=== PATIENT | female | born 1960 | race African-American/Black ===

== ENCOUNTER 2018-10-14 21:41 | Inpatient (IN) | payer OTHER ==
--- NOTE | 2018-10-14 23:09 | PDOC ---
History of Present Illness - General Stated Complaint: PAIN History Source: Patient Exam Limitations: No Limitations - History of Present Illness Initial Comments: 10/14/18 23:02 58 yo F with a hx of IDDM, CAD, HTN, and hypothyroidism presents to the emergency department with acute onset of LLQ and left flank pain that began this morning. She states it awoke her from sleep. Described as sharp, 9/10, comes and goes, non radiating, and worsens with movement. She states she did not take any relieving medications. She states "I haven't eaten all week" because of poor appetite and had last bowel movement 1 week ago (endorses constipation). Endorses increased urinary frequency, but denies dysuria and hematuria. Denies nausea and vomiting. Denies the following: fever, chills, chest pain, SOB, visual changes, back pain, diarrhea, hematochezia, melena, and leg pain/swelling. Pmhx: Refer to above Shx: None Meds: insulin, synthroid, lipitor, and aspirin 81 mg Allergies: PCN Social: Denies tobacco, alcohol, and substance abuse. 10/15/18 00:02 Past History - Past Medical History Allergies/Adverse Reactions: Allergies Allergy/AdvReac Type Severity Reaction Status Date / Time Penicillins Allergy Verified 04/13/16 01:41 Home Medications: Ambulatory Orders Aspirin [ASA -] 81 mg PO DAILY 01/09/15 Atorvastatin Ca [Lipitor] 20 mg PO DAILY 01/09/15 Levothyroxine [Synthroid -] 100 mcg PO DAILY@0700 01/09/15 predniSONE [Deltasone -] 5 mg PO HS 01/09/15 predniSONE [Deltasone -] 10 mg PO AM 01/09/15 Metoprolol Tartrate 25 mg PO DAILY 07/28/15 Alendronate Sodium [Fosamax] 10 mg PO DAILY 04/13/16 Ezetimibe [Zetia] 10 mg PO DAILY 04/13/16 metFORMIN HCL [Metformin HCl] 500 mg PO BID 04/13/16 Cardiac Disorders: Yes (SVT.) Diabetes: Yes HTN: Yes Hypercholesterolemia: Yes Thyroid Disease: Yes (HYPO.) - Surgical History 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) - Immunization History Immunization Up to Date: No - Suicide/Smoking/Psychosocial Hx Smoking History: Current some day smoker Have you smoked in the past 12 months: Yes Information on smoking cessation initiated: No Hx Alcohol Use: No Drug/Substance Use Hx: No Substance Use Type: None Hx Substance Use Treatment: No Review of Systems - Review of Systems Able to Perform ROS?: Yes Is the patient limited Pashto proficient: No Constitutional: No: Chills, Diaphoresis, Fever HEENTM: No: Recent change in vision, Nose Pain, Throat Pain, Mouth Pain Respiratory: No: Cough, Shortness of Breath, SOB with Exertion Cardiac (ROS): No: Chest Pain, Lightheadedness, Palpitations, Syncope, Chest Tightness ABD/GI: Yes: Poor Appetite, Poor Fluid Intake. No: Constipated, Diarrhea, Nausea, Rectal Bleeding, Vomiting, Tarry Stools : Yes: Frequency. No: Burning, Dysuria, Hematuria, Incontinence Musculoskeletal: No: Back Pain, Gout, Joint Pain Integumentary: No: Lesions, Lumps, Rash Neurological: No: Headache, Numbness, Tremors, Weakness, Dizziness Psychiatric: No: Change in Appetite Endocrine: No: Unexplained Weight Gain Hematologic/Lymphatic: No: Anemia *Physical Exam - Vital Signs Last Vital Signs Temp Pulse Resp BP Pulse Ox 99.4 F 94 H 18 133/70 98 10/14/18 22:38 10/14/18 22:38 10/14/18 22:38 10/14/18 22:38 10/14/18 22:38 - Physical Exam General Appearance: Yes: Nourished, Appropriately Dressed HEENT: positive: EOMI, DAVID. negative: Scleral Icterus (R), Scleral Icterus (L) , Muffled/Hoarse voice Neck: positive: Trachea midline. negative: Decreased range of motion, Lymphadenopathy (R), Lymphadenopathy (L) Respiratory/Chest: positive: Lungs Clear, Decreased Breath Sounds. negative: Chest Tender, Respiratory Distress, Accessory Muscle Use Cardiovascular: positive: Regular Rhythm, Regular Rate, S1, S2. negative: Systolic Murmur Gastrointestinal/Abdominal: positive: Normal Bowel Sounds, Tender (diffusely tender with point of maximal tenderness in the LLQ and left flank) Lymphatic: negative: Adenopathy Musculoskeletal: positive: Normal Inspection, CVA Tenderness (L). negative: CVA Tenderness (R) Extremity: positive: Normal Capillary Refill, Normal Inspection, Normal Range of Motion. negative: Tender Integumentary: positive: Normal Color, Dry, Warm Neurologic: positive: Alert, Normal Mood/Affect, Normal Response Heart Score/ECG Review - ECG Intrepretation Comment:: 10/15/18 09:18 ventricular rate is 139, QRS is 70 ms, QTc is 538 ms. Sinus tachycardia with t wave inversion in V2. ED Treatment Course - LABORATORY CBC & Chemistry Diagram: 10/15/18 02:34 10/15/18 02:34 Medical Decision Making - Medical Decision Making 10/14/18 23:34 58 yo F with a hx of IDDM, CAD, HTN, and hypothyroidism presents to the emergency department with acute onset of LLQ and left flank pain that began this morning. Initial vitals: Initial Vital Signs Temp Pulse Resp BP Pulse Ox 99.4 F 94 H 18 133/70 98 10/14/18 22:38 10/14/18 22:38 10/14/18 22:38 10/14/18 22:38 10/14/18 22:38 Work up: ddx: constipation vs nephrolithiasis vs UTI vs msk strain vs diverticulosis labs: cbc, cmp, ua, urine culture, treatment: tylenol, percocet, NS 1 liter Laboratory Tests 10/14/18 10/15/18 10/15/18 23:52 01:04 01:04 WBC Cancelled Corrected WBC (auto) Cancelled RBC Cancelled Hgb Cancelled Hct Cancelled MCV Cancelled MCH Cancelled MCHC Cancelled RDW Cancelled Plt Count Cancelled MPV Cancelled Absolute Neuts (auto) Cancelled Absolute Lymphs (auto) Cancelled Absolute Monos (auto) Cancelled Absolute Eos (auto) Cancelled Absolute Basos (auto) Cancelled Add Manual Diff Cancelled Neutrophils % Cancelled Lymphocytes % Cancelled Monocytes % Cancelled Eosinophils % Cancelled Basophils % Cancelled Nucleated RBC % Cancelled Platelet Estimate Cancelled Platelet Comment Cancelled Normal RBC Morphology Cancelled Sodium Cancelled Potassium Cancelled Chloride Cancelled Carbon Dioxide Cancelled Anion Gap Cancelled BUN Cancelled Creatinine Cancelled Creat Clearance w eGFR Cancelled Random Glucose Cancelled Calcium Cancelled Magnesium Cancelled Total Bilirubin Cancelled AST Cancelled ALT Cancelled Alkaline Phosphatase Cancelled Total Protein Cancelled Albumin Cancelled Urine Color Yellow Urine Appearance Slcloudy Urine pH 5.0 Ur Specific [place] 1.018 Urine Protein Negative Urine Glucose (UA) Negative Urine Ketones 1+ H Urine Blood Negative Urine Nitrite Negative Urine Bilirubin Negative Urine Urobilinogen Negative Ur Leukocyte Esterase 3+ H Urine WBC (Auto) 51 Urine RBC (Auto) 2 Ur Epithelial Cells Rare Hyaline Casts 1 Urine Mucus Rare 10/15/18 10/15/18 02:34 02:34 WBC 7.5 Corrected WBC (auto) RBC 4.35 Hgb 11.0 Hct 34.4 D MCV 79.2 L MCH 25.4 L MCHC 32.0 RDW 12.9 Plt Count 345 MPV 7.9 Absolute Neuts (auto) 3.3 Absolute Lymphs (auto) Absolute Monos (auto) Absolute Eos (auto) Absolute Basos (auto) Add Manual Diff Neutrophils % 44.0 D Lymphocytes % 40.0 D Monocytes % 13.2 H D Eosinophils % 1.9 D Basophils % 0.9 Nucleated RBC % 0 Platelet Estimate Platelet Comment Normal RBC Morphology Sodium 136 Potassium 4.0 Chloride 100 Carbon Dioxide 27 Anion Gap 9 BUN 7 Creatinine 1.1 Creat Clearance w eGFR 51.38 Random Glucose 71 L Calcium 9.4 Magnesium 1.8 Total Bilirubin 0.7 AST 37 ALT 22 Alkaline Phosphatase 71 Total Protein 7.6 Albumin 3.3 L Urine Color Urine Appearance Urine pH Ur Specific [place] Urine Protein Urine Glucose (UA) Urine Ketones Urine Blood Urine Nitrite Urine Bilirubin Urine Urobilinogen Ur Leukocyte Esterase Urine WBC (Auto) Urine RBC (Auto) Ur Epithelial Cells Hyaline Casts Urine Mucus UA showed 3+ leuk esterase with WBC in the urine. CT abdomen and pelvis was ordered and incidentally, a left lower lobe consolidation processes was seen and written in the preliminary report by the [facility] service. She was started on levaquin prior to the CT report for the UTI. Given that she is living in a halfway setting and has difficult to control pain, she should be admitted for iv abx. Dispo: Admit *DC/Admit/Observation/Transfer Diagnosis at time of Disposition: UTI (lower urinary tract infection) Pneumonia Qualifiers: Pneumonia type: due to unspecified organism Laterality: left Lung location: lower lobe of lung Qualified Code(s): J18.1 - Lobar pneumonia, unspecified organism - Referrals - Patient Instructions - Post Discharge Activity
[2018-10-15] LABS: URINE APPEARANCE SLCLOUDY; URINE BILIRUBIN NEGATIVE (<2.0 mg/dL); URINE COLOR YELLOW; URINE GLUCOSE (UA) NEGATIVE (NEGATIVE); URINE KETONE 1+ (NEGATIVE); URINE LEUK ESTERASE 3+ (NEGATIVE); URINE NITRITE NEGATIVE (NEGATIVE); URINE PROTEIN NEGATIVE (NEGATIVE); URINE UROBILINOGEN NEGATIVE mg/dL (0.2-1.0)
[2018-10-15 00:25] LABS: EPI CELLS RARE /HPF (FEW); URINE HYALINE CAST 1 /lpf; URINE MUCUS RARE
[2018-10-15] MEDS ORDERED: SODIUM CHLORIDE 0.9% 1000 ML INFUS.BAG IV ONE (00:34)
[2018-10-15] MEDS ORDERED: ACETAMINOPHEN 1000 MG/100 ML VIAL (NON FORMULARY) IVPB ONE ×2 (00:35→19:30)
--- NOTE | 2018-10-15 00:50 | PDOC ---
Attending Attestation - Resident Resident Name: Lai Benson - ED Attending Attestation I have performed the following: I have examined & evaluated the patient, The case was reviewed & discussed with the resident, I agree w/resident's findings & plan, Exceptions are as noted - Medical Decision Making 10/15/18 00:49 I, Dr. Griselda Shipley, DO, attest that this document has been prepared under my direction and personally reviewed by me in its entirety. I further attest, that it accurately reflects all work, treatment, procedures and medical decision -making performed by me. 10/15/18 00:49 a/p: 58yo female with hx of DM presents for eval of constipation and dysuria -nausea and vomiting yesterday, diffuse abd pain -also with L flank and suprapubic pain -urgency and dysuria today -concern for UTI, but new onset constipation -will send labs, ua, ivf hydration -L cva ttp concern for pyelo vs renal colic -n/v and constipation -will obtain ct abd /pelvis -will monitor and reassess -pt is nontoxic in appearance, but appears uncomfortable -will give iv tylenol for pain <Griselda Shipley - Last Filed: 10/15/18 00:49> - HPI HPI: 10/15/18 01:15 The patient is a 58 year old female, with a significant past medical history of IDDM, CAD, HTN, and hypothyroidism, who presents to the emergency department with, LLQ and left flank pain. She describes her pain as a sudden onset, 9/10, and nonradiating. Allergies: Penicillins - Physicial Exam PE: 10/15/18 01:15 Constitutional: Awake, alert, oriented. No acute distress. Head: Normocephalic. Atraumatic Eyes: PERRL. EOMI. Conjunctivae are not pale. ENT: Mucous membranes are moist and intact. Posterior pharynx without exudates or erythema. Uvula midline. Neck: Supple. Full ROM. No lymphadenopathy. Cardiovascular: Tachycardic. Distal pulses are 2+ and symmetric. Pulmonary/Chest: No evidence of respiratory distress. Clear to auscultation bilaterally No wheezing, rales or rhonchi. +Abdominal: Diffuse suprapubic tenderness. Soft and non-distended. No rebound , guarding or rigidity. No organomegaly. No palpable masses. Good bowel sounds. +Back: Left CVA and flank tenderness. Musculoskeletal: No edema. No cyanosis. No clubbing. Full range of motion in all extremities. No calf tenderness. Radial/pedal pulses are intact and 2+ bilaterally Skin: Skin is warm and dry. No petechiae. No purpura. Neurological: Alert and oriented to person, place, and time. Cranial nerves II -XII are grossly intact. Normal speech. Strength is grossly symmetric. No sensory deficits. Psychiatric: Good eye contact. Normal interaction, affect and behavior. <Patricia Do - Last Filed: 10/15/18 01:15> - Medical Decision Making 10/15/18 03:17 I received pt in signout. She has a UTI and she has a left sided infiltrate. She complains of left flank pain. We will admit her for medicine observation admission, as she will require eval and abx.. We will not send her home with oral abx att this time, as she complains of N/D/abd pain 10/15/18 04:46 Pt will be hydrated with NSS and she received IV abx. <Jessy Guerin - Last Filed: 10/15/18 04:46> Attestations - Attestations 10/15/18 01:15 Documentation prepared by Patricia Do, acting as medical pathologist for Griselda Shipley DO. <Patricia Do - Last Filed: 10/15/18 01:15>
[2018-10-15] MEDS ORDERED: levoFLOXacin 750 MG TABLET PO ONE (01:11)
[2018-10-15] MEDS ORDERED: ACETAMINOPHEN 500 MG TABLET (FP) PO ONE (01:11)
[2018-10-15 02:58] LABS: BASO % 0.9 % (0-2.0); EOS % 1.9 % (0-4.5); HEMATOCRIT 34.4 % (32.4-45.2); MCH 25.4 pg (25.7-33.7); MEAN CELL VOLUME 79.2 fl (80-96); MEAN PLT VOLUME 7.9 fl (7.5-11.1); MONO % 13.2 % (3.8-10.2); PLATELET COUNT 345 K/MM3 (134-434); RBC 4.35 M/mm3 (3.60-5.2); RDW 12.9 % (11.6-15.6); WHITE BLOOD COUNT 7.5 K/mm3 (4.0-10.0)
[2018-10-15 03:20] LABS: ALBUMIN 3.3 g/dl (3.4-5.0); ALK PHOS 71 U/L (45-117); ANION GAP 9 MMOL/L (8-16); BILIRUBIN,TOTAL 0.7 mg/dL (0.2-1); BLOOD UREA NITROGEN 7 mg/dL (7-18); CALCIUM 9.4 mg/dL (8.5-10.1); CHLORIDE 100 mmol/L (98-107); CO2 27 mmol/L (21-32); CREATININE 1.1 mg/dL (0.55-1.3); GLUCOSE,RANDOM 71 mg/dL (74-106); MAGNESIUM 1.8 mg/dL (1.8-2.4); SGOT/AST 37 U/L (15-37); SGPT/ALT 22 U/L (13-61); SODIUM 136 mmol/L (136-145); TOT PROT 7.6 g/dl (6.4-8.2)
[2018-10-15] MEDS ORDERED: SODIUM CHLORIDE 1,000 ML IV STA (03:50)
--- NOTE | 2018-10-15 04:46 | PN ---
Teaching Attending Note Name of Resident: Mikayla Almanza ATTENDING PHYSICIAN STATEMENT I saw and evaluated the patient. I reviewed the resident's note and discussed the case with the resident. I agree with the resident's findings and plan as documented. SUBJECTIVE: Patient is a 58 year old woman with a history of DM, CAD, SVT, HTN, pituitary tumor removal (1995), and hypothyroidism presents to the ER with acute onset of LLQ and left flank pain that began this morning. She states it awoke her from sleep. Described as sharp, 9/10, comes and goes, non radiating, and worsens with movement. She states she did not take any relieving medications. She states "I haven't eaten all week" because of poor appetite and had last bowel movement 1 week ago. Has increased urinary frequency, but denies dysuria and hematuria. Denies nausea and vomiting. Denies the following: fever, chills, chest pain, SOB, visual changes, back pain, diarrhea, hematochezia, melena, and leg pain/swelling. OBJECTIVE: Alert Vital Signs Period Temp Pulse Resp BP Sys/Long Pulse Ox Last 24 Hr 99.4 F 94 18 133/70 98 HEENT: No Jaundice, eye redness or discharge, PERRLA, EOMI. Normocephalic, atraumatic. External ears are normal and hearing is grossly intact. No nasal discharge. Neck: Supple, nontender. No palpable adenopathy or thyromegaly. No JVD Chest: Good effort. Clear to auscultation and percussion. Heart: Regular. No S3, rub or murmur Abdomen: Not distended, soft, tender lower left Q abdomen and no HSM. No rebound ; + guarding. Normoactive bowel sounds. Ext: Peripheral pulses intact. No leg edema. Skin: Warm and dry. No petechiae, rash or ecchymosis. Neuro: Alert. Oriented x3. CN 2-12 grossly intact. Sensation grossly intact in all four extremities and DTR are symmetric. Home Medications Medication Instructions Recorded Aspirin [ASA -] 81 mg PO DAILY 01/09/15 Atorvastatin Ca [Lipitor] 20 mg PO DAILY 01/09/15 Levothyroxine [Synthroid -] 100 mcg PO DAILY@0700 01/09/15 predniSONE [Deltasone -] 5 mg PO HS 01/09/15 predniSONE [Deltasone -] 10 mg PO AM 01/09/15 Metoprolol Tartrate 25 mg PO DAILY 07/28/15 Alendronate Sodium [Fosamax] 10 mg PO DAILY 04/13/16 Ezetimibe [Zetia] 10 mg PO DAILY 04/13/16 metFORMIN HCL [Metformin HCl] 500 mg PO BID 04/13/16 Abnormal Lab Results 10/14/18 10/15/18 10/15/18 23:52 02:34 02:34 MCV 79.2 L MCH 25.4 L Monocytes % 13.2 H D Random Glucose 71 L Albumin 3.3 L Urine Ketones 1+ H Ur Leukocyte Esterase 3+ H ASSESSMENT AND PLAN: 1. UTI - CT scan of the abdomen shows left side kidney stone and ?LLL infiltrate. She is allergic to penicillin and QT is prolonged. Get CXR to clarify pneumonia. Treat with Aztreonam and azithromycin. Check lactic acid. Treat constipation with Miralax bid and liberal oral fluids. Consult ID and urology. 2. DM - For now, we will hold the home diabetes drugs and implement sliding scale insulin regimen. Provide comprehensive diabetes care with patient teaching and counseling about the importance of euglycemia, eye care and foot care. 3. DVT prophylaxis - Lovenox 40 mg SQ q 24 hours. 4. Advance directives - Full code
[2018-10-15] MEDS ORDERED: METOPROLOL TARTRATE 5 MG/5 ML VIAL IVPUSH ONE (05:10)
[2018-10-15] MEDS ORDERED: SODIUM CHLORIDE 1,000 ML IV SCH (05:15)
--- NOTE | 2018-10-15 05:24 | HP ---
CHIEF COMPLAINT: L flank pain x 1 day PCP: Dr. Lowery HISTORY OF PRESENT ILLNESS: 58 y/o F with hx IDDM, CAD, HTN, hypothyroidism, who presents to the ED c/o LLQ pain over the past day. As per pt, pain in her L flank began at 4AM yesterday. States that it began at rest. Radiated to her LLQ and also to her back. During this time, she also endorses BALTAZAR and decreased urinary void volume. Denies AMIN, fever, chills, cough, recent infections, chest pain or pressure, or changes in bowel function. Of note, pt has been living at the [facility] over the past week. Prior, she had lived with her sister however was kicked out of the house. ER course was notable for: (1) levaquin (2) Qtc 538 ms (3) IV NS Recent Travel: denies PAST MEDICAL HISTORY: as above PAST SURGICAL HISTORY: pituitary tumor removal (2001) Social History: has been living at the [facility] over the past week. Smoking: denies Alcohol: denies Drugs: denies Family History: denies Allergies Penicillins Allergy (Verified 04/13/16 01:41) - hives HOME MEDICATIONS: Home Medications Medication Instructions Recorded Aspirin [ASA -] 81 mg PO DAILY 01/09/15 Atorvastatin Ca [Lipitor] 20 mg PO DAILY 01/09/15 Levothyroxine [Synthroid -] 100 mcg PO DAILY@0700 01/09/15 predniSONE [Deltasone -] 5 mg PO HS 01/09/15 predniSONE [Deltasone -] 10 mg PO AM 01/09/15 Metoprolol Tartrate 25 mg PO DAILY 07/28/15 Alendronate Sodium [Fosamax] 10 mg PO DAILY 04/13/16 Ezetimibe [Zetia] 10 mg PO DAILY 04/13/16 metFORMIN HCL [Metformin HCl] 500 mg PO BID 04/13/16 will need to med rec with pharmacy in AM when open REVIEW OF SYSTEMS CONSTITUTIONAL: Absent: fever, chills, diaphoresis, generalized weakness, malaise, loss of appetite, weight change HEENT: Absent: rhinorrhea, nasal congestion, throat pain, throat swelling, difficulty swallowing, mouth swelling, ear pain, eye pain, visual changes CARDIOVASCULAR: Absent: chest pain, syncope, palpitations, irregular heart rate, lightheadedness , peripheral edema RESPIRATORY: +BALTAZAR Absent: cough, shortness of breath, orthopnea, wheezing, stridor, hemoptysis GASTROINTESTINAL: +abdominal pain Absent: abdominal distension, nausea, vomiting, diarrhea, constipation, melena, hematochezia GENITOURINARY: Absent: dysuria, frequency, urgency, hesitancy, hematuria, flank pain, genital pain MUSCULOSKELETAL: Absent: myalgia, arthralgia, joint swelling, back pain, neck pain SKIN: Absent: rash, itching, pallor HEMATOLOGIC/IMMUNOLOGIC: Absent: easy bleeding, easy bruising, lymphadenopathy, frequent infections ENDOCRINE: Absent: unexplained weight gain, unexplained weight loss, heat intolerance, cold intolerance NEUROLOGIC: Absent: headache, focal weakness or paresthesias, dizziness, unsteady gait, seizure, mental status changes, bladder or bowel incontinence PSYCHIATRIC: Absent: anxiety, depression, suicidal or homicidal ideation, hallucinations. PHYSICAL EXAMINATION Vital Signs - 24 hr 10/14/18 22:38 Temperature 99.4 F Pulse Rate 94 H Respiratory 18 Rate Blood Pressure 133/70 O2 Sat by Pulse 98 Oximetry (%) GENERAL: Tired. in no acute distress HEAD: Normal with no signs of trauma. EYES: Pupils equal, round and reactive to light, extraocular movements intact, sclera anicteric, conjunctiva clear. EARS, NOSE, THROAT: Ears normal, nares patent, oropharynx clear without exudates. Dry mucous membranes. NECK: Normal range of motion, supple LUNGS: +decreased breath sounds at bases. HEART: Regular rate and rhythm, normal S1 and S2 without murmur, rub or gallop. ABDOMEN: Soft,+diffusely tender - epigastrium, not distended, normoactive bowel sounds, no guarding, no rebound MUSCULOSKELETAL: Normal range of motion at all joints. LOWER EXTREMITIES: 2+ pt pulses, warm, well-perfused. No calf tenderness. No peripheral edema. NEUROLOGICAL: Cranial nerves II-XII intact. PSYCHIATRIC: Cooperative. Laboratory Tests 10/14/18 10/15/18 10/15/18 23:52 02:34 02:34 WBC 7.5 Hgb 11.0 Hct 34.4 D Plt Count 345 Random Glucose 71 L Urine Color Yellow Urine Appearance Slcloudy Urine Protein Negative Urine Glucose (UA) Negative Urine Ketones 1+ H Ur Leukocyte Esterase 3+ H Urine WBC (Auto) 51 Urine RBC (Auto) 2 Ur Epithelial Cells Rare ASSESSMENT/PLAN: 58 y/o F with hx IDDM, CAD, HTN, hypothyroidism, who presents to the ED c/o LLQ pain over the past day. As per pt, pain in her L flank began at 4AM yesterday. #L flank pain On CTAP, pt found to have R nephrolithiasis. UA also with likely UTI may explain LLQ/flank pain d/t PCN allergy; will tx UTI with azactam 1gm IVPB q8h, IV NS f/u blood cx, Ucx, lactic. urology consult: Dr. Odonnell #incidental LLL PNA as seen on CTAP, however need CXR to further dx. likely comm acq PNA as living in half-way currently if PNA evident, can add azithromycin avoid qtc prolonging agents. had received levaquin in ED (qtc 538ms) ID consult: Dr. Hu #sinus tachycardia with rate into 120-130's. likely 2/2 vol depletion, infection. will give IV lopressor 5mg IVP x 1. will start metoprolol succinate in AM to avoid dropping BP low #IDDM BGM q4h ISS ACHS #HTN -current control with metoprolol succinate -will need to call pharmacy in AM to verify meds #F/E/N IV NS 100 cc/hr continue to follow lytes Sodium controlled diet #PPX Dvt: Hep SQ 5000 TID #Dispo med-surg Visit type - Emergency Visit Emergency Visit: Yes ED Registration Date: 10/15/18 Care time: The patient presented to the Emergency Department on the above date and was hospitalized for further evaluation of their emergent condition. - New Patient This patient is new to me today: Yes Date on this admission: 10/15/18 - Critical Care Critical Care patient: No
[2018-10-15] MEDS ORDERED: METOPROLOL TARTRATE 5 MG/5 ML VIAL ONE (06:09)
[2018-10-15] MEDS: HEPARIN NA (PORCINE) 5,000 UNITS/ML 1ML VIAL SQ SCH ×3 (06:14→22:50)
[2018-10-15] MEDS: INSULIN SLIDING SCALE (NOVOLOG) 1 VIAL SQ SCH ×4 (07:20→22:50)
--- NOTE | 2018-10-15 08:47 | HOSP ---
Subjective - Review of Symptoms Events since last encounter: Patient states that is not feeling well, but better than last night. Vital Signs Temperature 99.4 F 10/15/18 07:38 Pulse Rate 63 10/15/18 07:38 Respiratory Rate 16 10/15/18 07:38 Blood Pressure 95/65 10/15/18 07:38 O2 Sat by Pulse Oximetry (%) 100 10/15/18 07:38 GENERAL: feels tired. in mild distress HEAD: Normal with no signs of trauma. EYES: Pupils equal, round and reactive to light, extraocular movements intact, sclera anicteric, conjunctiva clear. EARS, NOSE, THROAT: Ears normal, oropharynx clear without exudates. Dry mucous membranes. NECK: Normal range of motion, supple LUNGS: +decreased breath sounds at bases. HEART: Regular rate and rhythm, normal S1 and S2 without murmur, rub or gallop. ABDOMEN: Soft, positive for tenderness mid abdomenal area, not distended, normoactive bowel sounds, no guarding, no rebound MUSCULOSKELETAL: Normal range of motion at all joints. EXTREMITIES: 2+ pt pulses, warm, well-perfused. No calf tenderness. No peripheral edema. NEUROLOGICAL: Cranial nerves II-XII intact. PSYCHIATRIC: Cooperative. CBCD WBC 7.5 K/mm3 (4.0-10.0) 10/15/18 02:34 RBC 4.35 M/mm3 (3.60-5.2) 10/15/18 02:34 Hgb 11.0 GM/dL (10.7-15.3) 10/15/18 02:34 Hct 34.4 % (32.4-45.2) D 10/15/18 02:34 MCV 79.2 fl (80-96) L 10/15/18 02:34 MCHC 32.0 g/dl (32.0-36.0) 10/15/18 02:34 RDW 12.9 % (11.6-15.6) 10/15/18 02:34 Plt Count 345 K/MM3 (134-434) 10/15/18 02:34 MPV 7.9 fl (7.5-11.1) 10/15/18 02:34 CMP Sodium 136 mmol/L (136-145) 10/15/18 02:34 Potassium 4.0 mmol/L (3.5-5.1) 10/15/18 02:34 Chloride 100 mmol/L (98-107) 10/15/18 02:34 Carbon Dioxide 27 mmol/L (21-32) 10/15/18 02:34 Anion Gap 9 MMOL/L (8-16) 10/15/18 02:34 BUN 7 mg/dL (7-18) 10/15/18 02:34 Creatinine 1.1 mg/dL (0.55-1.3) 10/15/18 02:34 Creat Clearance w eGFR 51.38 (>60) 10/15/18 02:34 Random Glucose 71 mg/dL (74-106) L 10/15/18 02:34 Calcium 9.4 mg/dL (8.5-10.1) 10/15/18 02:34 Total Bilirubin 0.7 mg/dL (0.2-1) 10/15/18 02:34 AST 37 U/L (15-37) 10/15/18 02:34 ALT 22 U/L (13-61) 10/15/18 02:34 Alkaline Phosphatase 71 U/L (45-117) 10/15/18 02:34 Total Protein 7.6 g/dl (6.4-8.2) 10/15/18 02:34 Albumin 3.3 g/dl (3.4-5.0) L 10/15/18 02:34 Current Medications Generic Name Dose Route Start Last Admin Trade Name Freq PRN Reason Stop Dose Admin Heparin Sodium (Porcine) 5,000 unit 10/15/18 06:00 10/15/18 06:14 Heparin - SQ 5,000 unit TID VIRAL Administration Sodium Chloride 1,000 mls @ 100 mls/hr 10/15/18 05:15 10/15/18 06:15 Normal Saline - IV 10/16/18 15:14 100 mls/hr ASDIR VIRAL Administration Aztreonam 1 gm/ Dextrose 50 mls @ 100 mls/hr 10/15/18 10:00 IVPB Q8H-IV VIRAL Protocol Aztreonam 1 gm/ Dextrose 50 mls @ 100 mls/hr 10/15/18 10:00 IVPB 10/16/18 02:29 Q8H-IV VIRAL Protocol Insulin Aspart 1 vial 10/15/18 07:00 10/15/18 07:20 Novolog Vial Sliding Scale - SQ Not Given ACHS [facility] Protocol Metoprolol Succinate 25 mg 10/15/18 10:00 Toprol Xl - PO DAILY [facility] Home Medications Medication Instructions Recorded Aspirin [ASA -] 81 mg PO DAILY 01/09/15 Atorvastatin Ca [Lipitor] 20 mg PO DAILY 01/09/15 Levothyroxine [Synthroid -] 100 mcg PO DAILY@0700 01/09/15 predniSONE [Deltasone -] 5 mg PO HS 01/09/15 predniSONE [Deltasone -] 10 mg PO AM 01/09/15 Metoprolol Tartrate 25 mg PO DAILY 07/28/15 Alendronate Sodium [Fosamax] 10 mg PO DAILY 04/13/16 Ezetimibe [Zetia] 10 mg PO DAILY 04/13/16 metFORMIN HCL [Metformin HCl] 500 mg PO BID 04/13/16 ASSESSMENT/PLAN: 58 y/o F with hx IDDM, CAD, HTN, hypothyroidism, who presents to the ED c/o LLQ pain over the past day. As per pt, pain in her L flank began at 4AM yesterday. # LLL PNA on CTAP on IV antibiotic , ID on the case , patient lives in long term currently # Prolonged qtc , avoid prolonging agents. (qtc 538ms), will repeat EKG #Acute Left flank pain ;On CTAP, pt found to have R nephrolithiasis. UA also with likely UTI may explain LLQ/flank pain, on azactam 1gm IVPB q8h, since allergic to PCN ,F/u blood cx, Ucx, lactic. Urology consult: Dr. Odonnell #sinus tachycardia improved on IVF #T2DM BGM q4h, ISS ACHS #HTN continue meds. -will need to call pharmacy in AM to verify meds DVT PPX: Hep SQ 5000 TID Physical Examination Vital Signs: Vital Signs Temperature 99.4 F 10/15/18 07:38 Pulse Rate 63 10/15/18 07:38 Respiratory Rate 16 10/15/18 07:38 Blood Pressure 95/65 10/15/18 07:38 O2 Sat by Pulse Oximetry (%) 100 10/15/18 07:38 Labs: CBC, BMP 10/15/18 02:34 10/15/18 02:34
[2018-10-15] MEDS ORDERED: NITROFURANTOIN MACROCRYSTAL 50 MG CAPSULE (FP) PO SCH (10:00)
[2018-10-15] MEDS ORDERED: AZTREONAM 1 GM in DEXTROSE 5%-WATER - 50 ML IVPB SCH (10:00)
[2018-10-15] MEDS: metoPROLOL SUCCINATE 25 MG TAB.SR.24H (FP) PO SCH (11:06)
--- NOTE | 2018-10-15 11:53 | EKG ---
Test Reason : Blood Pressure : / mmHG Vent. Rate : 139 BPM Atrial Rate : 192 BPM P-R Int : 000 ms QRS Dur : 070 ms QT Int : 354 ms P-R-T Axes : 000 002 076 degrees QTc Int : 538 ms SUPRAVENTRICULAR TACHYCARDIA WITH OCCASIONAL PREMATURE VENTRICULAR COMPLEXES PROBABLY SHORT R-P TACHYCARDIA, CONSIDER AVNRT NONSPECIFIC T WAVE ABNORMALITY ABNORMAL ECG WHEN COMPARED WITH ECG OF 06-OCT-2017 13:09, SVT NOW PRESENT WITH ST-T ABNORMALITIES Confirmed by ROCÍO SOFIA MD ([id number]) on 10/15/2018 11:52:50 AM Referred By: Confirmed By:ROCÍO SOFIA MD
--- NOTE | 2018-10-15 15:52 | PN ---
Progress Note (short form) - Note Progress Note: ID Consult dictated ?LLL pneumonia PCN allergy Prolonged QT Await c/s Empiric vancomycin aztreonam
[2018-10-15] MEDS: SODIUM CHLORIDE 1,000 ML IV SCH (16:13)
[2018-10-15] MEDS ORDERED: VANCOMYCIN 1 GRAM (PRE-DOCKED) 1,000 MG/250 ML BAG IVPB ONE (16:14)
[2018-10-15] MEDS: VANCOMYCIN 1 GRAM (PRE-DOCKED) 1,000 MG/250 ML BAG IVPB SCH (16:15)
--- NOTE | 2018-10-15 16:47 | CONS ---
DATE OF CONSULTATION: DATE OF DICTATION: 10/15/2018 The patient is a 58-year-old female who is evaluated for possible pneumonia. She was admitted to the hospital with 1-day history of left-sided flank and left-sided abdominal pain. The patient is a poor informant. According to the notes, she had developed left-sided flank and abdominal pain at 4 a.m. on the morning of presentation. She also complained of anorexia and constipation for 1 week. She presented to the emergency room where she was found on exam to have left-sided abdominal tenderness. A CAT scan of the abdomen and pelvis was performed and showed no acute abdominal pathology. She had a right renal stone which was nonobstructing and was noted to have left lower lobe lung atelectasis and consolidation. She does not give a reliable history. She complains of left-sided abdominal and flank pain. She denies any shortness of breath, cough, or sputum production. No hemoptysis. She denies any associated fever or chills. PAST MEDICAL HISTORY: Positive for insulin-dependent diabetes mellitus, coronary artery disease, hypertension, hypothyroidism. ALLERGIES: PENICILLIN. When questioned, patient reports hives. When further questioned about throat swelling or tongue swelling, she replied in the affirmative. MEDICATIONS: Include insulin, Synthroid, Lipitor, aspirin. SOCIAL HISTORY: She denied tobacco, alcohol, or illicit drug use. Denies risk factors for HIV. According to the notes, she has recently been living in a penit[facility]iary. LABORATORY DATA: White count 7.5, creatinine 1.1, lactic acid 2.7. CAT scan as described. Urinalysis 51 white cells. PHYSICAL EXAMINATION: General: She is awake and alert. She is in moderate distress secondary to left-sided flank pain. Vital Signs: Temperature 99, blood pressure 112/60, pulse 97 and regular, respirations 16 per minute. HEENT: Sclerae anicteric. Heart: Sounds S1, S2. Lungs: Clear with decreased breath sounds at the bases bilaterally. Abdomen: Soft. There is left-sided abdominal and left-sided flank pain. Extremities: Positive for edema. IMPRESSION: 1. Possible left lower lobe pneumonia, rule out community acquired versus atypical. 2. Urinary tract infection. Rule out sepsis secondary to urinary tract infection. 3. Lactic acidosis. 4. PENICILLIN ALLERGY. POSSIBLE MAJOR PENICILLIN ALLERGY 5. Prolonged QT interval on EKG. Await cultures. Obtain sputum culture, urine legionella antigen and pneumococcal antigen, empiric coverage for lung versus urinary tract focus of infection in this diabetic with POSSIBLE MAJOR PENICILLIN ALLERGY with vancomycin and Azactam. Await culture results. Will follow. Thank you for the kind referral. SHIRA NUÑEZ M.D. VIVIANA/[id number]
[2018-10-15] MEDS: AZTREONAM 1 GM in DEXTROSE 5%-WATER - 50 ML IVPB SCH (18:05)
[2018-10-16] MEDS ORDERED: MORPHINE SULFATE 2 MG/ML VIAL IVPUSH ONE (00:16)
[2018-10-16] MEDS: AZTREONAM 1 GM in DEXTROSE 5%-WATER - 50 ML IVPB SCH ×3 (02:09→17:45)
[2018-10-16] MEDS ORDERED: PT OWN MED DRAWER 7, Y5N ONE ×3 (03:24→17:25)
[2018-10-16] MEDS: VANCOMYCIN 1 GRAM (PRE-DOCKED) 1,000 MG/250 ML BAG IVPB SCH ×2 (03:41→16:37)
[2018-10-16] MEDS: ACETAMINOPHEN 500 MG TABLET (FP) PO PRN ×2 (05:42→16:40)
[2018-10-16] MEDS: HEPARIN NA (PORCINE) 5,000 UNITS/ML 1ML VIAL SQ SCH ×3 (05:43→21:11)
[2018-10-16] MEDS: INSULIN SLIDING SCALE (NOVOLOG) 1 VIAL SQ SCH ×4 (06:00→21:11)
[2018-10-16 07:51] LABS: BASO % 0.2 % (0-2.0); EOS % 2.7 % (0-4.5); HEMATOCRIT 29.4 % (32.4-45.2); HEMOGLOBIN 10.1 GM/dL (10.7-15.3); LYMPH % 25.9 % (8-40); MCH 26.8 pg (25.7-33.7); MCHC 34.6 g/dl (32.0-36.0); MEAN CELL VOLUME 77.6 fl (80-96); MEAN PLT VOLUME 8.2 fl (7.5-11.1); MONO % 12.2 % (3.8-10.2); PLATELET COUNT 347 K/MM3 (134-434); RBC 3.78 M/mm3 (3.60-5.2); RDW 13.2 % (11.6-15.6)
[2018-10-16 07:59] LABS: ALBUMIN 2.5 g/dl (3.4-5.0); ALK PHOS 78 U/L (45-117); ANION GAP 10 MMOL/L (8-16); BILIRUBIN,TOTAL 1.1 mg/dL (0.2-1); BLOOD UREA NITROGEN 6 mg/dL (7-18); CALCIUM 7.7 mg/dL (8.5-10.1); CHLORIDE 103 mmol/L (98-107); CO2 23 mmol/L (21-32); GLUCOSE,RANDOM 77 mg/dL (74-106); MAGNESIUM 1.4 mg/dL (1.8-2.4); PHOSPHOROUS 2.6 mg/dL (2.5-4.9); POTASSIUM 4.1 mmol/L (3.5-5.1); SGOT/AST 46 U/L (15-37); SGPT/ALT 21 U/L (13-61); SODIUM 136 mmol/L (136-145)
[2018-10-16] MEDS ORDERED: MAGNESIUM SULF 50% (8.12 MEQ/2 ML-1 GM VIAL) IVPB ONE (08:45)
[2018-10-16] MEDS ORDERED: KETOROLAC TROMETHAMINE 30 MG/1 ML VIAL IVPUSH ONE (10:09)
[2018-10-16] MEDS: metoPROLOL SUCCINATE 25 MG TAB.SR.24H (FP) PO SCH (12:33)
--- NOTE | 2018-10-16 13:19 | PN ---
Physical Exam: SUBJECTIVE: Patient seen and examined. Pt. was febrile to 102.7 overnight. Pt. was not cultured as cultures were already drawn earlier that day but was given Tylenol to good effect. Pt. endorses back pain that radiates to chest. EKG was negative for STEMI/NSTEMI. Pt. endorses palpitations. Pt. states that she fees weak and is unable to walk to the bathroom. OBJECTIVE: Vital Signs Period Temp Pulse Resp BP Sys/Long Pulse Ox Last 24 Hr 99.3 F-102.7 F 98-109 16-20 114-138/55-76 96-98 GENERAL: The patient is awake, alert, and fully oriented, in moderate distress d /t pain. EYES: Sclera anicteric, conjunctiva clear. No ptosis. ENT: Ears normal, nares patent, oropharynx clear without exudates, dry mucous membranes. LUNGS: Pt. unable to sit up d/t pain, Breath sounds equal, clear to auscultation bilaterally, no wheezes, no crackles, no accessory muscle use. CVA tenderness HEART: Regular rate and rhythm, S1, S2 without murmur, rub or gallop. ABDOMEN: Soft, diffuse exquisite tenderness to even percussion, dull to percussion, nondistended, normoactive bowel sounds, guarding EXTREMITIES: 2+ dorsal pedal pulses, no calf tenderness, warm, well-perfused, no edema. NEUROLOGICAL: Normal speech, gait not observed. PSYCH: Normal mood, normal affect. SKIN: Warm, dry, normal turgor Laboratory Results - last 24 hr 10/15/18 10/16/18 10/16/18 22:54 05:45 06:30 WBC 8.0 RBC 3.78 Hgb 10.1 L Hct 29.4 L MCV 77.6 L MCH 26.8 MCHC 34.6 RDW 13.2 Plt Count 347 MPV 8.2 Absolute Neuts (auto) 4.7 Neutrophils % 59.0 D Lymphocytes % 25.9 D Monocytes % 12.2 H Eosinophils % 2.7 Basophils % 0.2 Nucleated RBC % 0 Sodium Potassium Chloride Carbon Dioxide Anion Gap BUN Creatinine Creat Clearance w eGFR POC Glucometer [id number] 76 Random Glucose Lactic Acid Calcium Phosphorus Magnesium Total Bilirubin AST ALT Alkaline Phosphatase Total Protein Albumin TSH Free T4 10/16/18 10/16/18 10/16/18 06:30 06:30 06:30 WBC RBC Hgb Hct MCV MCH MCHC RDW Plt Count MPV Absolute Neuts (auto) Neutrophils % Lymphocytes % Monocytes % Eosinophils % Basophils % Nucleated RBC % Sodium 136 Potassium 4.1 Chloride 103 Carbon Dioxide 23 Anion Gap 10 BUN 6 L Creatinine 1.0 Creat Clearance w eGFR 57.35 POC Glucometer Random Glucose 77 Lactic Acid 1.4 Calcium 7.7 L Phosphorus 2.6 Magnesium 1.4 L Total Bilirubin 1.1 H AST 46 H ALT 21 Alkaline Phosphatase 78 Total Protein 6.0 L Albumin 2.5 L TSH < 0.01 L Free T4 0.75 L 10/16/18 12:10 WBC RBC Hgb Hct MCV MCH MCHC RDW Plt Count MPV Absolute Neuts (auto) Neutrophils % Lymphocytes % Monocytes % Eosinophils % Basophils % Nucleated RBC % Sodium Potassium Chloride Carbon Dioxide Anion Gap BUN Creatinine Creat Clearance w eGFR POC Glucometer 68 Random Glucose Lactic Acid Calcium Phosphorus Magnesium Total Bilirubin AST ALT Alkaline Phosphatase Total Protein Albumin TSH Free T4 Active Medications Current Medications Acetaminophen (Tylenol -) 500 mg PO Q6H PRN PRN Reason: PAIN LEVEL 1-5 Last Admin: 10/16/18 05:42 Dose: 500 mg Heparin Sodium (Porcine) (Heparin -) 5,000 unit SQ TID VIRAL Last Admin: 10/16/18 05:43 Dose: 5,000 unit Sodium Chloride (Normal Saline -) 1,000 mls @ 100 mls/hr IV ASDIR VIRAL Last Admin: 10/15/18 16:13 Dose: 100 mls/hr Aztreonam 1 gm/ Dextrose 50 mls @ 100 mls/hr IVPB Q8H-IV [facility]; Protocol Last Admin: 10/16/18 10:48 Dose: 100 mls/hr Vancomycin HCl (Vancomycin (Pre-Docked)) 1,000 mg in 250 mls @ 166.667 mls/hr IVPB Q12H [facility]; Protocol Last Admin: 10/16/18 03:41 Dose: 166.667 mls/hr Insulin Aspart (Novolog Vial Sliding Scale -) 1 vial SQ ACHS [facility]; Protocol Last Admin: 10/16/18 12:33 Dose: Not Given Metoprolol Succinate (Toprol Xl -) 25 mg PO DAILY [facility] Last Admin: 10/16/18 12:33 Dose: Not Given Home Medications Medication Instructions Recorded Aspirin [ASA -] 81 mg PO DAILY 01/09/15 Atorvastatin Ca [Lipitor] 20 mg PO DAILY 01/09/15 Levothyroxine [Synthroid -] 100 mcg PO DAILY@0700 01/09/15 predniSONE [Deltasone -] 5 mg PO HS 01/09/15 predniSONE [Deltasone -] 10 mg PO AM 01/09/15 Metoprolol Tartrate 25 mg PO DAILY 07/28/15 Alendronate Sodium [Fosamax] 10 mg PO DAILY 04/13/16 Ezetimibe [Zetia] 10 mg PO DAILY 04/13/16 metFORMIN HCL [Metformin HCl] 500 mg PO BID 04/13/16 ASSESSMENT/PLAN: 58 y.o. F w/ PMhx of IDDM, CAD, HTN, hypothyroidism, who presents to the ED c/o LLQ pain over the past day. As per pt, pain in her L flank began at 4AM . #Left flank pain 2/2 nephrolithiasis w/ Pyelonephritis CTAP: showed R. 8mm nephrolithiasis in mid pole w/o hydronephrosis. UA + d/t PCN allergy; c/w Aztreonam and Vancomycin (both started 10/15/18) f/u blood cx, Ucx, LA: 2.7-->1.4 Urology consult(Dr. Odonnell) appreciated, f/u rec consider lithotripsy #incidental LLL PNA vs. atelectasis CXR: inderterminate as Pt. had weak inspiratory effort CT A/P: incidental small pleural effusion on left w/ consolidation/atelectasis Likely CAP as living in snf currently and likely due to splinting as deep breaths are painful. Avoid qtc prolonging agents; had received levaquin in ED (QTc 538ms) ID consult (Dr. Hu) appreciated Legionella Ag - #Sinus tachycardia with rate into 120-130's. likely 2/2 vol depletion vs. infection vs. pain c/w Lopressor EKG: Supraventricular Tachycardia, PVCs, w/ ST-T wave abnormalities f/u EKG in morning for QTc #IDDM BGM q4h ISS ACHS #HTN c/w Lopressor #F/E/N IV NS 100 cc/hr monitor electrolytes replete as needed Sodium controlled diet #PPX Dvt: Hep SQ 5000 TID #Dispo med-surg Visit type - Emergency Visit Emergency Visit: Yes ED Registration Date: 10/15/18 Care time: The patient presented to the Emergency Department on the above date and was hospitalized for further evaluation of their emergent condition. - New Patient This patient is new to me today: Yes Date on this admission: 10/16/18 - Critical Care Critical Care patient: No - Discharge Referral Referred to [facility] Med [facility].C.: No
--- NOTE | 2018-10-16 15:05 | PN ---
Teaching Attending Note Name of Resident: Sanchez Carmen ATTENDING PHYSICIAN STATEMENT I saw and evaluated the patient. I reviewed the resident's note and discussed the case with the resident. I agree with the resident's findings and plan as documented. SUBJECTIVE: Patient presented with flank pain. no fever or chills. OBJECTIVE: Vital Signs Temperature 98.5 F 10/16/18 15:03 Pulse Rate 97 H 10/16/18 15:03 Respiratory Rate 18 10/16/18 15:03 Blood Pressure 109/53 L 10/16/18 15:03 O2 Sat by Pulse Oximetry (%) 98 10/15/18 22:00 GENERAL: feels tired. in mild distress HEAD: Normal with no signs of trauma. EYES: Pupils equal, round and reactive to light, extraocular movements intact, sclera anicteric, conjunctiva clear. EARS, NOSE, THROAT: Ears normal, oropharynx clear without exudates. Dry mucous membranes. NECK: Normal range of motion, supple LUNGS: +decreased breath sounds at bases. HEART: Regular rate and rhythm, normal S1 and S2 without murmur, rub or gallop. ABDOMEN: Soft, positive for tenderness mid abdominal area, not distended, normoactive bowel sounds, no guarding, no rebound EXTREMITIES: 2+ pt pulses, warm, well-perfused. No calf tenderness. No peripheral edema. NEUROLOGICAL: Cranial nerves II-XII intact. PSYCHIATRIC: Cooperative. CBCD WBC 8.0 K/mm3 (4.0-10.0) 10/16/18 06:30 RBC 3.78 M/mm3 (3.60-5.2) 10/16/18 06:30 Hgb 10.1 GM/dL (10.7-15.3) L 10/16/18 06:30 Hct 29.4 % (32.4-45.2) L 10/16/18 06:30 MCV 77.6 fl (80-96) L 10/16/18 06:30 MCHC 34.6 g/dl (32.0-36.0) 10/16/18 06:30 RDW 13.2 % (11.6-15.6) 10/16/18 06:30 Plt Count 347 K/MM3 (134-434) 10/16/18 06:30 MPV 8.2 fl (7.5-11.1) 10/16/18 06:30 CMP Sodium 136 mmol/L (136-145) 10/16/18 06:30 Potassium 4.1 mmol/L (3.5-5.1) 10/16/18 06:30 Chloride 103 mmol/L (98-107) 10/16/18 06:30 Carbon Dioxide 23 mmol/L (21-32) 10/16/18 06:30 Anion Gap 10 MMOL/L (8-16) 10/16/18 06:30 BUN 6 mg/dL (7-18) L 10/16/18 06:30 Creatinine 1.0 mg/dL (0.55-1.3) 10/16/18 06:30 Creat Clearance w eGFR 57.35 (>60) 10/16/18 06:30 Random Glucose 77 mg/dL (74-106) 10/16/18 06:30 Calcium 7.7 mg/dL (8.5-10.1) L 10/16/18 06:30 Total Bilirubin 1.1 mg/dL (0.2-1) H 10/16/18 06:30 AST 46 U/L (15-37) H 10/16/18 06:30 ALT 21 U/L (13-61) 10/16/18 06:30 Alkaline Phosphatase 78 U/L (45-117) 10/16/18 06:30 Total Protein 6.0 g/dl (6.4-8.2) L 10/16/18 06:30 Albumin 2.5 g/dl (3.4-5.0) L 10/16/18 06:30 Current Medications Generic Name Dose Route Start Last Admin Trade Name Kayley PRN Reason Stop Dose Admin Acetaminophen 500 mg 10/16/18 05:32 10/16/18 05:42 Tylenol - PO 500 mg Q6H PRN Administration PAIN LEVEL 1-5 Heparin Sodium (Porcine) 5,000 unit 10/15/18 06:00 10/16/18 05:43 Heparin - SQ 5,000 unit TID VIRAL Administration Sodium Chloride 1,000 mls @ 100 mls/hr 10/15/18 15:30 10/15/18 16:13 Normal Saline - IV 100 mls/hr ASDIR VIRAL Administration Aztreonam 1 gm/ Dextrose 50 mls @ 100 mls/hr 10/15/18 18:00 10/16/18 10:48 IVPB 100 mls/hr Q8H-IV VIRAL Administration Protocol Vancomycin HCl 1,000 mg in 250 mls @ 166.667 mls/hr 10/15/18 16:00 10/16/18 03:41 Vancomycin (Pre-Docked) IVPB 166.667 mls/hr Q12H [facility] Administration Protocol Insulin Aspart 1 vial 10/15/18 07:00 10/16/18 12:33 Novolog Vial Sliding Scale - SQ Not Given ACHS [facility] Protocol Metoprolol Succinate 25 mg 10/15/18 10:00 10/16/18 12:33 Toprol Xl - PO Not Given DAILY [facility] Home Medications Medication Instructions Recorded Aspirin [ASA -] 81 mg PO DAILY 01/09/15 Atorvastatin Ca [Lipitor] 20 mg PO DAILY 01/09/15 Levothyroxine [Synthroid -] 100 mcg PO DAILY@0700 01/09/15 predniSONE [Deltasone -] 5 mg PO HS 01/09/15 predniSONE [Deltasone -] 10 mg PO AM 01/09/15 Metoprolol Tartrate 25 mg PO DAILY 07/28/15 Alendronate Sodium [Fosamax] 10 mg PO DAILY 04/13/16 Ezetimibe [Zetia] 10 mg PO DAILY 04/13/16 metFORMIN HCL [Metformin HCl] 500 mg PO BID 04/13/16 ASSESSMENT AND PLAN: 58 y/o F with hx IDDM, CAD, HTN, hypothyroidism, who presents to the ED c/o LLQ pain over the past day. As per pt, pain in her L flank began at 4AM yesterday. # LLL PNA on CTAP on IV antibiotic , ID on the case , patient lives in custodial currently # Prolonged QTc , avoid prolonging agents. (qtc 538ms), will repeat EKG #Acute Left flank pain ;On CTAP, pt found to have R nephrolithiasis. #Acute UTI may explain LLQ/flank pain, on azactam 1gm IVPB q8h, since allergic to PCN ,F/u blood cx, Ucx, lactic. Urology consult: Dr. Odonnell #sinus tachycardia improved on IVF #T2DM BGM q4h, ISS ACHS #HTN continue meds. DVT PPX: Hep SQ 5000 TID
[2018-10-16] MEDS ORDERED: oxyCODONE HCL 5 MG TABLET PO PRN (15:15)
[2018-10-16] MEDS: SODIUM CHLORIDE 1,000 ML IV SCH (16:39)
--- NOTE | 2018-10-16 17:34 | CON.GU ---
Consult Consult Specialty:: Urology Reason for Consultation:: Right renal stone /uti - History of Present Illness Chief Complaint: dysuria History of Present Illness: 58 yo female w uti found to have 8 mm right renal stone on ct scan - Past Medical History [employer]: Yes: Other Cardio/Vascular: Yes: HTN, Hyperlipdemia ...: No Endocrine: Yes: Diabetes Mellitus, Hypothyroidism - Alcohol/Substance Use Hx Alcohol Use: No - Smoking History Smoking history: Current some day smoker Have you smoked in the past 12 months: Yes - Social History Usual Living Arrangement: With Parent ADL: Independent 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 History of Recent Travel: No Home Medications - Allergies Allergies/Adverse Reactions: Allergies Allergy/AdvReac Type Severity Reaction Status Date / Time Penicillins Allergy Verified 04/13/16 01:41 - Home Medications Home Medications: Ambulatory Orders Aspirin [ASA -] 81 mg PO DAILY 01/09/15 Atorvastatin Ca [Lipitor] 20 mg PO DAILY 01/09/15 Levothyroxine [Synthroid -] 100 mcg PO DAILY@0700 01/09/15 predniSONE [Deltasone -] 5 mg PO HS 01/09/15 predniSONE [Deltasone -] 10 mg PO AM 01/09/15 Metoprolol Tartrate 25 mg PO DAILY 07/28/15 Alendronate Sodium [Fosamax] 10 mg PO DAILY 04/13/16 Ezetimibe [Zetia] 10 mg PO DAILY 04/13/16 metFORMIN HCL [Metformin HCl] 500 mg PO BID 04/13/16 Review of Systems - Review of Systems Genitourinary: reports: Burning, Dysuria Physical Exam- Vital Signs: Vital Signs Temperature 98.5 F 10/16/18 15:03 Pulse Rate 97 H 10/16/18 15:03 Respiratory Rate 18 10/16/18 15:03 Blood Pressure 109/53 L 10/16/18 15:03 O2 Sat by Pulse Oximetry (%) 95 10/16/18 09:00 Labs: CBC, BMP 10/16/18 06:30 10/16/18 06:30 Imaging - Results Cat Scan: Report Reviewed Problem List - Problems (1) UTI (lower urinary tract infection) Assessment/Plan: Pt currently on vancomycin Repeat ucx Code(s): N39.0 - URINARY TRACT INFECTION, SITE NOT SPECIFIED (2) Renal calculus, right Assessment/Plan: Non obstructing calculus plan for lithotripsy electively as opd Code(s): N20.0 - CALCULUS OF KIDNEY
[2018-10-16] MEDS: oxyCODONE HCL 5 MG TABLET PO PRN (17:44)
[2018-10-16] MEDS ORDERED: INSULIN (NOVOLOG) ASPART 100 UNITS/ML 10ML VIAL ONE (20:19)
[2018-10-17] MEDS ORDERED: PT OWN MED DRAWER 7, Y5N ONE ×2 (02:05→10:06)
[2018-10-17] MEDS: AZTREONAM 1 GM in DEXTROSE 5%-WATER - 50 ML IVPB SCH ×3 (02:09→18:11)
[2018-10-17] MEDS: VANCOMYCIN 1 GRAM (PRE-DOCKED) 1,000 MG/250 ML BAG IVPB SCH ×2 (05:16→16:21)
[2018-10-17] MEDS: LEVOTHYROXINE NA 100 MCG TABLET (FP) PO SCH (06:28)
[2018-10-17] MEDS: HEPARIN NA (PORCINE) 5,000 UNITS/ML 1ML VIAL SQ SCH ×3 (06:28→21:45)
[2018-10-17] MEDS: oxyCODONE HCL 5 MG TABLET PO PRN (06:28)
[2018-10-17] MEDS: INSULIN SLIDING SCALE (NOVOLOG) 1 VIAL SQ SCH ×4 (06:29→21:46)
[2018-10-17] MEDS ORDERED: INSULIN (NOVOLOG) ASPART 100 UNITS/ML 10ML VIAL ONE (06:58)
[2018-10-17 08:36] LABS: BASO % 0.2 % (0-2.0); HEMATOCRIT 27.1 % (32.4-45.2); HEMOGLOBIN 8.6 GM/dL (10.7-15.3); MCH 24.9 pg (25.7-33.7); MCHC 31.8 g/dl (32.0-36.0); MEAN CELL VOLUME 78.2 fl (80-96); MEAN PLT VOLUME 7.6 fl (7.5-11.1); MONO % 8.5 % (3.8-10.2); NEUT % 54.3 % (42.8-82.8); PLATELET COUNT 338 K/MM3 (134-434); RBC 3.47 M/mm3 (3.60-5.2); RDW 13.1 % (11.6-15.6); WHITE BLOOD COUNT 5.9 K/mm3 (4.0-10.0)
[2018-10-17 09:04] LABS: ANION GAP 7 MMOL/L (8-16); BLOOD UREA NITROGEN 6 mg/dL (7-18); CALCIUM 7.9 mg/dL (8.5-10.1); CHLORIDE 105 mmol/L (98-107); CO2 25 mmol/L (21-32); CREATININE 0.8 mg/dL (0.55-1.3); GLUCOSE,RANDOM 72 mg/dL (74-106); MAGNESIUM 2.1 mg/dL (1.8-2.4); PHOSPHOROUS 2.7 mg/dL (2.5-4.9); SODIUM 137 mmol/L (136-145)
[2018-10-17] MEDS: SODIUM CHLORIDE 1,000 ML IV SCH ×2 (10:02→18:11)
[2018-10-17] MEDS: metoPROLOL SUCCINATE 25 MG TAB.SR.24H (FP) PO SCH ×2 (10:08→10:12)
--- NOTE | 2018-10-17 11:41 | PN ---
Progress Note, Physician History of Present Illness: Awake supine in bed C/O L flank/ back pain Low grade temp Denies chest pain/ dyspnea/ cough No c/o dysuria/ hematuria WBC WNL BC (-) Legionella ag (-) - Current Medication List Current Medications: Active Medications Acetaminophen (Tylenol -) 500 mg PO Q6H PRN PRN Reason: PAIN LEVEL 1-5 Last Admin: 10/16/18 16:40 Dose: 500 mg Heparin Sodium (Porcine) (Heparin -) 5,000 unit SQ TID VIRAL Last Admin: 10/17/18 06:28 Dose: 5,000 unit Sodium Chloride (Normal Saline -) 1,000 mls @ 100 mls/hr IV ASDIR VIRAL Last Admin: 10/17/18 10:02 Dose: 100 mls/hr Aztreonam 1 gm/ Dextrose 50 mls @ 100 mls/hr IVPB Q8H-IV [facility]; Protocol Last Admin: 10/17/18 10:08 Dose: 100 mls/hr Vancomycin HCl (Vancomycin (Pre-Docked)) 1,000 mg in 250 mls @ 166.667 mls/hr IVPB Q12H [facility]; Protocol Last Admin: 10/17/18 05:16 Dose: 166.667 mls/hr Insulin Aspart (Novolog Vial Sliding Scale -) 1 vial SQ ACHS [facility]; Protocol Last Admin: 10/17/18 06:29 Dose: Not Given Levothyroxine Sodium (Synthroid -) 100 mcg PO DAILY@0700 [facility] Last Admin: 10/17/18 06:28 Dose: 100 mcg Metoprolol Succinate (Toprol Xl -) 25 mg PO DAILY [facility] Last Admin: 10/17/18 10:12 Dose: Not Given Oxycodone HCl (Roxicodone -) 5 mg PO Q6H PRN PRN Reason: PAIN LEVEL 6-10 Last Admin: 10/17/18 06:28 Dose: 5 mg - Objective Vital Signs: Vital Signs Temperature 100 F H 10/17/18 10:00 Pulse Rate 95 H 10/17/18 10:00 Respiratory Rate 18 10/17/18 10:00 Blood Pressure 97/69 10/17/18 10:00 O2 Sat by Pulse Oximetry (%) 95 10/16/18 21:00 Constitutional: Yes: No Distress Eyes: Yes: Conjunctiva Clear Cardiovascular: Yes: Regular Rate and Rhythm, S1, S2 Respiratory: Yes: CTA Bilaterally Gastrointestinal: Yes: Normal Bowel Sounds, Soft. No: Tenderness Edema: No Labs: CBC, BMP 10/17/18 08:15 10/17/18 08:15 Assessment/Plan ? community acquired v. atypical pneumonia UTI Lactic acidosis- resolved PCN allergy Prolonged QT Continue aztreonam/ vancomycin
[2018-10-17 12:29] VITALS: BMI 25.9
[2018-10-17] MEDS: ACETAMINOPHEN 500 MG TABLET (FP) PO PRN (13:20)
--- NOTE | 2018-10-17 15:29 | PN ---
Physical Exam: SUBJECTIVE: Patient seen and examined. Pt. states that the pain meds have improved her pain and reduced it to a 7/10. Pt. states that meditation also helps her. OBJECTIVE: Vital Signs Period Temp Pulse Resp BP Sys/Long Pulse Ox Last 24 Hr 97.8 F-100.6 F 86-95 18-20 92-125/52-69 95 GENERAL: The patient is awake, alert, and fully oriented, in mild distress d/t pain. EYES: Sclera anicteric, conjunctiva clear. No ptosis. ENT: Ears normal, nares patent, dry mucous membranes. LUNGS: Decreased breath sounds, clear to auscultation bilaterally, no wheezes, no crackles, no accessory muscle use. exquisite CVA tenderness bilaterally HEART: Tachycardic regular rate and rhythm, S1, S2 without murmur ABDOMEN: Soft, diffuse exquisite tenderness to even percussion, dull to percussion, nondistended, normoactive bowel sounds, guarding EXTREMITIES: 2+ dorsal pedal pulses, no calf tenderness, warm, well-perfused, no edema. NEUROLOGICAL: Normal speech, gait not observed. PSYCH: Normal mood, normal affect. SKIN: Warm, dry, normal turgor Laboratory Results - last 24 hr 10/16/18 10/16/18 10/17/18 17:31 21:10 06:26 WBC RBC Hgb Hct MCV MCH MCHC RDW Plt Count MPV Absolute Neuts (auto) Neutrophils % Lymphocytes % Monocytes % Eosinophils % Basophils % Nucleated RBC % Sodium Potassium Chloride Carbon Dioxide Anion Gap BUN Creatinine Creat Clearance w eGFR POC Glucometer 125 71 85 Random Glucose Calcium Phosphorus Magnesium 10/17/18 10/17/18 10/17/18 08:15 08:15 11:35 WBC 5.9 RBC 3.47 L Hgb 8.6 L Hct 27.1 L MCV 78.2 L MCH 24.9 L MCHC 31.8 L RDW 13.1 Plt Count 338 MPV 7.6 Absolute Neuts (auto) 3.2 Neutrophils % 54.3 Lymphocytes % 33.0 D Monocytes % 8.5 Eosinophils % 4.0 Basophils % 0.2 Nucleated RBC % 0 Sodium 137 Potassium 4.0 Chloride 105 Carbon Dioxide 25 Anion Gap 7 L BUN 6 L Creatinine 0.8 Creat Clearance w eGFR > 60 POC Glucometer 73 Random Glucose 72 L Calcium 7.9 L Phosphorus 2.7 Magnesium 2.1 Active Medications Current Medications Acetaminophen (Tylenol -) 500 mg PO Q6H PRN PRN Reason: PAIN LEVEL 1-5 Last Admin: 10/17/18 13:20 Dose: 500 mg Heparin Sodium (Porcine) (Heparin -) 5,000 unit SQ TID [facility] Last Admin: 10/17/18 15:11 Dose: 5,000 unit Sodium Chloride (Normal Saline -) 1,000 mls @ 100 mls/hr IV ASDIR [facility] Last Admin: 10/17/18 10:02 Dose: 100 mls/hr Aztreonam 1 gm/ Dextrose 50 mls @ 100 mls/hr IVPB Q8H-IV [facility]; Protocol Last Admin: 10/17/18 10:08 Dose: 100 mls/hr Vancomycin HCl (Vancomycin (Pre-Docked)) 1,000 mg in 250 mls @ 166.667 mls/hr IVPB Q12H [facility]; Protocol Last Admin: 10/17/18 05:16 Dose: 166.667 mls/hr Insulin Aspart (Novolog Vial Sliding Scale -) 1 vial SQ ACHS [facility]; Protocol Last Admin: 10/17/18 12:05 Dose: Not Given Levothyroxine Sodium (Synthroid -) 100 mcg PO DAILY@0700 [facility] Last Admin: 10/17/18 06:28 Dose: 100 mcg Metoprolol Succinate (Toprol Xl -) 25 mg PO DAILY [facility] Last Admin: 10/17/18 10:12 Dose: Not Given Oxycodone HCl (Roxicodone -) 5 mg PO Q6H PRN PRN Reason: PAIN LEVEL 6-10 Last Admin: 10/17/18 06:28 Dose: 5 mg Home Medications Medication Instructions Recorded Aspirin [ASA -] 81 mg PO DAILY 01/09/15 Atorvastatin Ca [Lipitor] 20 mg PO DAILY 01/09/15 Levothyroxine [Synthroid -] 100 mcg PO DAILY@0700 01/09/15 predniSONE [Deltasone -] 5 mg PO HS 01/09/15 predniSONE [Deltasone -] 10 mg PO AM 01/09/15 Metoprolol Tartrate 25 mg PO DAILY 07/28/15 Alendronate Sodium [Fosamax] 10 mg PO DAILY 04/13/16 Ezetimibe [Zetia] 10 mg PO DAILY 04/13/16 metFORMIN HCL [Metformin HCl] 500 mg PO BID 04/13/16 ASSESSMENT/PLAN: 58 y.o. F w/ PMhx of IDDM, CAD, HTN, hypothyroidism, who presents to the ED c/o LLQ pain over the past day. As per pt, pain in her L flank began at 4AM . #Left flank pain 2/2 nephrolithiasis w/ Pyelonephritis CTAP: showed R. 8mm nephrolithiasis in mid pole w/o hydronephrosis. UA + d/t PCN allergy; c/w Aztreonam and Vancomycin (both started 10/15/18)- c/w IV Abx, f/u PO conversion of Abx. BCx and UCx. :NTD LA: 2.7-->1.4 Urology consult(Dr. Odonnell) appreciated: recommends outpatient lithotripsy #incidental LLL PNA vs. atelectasis CXR: inderterminate as Pt. had weak inspiratory effort CT A/P: incidental small pleural effusion on left w/ consolidation/atelectasis Likely CAP as living in correction currently and likely due to splinting as deep breaths are painful. Avoid qtc prolonging agents; had received levaquin in ED (QTc 538ms) ID consult (Dr. Hu) appreciated Legionella Ag - #Sinus tachycardia with rate into 120-130's. likely 2/2 vol depletion vs. infection vs. pain c/w Lopressor EKG: Supraventricular Tachycardia, PVCs, w/ ST-T wave abnormalities #IDDM BGM q4h ISS ACHS #HTN c/w Lopressor #F/E/N IV NS 100 cc/hr monitor electrolytes replete as needed Sodium controlled diet #PPX Dvt: Hep SQ 5000 TID #Dispo med-surg Visit type - Emergency Visit Emergency Visit: Yes ED Registration Date: 10/15/18 Care time: The patient presented to the Emergency Department on the above date and was hospitalized for further evaluation of their emergent condition. - New Patient This patient is new to me today: No - Critical Care Critical Care patient: No - Discharge Referral Referred to [facility] No
--- NOTE | 2018-10-17 16:11 | ECHO ---
Name: TAPAN PERRY Exam:Adult Echocardiogram Study Date: 10/17/2018 02:18 PM Age: 58 yrs Reason For Study: r/o LV dysfunction Height: 69 in Weight: 160 lb BSA: 1.9 m2 MMode/2D Measurements & Calculations IVSd: 0.66 cm Ao root diam: 3.2 cm LVIDd: 3.7 cm LA dimension: 2.2 cm LVIDs: 2.1 cm ACS: 1.9 cm LVPWd: 0.67 cm IVSs: 0.96 cm LVPWs: 1.1 cm EDV(Teich): 56.7 ml ESV(Teich): 14.9 ml Doppler Measurements & Calculations Ao V2 max: 114.0 cm/sec TR max jeremías: 230.8 cm/sec Ao max P.2 mmHg TR max P.3 mmHg Ao V2 mean: 88.8 cm/sec Ao mean P.4 mmHg Ao V2 VTI: 16.9 cm Med Peak E' Jeremías: 3.4 cm/sec Lat Peak E' Jeremías: 4.8 cm/sec Procedure A complete two-dimensional transthoracic echocardiogram was performed (2D, M-mode, Doppler and color flow Doppler). Technically limited study (severely limited). Left Ventricle The left ventricle is normal in size. Left ventricular systolic function is normal. Ejection Fraction = 60- 65%. No regional wall motion abnormalities noted. Right Ventricle The right ventricle is not well visualized. Atria The left atrial size is normal. Right atrium not well visualized. Mitral Valve The mitral valve is normal in structure and function. There is no mitral regurgitation noted. Tricuspid Valve The tricuspid valve is normal in structure and function. No tricuspid regurgitation. Aortic Valve There is mild aortic sclerosis.;. No aortic regurgitation is present. Pulmonic Valve The pulmonic valve is not well visualized. Great Vessels The aortic root is normal size. Pericardium/Pleura There is no pericardial effusion. Interpretation Summary Technically limited study (severely limited) The left ventricle is normal in size. Left ventricular systolic function is normal. No regional wall motion abnormalities noted. Ejection Fraction = 60-65%. The right ventricle is not well visualized. The left atrial size is normal. Right atrium not well visualized. There is mild aortic sclerosis. Valvular regurgitations could not be accurately assessed due to poor acoustic window There is no pericardial effusion. Previous study is not available for comparison Froilan Murray MD 10/17/2018 04:10 PM
--- NOTE | 2018-10-17 20:07 | PN ---
Teaching Attending Note Name of Resident: Sanchez Carmen ATTENDING PHYSICIAN STATEMENT I saw and evaluated the patient. I reviewed the resident's note and discussed the case with the resident. I agree with the resident's findings and plan as documented. SUBJECTIVE: Patient is feeling weak , continues to have low back pain. OBJECTIVE: Vital Signs Temperature 100.6 F H 10/17/18 14:10 Pulse Rate 95 H 10/17/18 14:10 Respiratory Rate 20 10/17/18 14:10 Blood Pressure 125/60 10/17/18 14:10 O2 Sat by Pulse Oximetry (%) 95 10/16/18 21:00 GENERAL: feels tired. in mild distress HEAD: Normal with no signs of trauma. EYES: Pupils equal, round and reactive to light, extraocular movements intact, sclera anicteric, conjunctiva clear. EARS, NOSE, THROAT: Ears normal, oropharynx clear without exudates. Dry mucous membranes. NECK: Normal range of motion, supple LUNGS: +decreased breath sounds at bases. HEART: Regular rate and rhythm, normal S1 and S2 without murmur, rub or gallop. ABDOMEN: Soft, positive for tenderness mid abdominal area, ND, normoactive bowel sounds, no guarding, no rebound EXTREMITIES: 2+ pt pulses, warm, well-perfused. No calf tenderness. No peripheral edema. NEUROLOGICAL: Cranial nerves II-XII intact. PSYCHIATRIC: Cooperative. CBCD WBC 5.9 K/mm3 (4.0-10.0) 10/17/18 08:15 RBC 3.47 M/mm3 (3.60-5.2) L 10/17/18 08:15 Hgb 8.6 GM/dL (10.7-15.3) L 10/17/18 08:15 Hct 27.1 % (32.4-45.2) L 10/17/18 08:15 MCV 78.2 fl (80-96) L 10/17/18 08:15 MCHC 31.8 g/dl (32.0-36.0) L 10/17/18 08:15 RDW 13.1 % (11.6-15.6) 10/17/18 08:15 Plt Count 338 K/MM3 (134-434) 10/17/18 08:15 MPV 7.6 fl (7.5-11.1) 10/17/18 08:15 CMP Sodium 137 mmol/L (136-145) 10/17/18 08:15 Potassium 4.0 mmol/L (3.5-5.1) 10/17/18 08:15 Chloride 105 mmol/L (98-107) 10/17/18 08:15 Carbon Dioxide 25 mmol/L (21-32) 10/17/18 08:15 Anion Gap 7 MMOL/L (8-16) L 10/17/18 08:15 BUN 6 mg/dL (7-18) L 10/17/18 08:15 Creatinine 0.8 mg/dL (0.55-1.3) 10/17/18 08:15 Creat Clearance w eGFR > 60 (>60) 10/17/18 08:15 Random Glucose 72 mg/dL (74-106) L 10/17/18 08:15 Calcium 7.9 mg/dL (8.5-10.1) L 10/17/18 08:15 Total Bilirubin 1.1 mg/dL (0.2-1) H 10/16/18 06:30 AST 46 U/L (15-37) H 10/16/18 06:30 ALT 21 U/L (13-61) 10/16/18 06:30 Alkaline Phosphatase 78 U/L (45-117) 10/16/18 06:30 Total Protein 6.0 g/dl (6.4-8.2) L 10/16/18 06:30 Albumin 2.5 g/dl (3.4-5.0) L 10/16/18 06:30 Current Medications Generic Name Dose Route Start Last Admin Trade Name Kayley PRN Reason Stop Dose Admin Acetaminophen 500 mg 10/16/18 05:32 10/17/18 13:20 Tylenol - PO 500 mg Q6H PRN Administration PAIN LEVEL 1-5 Heparin Sodium (Porcine) 5,000 unit 10/15/18 06:00 10/17/18 15:11 Heparin - SQ 5,000 unit TID VIRAL Administration Sodium Chloride 1,000 mls @ 100 mls/hr 10/15/18 15:30 10/17/18 18:11 Normal Saline - IV Not Given ASDIR VIRAL Aztreonam 1 gm/ Dextrose 50 mls @ 100 mls/hr 10/15/18 18:00 10/17/18 18:11 IVPB 100 mls/hr Q8H-IV VIRAL Administration Protocol Vancomycin HCl 1,000 mg in 250 mls @ 166.667 mls/hr 10/15/18 16:00 10/17/18 16:21 Vancomycin (Pre-Docked) IVPB 166.667 mls/hr Q12H VIRAL Administration Protocol Insulin Aspart 1 vial 10/15/18 07:00 10/17/18 16:32 Novolog Vial Sliding Scale - SQ Not Given ACHS VIRAL Protocol Levothyroxine Sodium 100 mcg 10/17/18 07:00 10/17/18 06:28 Synthroid - PO 100 mcg DAILY@0700 VIRAL Administration Metoprolol Succinate 25 mg 10/15/18 10:00 10/17/18 10:12 Toprol Xl - PO Not Given DAILY VIRAL Oxycodone HCl 5 mg 10/16/18 15:21 10/17/18 06:28 Roxicodone - PO 5 mg Q6H PRN Administration PAIN LEVEL 6-10 Home Medications Medication Instructions Recorded Aspirin [ASA -] 81 mg PO DAILY 01/09/15 Atorvastatin Ca [Lipitor] 20 mg PO DAILY 01/09/15 Levothyroxine [Synthroid -] 100 mcg PO DAILY@0700 01/09/15 predniSONE [Deltasone -] 5 mg PO BID 01/09/15 predniSONE [Deltasone -] 10 mg PO AM 01/09/15 Metoprolol Tartrate 50 mg PO DAILY 07/28/15 Alendronate Sodium [Fosamax] 35 mg PO WEEKLY 04/13/16 Ezetimibe [Zetia] 10 mg PO DAILY 04/13/16 metFORMIN HCL [Metformin HCl] 1,000 mg PO DAILY 04/13/16 Doxepin HCl [Sinequan -] 10 mg PO DAILY 10/17/18 Levothyroxine [Synthroid -] 112 mcg PO DAILY 10/17/18 Metoprolol Succinate 50 mg PO DAILY 10/17/18 Naproxen 500 mg PO BID PRN 10/17/18 Microbiology 10/15/18 07:12 Blood - Peripheral Venous Blood Culture - Preliminary NO GROWTH OBTAINED AFTER 72 HOURS, INCUBATION TO CONTINUE FOR 2 DAYS. 10/15/18 07:12 Blood - Peripheral Venous Blood Culture - Preliminary NO GROWTH OBTAINED AFTER 72 HOURS, INCUBATION TO CONTINUE FOR 2 DAYS. 10/16/18 12:30 Urine - Urine Clean Catch Urine Culture - Final NO GROWTH OBTAINED 10/16/18 12:30 Urine For Antigen Detection Legionella Antigen - Final 10/16/18 12:30 Urine For Antigen Detection Streptococcus pneumoniae Antigen (M - Final ASSESSMENT AND PLAN: 58 y/o F with hx IDDM, CAD, HTN, hypothyroidism, who presents to the ED c/o LLQ pain over the past day. As per pt, pain in her L flank began at 4AM yesterday. Patient lives in a halfway. # LLL PNA on CTAP continue on Azactam and vancomycin IV antibiotic , ID on the case . # Prolonged QTc , avoid prolonging agents. (qtc 538ms), will repeat EKG #Acute Left flank pain ;with R nephrolithiasis. uro. consulted Dr. Odonnell #Acute UTI may explain LLQ/flank pain, on azactam 1gm IVPB q8h, since allergic to PCN. #sinus tachycardia improved on IVF #T2DM BGM q4h, ISS ACHS #HTN continue meds. DVT PPX: Hep SQ 5000 TID
[2018-10-18] MEDS ORDERED: PT OWN MED DRAWER 7, Y5N ONE (01:27)
[2018-10-18] MEDS: AZTREONAM 1 GM in DEXTROSE 5%-WATER - 50 ML IVPB SCH ×3 (02:26→18:51)
[2018-10-18] MEDS: VANCOMYCIN 1 GRAM (PRE-DOCKED) 1,000 MG/250 ML BAG IVPB SCH ×2 (03:27→16:58)
[2018-10-18] MEDS: ACETAMINOPHEN 500 MG TABLET (FP) PO PRN ×2 (05:53→21:18)
[2018-10-18] MEDS: HEPARIN NA (PORCINE) 5,000 UNITS/ML 1ML VIAL SQ SCH ×3 (05:54→21:18)
[2018-10-18] MEDS: LEVOTHYROXINE NA 100 MCG TABLET (FP) PO SCH (06:00)
[2018-10-18] MEDS: INSULIN SLIDING SCALE (NOVOLOG) 1 VIAL SQ SCH ×4 (06:00→21:19)
[2018-10-18 09:11] LABS: BASO % 0.6 % (0-2.0); EOS % 3.9 % (0-4.5); HEMATOCRIT 25.6 % (32.4-45.2); HEMOGLOBIN 8.8 GM/dL (10.7-15.3); LYMPH % 41.2 % (8-40); MCH 26.3 pg (25.7-33.7); MCHC 34.2 g/dl (32.0-36.0); MEAN CELL VOLUME 76.8 fl (80-96); MEAN PLT VOLUME 8.1 fl (7.5-11.1); MONO % 10.4 % (3.8-10.2); NEUT % 43.9 % (42.8-82.8); PLATELET COUNT 368 K/MM3 (134-434); RBC 3.33 M/mm3 (3.60-5.2); RDW 13.1 % (11.6-15.6); WHITE BLOOD COUNT 5.5 K/mm3 (4.0-10.0)
[2018-10-18] MEDS: oxyCODONE HCL 5 MG TABLET PO PRN (09:26)
[2018-10-18] MEDS: metoPROLOL SUCCINATE 25 MG TAB.SR.24H (FP) PO SCH (09:27)
--- NOTE | 2018-10-18 09:38 | PN ---
Teaching Attending Note Name of Resident: Sanchez Carmen ATTENDING PHYSICIAN STATEMENT I saw and evaluated the patient. I reviewed the resident's note and discussed the case with the resident. I agree with the resident's findings and plan as documented. SUBJECTIVE: Patient is feeling better , continues to have mild tenderness. OBJECTIVE: Vital Signs Temperature 99 F 10/18/18 09:00 Pulse Rate 93 H 10/18/18 09:00 Respiratory Rate 20 10/18/18 09:00 Blood Pressure 121/70 10/18/18 09:00 O2 Sat by Pulse Oximetry (%) 95 10/17/18 21:00 GENERAL: feels tired. in mild distress HEAD: Normal with no signs of trauma. EYES: Pupils equal, round and reactive to light, extraocular movements intact, sclera anicteric, conjunctiva clear. EARS, NOSE, THROAT: Ears normal, oropharynx clear without exudates. Dry mucous membranes. NECK: Normal range of motion, supple , LUNGS: +decreased breath sounds at bases. HEART: Regular rate and rhythm, normal S1 and S2 without murmur, rub or gallop. ABDOMEN: Soft, positive for tenderness mid abdomenal area, not distended, positive bowel sounds, no guarding, no rebound EXTREMITIES: 2+ pt pulses, warm, well-perfused. No calf tenderness. No peripheral edema. NEUROLOGICAL: Cranial nerves II-XII intact. PSYCHIATRIC: Cooperative. looks depressed. CBCD WBC 5.5 K/mm3 (4.0-10.0) 10/18/18 06:00 RBC 3.33 M/mm3 (3.60-5.2) L 10/18/18 06:00 Hgb 8.8 GM/dL (10.7-15.3) L 10/18/18 06:00 Hct 25.6 % (32.4-45.2) L 10/18/18 06:00 MCV 76.8 fl (80-96) L 10/18/18 06:00 MCHC 34.2 g/dl (32.0-36.0) 10/18/18 06:00 RDW 13.1 % (11.6-15.6) 10/18/18 06:00 Plt Count 368 K/MM3 (134-434) 10/18/18 06:00 MPV 8.1 fl (7.5-11.1) 10/18/18 06:00 CMP Sodium 137 mmol/L (136-145) 10/17/18 08:15 Potassium 4.0 mmol/L (3.5-5.1) 10/17/18 08:15 Chloride 105 mmol/L (98-107) 10/17/18 08:15 Carbon Dioxide 25 mmol/L (21-32) 10/17/18 08:15 Anion Gap 7 MMOL/L (8-16) L 10/17/18 08:15 BUN 6 mg/dL (7-18) L 10/17/18 08:15 Creatinine 0.8 mg/dL (0.55-1.3) 10/17/18 08:15 Creat Clearance w eGFR > 60 (>60) 10/17/18 08:15 Random Glucose 72 mg/dL (74-106) L 10/17/18 08:15 Calcium 7.9 mg/dL (8.5-10.1) L 10/17/18 08:15 Total Bilirubin 1.1 mg/dL (0.2-1) H 10/16/18 06:30 AST 46 U/L (15-37) H 10/16/18 06:30 ALT 21 U/L (13-61) 10/16/18 06:30 Alkaline Phosphatase 78 U/L (45-117) 10/16/18 06:30 Total Protein 6.0 g/dl (6.4-8.2) L 10/16/18 06:30 Albumin 2.5 g/dl (3.4-5.0) L 10/16/18 06:30 Current Medications Generic Name Dose Route Start Last Admin Trade Name Kayley PRN Reason Stop Dose Admin Acetaminophen 500 mg 10/16/18 05:32 10/18/18 05:53 Tylenol - PO 500 mg Q6H PRN Administration PAIN LEVEL 1-5 Heparin Sodium (Porcine) 5,000 unit 10/15/18 06:00 10/18/18 05:54 Heparin - SQ 5,000 unit TID VIRAL Administration Sodium Chloride 1,000 mls @ 100 mls/hr 10/15/18 15:30 10/17/18 18:11 Normal Saline - IV Not Given ASDIR VIRAL Aztreonam 1 gm/ Dextrose 50 mls @ 100 mls/hr 10/15/18 18:00 10/18/18 02:26 IVPB 100 mls/hr Q8H-IV VIRAL Administration Protocol Vancomycin HCl 1,000 mg in 250 mls @ 166.667 mls/hr 10/15/18 16:00 10/18/18 03:27 Vancomycin (Pre-Docked) IVPB 166.667 mls/hr Q12H VIRAL Administration Protocol Insulin Aspart 1 vial 10/15/18 07:00 10/18/18 06:00 Novolog Vial Sliding Scale - SQ Not Given ACHS VIRAL Protocol Levothyroxine Sodium 100 mcg 10/17/18 07:00 10/18/18 06:00 Synthroid - PO 100 mcg DAILY@0700 VIRAL Administration Metoprolol Succinate 25 mg 10/15/18 10:00 10/18/18 09:27 Toprol Xl - PO 25 mg DAILY VIRAL Administration Oxycodone HCl 5 mg 10/16/18 15:21 10/18/18 09:26 Roxicodone - PO 5 mg Q6H PRN Administration PAIN LEVEL 6-10 Home Medications Medication Instructions Recorded Aspirin [ASA -] 81 mg PO DAILY 01/09/15 Atorvastatin Ca [Lipitor] 20 mg PO DAILY 01/09/15 Levothyroxine [Synthroid -] 100 mcg PO DAILY@0700 01/09/15 predniSONE [Deltasone -] 5 mg PO BID 01/09/15 predniSONE [Deltasone -] 10 mg PO AM 01/09/15 Metoprolol Tartrate 50 mg PO DAILY 07/28/15 Alendronate Sodium [Fosamax] 35 mg PO WEEKLY 04/13/16 Ezetimibe [Zetia] 10 mg PO DAILY 04/13/16 metFORMIN HCL [Metformin HCl] 1,000 mg PO DAILY 04/13/16 Doxepin HCl [Sinequan -] 10 mg PO DAILY 10/17/18 Levothyroxine [Synthroid -] 112 mcg PO DAILY 10/17/18 Metoprolol Succinate 50 mg PO DAILY 10/17/18 Naproxen 500 mg PO BID PRN 10/17/18 ASSESSMENT AND PLAN: 58 y/o F with hx IDDM, CAD, HTN, hypothyroidism, who presents to the ED c/o LLQ pain over the past day. As per pt, pain in her L flank began at 4AM yesterday. Patient lives in a half-way. # LLL PNA continue IV Azactam and vancomycin id on the case . # Prolonged QTc (538), avoid prolonging agents. #Acute Left flank pain ;with R nephrolithiasis. uro. consulted Dr. Odonnell, will call urology for possible lithotripsy #Acute UTI continue on azactam 1gm IVPB q8h, since allergic to PCN. #T2DM BGM q4h, ISS ACHS #HTN continue meds. DVT PPX: Hep SQ 5000 TID
[2018-10-18 10:21] LABS: ANION GAP 7 MMOL/L (8-16); BLOOD UREA NITROGEN 5 mg/dL (7-18); CALCIUM 7.9 mg/dL (8.5-10.1); CHLORIDE 109 mmol/L (98-107); CO2 24 mmol/L (21-32); CREATININE 0.8 mg/dL (0.55-1.3); GLUCOSE,RANDOM 69 mg/dL (74-106); MAGNESIUM 1.7 mg/dL (1.8-2.4); PHOSPHOROUS 2.5 mg/dL (2.5-4.9); POTASSIUM 3.9 mmol/L (3.5-5.1); SODIUM 140 mmol/L (136-145)
--- NOTE | 2018-10-18 12:33 | EKG ---
Test Reason : Blood Pressure : / mmHG Vent. Rate : 093 BPM Atrial Rate : 093 BPM P-R Int : 200 ms QRS Dur : 072 ms QT Int : 374 ms P-R-T Axes : 061 -05 079 degrees QTc Int : 465 ms NORMAL SINUS RHYTHM NONSPECIFIC T WAVE ABNORMALITY ABNORMAL ECG Confirmed by MD BARRON, MARIXA ([id number]) on 10/18/2018 12:32:37 PM Referred By: Confirmed By:MARIXA MART MD
--- NOTE | 2018-10-18 13:50 | PN ---
Physical Exam: SUBJECTIVE: Patient seen and examined. Pt. had CP overnight EKG was negative, Pt. refused blood draw for troponins. Pt. spiked fever to 100.9 last night was given Tylenol. Pt. refused BCx. at that time and received BCx. in AM with morning labs. Pt. still had temp to 100.9 at that time. OBJECTIVE: Vital Signs Period Temp Pulse Resp BP Sys/Long Pulse Ox Last 24 Hr 99 F-100.9 F 88-96 20-20 120-130/60-70 95-99 GENERAL: The patient is awake, alert, and fully oriented, in mild distress d/t pain. EYES: Sclera anicteric, conjunctiva clear. No ptosis. ENT: Ears normal, nares patent, dry mucous membranes. LUNGS: Decreased breath sounds, clear to auscultation bilaterally, no wheezes, no crackles, no accessory muscle use. exquisite CVA tenderness bilaterally HEART: Regular rate and rhythm, S1, S2 without murmur ABDOMEN: Soft, decreased diffuse exquisite tenderness to even percussion, dull to percussion, nondistended, normoactive bowel sounds, guarding EXTREMITIES: 1+ dorsal pedal pulses, no calf tenderness, warm, well-perfused, no edema. NEUROLOGICAL: Normal speech, gait not observed. PSYCH: Normal mood, normal affect. SKIN: Warm, dry, normal turgor Laboratory Results - last 24 hr 10/17/18 10/17/18 10/18/18 16:25 21:44 05:56 WBC RBC Hgb Hct MCV MCH MCHC RDW Plt Count MPV Absolute Neuts (auto) Neutrophils % Lymphocytes % Monocytes % Eosinophils % Basophils % Nucleated RBC % Sodium Potassium Chloride Carbon Dioxide Anion Gap BUN Creatinine Creat Clearance w eGFR POC Glucometer 74 74 90 Random Glucose Calcium Phosphorus Magnesium 10/18/18 10/18/18 10/18/18 06:00 08:35 11:09 WBC 5.5 RBC 3.33 L Hgb 8.8 L Hct 25.6 L MCV 76.8 L MCH 26.3 MCHC 34.2 RDW 13.1 Plt Count 368 MPV 8.1 Absolute Neuts (auto) 2.4 Neutrophils % 43.9 Lymphocytes % 41.2 H D Monocytes % 10.4 H Eosinophils % 3.9 Basophils % 0.6 Nucleated RBC % 0 Sodium 140 Potassium 3.9 Chloride 109 H Carbon Dioxide 24 Anion Gap 7 L BUN 5 L Creatinine 0.8 Creat Clearance w eGFR > 60 POC Glucometer 84 Random Glucose 69 L Calcium 7.9 L Phosphorus 2.5 Magnesium 1.7 L Active Medications Current Medications Acetaminophen (Tylenol -) 500 mg PO Q6H PRN PRN Reason: PAIN LEVEL 1-5 Last Admin: 10/18/18 05:53 Dose: 500 mg Heparin Sodium (Porcine) (Heparin -) 5,000 unit SQ TID [facility] Last Admin: 10/18/18 13:19 Dose: 5,000 unit Sodium Chloride (Normal Saline -) 1,000 mls @ 100 mls/hr IV ASDIR [facility] Last Admin: 10/17/18 18:11 Dose: Not Given Aztreonam 1 gm/ Dextrose 50 mls @ 100 mls/hr IVPB Q8H-[facility]; Protocol Last Admin: 10/18/18 12:00 Dose: 100 mls/hr Vancomycin HCl (Vancomycin (Pre-Docked)) 1,000 mg in 250 mls @ 166.667 mls/hr IVPB Q12H [facility]; Protocol Last Admin: 10/18/18 03:27 Dose: 166.667 mls/hr Insulin Aspart (Novolog Vial Sliding Scale -) 1 vial SQ ACHS [facility]; Protocol Last Admin: 10/18/18 11:10 Dose: Not Given Levothyroxine Sodium (Synthroid -) 100 mcg PO DAILY@0700 [facility] Last Admin: 10/18/18 06:00 Dose: 100 mcg Metoprolol Succinate (Toprol Xl -) 25 mg PO DAILY [facility] Last Admin: 10/18/18 09:27 Dose: 25 mg Tramadol HCl (Ultram -) 25 mg PO Q8H PRN PRN Reason: PAIN LEVEL 6-10 Home Medications Medication Instructions Recorded Aspirin [ASA -] 81 mg PO DAILY 01/09/15 Atorvastatin Ca [Lipitor] 20 mg PO DAILY 01/09/15 Levothyroxine [Synthroid -] 100 mcg PO DAILY@0700 01/09/15 predniSONE [Deltasone -] 5 mg PO BID 01/09/15 predniSONE [Deltasone -] 10 mg PO AM 01/09/15 Metoprolol Tartrate 50 mg PO DAILY 07/28/15 Alendronate Sodium [Fosamax] 35 mg PO WEEKLY 04/13/16 Ezetimibe [Zetia] 10 mg PO DAILY 04/13/16 metFORMIN HCL [Metformin HCl] 1,000 mg PO DAILY 04/13/16 Doxepin HCl [Sinequan -] 10 mg PO DAILY 10/17/18 Levothyroxine [Synthroid -] 112 mcg PO DAILY 10/17/18 Metoprolol Succinate 50 mg PO DAILY 10/17/18 Naproxen 500 mg PO BID PRN 10/17/18 ASSESSMENT/PLAN: 58 y.o. F w/ PMhx of IDDM, CAD, HTN, hypothyroidism, who presents to the ED c/o LLQ pain over the past day. As per pt, pain in her L flank began at 4AM . #Left flank pain 2/2 nephrolithiasis w/ Pyelonephritis CTAP: showed R. 8mm nephrolithiasis in mid pole w/o hydronephrosis. UA + d/t PCN allergy; c/w Aztreonam and Vancomycin (both started 10/15/18)- c/w IV Abx, f/u PO conversion of Abx. BCx and UCx.: NTD; f/u Rpt. BCx. LA: 2.7-->1.4 Urology consult(Dr. Odonnell) appreciated: recommends outpatient lithotripsy- f/ u phone call, message left, Pt. for inpatient lithotripsy as Pt. is homeless and high suspicion for losing patient to follow-up D/C-ed oxycodone as Pt. seemed to be more lethargic, switched to Tramadol 25mg Q8H #incidental LLL PNA vs. atelectasis CXR: inderterminate as Pt. had weak inspiratory effort CT A/P: incidental small pleural effusion on left w/ consolidation/atelectasis Likely CAP as living in half-way currently and likely due to splinting as deep breaths are painful. Avoid qtc prolonging agents; had received levaquin in ED (QTc 538ms)--> Rpt. EKG shows QTc of 465. ID consult (Dr. Hu) appreciated Legionella Ag - #Sinus tachycardia HR: 120-130's. likely 2/2 vol depletion AND infection AND pain c/w Lopressor EKG: Supraventricular Tachycardia, PVCs, w/ ST-T wave abnormalities #IDDM BGM q4h ISS ACHS #HTN c/w Lopressor #F/E/N IV NS 100 cc/hr monitor electrolytes replete as needed Sodium controlled diet #PPX Dvt: Hep SQ 5000 TID #Dispo med-surg Visit type - Emergency Visit Emergency Visit: Yes ED Registration Date: 10/15/18 Care time: The patient presented to the Emergency Department on the above date and was hospitalized for further evaluation of their emergent condition. - New Patient This patient is new to me today: No - Critical Care Critical Care patient: No - Discharge Referral Referred to [facility] No
[2018-10-18] MEDS: SODIUM CHLORIDE 1,000 ML IV SCH (15:05)
[2018-10-19] MEDS: traMADol HCL 50 MG TABLET PO PRN ×2 (01:54→14:07)
[2018-10-19] MEDS ORDERED: PT OWN MED DRAWER 7, Y5N ONE ×2 (02:05→09:53)
[2018-10-19] MEDS: AZTREONAM 1 GM in DEXTROSE 5%-WATER - 50 ML IVPB SCH ×2 (02:10→09:54)
[2018-10-19] MEDS: VANCOMYCIN 1 GRAM (PRE-DOCKED) 1,000 MG/250 ML BAG IVPB SCH (04:18)
[2018-10-19] MEDS: SODIUM CHLORIDE 1,000 ML IV SCH ×2 (04:22→17:12)
[2018-10-19] MEDS: INSULIN SLIDING SCALE (NOVOLOG) 1 VIAL SQ SCH ×3 (06:40→17:19)
[2018-10-19] MEDS: HEPARIN NA (PORCINE) 5,000 UNITS/ML 1ML VIAL SQ SCH ×2 (06:41→14:08)
[2018-10-19] MEDS: LEVOTHYROXINE NA 100 MCG TABLET (FP) PO SCH (06:41)
[2018-10-19] MEDS ORDERED: INSULIN (NOVOLOG) ASPART 100 UNITS/ML 10ML VIAL ONE (06:54)
[2018-10-19 07:24] LABS: BASO % 0.6 % (0-2.0); EOS % 4.1 % (0-4.5); HEMATOCRIT 26.2 % (32.4-45.2); HEMOGLOBIN 8.4 GM/dL (10.7-15.3); LYMPH % 45.2 % (8-40); MCHC 32.2 g/dl (32.0-36.0); MEAN CELL VOLUME 77.5 fl (80-96); MEAN PLT VOLUME 7.3 fl (7.5-11.1); MONO % 8.3 % (3.8-10.2); NEUT % 41.8 % (42.8-82.8); PLATELET COUNT 416 K/MM3 (134-434); RBC 3.38 M/mm3 (3.60-5.2); RDW 13.1 % (11.6-15.6); WHITE BLOOD COUNT 5.1 K/mm3 (4.0-10.0)
[2018-10-19 08:35] LABS: ANION GAP 5 MMOL/L (8-16); BLOOD UREA NITROGEN 5 mg/dL (7-18); CALCIUM 7.7 mg/dL (8.5-10.1); CHLORIDE 107 mmol/L (98-107); CO2 28 mmol/L (21-32); CREATININE 0.7 mg/dL (0.55-1.3); GLUCOSE,RANDOM 89 mg/dL (74-106); MAGNESIUM 1.6 mg/dL (1.8-2.4); PHOSPHOROUS 3.5 mg/dL (2.5-4.9); POTASSIUM 4.1 mmol/L (3.5-5.1); SODIUM 140 mmol/L (136-145)
[2018-10-19] MEDS: metoPROLOL SUCCINATE 25 MG TAB.SR.24H (FP) PO SCH (09:45)
--- NOTE | 2018-10-19 13:29 | PN ---
Progress Note, Physician History of Present Illness: Awake supine in bed C/O L flank/ back pain Low grade temp Denies chest pain/ dyspnea/ cough No c/o dysuria/ hematuria WBC WNL BC (-) Legionella ag (-) - Current Medication List Current Medications: Active Medications Acetaminophen (Tylenol -) 500 mg PO Q6H PRN PRN Reason: PAIN LEVEL 1-5 Last Admin: 10/18/18 21:18 Dose: 500 mg Heparin Sodium (Porcine) (Heparin -) 5,000 unit SQ TID [facility] Last Admin: 10/19/18 06:41 Dose: 5,000 unit Sodium Chloride (Normal Saline -) 1,000 mls @ 100 mls/hr IV ASDIR [facility] Last Admin: 10/19/18 04:22 Dose: 100 mls/hr Aztreonam 1 gm/ Dextrose 50 mls @ 100 mls/hr IVPB Q8H-[facility]; Protocol Last Admin: 10/19/18 09:54 Dose: 100 mls/hr Vancomycin HCl (Vancomycin (Pre-Docked)) 1,000 mg in 250 mls @ 166.667 mls/hr IVPB Q12H [facility]; Protocol Last Admin: 10/19/18 04:18 Dose: 166.667 mls/hr Insulin Aspart (Novolog Vial Sliding Scale -) 1 vial SQ ACHS [facility]; Protocol Last Admin: 10/19/18 12:35 Dose: Not Given Levothyroxine Sodium (Synthroid -) 100 mcg PO DAILY@0700 [facility] Last Admin: 10/19/18 06:41 Dose: 100 mcg Metoprolol Succinate (Toprol Xl -) 25 mg PO DAILY [facility] Last Admin: 10/19/18 09:45 Dose: 25 mg Tramadol HCl (Ultram -) 25 mg PO Q8H PRN PRN Reason: PAIN LEVEL 6-10 Last Admin: 10/19/18 01:54 Dose: 25 mg - Objective Vital Signs: Vital Signs Temperature 98.5 F 10/19/18 06:20 Pulse Rate 83 10/19/18 06:20 Respiratory Rate 18 10/19/18 06:20 Blood Pressure 107/62 10/19/18 06:20 O2 Sat by Pulse Oximetry (%) 98 10/18/18 21:00 Constitutional: Yes: No Distress Cardiovascular: Yes: Regular Rate and Rhythm, S1, S2 Respiratory: Yes: CTA Bilaterally Gastrointestinal: Yes: Normal Bowel Sounds, Soft Genitourinary: Yes: CVA Tenderness - Left Edema: Yes Labs: CBC, BMP 10/19/18 06:10 10/19/18 06:10 Assessment/Plan ? community acquired v. atypical pneumonia UTI Lactic acidosis- resolved PCN allergy Prolonged QT Discontinue aztreonam/ vancomycin Substitute ceftin 500mg po bid x 7d
[2018-10-19] MEDS ORDERED: CEFUROXIME AXETIL 500 MG TABLET PO SCH (14:30)
[2018-10-19 15:12] VITALS: PULSE 90
--- NOTE | 2018-10-19 15:22 | PN ---
Physical Exam: SUBJECTIVE: Patient seen and examined OBJECTIVE: Vital Signs Period Temp Pulse Resp BP Sys/Long Pulse Ox Last 24 Hr 98.2 F-100 F 83-90 18-20 107-136/62-79 98 GENERAL: The patient is awake, alert, and fully oriented, in no acute distress. HEAD: Normal with no signs of trauma. EYES: PERRL, extraocular movements intact, sclera anicteric, conjunctiva clear. No ptosis. ENT: Ears normal, nares patent, oropharynx clear without exudates, moist mucous membranes. NECK: Trachea midline, full range of motion, supple. LUNGS: Breath sounds equal, clear to auscultation bilaterally, no wheezes, no crackles, no accessory muscle use. HEART: Regular rate and rhythm, S1, S2 without murmur, rub or gallop. ABDOMEN: Soft, nontender, nondistended, normoactive bowel sounds, no guarding, no rebound, no hepatosplenomegaly, no masses. EXTREMITIES: 2+ pulses, warm, well-perfused, no edema. NEUROLOGICAL: Cranial nerves II through XII grossly intact. Normal speech, gait not observed. PSYCH: Normal mood, normal affect. SKIN: Warm, dry, normal turgor, no rashes or lesions noted Laboratory Results - last 24 hr 10/18/18 10/18/18 10/19/18 16:53 21:15 06:10 WBC 5.1 RBC 3.38 L Hgb 8.4 L Hct 26.2 L MCV 77.5 L MCH 25.0 L MCHC 32.2 RDW 13.1 Plt Count 416 MPV 7.3 L Absolute Neuts (auto) 2.1 Neutrophils % 41.8 L Lymphocytes % 45.2 H Monocytes % 8.3 Eosinophils % 4.1 Basophils % 0.6 Nucleated RBC % 0 Sodium Potassium Chloride Carbon Dioxide Anion Gap BUN Creatinine Creat Clearance w eGFR POC Glucometer 89 93 Random Glucose Calcium Phosphorus Magnesium 10/19/18 10/19/18 10/19/18 06:10 06:38 12:03 WBC RBC Hgb Hct MCV MCH MCHC RDW Plt Count MPV Absolute Neuts (auto) Neutrophils % Lymphocytes % Monocytes % Eosinophils % Basophils % Nucleated RBC % Sodium 140 Potassium 4.1 Chloride 107 Carbon Dioxide 28 Anion Gap 5 L BUN 5 L Creatinine 0.7 Creat Clearance w eGFR > 60 POC Glucometer 88 72 Random Glucose 89 Calcium 7.7 L Phosphorus 3.5 Magnesium 1.6 L Active Medications Current Medications Acetaminophen (Tylenol -) 500 mg PO Q6H PRN PRN Reason: PAIN LEVEL 1-5 Last Admin: 10/18/18 21:18 Dose: 500 mg Cefuroxime Axetil (Ceftin -) 500 mg PO BID [facility] Heparin Sodium (Porcine) (Heparin -) 5,000 unit SQ TID [facility] Last Admin: 10/19/18 14:08 Dose: 5,000 unit Sodium Chloride (Normal Saline -) 1,000 mls @ 100 mls/hr IV ASDIR [facility] Last Admin: 10/19/18 04:22 Dose: 100 mls/hr Insulin Aspart (Novolog Vial Sliding Scale -) 1 vial SQ ACHS [facility]; Protocol Last Admin: 10/19/18 12:35 Dose: Not Given Levothyroxine Sodium (Synthroid -) 100 mcg PO DAILY@0700 [facility] Last Admin: 10/19/18 06:41 Dose: 100 mcg Metoprolol Succinate (Toprol Xl -) 25 mg PO DAILY [facility] Last Admin: 10/19/18 09:45 Dose: 25 mg Tramadol HCl (Ultram -) 25 mg PO Q8H PRN PRN Reason: PAIN LEVEL 6-10 Last Admin: 10/19/18 14:07 Dose: 25 mg Home Medications Medication Instructions Recorded Aspirin [ASA -] 81 mg PO DAILY 01/09/15 Atorvastatin Ca [Lipitor] 20 mg PO DAILY 01/09/15 Levothyroxine [Synthroid -] 100 mcg PO DAILY@0700 01/09/15 predniSONE [Deltasone -] 5 mg PO BID 01/09/15 predniSONE [Deltasone -] 10 mg PO AM 01/09/15 Metoprolol Tartrate 50 mg PO DAILY 07/28/15 Alendronate Sodium [Fosamax] 35 mg PO WEEKLY 04/13/16 Ezetimibe [Zetia] 10 mg PO DAILY 04/13/16 metFORMIN HCL [Metformin HCl] 1,000 mg PO DAILY 04/13/16 Doxepin HCl [Sinequan -] 10 mg PO DAILY 10/17/18 Levothyroxine [Synthroid -] 112 mcg PO DAILY 10/17/18 Metoprolol Succinate 50 mg PO DAILY 10/17/18 Naproxen 500 mg PO BID PRN 10/17/18 ASSESSMENT/PLAN: 58 y.o. F w/ PMhx of IDDM, CAD, HTN, hypothyroidism, who presents to the ED c/o LLQ pain over the past day. As per pt, pain in her L flank began at 4AM . #Left flank pain 2/2 nephrolithiasis w/ Pyelonephritis CTAP: showed R. 8mm nephrolithiasis in mid pole w/o hydronephrosis. UA + d/t PCN allergy; D/c IV Abx.; started PO Cefuroxime 500mg for 7 days. BCx and UCx.: NTD; f/u Rpt. BCx. LA: 2.7-->1.4 Urology consult(Dr. Odonnell) appreciated: recommends outpatient lithotripsy- f/ u phone call, message left, Pt. for inpatient lithotripsy as Pt. is homeless and high suspicion for losing patient to follow-up D/C-ed oxycodone as Pt. seemed to be more lethargic, switched to Tramadol 25mg Q8H #incidental LLL PNA vs. atelectasis CXR: inderterminate as Pt. had weak inspiratory effort CT A/P: incidental small pleural effusion on left w/ consolidation/atelectasis Likely CAP as [facility] currently and likely due to splinting as deep breaths are painful. Avoid qtc prolonging agents; had received levaquin in ED (QTc 538ms)--> Rpt. EKG shows QTc of 465. ID consult (Dr. Hu) appreciated Legionella Ag - #Sinus tachycardia HR: 120-130's. likely 2/2 vol depletion AND infection AND pain c/w Lopressor EKG: Supraventricular Tachycardia, PVCs, w/ ST-T wave abnormalities #IDDM BGM q4h ISS ACHS #HTN c/w Lopressor #F/E/N IV NS 100 cc/hr monitor electrolytes replete as needed Sodium controlled diet #PPX Dvt: Hep SQ 5000 TID #Dispo med-surg
[2018-10-19] MEDS ORDERED: MAGNESIUM OXIDE 400 MG TABLET (FP) PO ONE (16:30)
--- NOTE | 2018-10-19 16:30 | PN ---
Teaching Attending Note Name of Resident: Stefania Gonzalez ATTENDING PHYSICIAN STATEMENT I saw and evaluated the patient. I reviewed the resident's note and discussed the case with the resident. I agree with the resident's findings and plan as documented. SUBJECTIVE: no fever ro chills. still with L sided rib pain with inspiration no cough. no OSB OBJECTIVE: NAD Cv : RRR Lungs: CTAB , decreased breath sounds at bases as she avoids deep breaths. ext : no edema did not allow abd exam ASSESSMENT AND PLAN: 58 y/o lady with h/o DM , HTN, CAD, hypothyroidism, who presented with L sided CP and was found to have UTi and PNA 1- CAP 2- UTI 3- incidental R sided nn obstructive renal stone 4- DM 5- HTN. 6- prolonged Qtc plan; - cont with ceftin - f/u as out pt with uro. d/w dr. barajas - cont home meds dispo : home today ( [facility] ) . ambulating normal per RN
--- NOTE | 2018-10-19 17:18 | DS ---
Physical Exam: SUBJECTIVE: Patient seen and examined. Had to change IV overnight. Temperature to 100. Pt. endorses decreased pain. No BMs overnight. OBJECTIVE: Vital Signs Period Temp Pulse Resp BP Sys/Long Pulse Ox Last 24 Hr 98.2 F-100 F 83-90 18-20 107-136/62-79 98 PHYSICAL EXAM GENERAL: The patient is awake, alert, and fully oriented, in no acute distress. HEAD: Normal with no signs of trauma. EYES: Sclera anicteric, conjunctiva clear. ENT: Ears normal, nares patent, dry mucous membranes. LUNGS: Breath sounds equal, clear to auscultation bilaterally, no wheezes, no crackles, no accessory muscle use. HEART: Regular rate and rhythm, S1, S2 without murmur, rub or gallop. ABDOMEN: Soft, nontender, decreased diffuse tenderness and dullness to percussion, normoactive bowel sounds, no guarding, no rebound EXTREMITIES: 1+ dorsal pedal pulses, warm, no calf tenderness, well-perfused, no LE edema, mild hand edema from infiltrated lines. NEUROLOGICAL: Cranial nerves II through XII grossly intact. Normal speech, gait not observed. SKIN: Warm, dry, normal turgor LABS Laboratory Results - last 24 hr 10/18/18 10/18/18 10/19/18 16:53 21:15 06:10 WBC 5.1 RBC 3.38 L Hgb 8.4 L Hct 26.2 L MCV 77.5 L MCH 25.0 L MCHC 32.2 RDW 13.1 Plt Count 416 MPV 7.3 L Absolute Neuts (auto) 2.1 Neutrophils % 41.8 L Lymphocytes % 45.2 H Monocytes % 8.3 Eosinophils % 4.1 Basophils % 0.6 Nucleated RBC % 0 Sodium Potassium Chloride Carbon Dioxide Anion Gap BUN Creatinine Creat Clearance w eGFR POC Glucometer 89 93 Random Glucose Calcium Phosphorus Magnesium 10/19/18 10/19/18 10/19/18 06:10 06:38 12:03 WBC RBC Hgb Hct MCV MCH MCHC RDW Plt Count MPV Absolute Neuts (auto) Neutrophils % Lymphocytes % Monocytes % Eosinophils % Basophils % Nucleated RBC % Sodium 140 Potassium 4.1 Chloride 107 Carbon Dioxide 28 Anion Gap 5 L BUN 5 L Creatinine 0.7 Creat Clearance w eGFR > 60 POC Glucometer 88 72 Random Glucose 89 Calcium 7.7 L Phosphorus 3.5 Magnesium 1.6 L HOSPITAL COURSE: Date of Admission:10/15/18 Date of Discharge: 10/19/18 Pt. admitted for abdominal pain 2/2 pyelonephritis and pneumonia. UA was positive. CT A/P showed 8mm non-obstructing stone in mid-pole of right kidney without hydrohephrosis. Urology consult to Dr. Odonnell appreciated who agreed to outpatient lithotripsy. Pt. treated with IV antibiotics and converted to a 7 day course of Cefuroxime as detailed below. BCx and UCx. were negative. ID consult appreciated. EKG showed SVT, ST-T wave abnormalities and prolonged QT. Hospital course discussed and agreed upon by Pt. and hospital staff. Minutes to complete discharge: 34 Discharge Summary Reason For Visit: PNEUMONIA Current Active Problems Abdominal pain (Acute) Pneumonia (Acute) Renal calculus, right (Acute) UTI (lower urinary tract infection) (Acute) CAD (coronary artery disease) (Chronic) Hypertension (Chronic) Hypothyroidism (Chronic) IDDM (insulin dependent diabetes mellitus) (Chronic) Condition: Improved - Instructions Diet, Activity, Other Instructions: You were admitted for a Urinary Tract Infection and Pneumonia You were treated with IV Abx. We have started you on oral antibiotics. Cefuroxime 500mg TWICE a day for 7 days Please take as prescribed. Please follow up with your Primary Care Physician within 1 week. If you do not have one you can follow Dr. Lorenzo in our clinic. Please follow up with your Urologist (Dr. Odonnell) within 1 week for Lithotripsy (breaking up of the kidney stone with sound shockwaves). Please return to the ED if you are experiencing fever, chills, worsening chest or abdominal pain. Referrals: Aníbal Lorenzo MD [Staff Physician] - 1 Week (Please call [phone] to schedule an appointment. ) Michael Odonnell MD., [Staff Physician] - 1 Week Disposition: HOME - Home Medications Comprehensive Discharge Medication List: Ambulatory Orders Aspirin [ASA -] 81 mg PO DAILY 01/09/15 Atorvastatin Ca [Lipitor] 20 mg PO DAILY 01/09/15 Alendronate Sodium [Fosamax] 35 mg PO WEEKLY 04/13/16 Ezetimibe [Zetia] 10 mg PO DAILY 04/13/16 metFORMIN HCL [Metformin HCl] 1,000 mg PO DAILY 04/13/16 Doxepin HCl [Sinequan -] 10 mg PO DAILY 10/17/18 Levothyroxine [Synthroid -] 112 mcg PO DAILY 10/17/18 Metoprolol Succinate 50 mg PO DAILY 10/17/18 Naproxen 500 mg PO BID PRN 10/17/18 Cefuroxime Axetil [Ceftin -] 500 mg PO BID #14 tablet 10/19/18 This patient is new to me today: No Emergency Visit: Yes ED Registration Date: 10/15/18 Care time: The patient presented to the Emergency Department on the above date and was hospitalized for further evaluation of their emergent condition. Critical Care patient: No - Discharge Referral Referred to [facility] No
[2018-10-19 18:48] VITALS: BP 142/75; TEMP 99.4
== END 2018-10-19 19:00 | disposition home or self-care (01) | DRG 463 ==
LOC: JER 21:41 → JERBED 10-15 04:35 → J7W 10-15 23:01
PROVIDERS: ADMIT Internal Medicine; ATTEND Internal Medicine
DX: N39.0 Urinary tract infection, site not specified (principal); J18.9 Pneumonia, unspecified organism; E87.2 Acidosis; N20.0 Calculus of kidney; J98.11 Atelectasis; I45.81 Long QT syndrome; E03.9 Hypothyroidism, unspecified; Z79.84 Long term (current) use of oral hypoglycemic drugs; I25.10 Atherosclerotic heart disease of native coronary artery without angina pectoris; I10 Essential (primary) hypertension; E11.9 Type 2 diabetes mellitus without complications; Z88.0 Allergy status to penicillin; E78.5 Hyperlipidemia, unspecified; F17.210 Nicotine dependence, cigarettes, uncomplicated; I87.2 Venous insufficiency (chronic) (peripheral); Z79.4 Long term (current) use of insulin
CPT/HCPCS: 36415; 71045-TC-FY; 72192-TC; 74150-TC; 80048; 80053; 81003; 81015; 82962; 83605; 83735; 84100; 84439; 84443; 85025; 87040; 87086; 87899; 93005; 93010; 93306-TC; 94761; 99285-25; J0131; J1644; J7030

== ENCOUNTER 2019-05-20 16:58 | Inpatient (IN) | payer OTHER ==
--- NOTE | 2019-05-20 17:31 | PDOC ---
History of Present Illness - History of Present Illness Initial Comments: The pt is a 59F w/ a history IDDM, hypothryoidism, CAD, HTN, pituitary mass s/p removal, hx of SVT and nephrolithiasis who was evaluated and discharged from [facility] who presents for evaluation of 2 days of generalized weakness /lethargy, malaise, NBNB vomiting x4, and NB diarrhea x2. She also reports 1 day of diffuse abdominal pain that is achy/cramping, worse with touch, and better with rest. Denies fevers/chills, cough, chest pain, trouble breathing, dysuria, hematuria, or changes in sensation. Family Contact Dr. 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) - Immunization History Immunization Up to Date: No - Suicide/Smoking/Psychosocial Hx Smoking History: Current some day smoker Have you smoked in the past 12 months: Yes Hx Alcohol Use: No Drug/Substance Use Hx: No Substance Use Type: None Hx Substance Use Treatment: No <Yang Wolfe - Last Filed: 05/20/19 19:00> <Kaylee Olmstead - Last Filed: 05/21/19 15:21> - Past Medical History Allergies/Adverse Reactions: Allergies Allergy/AdvReac Type Severity Reaction Status Date / Time Penicillins Allergy Verified 05/20/19 17:32 Home Medications: Ambulatory Orders Aspirin [ASA -] 81 mg PO DAILY 01/09/15 Atorvastatin Ca [Lipitor] 20 mg PO DAILY 01/09/15 Alendronate Sodium [Fosamax] 35 mg PO WEEKLY 04/13/16 Ezetimibe [Zetia] 10 mg PO DAILY 04/13/16 metFORMIN HCL [Metformin HCl] 1,000 mg PO DAILY 04/13/16 Doxepin HCl [Sinequan -] 10 mg PO DAILY 10/17/18 Levothyroxine [Synthroid -] 112 mcg PO DAILY 10/17/18 Metoprolol Succinate 50 mg PO DAILY 10/17/18 Naproxen 500 mg PO BID PRN 10/17/18 Review of Systems - Review of Systems Able to Perform ROS?: Yes Comments:: GENERAL/CONSTITUTIONAL: +weakness; No fever or chills HEAD, EYES, EARS, NOSE AND THROAT: No change in vision. No ear pain or discharge. No sore throat CARDIOVASCULAR: No chest pain or shortness of breath RESPIRATORY: Denies cough, hemoptysis GASTROINTESTINAL: No constipation GENITOURINARY: No dysuria, frequency, or change in urination MUSCULOSKELETAL: No joint or muscle swelling or pain. No neck or back pain SKIN: No rash NEUROLOGIC: No vertigo, loss of consciousness, or change in strength/sensation ENDOCRINE: No increased thirst. No abnormal weight change HEMATOLOGIC/LYMPHATIC: No anemia, easy bleeding, or history of blood clots ALLERGIC/IMMUNOLOGIC: No hives or skin allergy 05/20/19 17:31 Is the patient limited Bangl[place]hi proficient: No <Yang Wolfe - Last Filed: 05/20/19 19:00> *Physical Exam - Vital Signs Vital Signs Temp Pulse Resp BP Pulse Ox 98.8 F 98 H 16 83/52 L 98 05/20/19 17:00 05/20/19 17:00 05/20/19 17:00 05/20/19 17:00 05/20/19 17:00 05/20/19 18:19 - Physical Exam Comments: GENERAL: Awake, alert, and oriented to person/place/time, in no acute distress HEAD: No signs of trauma, normocephalic, atraumatic EYES: PERRLA, EOMI, sclera anicteric, conjunctiva clear ENT: Hearing grossly normal, nares patent, oropharynx clear without exudates. Moist mucosa LUNGS: No distress, speaks in full sentences, clear to auscultation bilaterally but poor inspiratory effort HEART: Regular rate and rhythm, normal S1 and S2, no murmurs appreciated, peripheral pulses normal and equal bilaterally ABDOMEN: Soft, diffuse TTP w/ guarding w/o rebound, normoactive bowel sounds EXTREMITIES: Normal inspection, Normal range of motion, no edema. No clubbing or cyanosis NEUROLOGICAL: Cranial nerves II through XII grossly intact. Normal speech, no focal sensorimotor deficits SKIN: Warm, Dry 05/20/19 17:32 <Yang Wolfe - Last Filed: 05/20/19 19:00> - Vital Signs Last Vital Signs Temp Pulse Resp BP Pulse Ox 97.5 F L 73 15 92/66 95 05/21/19 06:42 05/21/19 06:42 05/21/19 06:42 05/21/19 06:42 05/21/19 06:42 <AyshaKaylee Macdonald - Last Filed: 05/21/19 15:21> ED Treatment Course - LABORATORY CBC & Chemistry Diagram: 05/20/19 17:53 05/20/19 17:53 <Yang Wolfe - Last Filed: 05/20/19 19:00> - LABORATORY CBC & Chemistry Diagram: 05/21/19 07:46 05/21/19 07:50 - ADDITIONAL ORDERS Additional order review: Laboratory Results 05/20/19 05/20/19 21:04 10:21 POC Glucometer 63 Urine Color Dk yellow Urine Appearance Cloudy Urine pH 5.0 Ur Specific [place] 1.060 H Urine Protein 30 Urine Glucose (UA) Negative Urine Ketones Negative Urine Blood 1+ H Urine Nitrite Positive H Urine Bilirubin Negative Urine Urobilinogen 1.0 Ur Leukocyte Esterase 2+ H Urine WBC (Auto) 122.3 Urine RBC (Auto) 4.9 Urine Casts (Auto) 8.27 U Epithel Cells (Auto) 0.9 Urine Bacteria (Auto) 431.0 05/20/19 05/20/19 21:04 17:53 RBC 4.46 MCV 76.3 L MCHC 31.9 L RDW 14.6 D MPV 9.5 D Neutrophils % 67.7 D Lymphocytes % 19.3 D Monocytes % 11.0 H Eosinophils % 1.8 Basophils % 0.2 POC Glucometer 63 - Medications Given in the ED: ED Medications Discontinued Medications Generic Name Dose Route Start Last Admin Trade Name Freq PRN Reason Stop Dose Admin Acetaminophen 1,000 mg 05/20/19 18:20 05/20/19 18:37 Ofirmev Injection - IVPB 05/20/19 18:21 1,000 mg ONCE ONE Administration Dexamethasone Sodium Phosphate 10 mg 05/20/19 21:06 05/20/19 21:29 Decadron Injection - IVPUSH 05/20/19 21:07 10 mg ONCE ONE Administration Dextrose 25 gm 05/20/19 19:34 05/20/19 19:57 D50w (Vial) - IVPUSH 05/20/19 19:35 25 gm NOW ONE Administration Dextrose 25 gm 05/20/19 21:06 05/20/19 21:29 D50w (Vial) - IVPUSH 05/20/19 21:07 25 gm NOW ONE Administration Dextrose 25 gm 05/21/19 00:30 05/21/19 01:38 D50w (Vial) - IVPUSH 05/21/19 00:31 25 gm NOW ONE Administration Hydrocortisone Sodium Succinate 100 mg 05/21/19 00:31 05/21/19 01:40 Solu-Cortef - IVPB 05/21/19 00:32 Not Given ONCE ONE Ciprofloxacin/Dextrose 400 mg in 200 mls @ 200 mls/hr 05/20/19 18:36 20:16 Cipro 400 Mg Premix Ivpb (Restricted To Id) IVPB 05/20/19 19:35 Not Given ONCE ONE Metronidazole 500 mg in 100 mls @ 100 mls/hr 05/20/19 18:36 05/20/19 18:56 Flagyl 500mg Premixed Ivpb - IVPB 05/20/19 19:35 100 mls/hr ONCE ONE Administration Ceftriaxone Sodium 1,000 mg/ 50 mls @ 100 mls/hr 05/20/19 21:32 05/20/19 22: 03 Dextrose IVPB 05/20/19 22:01 100 mls/hr ONCE ONE Administration Piperacillin Sod/Tazobactam 50 mls @ 100 mls/hr 05/20/19 23:00 05/21/19 00:35 Sod 3.375 gm/ Dextrose IVPB 100 mls/hr Q8H-IV VIRAL Administration Protocol Vancomycin HCl 1,000 mg in 250 mls @ 250 mls/hr 05/20/19 23:00 05/21/19 00:54 Vancomycin (Pre-Docked) IVPB 05/20/19 23:59 250 mls/hr ONCE ONE Administration Sodium Chloride 1,000 mls @ 1,000 mls/hr 05/20/19 22:58 05/20/19 23:42 Normal Saline - IV 05/20/19 23:57 1,000 mls/hr ASDIR STA Administration Piperacillin Sod/Tazobactam 50 mls @ 100 mls/hr 05/20/19 23:15 05/21/19 00:53 Sod 3.375 gm/ Dextrose IVPB 05/21/19 15:44 100 mls/hr Q8H VIRAL Administration Dextrose/Sodium Chloride 1,000 mls @ 125 mls/hr 05/21/19 01:00 05/21/19 02:59 D5-1/2ns - IV 125 mls/hr ASDIR VIRAL Administration Lactated Ringer's 1,000 ml 05/20/19 17:44 05/20/19 17:56 Lactated Ringers Solution IV 05/20/19 17:45 1,000 ml ONCE ONE Administration Lactated Ringer's 1,000 ml 05/20/19 18:12 05/20/19 21:29 Lactated Ringers Solution IV 05/20/19 18:13 1,000 ml ONCE ONE Administration Magnesium Sulfate 1 gm 05/20/19 20:09 05/20/19 20:58 Magnesium Sulfate IVPB 05/20/19 20:10 1 gm ONCE ONE Administration Magnesium Sulfate 1 gm 05/21/19 00:29 05/21/19 01:38 Magnesium Sulfate IVPB 05/21/19 00:30 1 gm ONCE ONE Administration Naloxone HCl 0.4 mg 05/20/19 22:57 05/20/19 23:01 Narcan - IVPUSH 05/20/19 22:58 0.4 mg ONCE ONE Administration Ondansetron HCl 4 mg 05/20/19 18:20 05/20/19 18:49 Zofran Injection IVPUSH 05/20/19 18:21 4 mg ONCE ONE Administration <Kaylee Olmstead - Last Filed: 05/21/19 15:21> Medical Decision Making - Medical Decision Making The pt is a 59F w/ a history IDDM, hypothryoidism, CAD, HTN, pituitary mass s/p removal, hx of SVT and nephrolithiasis who presents for evaluation of 2 days of generalized weakness, abdominal pain, nausea/diarrhea, who was febrile on presentation ED Course Sepsis labs sent POCUS w/ flat IVF, no intra-abdominal free fluid, hyperdynamic heart, no pericardial effusion Hypotension -Pt likely hypovolemic -2L LR CT A&P w/ IV contrast pending Cipro/Flagyl for empiric abx coverage given abd pain, lack of cough and dysuria Lactate wnl No leukocytosis No anemia Remainder of labs pending CT pending Plan for admission Pt signed out to night team 05/20/19 18:[address] Moya [phone] (uncle) Mariya [phone] (aunt) <Yang Wolfe - Last Filed: 05/20/19 19:00> *DC/Admit/Observation/Transfer - Discharge Dispostion Decision to Admit order: Yes <Yang Wolfe - Last Filed: 05/20/19 19:00> - Discharge Dispostion Decision to Admit order: Yes <Kaylee Olmstead - Last Filed: 05/21/19 15:21> Diagnosis at time of Disposition: KENNY (acute kidney injury), Hypoglycemia, Prolonged QT interval, Nausea vomiting and diarrhea, Febrile illness, acute, UTI (lower urinary tract infection) Hypotension Qualifiers: Hypotension type: unspecified hypotension type Qualified Code(s): I95.9 - Hypotension, unspecified Hypothyroidism Qualifiers: Hypothyroidism type: unspecified Qualified Code(s): E03.9 - Hypothyroidism, unspecified CAD (coronary artery disease) Qualifiers: Coronary Disease-Associated Artery/Lesion type: unspecified vessel or lesion type [place] vs. transplanted heart: [place] heart Associated angina: with unspecified angina Qualified Code(s): I25.119 - Atherosclerotic heart disease of [place] coronary artery with unspecified angina pectoris Altered mental state Qualifiers: Altered mental status type: somnolence Qualified Code(s): R40.0 - Somnolence - Discharge Dispostion Condition at time of disposition: Guarded
--- NOTE | 2019-05-20 17:42 | PDOC ---
Documentation entered by Christopher Waterman SCRIBE, acting as scribe for Kaylee Olmstead MD. Kaylee Olmstead MD: This documentation has been prepared by the Guevara foster Daniel, SCRIBE, under my direction and personally reviewed by me in its entirety. I confirm that the documentation accurately reflects all work, treatment, procedures, and medical decision making performed by me. Attending Attestation - Resident Resident Name: [email or web address] - ED Attending Attestation I have performed the following: I have examined & evaluated the patient, The case was reviewed & discussed with the resident, I agree w/resident's findings & plan - HPI HPI: 05/20/19 17:50 The patient is a 59 year old with a past medical history of IDDM, hypothryoidism , CAD, HTN, pituitary mass s/p removal, hx of SVT and nephrolithiasis here today for evaluation of general weakness and dehydration. The patient reports that she went to [facility] and states that they did nothing for her. She currently states that she feels tired and wants to sleep. She also reports diffuse abdominal pain with 4 episodes of NBNB emesis and 2 episodes of watery brown, nonbloody diarrhea x 2 days. no suspicious food intake or travel. no other sick contacts Allergies: penicillins 05/20/19 18:25 05/20/19 18:59 05/21/19 07:22 - Physicial Exam PE: 05/20/19 18:26 Agree with the resident's HPI and PE as documented in the electronic medical record. malaised appearing, arousable but somnolent, responds to commands and pain stimuli, EOMI, PERRL, very dry mucus membranes,, nl conjunctiva, anicteric; neck supple. lungs clear, RRR, no murmur, abdomen soft +diffusely tender, no rebound or guarding, no CVAT. Back nontender. DUNLAP x4, no focal neuro deficits. No peripheral edema. normal color for ethnicity, [facility]. 05/21/19 07:23 - Critical Care Time Total Critical Care Time: 45 (sepsis, dehydration) Critical Care Statement: The care of this patient involved high complexity decision making to prevent further life threatening deterioration of the patient 's condition and/or to evaluate & treat vital organ system(s) failure or risk of failure. - Medical Decision Making 05/20/19 17:42 See HPI for details. Prior notes reviewed, including admissions, discharges and consultations. Vital signs reviewed, hypotensive; 80s/50s mentating. HR normal. +fever 100.4 DDx abdominal pain: Renal colic, biliary colic, metabolic/electrolyte derangements. GERD, PUD, esophageal spasm, pancreatitis, hepatitis, colitis, gastroenteritis, cholecystitis, UTI, pyelonephritis, hernia, appendicitis, diverticulitis, mesenteric ischemia. mesenteric adenitis, psoas abscess. dehydration. laboratory results and imaging reviewed, basic labs and lytes wnl, normal WBC ct , normal lactate, reassuring, perfusing no acidosis. LFTs/lipase_normal coags wnl. trop neg, no end organ involvement. UA_nitrites, ?UTI, given abx for more colitis picture CXR_no acute chest pathology. EKG normal sinus rhythm at 97 bpm, no interval abnormalities, narrow QRS, ST and T wave segments and morphology normal. Nonspecific T wave abnormalities ED course -interventions: IVF hydration with 2L LR fluid resuscitation, tylenol; IV abx. - Bedside MUNOZ exam for Hypotension - very flat/collapsible IVC, hyperdynamic contractility; no effusion. aorta normal caliber <3cm. no FF on FAST component. - findings c/w severe dehydration/hypovolemia from volume loss - IVF hydration indicated -prior echo with EF 60-65%, no e/o CHF or depressed EF on prior or today's limited echo. - ABX for suspected colitis, sepsis/SIRS feature, cipro/flagyl - cultures pending. - CT a/p to eval for perf/surgical etiology, complicated infection/abscess. - admit for dehydration, sepsis, colitis vs gastroenteritis. 05/20/19 18:30 05/21/19 07:24 05/21/19 07:25 Heart Score/ECG Review #1 ECG reviewed & interpreted by me at: 17:15 General ECG Interpretation: Sinus Rhythm, Normal Rate, Normal Intervals Compared to previous ECG there are: No significant change 05/20/19 17:44 EKG normal sinus rhythm at 97 bpm, no interval abnormalities, narrow QRS, ST and T wave segments and morphology normal. Nonspecific T wave abnormalities in anterolateral distribution, similar to prior.
[2019-05-20] MEDS ORDERED: LACTATED RINGERS SOLUTION 1000 ML INFUS.BAG IV ONE ×2 (17:44→18:12)
[2019-05-20 18:15] LABS: BASO % 0.2 % (0-2.0); EOS % 1.8 % (0-4.5); HEMOGLOBIN 10.9 GM/dL (10.7-15.3); LYMPH % 19.3 % (8-40); MCH 24.3 pg (25.7-33.7); MCHC 31.9 g/dl (32.0-36.0); MEAN CELL VOLUME 76.3 fl (80-96); MEAN PLT VOLUME 9.5 fl (7.5-11.1); NEUT % 67.7 % (42.8-82.8); RBC 4.46 M/mm3 (3.60-5.2); RDW 14.6 % (11.6-15.6); WHITE BLOOD COUNT 8.5 K/mm3 (4.0-10.0)
[2019-05-20] MEDS ORDERED: ONDANSETRON 4 MG/2 ML VIAL IVPUSH ONE (18:20)
[2019-05-20] MEDS ORDERED: ACETAMINOPHEN 1000 MG/100 ML VIAL (NON FORMULARY) IVPB ONE (18:20)
[2019-05-20 18:27] LABS: PLATELET COUNT 199 K/MM3 (134-434)
[2019-05-20] MEDS ORDERED: ACETAMINOPHEN INJECTION 100 ML IVPB ONE (18:35)
[2019-05-20] MEDS ORDERED: CIPROFLOXACIN 400 MG/D5W 400 MG/200 ML IVPB IVPB ONE (18:36)
[2019-05-20 18:43] LABS: VENOUS PC02 50.1 mmHg (41-51); VENOUS PH 7.33 (7.31-7.41)
[2019-05-20 18:44] LABS: VENOUS PO2 20.8 mmHg (30-40)
[2019-05-20] MEDS ORDERED: ONDANSETRON 4 MG/2 ML VIAL ONE ×2 (18:50→18:56)
--- NOTE | 2019-05-20 19:10 | PDOC ---
*Physical Exam - Vital Signs Last Vital Signs Temp Pulse Resp BP Pulse Ox 100.4 F H 98 H 16 92/50 L 98 05/20/19 17:43 05/20/19 17:00 05/20/19 17:00 05/20/19 17:39 05/20/19 17:00 - Physical Exam Comments: 05/20/19 19:04 59YOF with h/o CAD, DM, hypothyroid, HTN, paroxysmal SVT, and pituitary tumor s/ p resection, whose care is endorsed to me by Dr. Wolfe at the end of his shift. Presented with n/v/d, weakness to the point of inability to stand, lethargy, dehydration, and diffuse abdominal pain. Met SIRS criteria, hypotensive to low 80s systolic, has gotten cipro/flagyl. Has gotten 2 liters IVF, no h/o CHF per last echo. CTAP ordered, patient will need admission ultimately. 05/21/19 00:46 Repeat PE for Septic Shock - Vital Signs Vital Signs: At 11:05: BP 86/43, HR 81, SpO2 90% (patient sleeping), RR 18 I have reviewed the most recent vital signs: Yes - PE CV for Spetic Shock: Regular Rhythm, Regular Rate Lungs: Lungs Clear, Normal Breath Sounds Vascular: Left Radial: 2+, Right Radial: 2+, Left Doralis Pedis: 2+, Right Dorsalis Pedis: 2+ Capillary Refill: <3 seconds Skin exam: Normal Color, Warm, Dry - Impression Impression: Vasopressors not indicated, pt still hypovolemic (ordered additional 500 cc bolus) Heart Score/ECG Review #1 05/20/19 17:15 (reviewed from initial ED EKG before my arrival on shift at 1900) NSR, rate 97, normal axis, SCm=715 and grossly prolonged, lateral TWI, otherwise no ST-T changes #2 05/20/19 21:03 REPEAT: NSR rate 90 with normal axis, BDo=618 and grossly prolonged on visualization, persistent lateral TWI which is similar to prior EKG from earlier today and also somewhat reflected in her last EKG from 09/[address]-T changes were more flattening than TWI. ED Treatment Course - LABORATORY CBC & Chemistry Diagram: 05/20/19 17:53 05/20/19 22:15 - ADDITIONAL ORDERS Additional order review: Laboratory Results 05/20/19 05/20/19 05/20/19 18:15 17:53 17:53 PT with INR INR PTT (Actin FS) VBG pH 7.33 POC VBG pCO2 50.1 POC VBG pO2 20.8 L VBG HCO3 25.4 VBG O2 Sat (Gali) 23.5 L VBG Base Excess -0.4 Sodium Cancelled Potassium Cancelled Chloride Cancelled Carbon Dioxide Cancelled Anion Gap Cancelled BUN Cancelled Creatinine Cancelled Est GFR (CKD-EPI)AfAm Cancelled Est GFR (CKD-EPI)NonAf Cancelled Random Glucose Cancelled Lactic Acid 1.7 Calcium Cancelled Total Bilirubin Cancelled AST Cancelled ALT Cancelled Alkaline Phosphatase Cancelled Total Protein Cancelled Albumin Cancelled 05/20/19 17:53 PT with INR Cancelled INR Cancelled PTT (Actin FS) Cancelled VBG pH POC VBG pCO2 POC VBG pO2 VBG HCO3 VBG O2 Sat (Gali) VBG Base Excess Sodium Potassium Chloride Carbon Dioxide Anion Gap BUN Creatinine Est GFR (CKD-EPI)AfAm Est GFR (CKD-EPI)NonAf Random Glucose Lactic Acid Calcium Total Bilirubin AST ALT Alkaline Phosphatase Total Protein Albumin 05/20/19 17:53 RBC 4.46 MCV 76.3 L MCHC 31.9 L RDW 14.6 D MPV 9.5 D Neutrophils % 67.7 D Lymphocytes % 19.3 D Monocytes % 11.0 H Eosinophils % 1.8 Basophils % 0.2 - Medications Given in the ED: ED Medications Discontinued Medications Generic Name Dose Route Start Last Admin Trade Name Freq PRN Reason Stop Dose Admin Acetaminophen 1,000 mg 05/20/19 18:20 05/20/19 18:37 Ofirmev Injection - IVPB 05/20/19 18:21 1,000 mg ONCE ONE Administration Lactated Ringer's 1,000 ml 05/20/19 17:44 05/20/19 17:56 Lactated Ringers Solution IV 05/20/19 17:45 1,000 ml ONCE ONE Administration Ondansetron HCl 4 mg 05/20/19 18:20 05/20/19 18:49 Zofran Injection IVPUSH 05/20/19 18:21 4 mg ONCE ONE Administration Medical Decision Making - Medical Decision Making Laboratory Tests 05/20/19 05/20/19 05/20/19 17:53 17:53 17:53 WBC 8.5 RBC 4.46 Hgb 10.9 Hct 34.0 D MCV 76.3 L MCH 24.3 L MCHC 31.9 L RDW 14.6 D Plt Count 199 D MPV 9.5 D Absolute Neuts (auto) 5.8 Neutrophils % 67.7 D Lymphocytes % 19.3 D Monocytes % 11.0 H Eosinophils % 1.8 Basophils % 0.2 Nucleated RBC % 0 PT with INR Cancelled INR Cancelled PTT (Actin FS) Cancelled VBG pH POC VBG pCO2 POC VBG pO2 VBG HCO3 VBG O2 Sat (Gali) VBG Base Excess Sodium Cancelled Potassium Cancelled Chloride Cancelled Carbon Dioxide Cancelled Anion Gap Cancelled BUN Cancelled Creatinine Cancelled Est GFR (CKD-EPI)AfAm Cancelled Est GFR (CKD-EPI)NonAf Cancelled Random Glucose Cancelled Lactic Acid Calcium Cancelled Total Bilirubin Cancelled AST Cancelled ALT Cancelled Alkaline Phosphatase Cancelled Troponin I Total Protein Cancelled Albumin Cancelled TSH 05/20/19 05/20/19 05/20/19 17:53 18:15 18:15 WBC RBC Hgb Hct MCV MCH MCHC RDW Plt Count MPV Absolute Neuts (auto) Neutrophils % Lymphocytes % Monocytes % Eosinophils % Basophils % Nucleated RBC % PT with INR INR PTT (Actin FS) VBG pH 7.33 POC VBG pCO2 50.1 POC VBG pO2 20.8 L VBG HCO3 25.4 VBG O2 Sat (Gali) 23.5 L VBG Base Excess -0.4 Sodium 141 Potassium 3.6 Chloride 106 Carbon Dioxide 26 Anion Gap 8 BUN 15.0 Creatinine 1.8 H Est GFR (CKD-EPI)AfAm 35.58 Est GFR (CKD-EPI)NonAf 30.70 Random Glucose 61 L Lactic Acid 1.7 Calcium 8.2 L Total Bilirubin 1.0 AST 21 ALT 9 L Alkaline Phosphatase 59 Troponin I < 0.02 Total Protein 6.2 L Albumin 3.0 L TSH 05/20/19 05/20/19 18:15 18:50 WBC RBC Hgb Hct MCV MCH MCHC RDW Plt Count MPV Absolute Neuts (auto) Neutrophils % Lymphocytes % Monocytes % Eosinophils % Basophils % Nucleated RBC % PT with INR 19.20 H INR 1.62 H PTT (Actin FS) 38.8 H VBG pH POC VBG pCO2 POC VBG pO2 VBG HCO3 VBG O2 Sat (Gali) VBG Base Excess Sodium Potassium Chloride Carbon Dioxide Anion Gap BUN Creatinine Est GFR (CKD-EPI)AfAm Est GFR (CKD-EPI)NonAf Random Glucose Lactic Acid Calcium Total Bilirubin AST ALT Alkaline Phosphatase Troponin I Cancelled Total Protein Albumin TSH 0.01 L Low TSH is same as prior measurements for the patient and can be explained by her prior pituitary resection/thyroid disorder. 05/20/19 19:35 BG is 61 and 1 amp D50 ordered. This is kindly administered by RN in CT department as patient is over there at this time. 05/20/19 20:[address] s/p D50 administration. Repeat FSBG ordered for when she returns to ED. 05/20/19 20:02 Reviewed EKG with prolonged WEi=085 and this is reflected grossly on visualization of the ST segment. Cipro cancelled. Will repeat EKG and ensure patient on panel monitor (order placed). 1 mg magnesium sulfate IVPB ordered. 05/20/19 20:[address] pending contrast CTAP. I have cancelled contrast given that she had 8mg zofran after initial EKG. I placed an order for dry CTAP. She is not on portable monitor over in CT and I spoke with RN; will be placed on monitor and 1 mg Mg to be given. Patient herself is sleeping but arousable, dry MM, no complaints, regular rate/ rhythm without murmur, 2+ radial pulses. 05/20/19 20:47 Patient back in the department, almost done with her first liter IVF and BP is 79/59. Vital Signs Temperature 100.4 F H 05/20/19 17:43 Pulse Rate 90 05/20/19 21:01 Respiratory Rate 18 05/20/19 21:01 Blood Pressure 79/49 L 05/20/19 21:01 O2 Sat by Pulse Oximetry (%) 98 05/20/19 21:01 05/20/19 21:06 Patient's repeat FSBG is 63; should be much higher after D50 given. I placed an order for another amp of D50 as well as 10 Decadron IVPUSH and informed the RN (patient had pituitary tumor resection). 05/20/19 21:32 I placed an order for ceftriaxone 1000 mg IVPB; patient PCN allergic but has been on cefuroxime at home w/o issue. Patient with second bad IVF running in contralateral PIV now. 05/20/19 22:01 Patient working on 2nd liter IVF, more awake/alert, conversing a bit, giving urine on bedpan (became a bit combative when we attempted cath). Repeat BP is 112 systolic at this time. 05/20/19 22:41 MAP remains below 60 after IVF x2 liters; patient needing ICU. I spoke with [employer] WORK[employer] DEVELOPER AND MANAGER Renan on with ICU; coming to see the patient. He asks about LP. I have spoken with patient's daughter Lenin who requests any significant update at [phone]. 05/21/19 00:46 ICU rep [employer] WORK[employer] DEVELOPER AND MANAGER Renan came to see the patient, we had conversation with Dr. Guthrie with [facility]. Decision was made to have patient go to Tele instead as her BP has improved after proper IVF resuscitation. The patient's mental status has also much improved. Patient afebrile, repeat BG is 78, another amp of D50 ordered. D5 1/2NS drip at 125cc/hr ordered. Decision to Admit order has been corrected for patient to go to Tele. *DC/Admit/Observation/Transfer Diagnosis at time of Disposition: KENNY (acute kidney injury), Hypoglycemia, Prolonged QT interval Hypotension Qualifiers: Hypotension type: unspecified hypotension type Qualified Code(s): I95.9 - Hypotension, unspecified Hypothyroidism Qualifiers: Hypothyroidism type: unspecified Qualified Code(s): E03.9 - Hypothyroidism, unspecified CAD (coronary artery disease) Qualifiers: Coronary Disease-Associated Artery/Lesion type: unspecified vessel or lesion type [place] vs. transplanted heart: [place] heart Associated angina: with unspecified angina Qualified Code(s): I25.119 - Atherosclerotic heart disease of [place] coronary artery with unspecified angina pectoris Altered mental state Qualifiers: Altered mental status type: somnolence Qualified Code(s): R40.0 - Somnolence - Discharge Dispostion Condition at time of disposition: Guarded Decision to Admit order: Yes - Referrals - Patient Instructions - Post Discharge Activity
[2019-05-20 19:11] LABS: ALK PHOS 59 U/L (45-117); ANION GAP 8 MMOL/L (8-16); CALCIUM 8.2 mg/dL (8.5-10.1); CHLORIDE 106 mmol/L (98-107); CO2 26 mmol/L (21-32); CREATININE 1.8 mg/dL (0.55-1.3); GLUCOSE,RANDOM 61 mg/dL (74-106); POTASSIUM 3.6 mmol/L (3.5-5.1); SGOT/AST 21 U/L (15-37); SGPT/ALT 9 U/L (13-61); SODIUM 141 mmol/L (136-145); TOT PROT 6.2 g/dl (6.4-8.2)
[2019-05-20 19:13] LABS: INR 1.62 (0.83-1.09); PROTHROMBIN TIME (PATIENT) 19.2 SEC (9.7-13.0)
[2019-05-20 19:15] LABS: ACTIVATED PTT 38.8 SECONDS (25.2-36.5)
[2019-05-20] MEDS ORDERED: DEXTROSE 50%-WATER - 25 GM/50 ML VIAL IVPUSH ONE ×2 (19:34→21:06)
[2019-05-20] MEDS ORDERED: DEXTROSE 50%-WATER - 25 GM/50 ML VIAL ONE ×2 (19:44→21:10)
[2019-05-20] MEDS ORDERED: MAGNESIUM SULF 50% (8.12 MEQ/2 ML-1 GM VIAL) IVPB ONE (20:09)
[2019-05-20] MEDS ORDERED: MAGNESIUM SULF 50% (8.12 MEQ/2 ML-1 GM VIAL) ONE (20:54)
[2019-05-20] MEDS ORDERED: DEXAMETHASONE SOD PHOSPHATE 10 MG/1 ML VIAL IVPUSH ONE (21:06)
[2019-05-20] MEDS ORDERED: DEXAMETHASONE SOD PHOSPHATE 10 MG/1 ML VIAL ONE (21:09)
[2019-05-20] MEDS ORDERED: CEFTRIAXONE 1,000 MG in DEXTROSE 5%-WATER - 50 ML IVPB ONE (21:32)
--- NOTE | 2019-05-20 21:37 | HP ---
CHIEF COMPLAINT: AMS , lethargic , generalized weakness , PCP:Bj HISTORY OF PRESENT ILLNESS:pt is not able to provide a story due to AMS , daughter did not answer my phone call , history from Medical records The patient is a 59 year old with a past medical history of diabetes, SVT, CAD, HTN, and hypothyroidism here today for evaluation of general weakness and dehydration. The patient reports that she went to [facility] and states that they did nothing for her. She currently states that she feels tired and wants to sleep. She also reports diffuse abdominal pain with 4 episodes of NBNB emesis and 2 episodes of watery brown, nonbloody diarrhea x 2 days. no suspicious food intake or travel. no other sick contacts ER course was notable for: (1)cbc , cmp , CT head , CT A.P , cxr (2)IV fluids 2 L bolus nS , Abx cipro flagyl and Zofran , Decadran and dexamthazone once (3)D50 X 2 Recent Travel: un known PAST MEDICAL HISTORY: as per HPI PAST SURGICAL HISTORY: Pituitary removal removal 2001 Social History: Smoking:no Alcohol:no Drugs: no per chart Family History: Allergies Penicillins Allergy (Verified 05/20/19 17:32) but pt was on ceftin at home HOME MEDICATIONS: Home Medications Medication Instructions Recorded Aspirin [ASA -] 81 mg PO DAILY 01/09/15 Atorvastatin Ca [Lipitor] 20 mg PO DAILY 01/09/15 Alendronate Sodium [Fosamax] 35 mg PO WEEKLY 04/13/16 Ezetimibe [Zetia] 10 mg PO DAILY 04/13/16 metFORMIN HCL [Metformin HCl] 1,000 mg PO DAILY 04/13/16 Doxepin HCl [Sinequan -] 10 mg PO DAILY 10/17/18 Levothyroxine [Synthroid -] 112 mcg PO DAILY 10/17/18 Metoprolol Succinate 50 mg PO DAILY 10/17/18 Naproxen 500 mg PO BID PRN 10/17/18 Cefuroxime Axetil [Ceftin -] 500 mg PO BID #14 tablet 10/19/18 REVIEW OF SYSTEMS un able to obtain PHYSICAL EXAMINATION Vital Signs - 24 hr 05/20/19 05/20/19 05/20/19 17:00 17:39 17:43 Temperature 98.8 F 100.4 F H Pulse Rate 98 H Pulse Rate [ Left] Respiratory 16 Rate Blood Pressure 83/52 L Blood Pressure 92/50 L [Right Arm] O2 Sat by Pulse 98 Oximetry (%) 05/20/19 21:01 Temperature Pulse Rate Pulse Rate [ 90 Left] Respiratory 18 Rate Blood Pressure Blood Pressure 79/49 L [Right Arm] O2 Sat by Pulse 98 Oximetry (%) GENERAL: Awake, alert, oriented x1 people only no place and no time HEAD: Normal with no signs of trauma. EYES: Pupils equal, round and reactive to light, extraocular movements intact, sclera anicteric, ENT:. dry mucous membranes. NECK: supple LUNGS: Breath sounds equal, clear to auscultation bilaterally. No wheezes, and no crackles. No accessory muscle use. HEART:sinus tachy , normal S1 and S2 without murmur, rub or gallop. ABDOMEN: Soft, diffuse tenderness , not distended, normoactive bowel sounds, MUSCULOSKELETAL: Normal range of motion at all joints. No bony deformities or tenderness. No CVA tenderness. UPPER EXTREMITIES: 2+ pulses, warm, well-perfused. No cyanosis. No clubbing. No peripheral edema. LOWER EXTREMITIES: 2+ pulses, warm, well-perfused. No calf tenderness. No peripheral edema. NEUROLOGICAL: Cranial nerves II-XII intact. sleepy , confused , SKIN: Warm, dry, Laboratory Results - last 24 hr 05/20/19 05/20/19 05/20/19 17:53 17:53 17:53 WBC 8.5 RBC 4.46 Hgb 10.9 Hct 34.0 D MCV 76.3 L MCH 24.3 L MCHC 31.9 L RDW 14.6 D Plt Count 199 D MPV 9.5 D Absolute Neuts (auto) 5.8 Neutrophils % 67.7 D Lymphocytes % 19.3 D Monocytes % 11.0 H Eosinophils % 1.8 Basophils % 0.2 Nucleated RBC % 0 PT with INR Cancelled INR Cancelled PTT (Actin FS) Cancelled VBG pH POC VBG pCO2 POC VBG pO2 VBG HCO3 VBG O2 Sat (Gali) VBG Base Excess Sodium Cancelled Potassium Cancelled Chloride Cancelled Carbon Dioxide Cancelled Anion Gap Cancelled BUN Cancelled Creatinine Cancelled Est GFR (CKD-EPI)AfAm Cancelled Est GFR (CKD-EPI)NonAf Cancelled POC Glucometer Random Glucose Cancelled Lactic Acid Calcium Cancelled Total Bilirubin Cancelled AST Cancelled ALT Cancelled Alkaline Phosphatase Cancelled Troponin I Total Protein Cancelled Albumin Cancelled TSH 05/20/19 05/20/19 05/20/19 17:53 18:15 18:15 WBC RBC Hgb Hct MCV MCH MCHC RDW Plt Count MPV Absolute Neuts (auto) Neutrophils % Lymphocytes % Monocytes % Eosinophils % Basophils % Nucleated RBC % PT with INR INR PTT (Actin FS) VBG pH 7.33 POC VBG pCO2 50.1 POC VBG pO2 20.8 L VBG HCO3 25.4 VBG O2 Sat (Gali) 23.5 L VBG Base Excess -0.4 Sodium 141 Potassium 3.6 Chloride 106 Carbon Dioxide 26 Anion Gap 8 BUN 15.0 Creatinine 1.8 H Est GFR (CKD-EPI)AfAm 35.58 Est GFR (CKD-EPI)NonAf 30.70 POC Glucometer Random Glucose 61 L Lactic Acid 1.7 Calcium 8.2 L Total Bilirubin 1.0 AST 21 ALT 9 L Alkaline Phosphatase 59 Troponin I < 0.02 Total Protein 6.2 L Albumin 3.0 L TSH 05/20/19 05/20/19 05/20/19 18:15 18:50 21:04 WBC RBC Hgb Hct MCV MCH MCHC RDW Plt Count MPV Absolute Neuts (auto) Neutrophils % Lymphocytes % Monocytes % Eosinophils % Basophils % Nucleated RBC % PT with INR 19.20 H INR 1.62 H PTT (Actin FS) 38.8 H VBG pH POC VBG pCO2 POC VBG pO2 VBG HCO3 VBG O2 Sat (Gali) VBG Base Excess Sodium Potassium Chloride Carbon Dioxide Anion Gap BUN Creatinine Est GFR (CKD-EPI)AfAm Est GFR (CKD-EPI)NonAf POC Glucometer 63 Random Glucose Lactic Acid Calcium Total Bilirubin AST ALT Alkaline Phosphatase Troponin I Cancelled Total Protein Albumin TSH 0.01 L CBC, BMP 05/20/19 17:53 05/20/19 18:15 EKG NSR with 1st degree Av Blok , QTC 526 ASSESSMENT/PLAN: 59 year old female with pmhx of HTN , DM , SVT, CAD, Hypotrhyroidism , Pituitary mass s.p removal , nephrolithiais presented to ED due to AMS , generalized weakness and dehydration was found to have hypotensive , 79/49 and hypoglycemic 61 admitted to icu for septic shock vs adrenal shock # Septic shock 2/2 UTI # AMS due to dehydration vs electrolytes imbalance vs septic shock 2/2 UTI vs medication over dose or subtance abuse # Hypothyroidism , # Hypoglycemia due to sever vomiting and diarrhea , pt did not eat for last 24 hour * pt is febrile 100.4 , hypotensive 92 /50 minimally responding to 2 L fluids bolus , , UA positive for Nitrite and LE wbc 122 * Cabrera cx * cipro flagyl as well (as treatment for gasto enteritis ) cont Ceftrixone 2 g daily x7 days * IV fluids bolus and maintinance @ 125 NS * Dexamethazone 10 mg IV push was giving in ED * decadran x 2 * cxr with no acute pathology * CT A/P pending reading * CT head without contrast * urine tox * B12 , folic acid , as reversible causes for AMS * TSH 0.01 , f.u T3 and free t4 * on synhroid 112 at home??hold # Prolonged QTC 526 avoid meds that cause prolongation , careful with Abx and anti emetics medicine # N/V/D due to gastroenteritis * IV fluids * PPI IV push 40 daily * F.U CT A/P # DM * hold oral agents as pt is hypoglycemic * D50 X 2 In ED * BGM Q 4hr * switch fluids to D5/NS if no improvement # Mild KENNY likley pre renal due to hypoperfusion , repeat lab after hydration , avoid nephrotoxic agents # HTN : hold BP meds as pt is hypotensive , in septic shock # Hypothyroidism hold synthroid for now # FEN * NS bolus x3 and 125 cc/hr * Monitor lytes * NPO # DVTS : SCDS , no chemical till CT head # GI : PPI 40 IV daily # Dispo : monitor in tele # Full code # Daughter number [phone] Visit type - Emergency Visit Emergency Visit: Yes ED Registration Date: 05/20/19 Care time: The patient presented to the Emergency Department on the above date and was hospitalized for further evaluation of their emergent condition. - New Patient This patient is new to me today: Yes Date on this admission: 05/21/19 - Critical Care Critical Care patient: No
[2019-05-20] MEDS ORDERED: CEFTRIAXONE 1 GM/50 ML BAG ONE (21:48)
--- NOTE | 2019-05-20 22:29 | PDOC ---
*Physical Exam - Vital Signs Last Vital Signs Temp Pulse Resp BP Pulse Ox 100.4 F H 89 18 112/69 98 05/20/19 17:43 05/20/19 22:08 05/20/19 22:08 05/20/19 22:08 05/20/19 21:01 ED Treatment Course - LABORATORY CBC & Chemistry Diagram: 05/20/19 17:53 05/20/19 22:15 - ADDITIONAL ORDERS Additional order review: Laboratory Results 05/20/19 05/20/19 05/20/19 22:05 21:04 18:50 PT with INR 19.20 H INR 1.62 H PTT (Actin FS) 38.8 H VBG pH POC VBG pCO2 POC VBG pO2 VBG HCO3 VBG O2 Sat (Gali) VBG Base Excess Sodium Potassium Chloride Carbon Dioxide Anion Gap BUN Creatinine Est GFR (CKD-EPI)AfAm Est GFR (CKD-EPI)NonAf POC Glucometer 109 63 Random Glucose Lactic Acid Calcium Total Bilirubin AST ALT Alkaline Phosphatase Troponin I Total Protein Albumin TSH 05/20/19 05/20/19 05/20/19 18:15 18:15 18:15 PT with INR INR PTT (Actin FS) VBG pH 7.33 POC VBG pCO2 50.1 POC VBG pO2 20.8 L VBG HCO3 25.4 VBG O2 Sat (Gali) 23.5 L VBG Base Excess -0.4 Sodium 141 Potassium 3.6 Chloride 106 Carbon Dioxide 26 Anion Gap 8 BUN 15.0 Creatinine 1.8 H Est GFR (CKD-EPI)AfAm 35.58 Est GFR (CKD-EPI)NonAf 30.70 POC Glucometer Random Glucose 61 L Lactic Acid Calcium 8.2 L Total Bilirubin 1.0 AST 21 ALT 9 L Alkaline Phosphatase 59 Troponin I Cancelled < 0.02 Total Protein 6.2 L Albumin 3.0 L TSH 0.01 L 05/20/19 05/20/19 05/20/19 17:53 17:53 17:53 PT with INR Cancelled INR Cancelled PTT (Actin FS) Cancelled VBG pH POC VBG pCO2 POC VBG pO2 VBG HCO3 VBG O2 Sat (Gali) VBG Base Excess Sodium Cancelled Potassium Cancelled Chloride Cancelled Carbon Dioxide Cancelled Anion Gap Cancelled BUN Cancelled Creatinine Cancelled Est GFR (CKD-EPI)AfAm Cancelled Est GFR (CKD-EPI)NonAf Cancelled POC Glucometer Random Glucose Cancelled Lactic Acid 1.7 Calcium Cancelled Total Bilirubin Cancelled AST Cancelled ALT Cancelled Alkaline Phosphatase Cancelled Troponin I Total Protein Cancelled Albumin Cancelled TSH 05/20/19 05/20/19 05/20/19 22:05 21:04 17:53 RBC 4.46 MCV 76.3 L MCHC 31.9 L RDW 14.6 D MPV 9.5 D Neutrophils % 67.7 D Lymphocytes % 19.3 D Monocytes % 11.0 H Eosinophils % 1.8 Basophils % 0.2 POC Glucometer 109 63 - Medications Given in the ED: ED Medications Discontinued Medications Generic Name Dose Route Start Last Admin Trade Name Albertq PRN Reason Stop Dose Admin Acetaminophen 1,000 mg 05/20/19 18:20 05/20/19 18:37 Ofirmev Injection - IVPB 05/20/19 18:21 1,000 mg ONCE ONE Administration Dexamethasone Sodium Phosphate 10 mg 05/20/19 21:06 05/20/19 21:29 Decadron Injection - IVPUSH 05/20/19 21:07 10 mg ONCE ONE Administration Dextrose 25 gm 05/20/19 19:34 05/20/19 19:57 D50w (Vial) - IVPUSH 05/20/19 19:35 25 gm NOW ONE Administration Dextrose 25 gm 05/20/19 21:06 05/20/19 21:29 D50w (Vial) - IVPUSH 05/20/19 21:07 25 gm NOW ONE Administration Ciprofloxacin/Dextrose 400 mg in 200 mls @ 200 mls/hr 05/20/19 18:36 20:16 Cipro 400 Mg Premix Ivpb (Restricted To Id) IVPB 05/20/19 19:35 Not Given ONCE ONE Metronidazole 500 mg in 100 mls @ 100 mls/hr 05/20/19 18:36 05/20/19 18:56 Flagyl 500mg Premixed Ivpb - IVPB 05/20/19 19:35 100 mls/hr ONCE ONE Administration Ceftriaxone Sodium 1,000 mg/ 50 mls @ 100 mls/hr 05/20/19 21:32 05/20/19 22: 03 Dextrose IVPB 05/20/19 22:01 100 mls/hr ONCE ONE Administration Lactated Ringer's 1,000 ml 05/20/19 17:44 05/20/19 17:56 Lactated Ringers Solution IV 05/20/19 17:45 1,000 ml ONCE ONE Administration Lactated Ringer's 1,000 ml 05/20/19 18:12 05/20/19 21:29 Lactated Ringers Solution IV 05/20/19 18:13 1,000 ml ONCE ONE Administration Magnesium Sulfate 1 gm 05/20/19 20:09 05/20/19 20:58 Magnesium Sulfate IVPB 05/20/19 20:10 1 gm ONCE ONE Administration Ondansetron HCl 4 mg 05/20/19 18:20 05/20/19 18:49 Zofran Injection IVPUSH 05/20/19 18:21 4 mg ONCE ONE Administration Medical Decision Making - Medical Decision Making 05/20/19 22:27 Pt comes with low BP and diarrhea and weakness. She was hydrated with 750 ml at the time that her BP was 80 systolic. Pt now receiveing 2 concommitant boluses of saline and her BP is coming up appropriately; she will be admitted for continued hydration and further evaluation. 05/21/19 00:[address] looks normal, pt received multiple boluses and steroids and she is getting more alert and hemodynamically stable. *DC/Admit/Observation/Transfer Diagnosis at time of Disposition: KENNY (acute kidney injury), Hypoglycemia, Prolonged QT interval Hypotension Qualifiers: Hypotension type: unspecified hypotension type Qualified Code(s): I95.9 - Hypotension, unspecified Hypothyroidism Qualifiers: Hypothyroidism type: unspecified Qualified Code(s): E03.9 - Hypothyroidism, unspecified CAD (coronary artery disease) Qualifiers: Coronary Disease-Associated Artery/Lesion type: unspecified vessel or lesion type [place] vs. transplanted heart: [place] heart Associated angina: with unspecified angina Qualified Code(s): I25.119 - Atherosclerotic heart disease of [place] coronary artery with unspecified angina pectoris Altered mental state Qualifiers: Altered mental status type: somnolence Qualified Code(s): R40.0 - Somnolence - Discharge Dispostion Condition at time of disposition: Guarded - Referrals - Patient Instructions - Post Discharge Activity
[2019-05-20] MEDS ORDERED: VANCOMYCIN 1 GM in D5W (PRE-DOCKED) 1,000 MG/250 ML IVPB ONE (22:56)
[2019-05-20] MEDS ORDERED: NALOXONE HCL 0.4 MG/ML VIAL IVPUSH ONE (22:57)
[2019-05-20] MEDS ORDERED: SODIUM CHLORIDE 1,000 ML IV STA (22:58)
[2019-05-20 22:59] LABS: URINE APPEARANCE CLOUDY; URINE BILIRUBIN NEGATIVE (NEGATIVE); URINE COLOR DK YELLOW; URINE GLUCOSE (UA) NEGATIVE (NEGATIVE); URINE KETONE NEGATIVE (NEGATIVE)
[2019-05-20] MEDS ORDERED: NALOXONE HCL 0.4 MG/ML VIAL ONE (22:59)
[2019-05-20] MEDS ORDERED: SODIUM CHLORIDE 1,000 ML IV SCH (23:00)
[2019-05-20] MEDS ORDERED: PIPERACILLIN/TAZOB 3.375 GM 3.375 GM in DEXTROSE 5%-WATER - 50 ML IVPB SCH ×2 (23:00→23:15)
[2019-05-20] MEDS ORDERED: VANCOMYCIN 1 GRAM (PRE-DOCKED) 1,000 MG/250 ML BAG IVPB ONE (23:00)
[2019-05-20 23:01] LABS: EPI CELLS 0.9 /HPF (0-5/HPF); HYALINE CASTS 8.27 /lpf (0-8); URINE LEUK ESTERASE 2+ (NEGATIVE); URINE NITRITE POSITIVE (NEGATIVE); URINE PROTEIN 30 (NEGATIVE); URINE RBC 4.9 /hpf (0-4); URINE WBC 122.3 /hpf (0-5)
--- NOTE | 2019-05-20 23:46 | PN ---
Teaching Attending Note Name of Resident: Oliverio Carrasco ATTENDING PHYSICIAN STATEMENT I saw and evaluated the patient. I reviewed the resident's note and discussed the case with the resident. I agree with the resident's findings and plan as documented. SUBJECTIVE: Seen and examined; please see resident note for further historical information. Briefly, this is a 59 y/o AAF presenting to the ER with AMS and hypotension ( but normal HR) found to be somnolent with waxing and waning mentation as well as hypoglycemia (resolved), hypotension, likely cystitis, markedly low TSH ( chronic), hypoalbuminemia, and KENNY. She is unable to provide an accurate history and nobody accompanies her so limited information obtained from collateral sources. She was seen at [facility] with abdominal pain yesterday; records pending but appears as if she was discharged home. Has a PMH of Dm, CAD , SVT, HTN, prolonged QTc, Pituitary adenoma s/p remote removal (>20 years ago) . She was last here in 09/2018 and she was treated for UTI at that time. 10 sys ROS coudln't be reliably obtained due to mentation PMH, PSH, FH, SH reviewed Home Medications Medication Instructions Recorded Aspirin [ASA -] 81 mg PO DAILY 01/09/15 Atorvastatin Ca [Lipitor] 20 mg PO DAILY 01/09/15 Alendronate Sodium [Fosamax] 35 mg PO WEEKLY 04/13/16 Ezetimibe [Zetia] 10 mg PO DAILY 04/13/16 metFORMIN HCL [Metformin HCl] 1,000 mg PO DAILY 04/13/16 Doxepin HCl [Sinequan -] 10 mg PO DAILY 10/17/18 Levothyroxine [Synthroid -] 112 mcg PO DAILY 10/17/18 Metoprolol Succinate 50 mg PO DAILY 10/17/18 Naproxen 500 mg PO BID PRN 10/17/18 Cefuroxime Axetil [Ceftin -] 500 mg PO BID #14 tablet 10/19/18 OBJECTIVE: VS, labs, imaging reviewed NAD, AAOx2-3 but waxing and waning mentation (will answer appropriately when aroused then goes back to sleep), resting in bed. NC AT EOMI PERRLA; very poor dentition RRR s1/2 no mgr Lungs CTAB, w/ sym exp Diffuse abdominal mild tenderness with no firmness, ND, +BS. Palpable urinary bladder. CN2-12 appear intact and she does move all 4 extremities with normal reflexes. Her mentation is waxing and waning and she falls asleep on and off. EKG reviewed; long QT noted CXR reviewed CT abdomen/pelvis pending CT head pending ASSESSMENT AND PLAN: Patient presents with vague abdominal pain and altered mentation; she is found to be hypotensive (nl HR and Lactic Acid), with KENNY, hypoglycemic (resolved), and to have a markedly low TSH. She will be admitted to the medicine service; ICU assessed in ER. 1) Altered Mental Status, somnolence -Unclear etiology. UA+ so treating for presumed cystitis which can of course cause this. Giving waxing and waning nature of mentation recommended ER try to obtain a tox screen and give a dose of narcan. Furthermore, recommended neuroimaging with CT head. Will followup. She is protecting her airway but is somewhat hypoventillating so she should be monitored on telemetry with a nonrebreather outside the nurses station until this improves. Neuro checks frequently as well as seizure precautions. We can consider neuro consult. -Checking B12, A1c, PM cortisol (though done post-dexamethasone) -Positive lactate could also be explained by metformin or low thiamine; supplementing b6 and DC MTF -Neuro checks, sz precautions. 2) Hypotension -Check response to narcan; consider adrenal issues given TSH, pituitary hx. Checked PM cortisol but drawn after dex given. Consider stress dose steroids overnight if needed with 100 q8H hydrocortisone if no resolution with narcan. Not tachy or septic appearing with a negative lactate. Covering for urinary pathogens given UA and will followup cultures 3) Acte Cystitis with palpable bladder -Consider devi placement; no prior cx results. Was on ceftin 09/2018 without any reactions though documented PNC allergy and tolerated ceftriaxone in ER. Will give total of 2g ceftriaxone now and followup with QD doses. Followup blood and urine cultures. Could be contributing to #1 but want to rule out drugs, ENVIRONMENTAL ATTORNEY, etc. first. 4) Poor Dentition -Needs dental referral on DC 5) SVT hx -Hold metoprolol until BP stability ascertained; on telemetry 6) Low TSH with hx hypothyroidism -Consistent with prior values; checking FT4, T4, T3. Consider endocrine referral at [facility] 7) DM with hypoglycemia -Folllow fsg overnight, hold PO antihyperglycemics. Full Code
[2019-05-21 00:12] LABS: ALBUMIN 2.6 g/dl (3.4-5.0); ALK PHOS 57 U/L (45-117); ANION GAP 9 MMOL/L (8-16); BILIRUBIN,TOTAL 0.7 mg/dL (0.2-1); BLOOD UREA NITROGEN 14.2 mg/dL (7-18); CALCIUM 7.9 mg/dL (8.5-10.1); CHLORIDE 107 mmol/L (98-107); CO2 24 mmol/L (21-32); CREATININE 1.6 mg/dL (0.55-1.3); GLUCOSE,RANDOM 65 mg/dL (74-106); MAGNESIUM 1.7 mg/dL (1.8-2.4); N-TERMINAL BNP 1672.1 pg/ml (5-125); POTASSIUM 3.8 mmol/L (3.5-5.1); SGOT/AST 21 U/L (15-37); SGPT/ALT 8 U/L (13-61); SODIUM 141 mmol/L (136-145); TOT PROT 5.5 g/dl (6.4-8.2)
[2019-05-21] MEDS ORDERED: VANCOMYCIN 1 GRAM (PRE-DOCKED) 1,000 MG/250 ML BAG IVPB ONE (00:17)
[2019-05-21] MEDS ORDERED: PIPERACILLIN/TAZOB 3.375 GM 3.375 GM/50 ML BAG IVPB ONE (00:18)
[2019-05-21] MEDS ORDERED: MAGNESIUM SULF 50% (8.12 MEQ/2 ML-1 GM VIAL) IVPB ONE (00:29)
[2019-05-21] MEDS ORDERED: DEXTROSE 50%-WATER - 25 GM/50 ML VIAL IVPUSH ONE (00:30)
[2019-05-21] MEDS ORDERED: HYDROCORTISONE SOD SUCCINATE 100 MG/2 ML VIAL IVPB ONE (00:31)
[2019-05-21] MEDS ORDERED: DEXTROSE 5%-0.45% SALINE 1,000 ML IV SCH (01:00)
[2019-05-21] MEDS ORDERED: DEXTROSE 50%-WATER 25 GM/50 ML DISP.SYRIN ONE (01:26)
[2019-05-21] MEDS ORDERED: MAGNESIUM SULF 50% (8.12 MEQ/2 ML-1 GM VIAL) ONE (01:26)
[2019-05-21] MEDS ORDERED: DEXTROSE 5%-LACTATED RINGERS 1,000 ML IV SCH (03:15)
[2019-05-21 08:34] LABS: BASO % 0.1 % (0-2.0); HEMATOCRIT 29.5 % (32.4-45.2); HEMOGLOBIN 9.3 GM/dL (10.7-15.3); LYMPH % 9.6 % (8-40); MCH 24.4 pg (25.7-33.7); MCHC 31.6 g/dl (32.0-36.0); MEAN CELL VOLUME 77.3 fl (80-96); MEAN PLT VOLUME 8.9 fl (7.5-11.1); MONO % 1.4 % (3.8-10.2); NEUT % 88.9 % (42.8-82.8); RBC 3.82 M/mm3 (3.60-5.2); RDW 14.3 % (11.6-15.6)
[2019-05-21 08:41] LABS: ALBUMIN 2.7 g/dl (3.4-5.0); BILIRUBIN,TOTAL 0.6 mg/dL (0.2-1); BLOOD UREA NITROGEN 12.6 mg/dL (7-18); CALCIUM 7.7 mg/dL (8.5-10.1); CREATININE 1.4 mg/dL (0.55-1.3); MAGNESIUM 2.3 mg/dL (1.8-2.4); PHOSPHOROUS 2.7 mg/dL (2.5-4.9); POTASSIUM 3.5 mmol/L (3.5-5.1); TOT PROT 5.8 g/dl (6.4-8.2)
[2019-05-21 08:42] LABS: INR 1.73 (0.83-1.09); PROTHROMBIN TIME (PATIENT) 20.5 SEC (9.7-13.0)
[2019-05-21 08:43] LABS: ACTIVATED PTT 40.6 SECONDS (25.2-36.5)
[2019-05-21 09:25] LABS: PLATELET COUNT 162 K/MM3 (134-434)
[2019-05-21 09:40] VITALS: BMI 25.2
[2019-05-21] MEDS ORDERED: SODIUM CHLORIDE 1,000 ML IV STA (09:47)
[2019-05-21] MEDS ORDERED: CEFTRIAXONE 2 GM-D5W BAG 2 GM/50 ML BAG IVPB SCH (10:00)
[2019-05-21] MEDS ORDERED: PANTOPRAZOLE SODIUM 40 MG VIAL IVPUSH SCH (10:00)
[2019-05-21] MEDS ORDERED: MUPIROCIN 2% TOPICAL OINTMENT FOR DECOLONIZATION NS SCH (10:00)
[2019-05-21] MEDS: ASPIRIN 81 MG CHEWABLE TABLETS PO SCH (10:02)
[2019-05-21] MEDS: EZETIMIBE 10 MG TABLET (FP) PO SCH (10:03)
[2019-05-21] MEDS ORDERED: DEXTROSE 5%-WATER 100 ML IVPB ONE (10:18)
[2019-05-21] MEDS: FOLIC ACID 1 MG TABLET (FP) PO SCH (10:20)
[2019-05-21] MEDS: CEFTRIAXONE 2 GM in DEXTROSE 5%-WATER 100 ML IVPB SCH (10:20)
[2019-05-21] MEDS: THIAMINE HCL 200 MG/2 ML VIAL IVPB SCH (10:21)
[2019-05-21 10:22] LABS: COCAINE, UR NEGATIVE ng/ml (CUTOFF=300); METHADONE, UR NEGATIVE ng/ml (CUTOFF=300); OPIATES, URI NEGATIVE ng/ml (CUTOFF=300); PHENCYCLIDINE,URINE NEGATIVE ng/ml (CUTOFF=25); URINE AMPHETAMINES NEGATIVE ng/ml (CUTOFF=500); URINE BARBITURATES NEGATIVE ng/ml (CUTOFF=200); URINE BENZODIAZEPINES NEGATIVE ng/ml (CUTOFF=200)
--- NOTE | 2019-05-21 10:46 | PN ---
Physical Exam: SUBJECTIVE: Patient seen and examined. She says she feels weak, tired, and nauseous. She feels her heart racing. She reports having a wine colored stool prior to coming to the ER. OBJECTIVE: Vital Signs Period Temp Pulse Resp BP Sys/Long Pulse Ox Last 24 Hr 97.4 F-100.4 F 71-98 14-22 72-114/46-69 94-100 GENERAL: The patient is awake, alert, and fully oriented, in no acute distress. LUNGS: Breath sounds equal, clear to auscultation bilaterally, no wheezes, no crackles, no accessory muscle use. HEART: Regular rate and rhythm, S1, S2 without murmur, rub or gallop. ABDOMEN: Soft, (+) diffuse mild tenderness, nondistended, normoactive bowel sounds, no guarding, no rebound, no hepatosplenomegaly, no masses. EXTREMITIES: 2+ pulses, warm, well-perfused, no edema. Laboratory Results - last 24 hr 05/20/19 05/20/19 05/20/19 09:17 10:21 17:53 WBC 8.5 RBC 4.46 Hgb 10.9 Hct 34.0 D MCV 76.3 L MCH 24.3 L MCHC 31.9 L RDW 14.6 D Plt Count 199 D MPV 9.5 D Absolute Neuts (auto) 5.8 Neutrophils % 67.7 D Lymphocytes % 19.3 D Monocytes % 11.0 H Eosinophils % 1.8 Basophils % 0.2 Nucleated RBC % 0 PT with INR INR PTT (Actin FS) VBG pH POC VBG pCO2 POC VBG pO2 VBG HCO3 VBG O2 Sat (Gali) VBG Base Excess Sodium Potassium Chloride Carbon Dioxide Anion Gap BUN Creatinine Est GFR (CKD-EPI)AfAm Est GFR (CKD-EPI)NonAf POC Glucometer Random Glucose Lactic Acid Calcium Phosphorus Magnesium Total Bilirubin AST ALT Alkaline Phosphatase Creatine Kinase Creatine Kinase Index CK-MB (CK-2) Troponin I C-Reactive Protein B-Natriuretic Peptide Total Protein Albumin Lipase Vitamin B12 Serum Folate TSH Free T4 Urine Color Dk yellow Urine Appearance Cloudy Urine pH 5.0 Ur Specific [place] 1.060 H Urine Protein 30 Urine Glucose (UA) Negative Urine Ketones Negative Urine Blood 1+ H Urine Nitrite Positive H Urine Bilirubin Negative Urine Urobilinogen 1.0 Ur Leukocyte Esterase 2+ H Urine WBC (Auto) 122.3 Urine RBC (Auto) 4.9 Urine Casts (Auto) 8.27 U Epithel Cells (Auto) 0.9 Urine Bacteria (Auto) 431.0 Salicylates Opiates Screen Negative Methadone Screen Negative Acetaminophen Barbiturate Screen Negative Phencyclidine Screen Negative Ur Amphetamines Screen Negative MDMA (Ecstasy) Screen Negative Benzodiazepines Screen Negative Cocaine Screen Negative U Marijuana (THC) Screen Negative Alcohol, Quantitative 05/20/19 05/20/19 05/20/19 17:53 17:53 17:53 WBC RBC Hgb Hct MCV MCH MCHC RDW Plt Count MPV Absolute Neuts (auto) Neutrophils % Lymphocytes % Monocytes % Eosinophils % Basophils % Nucleated RBC % PT with INR Cancelled INR Cancelled PTT (Actin FS) Cancelled VBG pH POC VBG pCO2 POC VBG pO2 VBG HCO3 VBG O2 Sat (Gali) VBG Base Excess Sodium Cancelled Potassium Cancelled Chloride Cancelled Carbon Dioxide Cancelled Anion Gap Cancelled BUN Cancelled Creatinine Cancelled Est GFR (CKD-EPI)AfAm Cancelled Est GFR (CKD-EPI)NonAf Cancelled POC Glucometer Random Glucose Cancelled Lactic Acid 1.7 Calcium Cancelled Phosphorus Magnesium Total Bilirubin Cancelled AST Cancelled ALT Cancelled Alkaline Phosphatase Cancelled Creatine Kinase Creatine Kinase Index CK-MB (CK-2) Troponin I C-Reactive Protein B-Natriuretic Peptide Total Protein Cancelled Albumin Cancelled Lipase Vitamin B12 Serum Folate TSH Free T4 Urine Color Urine Appearance Urine pH Ur Specific [place] Urine Protein Urine Glucose (UA) Urine Ketones Urine Blood Urine Nitrite Urine Bilirubin Urine Urobilinogen Ur Leukocyte Esterase Urine WBC (Auto) Urine RBC (Auto) Urine Casts (Auto) U Epithel Cells (Auto) Urine Bacteria (Auto) Salicylates Opiates Screen Methadone Screen Acetaminophen Barbiturate Screen Phencyclidine Screen Ur Amphetamines Screen MDMA (Ecstasy) Screen Benzodiazepines Screen Cocaine Screen U Marijuana (THC) Screen Alcohol, Quantitative 05/20/19 05/20/19 05/20/19 18:15 18:15 18:15 WBC RBC Hgb Hct MCV MCH MCHC RDW Plt Count MPV Absolute Neuts (auto) Neutrophils % Lymphocytes % Monocytes % Eosinophils % Basophils % Nucleated RBC % PT with INR INR PTT (Actin FS) VBG pH 7.33 POC VBG pCO2 50.1 POC VBG pO2 20.8 L VBG HCO3 25.4 VBG O2 Sat (Gali) 23.5 L VBG Base Excess -0.4 Sodium 141 Potassium 3.6 Chloride 106 Carbon Dioxide 26 Anion Gap 8 BUN 15.0 Creatinine 1.8 H Est GFR (CKD-EPI)AfAm 35.58 Est GFR (CKD-EPI)NonAf 30.70 POC Glucometer Random Glucose 61 L Lactic Acid Calcium 8.2 L Phosphorus Magnesium Total Bilirubin 1.0 AST 21 ALT 9 L Alkaline Phosphatase 59 Creatine Kinase Creatine Kinase Index CK-MB (CK-2) Troponin I < 0.02 Cancelled C-Reactive Protein 21.7 H B-Natriuretic Peptide Total Protein 6.2 L Albumin 3.0 L Lipase 71 L Vitamin B12 462 Serum Folate 19 H TSH 0.01 L Free T4 0.49 L Urine Color Urine Appearance Urine pH Ur Specific [place] Urine Protein Urine Glucose (UA) Urine Ketones Urine Blood Urine Nitrite Urine Bilirubin Urine Urobilinogen Ur Leukocyte Esterase Urine WBC (Auto) Urine RBC (Auto) Urine Casts (Auto) U Epithel Cells (Auto) Urine Bacteria (Auto) Salicylates Opiates Screen Methadone Screen Acetaminophen Barbiturate Screen Phencyclidine Screen Ur Amphetamines Screen MDMA (Ecstasy) Screen Benzodiazepines Screen Cocaine Screen U Marijuana (THC) Screen Alcohol, Quantitative 05/20/19 05/20/19 05/20/19 18:50 21:04 22:05 WBC RBC Hgb Hct MCV MCH MCHC RDW Plt Count MPV Absolute Neuts (auto) Neutrophils % Lymphocytes % Monocytes % Eosinophils % Basophils % Nucleated RBC % PT with INR 19.20 H INR 1.62 H PTT (Actin FS) 38.8 H VBG pH POC VBG pCO2 POC VBG pO2 VBG HCO3 VBG O2 Sat (Gali) VBG Base Excess Sodium Potassium Chloride Carbon Dioxide Anion Gap BUN Creatinine Est GFR (CKD-EPI)AfAm Est GFR (CKD-EPI)NonAf POC Glucometer 63 109 Random Glucose Lactic Acid Calcium Phosphorus Magnesium Total Bilirubin AST ALT Alkaline Phosphatase Creatine Kinase Creatine Kinase Index CK-MB (CK-2) Troponin I C-Reactive Protein B-Natriuretic Peptide Total Protein Albumin Lipase Vitamin B12 Serum Folate TSH Free T4 Urine Color Urine Appearance Urine pH Ur Specific [place] Urine Protein Urine Glucose (UA) Urine Ketones Urine Blood Urine Nitrite Urine Bilirubin Urine Urobilinogen Ur Leukocyte Esterase Urine WBC (Auto) Urine RBC (Auto) Urine Casts (Auto) U Epithel Cells (Auto) Urine Bacteria (Auto) Salicylates Opiates Screen Methadone Screen Acetaminophen Barbiturate Screen Phencyclidine Screen Ur Amphetamines Screen MDMA (Ecstasy) Screen Benzodiazepines Screen Cocaine Screen U Marijuana (THC) Screen Alcohol, Quantitative 05/20/19 05/20/19 05/20/19 22:15 23:15 23:15 WBC RBC Hgb Hct MCV MCH MCHC RDW Plt Count MPV Absolute Neuts (auto) Neutrophils % Lymphocytes % Monocytes % Eosinophils % Basophils % Nucleated RBC % PT with INR INR PTT (Actin FS) VBG pH POC VBG pCO2 POC VBG pO2 VBG HCO3 VBG O2 Sat (Gali) VBG Base Excess Sodium 141 Potassium 3.8 Chloride 107 Carbon Dioxide 24 Anion Gap 9 BUN 14.2 Creatinine 1.6 H Est GFR (CKD-EPI)AfAm 41.03 Est GFR (CKD-EPI)NonAf 35.40 POC Glucometer Random Glucose 65 L Lactic Acid 3.8 H* Calcium 7.9 L Phosphorus 3.0 Magnesium 1.7 L Total Bilirubin 0.7 AST 21 ALT 8 L Alkaline Phosphatase 57 Creatine Kinase 192 Creatine Kinase Index 0.7 CK-MB (CK-2) 1.4 Troponin I < 0.02 C-Reactive Protein B-Natriuretic Peptide 1672.1 H Total Protein 5.5 L Albumin 2.6 L Lipase Vitamin B12 Serum Folate TSH Free T4 Urine Color Urine Appearance Urine pH Ur Specific [place] Urine Protein Urine Glucose (UA) Urine Ketones Urine Blood Urine Nitrite Urine Bilirubin Urine Urobilinogen Ur Leukocyte Esterase Urine WBC (Auto) Urine RBC (Auto) Urine Casts (Auto) U Epithel Cells (Auto) Urine Bacteria (Auto) Salicylates < 1.7 L Opiates Screen Methadone Screen Acetaminophen 14.1 Barbiturate Screen Phencyclidine Screen Ur Amphetamines Screen MDMA (Ecstasy) Screen Benzodiazepines Screen Cocaine Screen U Marijuana (THC) Screen Alcohol, Quantitative < 3.0 05/21/19 05/21/19 05/21/19 00:28 02:45 03:15 WBC RBC Hgb Hct MCV MCH MCHC RDW Plt Count MPV Absolute Neuts (auto) Neutrophils % Lymphocytes % Monocytes % Eosinophils % Basophils % Nucleated RBC % PT with INR INR PTT (Actin FS) VBG pH POC VBG pCO2 POC VBG pO2 VBG HCO3 VBG O2 Sat (Gali) VBG Base Excess Sodium Potassium Chloride Carbon Dioxide Anion Gap BUN Creatinine Est GFR (CKD-EPI)AfAm Est GFR (CKD-EPI)NonAf POC Glucometer 78 211 Random Glucose Lactic Acid 1.0 Calcium Phosphorus Magnesium Total Bilirubin AST ALT Alkaline Phosphatase Creatine Kinase Creatine Kinase Index CK-MB (CK-2) Troponin I C-Reactive Protein B-Natriuretic Peptide Total Protein Albumin Lipase Vitamin B12 Serum Folate TSH Free T4 Urine Color Urine Appearance Urine pH Ur Specific [place] Urine Protein Urine Glucose (UA) Urine Ketones Urine Blood Urine Nitrite Urine Bilirubin Urine Urobilinogen Ur Leukocyte Esterase Urine WBC (Auto) Urine RBC (Auto) Urine Casts (Auto) U Epithel Cells (Auto) Urine Bacteria (Auto) Salicylates Opiates Screen Methadone Screen Acetaminophen Barbiturate Screen Phencyclidine Screen Ur Amphetamines Screen MDMA (Ecstasy) Screen Benzodiazepines Screen Cocaine Screen U Marijuana (THC) Screen Alcohol, Quantitative 05/21/19 05/21/19 05/21/19 06:35 07:17 07:46 WBC 5.0 RBC 3.82 Hgb 9.3 L Hct 29.5 L MCV 77.3 L MCH 24.4 L MCHC 31.6 L RDW 14.3 Plt Count 162 MPV 8.9 Absolute Neuts (auto) 4.5 Neutrophils % 88.9 H D Lymphocytes % 9.6 D Monocytes % 1.4 L D Eosinophils % 0.0 D Basophils % 0.1 Nucleated RBC % 0 PT with INR INR PTT (Actin FS) VBG pH POC VBG pCO2 POC VBG pO2 VBG HCO3 VBG O2 Sat (Gali) VBG Base Excess Sodium Potassium Chloride Carbon Dioxide Anion Gap BUN Creatinine Est GFR (CKD-EPI)AfAm Est GFR (CKD-EPI)NonAf POC Glucometer 264 Random Glucose Lactic Acid 3.7 H* Calcium Phosphorus Magnesium Total Bilirubin AST ALT Alkaline Phosphatase Creatine Kinase Creatine Kinase Index CK-MB (CK-2) Troponin I C-Reactive Protein B-Natriuretic Peptide Total Protein Albumin Lipase Vitamin B12 Serum Folate TSH Free T4 Urine Color Urine Appearance Urine pH Ur Specific [place] Urine Protein Urine Glucose (UA) Urine Ketones Urine Blood Urine Nitrite Urine Bilirubin Urine Urobilinogen Ur Leukocyte Esterase Urine WBC (Auto) Urine RBC (Auto) Urine Casts (Auto) U Epithel Cells (Auto) Urine Bacteria (Auto) Salicylates Opiates Screen Methadone Screen Acetaminophen Barbiturate Screen Phencyclidine Screen Ur Amphetamines Screen MDMA (Ecstasy) Screen Benzodiazepines Screen Cocaine Screen U Marijuana (THC) Screen Alcohol, Quantitative 05/21/19 05/21/19 07:46 07:50 WBC RBC Hgb Hct MCV MCH MCHC RDW Plt Count MPV Absolute Neuts (auto) Neutrophils % Lymphocytes % Monocytes % Eosinophils % Basophils % Nucleated RBC % PT with INR 20.50 H INR 1.73 H PTT (Actin FS) 40.6 H VBG pH POC VBG pCO2 POC VBG pO2 VBG HCO3 VBG O2 Sat (Gali) VBG Base Excess Sodium 140 Potassium 3.5 Chloride 112 H Carbon Dioxide 23 Anion Gap 5 L BUN 12.6 Creatinine 1.4 H Est GFR (CKD-EPI)AfAm 48.22 Est GFR (CKD-EPI)NonAf 41.60 POC Glucometer Random Glucose 247 H Lactic Acid Calcium 7.7 L Phosphorus 2.7 Magnesium 2.3 Total Bilirubin 0.6 AST 17 ALT 8 L Alkaline Phosphatase 62 Creatine Kinase Creatine Kinase Index CK-MB (CK-2) Troponin I C-Reactive Protein B-Natriuretic Peptide Total Protein 5.8 L Albumin 2.7 L Lipase Vitamin B12 Serum Folate TSH Free T4 Urine Color Urine Appearance Urine pH Ur Specific [place] Urine Protein Urine Glucose (UA) Urine Ketones Urine Blood Urine Nitrite Urine Bilirubin Urine Urobilinogen Ur Leukocyte Esterase Urine WBC (Auto) Urine RBC (Auto) Urine Casts (Auto) U Epithel Cells (Auto) Urine Bacteria (Auto) Salicylates Opiates Screen Methadone Screen Acetaminophen Barbiturate Screen Phencyclidine Screen Ur Amphetamines Screen MDMA (Ecstasy) Screen Benzodiazepines Screen Cocaine Screen U Marijuana (THC) Screen Alcohol, Quantitative Active Medications Generic Name Dose Route Start Last Admin Trade Name Kayley PRN Reason Stop Dose Admin Aspirin 81 mg 05/21/19 10:00 05/21/19 10:02 Asa - PO 81 mg DAILY VIRAL Administration Atorvastatin Calcium 20 mg 05/21/19 22:00 Lipitor - PO HS VIRAL Ezetimibe 10 mg 05/21/19 10:00 05/21/19 10:03 Zetia - PO 10 mg DAILY VIRAL Administration Folic Acid 1 mg 05/21/19 10:00 05/21/19 10:20 Folic Acid - PO 1 mg DAILY VIRAL Administration Sodium Chloride 1,000 mls @ 125 mls/hr 05/20/19 23:00 05/21/19 01:38 Normal Saline - IV 125 mls/hr ASDIR VIRAL Administration Dextrose/Lactated Ringer's 1,000 mls @ 125 mls/hr 05/21/19 03:15 05/21/19 05: 33 D5-Lr - IV 125 mls/hr ASDIR VIRAL Administration Sodium Chloride 1,000 mls @ 1,000 mls/hr 05/21/19 09:47 05/21/19 10:20 Normal Saline - IV 05/21/19 10:46 1,000 mls/hr ASDIR STA Administration Ceftriaxone Sodium 2 gm/ 100 mls @ 200 mls/hr 05/21/19 10:00 05/21/19 10:20 Dextrose IVPB 200 mls/hr DAILY VIRAL Administration Protocol Thiamine HCl 200 mg 05/21/19 10:00 05/21/19 10:21 Vitamin B1 Injection - IVPB 200 mg DAILY VIRAL Administration ASSESSMENT/PLAN: This is a 59 year old woman with a history of type 2 DM, HTN, hyperlipidemia, hypothyroidism who presented to the ED with weakness, lethargy, and abdominal pain. 1. Acute metabolic encephalopathy with hypotension, weakness, lethargy, hypoglycemia, abdominal pain - Mental status appears to be at baseline - Possibly secondary to dehydration, septic shock, secondary adrenal insufficiency - Urine tox screen negative - Serum cortisol pending - had been given dexamethasone prior, so will recheck in AM - Check ACTH - Continue IV fluid - Continue ceftriaxone for UTI - Continue to monitor lactic acid - Follow up blood, urine cultures 2. UTI - Continue ceftriaxone - Urine culture pending 3. Acute kidney injury - Secondary to hypoperfusion - Improving with IV fluid 4. Lactic acidosis - Possibly secondary to dehydration, sepsis, tissue hypoperfusion - Continue IV fluid 5. HTN - Toprol XL held secondary to hypotension 6. History of SVT - Toprol XL held secondary to hypotension 7. Hypothyroidism - TSH, FT4 low - FT3 pending - Continue Synthroid 8. Hyperlipidemia - Continue Lipitor, Zetia 9. Type 2 DM - Metformin held secondary to hypoglycemia - Hypoglycemia resolved, now with hyperglycemia - Discontinue D5LR - Continue to monitor fingersticks - Check HgbA1c 10. Anemia, microcytic - Chronic - Check iron studies - Patient reports "wine-colored" stool - check occult blood Visit type - Emergency Visit Emergency Visit: Yes ED Registration Date: 05/20/19 Care time: The patient presented to the Emergency Department on the above date and was hospitalized for further evaluation of their emergent condition. - New Patient This patient is new to me today: Yes Date on this admission: 05/21/19 - Critical Care Critical Care patient: No - Discharge Referral Referred to [facility] No
--- NOTE | 2019-05-21 10:51 | PN ---
Progress Note (short form) - Note Progress Note: PULMONARY CONSULTATION DICTATED 05/21/19
[2019-05-21] MEDS: ACETAMINOPHEN 325 MG TABLET (FP) PO PRN ×2 (16:40→22:41)
[2019-05-21] MEDS: oxyCODONE HCL 5 MG TABLET PO PRN ×2 (16:41→22:40)
[2019-05-21] MEDS: SODIUM CHLORIDE 1,000 ML IV SCH ×2 (16:45→21:56)
[2019-05-21] MEDS ORDERED: CHLORHEXIDINE GLUCONATE 4% CLEANSER FOR DECOLONIZATION TP SCH (22:00)
[2019-05-21] MEDS: ATORVASTATIN CA 20 MG TABLET (FP) PO SCH (22:40)
--- NOTE | 2019-05-22 00:15 | EKG ---
Test Reason : Blood Pressure : / mmHG Vent. Rate : 071 BPM Atrial Rate : 071 BPM P-R Int : 252 ms QRS Dur : 078 ms QT Int : 462 ms P-R-T Axes : 068 006 065 degrees QTc Int : 502 ms SINUS RHYTHM WITH 1ST DEGREE A-V BLOCK NONSPECIFIC T WAVE ABNORMALITY ABNORMAL ECG WHEN COMPARED WITH ECG OF 20-MAY-2019 23:34, NONSPECIFIC T WAVE ABNORMALITY NO LONGER EVIDENT IN INFERIOR LEADS Confirmed by MD Lee, To ([id number]) on 05/22/2019 12:15:01 AM Referred By: Noe ORANTES Confirmed By:To Howard MD
--- NOTE | 2019-05-22 00:20 | EKG ---
Test Reason : Blood Pressure : / mmHG Vent. Rate : 090 BPM Atrial Rate : 090 BPM P-R Int : 214 ms QRS Dur : 076 ms QT Int : 430 ms P-R-T Axes : 072 008 090 degrees QTc Int : 526 ms SINUS RHYTHM WITH 1ST DEGREE A-V BLOCK T WAVE ABNORMALITY, CONSIDER ANTEROLATERAL ISCHEMIA PROLONGED QT ABNORMAL ECG WHEN COMPARED WITH ECG OF 20-MAY-2019 17:15, NO SIGNIFICANT CHANGE WAS FOUND Confirmed by MD Lee, To ([id number]) on 05/22/2019 12:19:41 AM Referred By: Confirmed By:To Howard MD
--- NOTE | 2019-05-22 00:22 | EKG ---
Test Reason : Blood Pressure : / mmHG Vent. Rate : 097 BPM Atrial Rate : 097 BPM P-R Int : 196 ms QRS Dur : 076 ms QT Int : 418 ms P-R-T Axes : 075 -06 114 degrees QTc Int : 530 ms NORMAL SINUS RHYTHM PROLONGED QT ABNORMAL ECG WHEN COMPARED WITH ECG OF 17-OCT-2018 22:48, QT HAS LENGTHENED Confirmed by MD Lee, To ([id number]) on 05/22/2019 12:22:27 AM Referred By: Confirmed By:To Howard MD
[2019-05-22 08:08] LABS: HEMATOCRIT 27.1 % (32.4-45.2); HEMOGLOBIN 8.7 GM/dL (10.7-15.3); LYMPH % 6.7 % (8-40); MCH 24.6 pg (25.7-33.7); MCHC 32.2 g/dl (32.0-36.0); MEAN CELL VOLUME 76.4 fl (80-96); MEAN PLT VOLUME 9.3 fl (7.5-11.1); MONO % 2.7 % (3.8-10.2); NEUT % 90.6 % (42.8-82.8); PLATELET COUNT 169 K/MM3 (134-434); RBC 3.55 M/mm3 (3.60-5.2); RDW 14.9 % (11.6-15.6); WHITE BLOOD COUNT 9.8 K/mm3 (4.0-10.0)
[2019-05-22 08:25] LABS: ALBUMIN 2.8 g/dl (3.4-5.0); BILIRUBIN,TOTAL 0.3 mg/dL (0.2-1); BLOOD UREA NITROGEN 11.3 mg/dL (7-18); CALCIUM 7.5 mg/dL (8.5-10.1); CREATININE 0.9 mg/dL (0.55-1.3); POTASSIUM 4.3 mmol/L (3.5-5.1); TOT PROT 6.2 g/dl (6.4-8.2)
[2019-05-22] MEDS ORDERED: DEXTROSE 5%-WATER 100 ML IVPB ONE (09:17)
[2019-05-22] MEDS: LEVOTHYROXINE NA 112 MCG TABLET (FP) PO SCH (09:23)
[2019-05-22] MEDS: EZETIMIBE 10 MG TABLET (FP) PO SCH (09:23)
[2019-05-22] MEDS: ASPIRIN 81 MG CHEWABLE TABLETS PO SCH (09:23)
[2019-05-22] MEDS: FOLIC ACID 1 MG TABLET (FP) PO SCH (09:24)
[2019-05-22] MEDS: CEFTRIAXONE 2 GM in DEXTROSE 5%-WATER 100 ML IVPB SCH (09:24)
[2019-05-22] MEDS: THIAMINE HCL 200 MG/2 ML VIAL IVPB SCH (09:24)
[2019-05-22] MEDS: SENNOSIDES/DOCUSATE COMBO (SENNA PLUS) TABLET (UD) PO SCH ×2 (13:11→22:36)
[2019-05-22] MEDS: POLYETHYLENE GLYCOL 3350 119 GM BTL PO SCH (13:13)
--- NOTE | 2019-05-22 15:24 | PN ---
Physical Exam: SUBJECTIVE: Patient seen and examined. No acute events overnight. Pt endorses diffuse abd pain but denies nausea, vomiting, diarrhea, decreased appetite, general weakness or lethargy. She states that she has not had a bowel movement in 2 weeks. Pt also complains of bl knee pain secondary to her osteoarthritis. OBJECTIVE: Vital Signs Last Vital Signs Temp Pulse Resp BP Pulse Ox 97.9 F 75 20 136/82 100 05/22/19 10:05/22/19 10:05/22/19 10:05/22/19 10:05/22/19 09:00 GENERAL: The patient is awake, alert, and fully oriented, in no acute distress. HEAD: Normal with no signs of trauma. ENT: Oropharynx clear without exudates, moist mucous membranes. NECK: Trachea midline, full range of motion, supple. No thyroid masses or nodules. LUNGS: Breath sounds equal, clear to auscultation bilaterally, no wheezes, no crackles, no accessory muscle use. HEART: Regular rate and rhythm, S1, S2 without murmur, rub or gallop. ABDOMEN: Soft, with diffuse tenderness. Nondistended, normoactive bowel sounds, no guarding, no rebound, no hepatosplenomegaly, no masses. EXTREMITIES: 2+ pulses, warm, well-perfused, no edema. SKIN: Warm, dry, normal turgor, no rashes or lesions noted Laboratory Results - last 24 hr CBC, BMP 05/22/19 07:10 05/22/19 07:10 CBC,CMP WBC 9.8 K/mm3 (4.0-10.0) 05/22/19 07:10 RBC 3.55 M/mm3 (3.60-5.2) L 05/22/19 07:10 Hgb 8.7 GM/dL (10.7-15.3) L 05/22/19 07:10 Hct 27.1 % (32.4-45.2) L 05/22/19 07:10 MCV 76.4 fl (80-96) L 05/22/19 07:10 MCH 24.6 pg (25.7-33.7) L 05/22/19 07:10 MCHC 32.2 g/dl (32.0-36.0) 05/22/19 07:10 RDW 14.9 % (11.6-15.6) 05/22/19 07:10 Plt Count 169 K/MM3 (134-434) 05/22/19 07:10 MPV 9.3 fl (7.5-11.1) 05/22/19 07:10 Absolute Neuts (auto) 8.9 K/mm3 (1.5-8.0) H 05/22/19 07:10 Neutrophils % 90.6 % (42.8-82.8) H 05/22/19 07:10 Lymphocytes % 6.7 % (8-40) L D 05/22/19 07:10 Monocytes % 2.7 % (3.8-10.2) L D 05/22/19 07:10 Eosinophils % 0.0 % (0-4.5) 05/22/19 07:10 Basophils % 0.0 % (0-2.0) 05/22/19 07:10 Nucleated RBC % 0 % (0-0) 05/22/19 07:10 Sodium 143 mmol/L (136-145) 05/22/19 07:10 Potassium 4.3 mmol/L (3.5-5.1) 05/22/19 07:10 Chloride 112 mmol/L (98-107) H 05/22/19 07:10 Carbon Dioxide 25 mmol/L (21-32) 05/22/19 07:10 Anion Gap 6 MMOL/L (8-16) L 05/22/19 07:10 BUN 11.3 mg/dL (7-18) 05/22/19 07:10 Creatinine 0.9 mg/dL (0.55-1.3) 05/22/19 07:10 Est GFR (CKD-EPI)AfAm 82.26 05/22/19 07:10 Est GFR (CKD-EPI)NonAf 70.98 05/22/19 07:10 POC Glucometer 113 UNITS (80-120) 05/22/19 17:04 Random Glucose 117 mg/dL (74-106) H 05/22/19 07:10 Hemoglobin A1c % 5.1 % (4.2-6.3) 05/22/19 07:10 Lactic Acid 1.1 mmol/L (0.4-2.0) 05/22/19 08:45 Calcium 7.5 mg/dL (8.5-10.1) L 05/22/19 07:10 Phosphorus 2.7 mg/dL (2.5-4.9) 05/21/19 07:50 Magnesium 2.3 mg/dL (1.8-2.4) 05/21/19 07:50 Ferritin 337.7 ng/ml (8-388) 05/22/19 07:10 Total Bilirubin 0.3 mg/dL (0.2-1) 05/22/19 07:10 AST 18 U/L (15-37) 05/22/19 07:10 ALT 9 U/L (13-61) L 05/22/19 07:10 Alkaline Phosphatase 54 U/L (45-117) 05/22/19 07:10 Creatine Kinase 192 U/L (26-192) 05/20/19 22:15 Creatine Kinase Index 0.7 % (0.0-5.0) 05/20/19 22:15 CK-MB (CK-2) 1.4 ng/mL (0.5-3.6) 05/20/19 22:15 Troponin I < 0.02 ng/ml (0.00-0.05) 05/20/19 22:15 C-Reactive Protein 21.7 MG/DL (0.00-0.3) H 05/20/19 18:15 B-Natriuretic Peptide 1672.1 pg/ml (5-125) H 05/20/19 22:15 Total Protein 6.2 g/dl (6.4-8.2) L 05/22/19 07:10 Albumin 2.8 g/dl (3.4-5.0) L 05/22/19 07:10 Lipase 71 U/L (73-393) L 05/20/19 18:15 Vitamin B12 462 pg/ml (193-986) 05/20/19 18:15 Serum Folate 19 ng/mL (3.1-17.5) H 05/20/19 18:15 TSH 0.01 uIU/ml (0.358-3.74) L 05/22/19 07:10 Free T4 0.49 ng/dl (0.76-1.46) L 05/20/19 18:15 Free T3 2.0 pg/ml (2.0-4.4) 05/21/19 10:57 Current Medications Acetaminophen (Tylenol -) 650 mg PO Q6H PRN PRN Reason: PAIN LEVEL 1-5 Last Admin: 05/21/19 22:41 Dose: 650 mg Aspirin (Asa -) 81 mg PO DAILY [facility] Last Admin: 05/22/19 09:23 Dose: 81 mg Atorvastatin Calcium (Lipitor -) 20 mg PO HS [facility] Last Admin: 05/21/19 22:40 Dose: 20 mg Ezetimibe (Zetia -) 10 mg PO DAILY [facility] Last Admin: 05/22/19 09:23 Dose: 10 mg Folic Acid (Folic Acid -) 1 mg PO DAILY [facility] Last Admin: 05/22/19 09:24 Dose: 1 mg Ceftriaxone Sodium 2 gm/ (Dextrose) 100 mls @ 200 mls/hr IVPB DAILY [facility]; Protocol Last Admin: 05/22/19 09:24 Dose: 200 mls/hr Sodium Chloride (Normal Saline -) 1,000 mls @ 125 mls/hr IV ASDIR [facility] Last Admin: 05/21/19 21:56 Dose: 125 mls/hr Levothyroxine Sodium (Synthroid -) 112 mcg PO DAILY [facility] Last Admin: 05/22/19 09:23 Dose: 112 mcg Oxycodone HCl (Roxicodone -) 5 mg PO Q6H PRN PRN Reason: PAIN LEVEL 6-10 Last Admin: 05/21/19 22:40 Dose: 5 mg Polyethylene Glycol (Miralax (For Daily Use) -) 17 gm PO DAILY [facility] Last Admin: 05/22/19 13:13 Dose: 17 grams Senna/Docusate Sodium (Pericolace -) 1 tablet PO BID [facility] Last Admin: 05/22/19 13:11 Dose: 1 tablet Thiamine HCl (Vitamin B1 Injection -) 200 mg IVPB DAILY [facility] Last Admin: 05/22/19 09:24 Dose: 200 mg ASSESSMENT/PLAN: This is a 59 year old woman with a history of type 2 DM, HTN, hyperlipidemia, hypothyroidism who presented to the ED with weakness, lethargy, and abdominal pain. #Acute metabolic encephalopathy with hypotension, weakness, lethargy, hypoglycemia, abdominal pain - Mental status appears to be at baseline - Possibly secondary to dehydration, septic shock, secondary adrenal insufficiency - Urine tox screen negative - Check morning serum cortisol - pending - Check ACTH - pending - Consider ordering ACTH Stim test - Continue IV fluid - Continue ceftriaxone for UTI (day 3) - Continue to monitor lactic acid - Follow up blood, urine cultures - No growth after 24 hours - Contact pt's PCP to inquire about endocrine management #UTI - Continue ceftriaxone (day 3) - Urine culture pending - No growth after 24 hours #Acute kidney injury - Secondary to hypoperfusion - Improving with IV fluid #Lactic acidosis - Possibly secondary to dehydration, sepsis, tissue hypoperfusion - Continue IV fluid #Constipation - Prescribe Polyethylene Glycol 17 gm po daily and Sennosides/Docusate 1 tablet PO daily - Encourage pt to ambulate more throughout the day #Knee pain - Discontinued oxycodone, pt does not take at home - If pain persists, give Tylenol #Hypothyroidism - TSH, FT4 low. Repeat TSH to confirm levels - FT3 pending - Continue Synthroid #Anemia, microcytic - Chronic - Check iron studies - Pending - Patient reports "wine-colored" stool - check occult blood #HTN - Toprol XL held secondary to hypotension #History of SVT - Toprol XL held secondary to hypotension #Hyperlipidemia - Continue Lipitor, Zetia #Type 2 DM - Metformin held secondary to hypoglycemia - Hypoglycemia resolved, now with hyperglycemia - Discontinue D5LR - Continue to monitor fingersticks - Check HgbA1c Visit type - Emergency Visit Emergency Visit: Yes ED Registration Date: 05/20/19 Care time: The patient presented to the Emergency Department on the above date and was hospitalized for further evaluation of their emergent condition. - New Patient This patient is new to me today: Yes Date on this admission: 05/22/19 - Critical Care Critical Care patient: No
--- NOTE | 2019-05-22 17:52 | PN ---
Teaching Attending Note Name of Resident: Stefania Gonzalez ATTENDING PHYSICIAN STATEMENT I saw and evaluated the patient. I reviewed the resident's note and discussed the case with the resident. I agree with the resident's findings and plan as documented. SUBJECTIVE: No fever or chills. has no pain. OBJECTIVE: NAD, isthmus of thyroid is palpated but no enlargement CV : RRR. Lungs: CTAB ABd : soft, NT, ND , NL BS Ext : no edema or erythema, no rash . ASSESSMENT AND PLAN: 59 year old woman with a history of type 2 DM, HTN, hyperlipidemia, hypothyroidism who presented to the ED with weakness, lethargy, and abdominal pain. 1- Acute metabolic Encephalopathy : resolved 2- Possible UTI : cont ceftriaxone and follow urine cx 3- R/o chronic adrenal insufficiency /hypopituitarism ( low TSH, FT4 despite synthroid, hypoglycemia, lethargy, h/o pituitary sx, ..) low suspicion though - repeat TSH - STIM test - Not able to reach PCP for more details about her pituitary and thyroid issues -volume depletion might be responsible for some of the sx 4- KENNY , due to volume depletion: cont IVF. 5- DM : hypoglycemic on admission. if sugar increases will start SSI 6- Microcytic anemia: ? maroon colored stool. iron studies pending. OB in stool pending . stable HB DVTPX : start heparin SQ
[2019-05-22] MEDS ORDERED: COSYNTROPIN 0.25 MG VIAL IVPB ONE (18:28)
[2019-05-22] MEDS ORDERED: COSYNTROPIN 0.25 MG VIAL IVPUSH ONE (19:34)
[2019-05-22] MEDS: SODIUM CHLORIDE 1,000 ML IV SCH (21:39)
[2019-05-22] MEDS: HEPARIN NA (PORCINE) 5,000 UNITS/ML 1ML VIAL SQ SCH (22:35)
[2019-05-22] MEDS: ATORVASTATIN CA 20 MG TABLET (FP) PO SCH (22:36)
[2019-05-23] MEDS: SODIUM CHLORIDE 1,000 ML IV SCH (01:45)
[2019-05-23 04:11] LABS: SERUM IRON SATURATION 26 % (15-55); TOTAL IRON BINDING CAPACITY 160 ug/dL (250-450)
[2019-05-23] MEDS: HEPARIN NA (PORCINE) 5,000 UNITS/ML 1ML VIAL SQ SCH ×2 (06:32→14:30)
[2019-05-23] MEDS ORDERED: PT OWN MED DRAWER 7, Y5N ONE ×2 (07:55→08:07)
[2019-05-23 08:23] LABS: HEMATOCRIT 26.3 % (32.4-45.2); HEMOGLOBIN 8.5 GM/dL (10.7-15.3); MCH 24.5 pg (25.7-33.7); MCHC 32.4 g/dl (32.0-36.0); MEAN CELL VOLUME 75.7 fl (80-96); MEAN PLT VOLUME 9.1 fl (7.5-11.1); PLATELET COUNT 181 K/MM3 (134-434); RBC 3.48 M/mm3 (3.60-5.2); RDW 14.9 % (11.6-15.6); WHITE BLOOD COUNT 7.5 K/mm3 (4.0-10.0)
[2019-05-23] MEDS ORDERED: IBUPROFEN 600 MG TABLET (FP) PO PRN (08:34)
[2019-05-23 08:44] LABS: ALBUMIN 2.9 g/dl (3.4-5.0); BILIRUBIN,TOTAL 0.4 mg/dL (0.2-1); BLOOD UREA NITROGEN 11.2 mg/dL (7-18); CALCIUM 7.6 mg/dL (8.5-10.1); CREATININE 0.9 mg/dL (0.55-1.3); POTASSIUM 4.1 mmol/L (3.5-5.1); TOT PROT 6.2 g/dl (6.4-8.2)
--- NOTE | 2019-05-23 09:11 | CONSULT ---
Consult Consult Specialty:: Endocrinology Referred by:: Stefania Gonzalez MD Reason for Consultation:: Hypothyroidism - History of Present Illness Chief Complaint: Fatigue History of Present Illness: This is a 59 year old F with a past medical history of DM, SVT, CAD, HTN, and hypothyroidism admitted for evaluation of general weakness and dehydration. The patient reported that she went to [facility] and states that they did nothing for her. She currently states that she feels tired and wants to sleep. She also reports diffuse abdominal pain with 4 episodes of NBNB emesis and 2 episodes of watery brown, nonbloody diarrhea x 2 days. Pt gives h/o pituitary surgery 20 years ago. 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 Has been on Levothyroxine since then. Was a patient of Dr Alvarez but hasn't seen Endocrinology recently. Last LT4 dose was 112 mcg. Says she used to take "steroids" which by discontinued by her doctor. C /o cold intolerance, poor apetite and wt loss. 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 History of Recent Travel: No Home Medications - Allergies Allergies/Adverse Reactions: Allergies Allergy/AdvReac Type Severity Reaction Status Date / Time Penicillins Allergy Verified 05/20/19 17:32 - Home Medications Home Medications: Ambulatory Orders Aspirin [ASA -] 81 mg PO DAILY 01/09/15 Atorvastatin Ca [Lipitor] 20 mg PO DAILY 01/09/15 Digoxin [Lanoxin -] 0.125 mg PO DAILY 05/22/19 Ferrous Sulfate 325 mg PO BID 05/22/19 Verapamil HCl [Verapamil ER] 180 mg PO DAILY 05/22/19 Levothyroxine [Synthroid -] 125 mcg PO DAILY #30 tablet 05/23/19 Family Disease History - Family Disease History Other Family History: No family h/o thyroid disorder Review of Systems - Review of Systems Constitutional: reports: Weakness Eyes: reports: No Symptoms HENT: reports: No Symptoms Neck: reports: No Symptoms Cardiovascular: reports: No Symptoms Respiratory: reports: No Symptoms Gastrointestinal: reports: No Symptoms Genitourinary: reports: No Symptoms Musculoskeletal: reports: No Symptoms Neurological: reports: No Symptoms Endocrine: reports: No Symptoms Hematology/Lymphatic: reports: No Symptoms Physical Exam Vital Signs: Vital Signs Temperature 97.7 F 05/23/19 08:39 Pulse Rate 74 05/23/19 08:39 Respiratory Rate 20 05/23/19 08:41 Blood Pressure 133/65 05/23/19 08:39 O2 Sat by Pulse Oximetry (%) 99 05/23/19 08:41 Constitutional: Yes: No Distress, Calm Eyes: Yes: Conjunctiva Clear, EOM Intact HENT: Yes: Atraumatic, Normocephalic Neck: Yes: Supple, Trachea Midline Cardiovascular: Yes: Regular Rate and Rhythm Respiratory: Yes: Regular, CTA Bilaterally Gastrointestinal: Yes: Normal Bowel Sounds, Soft Musculoskeletal: Yes: WNL Extremities: Yes: WNL Edema: No Neurological: Yes: Alert, Oriented Labs: CBC, BMP 05/23/19 07:20 05/23/19 07:20 Assessment/Plan AP: Central Hypothyroidism s/p Pituitary surgery ?Adrenal Insufficiecy: ACTH <1.1. Pt not currently taking any glucocorticoid. ?UTI Metabolic Encephalopathy Increase LT4 to 125mcg QD, one hour before food in the morning Start Hydrocortisone 20mg QD in the morning, first dose stat Will d/c if ACTH stim test is normal Rpt TFT in 4 weeks ACTH stim test result pending Will f/u
[2019-05-23] MEDS: CEFTRIAXONE 2 GM in DEXTROSE 5%-WATER 100 ML IVPB SCH (09:24)
[2019-05-23] MEDS: FOLIC ACID 1 MG TABLET (FP) PO SCH (09:25)
[2019-05-23] MEDS: ASPIRIN 81 MG CHEWABLE TABLETS PO SCH (09:25)
[2019-05-23] MEDS: THIAMINE HCL 200 MG/2 ML VIAL IVPB SCH (09:25)
[2019-05-23] MEDS: EZETIMIBE 10 MG TABLET (FP) PO SCH (09:26)
[2019-05-23] MEDS: SENNOSIDES/DOCUSATE COMBO (SENNA PLUS) TABLET (UD) PO SCH (09:26)
[2019-05-23] MEDS: LEVOTHYROXINE NA 112 MCG TABLET (FP) PO SCH (09:26)
[2019-05-23] MEDS: POLYETHYLENE GLYCOL 3350 119 GM BTL PO SCH (09:30)
--- NOTE | 2019-05-23 14:58 | EKG ---
Test Reason : Blood Pressure : / mmHG Vent. Rate : 079 BPM Atrial Rate : 079 BPM P-R Int : 230 ms QRS Dur : 076 ms QT Int : 474 ms P-R-T Axes : 069 -01 176 degrees QTc Int : 543 ms SINUS RHYTHM WITH 1ST DEGREE A-V BLOCK NONSPECIFIC T WAVE ABNORMALITY PROLONGED QT ABNORMAL ECG WHEN COMPARED WITH ECG OF 20-MAY-2019 21:03, NONSPECIFIC T WAVE ABNORMALITY HAS REPLACED INVERTED T WAVES IN ANTERIOR LEADS Confirmed by MD JONAH, THANH ([id number]) on 05/23/2019 2:58:11 PM Referred By: Confirmed By:THANH MCKENZIE MD
--- NOTE | 2019-05-23 15:25 | DS ---
Physical Exam: SUBJECTIVE: Patient seen and examined at bedside. OBJECTIVE: Vital Signs Period Temp Pulse Resp BP Sys/Long Pulse Ox Last 24 Hr 97.5 F-98.3 F 61-88 20-20 102-155/65-92 99-99 PHYSICAL EXAM GENERAL: The patient is awake, alert, and fully oriented, in no acute distress. HEAD: Normal with no signs of trauma. EYES: PERRL, extraocular movements intact, sclera anicteric, conjunctiva clear. ENT: Ears normal, nares patent, oropharynx clear without exudates, moist mucous membranes. NECK: Trachea midline, full range of motion, supple. LUNGS: Breath sounds equal, clear to auscultation bilaterally, no wheezes, no crackles, no accessory muscle use. HEART: Regular rate and rhythm, S1, S2 without murmur, rub or gallop. ABDOMEN: Soft, nontender, nondistended, normoactive bowel sounds, no guarding, no rebound, no hepatosplenomegaly, no masses. EXTREMITIES: 2+ pulses, warm, well-perfused, no edema. NEUROLOGICAL: Cranial nerves II through XII grossly intact. Normal speech, gait not observed. PSYCH: Normal mood, normal affect. SKIN: Warm, dry, normal turgor, no rashes or lesions noted. LABS Laboratory Results - last 24 hr CBC, BMP 05/23/19 07:20 05/23/19 07:20 Current Medications Acetaminophen (Tylenol -) 650 mg PO Q6H PRN PRN Reason: PAIN LEVEL 1-5 Last Admin: 05/21/19 22:41 Dose: 650 mg Aspirin (Asa -) 81 mg PO DAILY [facility] Last Admin: 05/23/19 09:25 Dose: 81 mg Atorvastatin Calcium (Lipitor -) 20 mg PO HS [facility] Last Admin: 05/22/19 22:36 Dose: 20 mg Ezetimibe (Zetia -) 10 mg PO DAILY [facility] Last Admin: 05/23/19 09:26 Dose: 10 mg Folic Acid (Folic Acid -) 1 mg PO DAILY [facility] Last Admin: 05/23/19 09:25 Dose: 1 mg Heparin Sodium (Porcine) (Heparin -) 5,000 unit SQ TID [facility] Last Admin: 05/23/19 14:30 Dose: 5,000 unit Ibuprofen (Motrin -) 600 mg PO Q8H PRN PRN Reason: PAIN LEVEL 1-5 Levothyroxine Sodium (Synthroid -) 112 mcg PO DAILY [facility] Last Admin: 05/23/19 09:26 Dose: 112 mcg Polyethylene Glycol (Miralax (For Daily Use) -) 17 gm PO DAILY [facility] Last Admin: 05/23/19 09:30 Dose: 17 grams Senna/Docusate Sodium (Pericolace -) 1 tablet PO BID [facility] Last Admin: 05/23/19 09:26 Dose: 1 tablet Thiamine HCl (Vitamin B1 Injection -) 200 mg IVPB DAILY [facility] Last Admin: 05/23/19 09:25 Dose: 200 mg HOSPITAL COURSE: Date of Admission:05/20/19 Patient is a 59 y/o female who was admitted for weakness and dehydration due to possible sepsis. She was diagnosed with acute metabolic encephalopathy and a suspected UTI. Patient had a course of antibiotics and clinically improved with IV fluids. Antibiotics were discontinued when urine and blood cultures were negative. To rule out secondary adrenal insufficiency, an endocrine work-up was started. 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 Patient's vitals are stable, she has been afebrile since admission, and she is clinically stable to be discharged. CXR: no acute pathology Echo: normal LV function CT abd: no acute pathology CT head: no findings UCX, bcx: negative Date of Discharge: 05/23/19 Minutes to complete discharge: 35 Discharge Summary Reason For Visit: ACUTE KIDNEY INJURY, HYPOGLYCEMIA, PROLONGED QT Current Active Problems CAD (coronary artery disease) (Chronic) Hypertension (Chronic) Hypothyroidism (Chronic) IDDM (insulin dependent diabetes mellitus) (Chronic) Condition: Improved - Instructions Diet, Activity, Other Instructions: You were admitted for weakness and a urinary tract infection. We treated you with antibiotics and your symptoms and infection resolved. While you were here, some of your labs were abnormal. We gave you a referral for an Motion Picture Projectionist, Dr. Shantal Lopez. You should follow up in one week for further evaluation and at this time you can review your lab work. To continue treatment of your hypothyroidism, please take: 125mcg Synthroid by mouth in the morning on an empty stomach every single day. stop taking the 112 mcg pills and start 125 mcg daily For your diabetes please do not take your metformin. Once you see the endocrinologsit you can discuss any further management. While you were here, you were also found to have a history of anemia (your blood counts were low). We gave you a referral for hematology and you should follow up in one week. You should follow up with Primary care provider in one week, at this time you will also review lab work from the hospital. You should resume all of your home medications as prescribed. You should return to the Emergency Department if you have nausea, vomiting, fevers, chest pain or worsening of symptoms. s follow up with shift boss, Dr. Padilla fro your anemia stop metformin until you follow with endocrine Referrals: David Pink MD [Primary Care Provider] - 06/07/19 2:45 pm Yohan Padilla MD [Staff Physician] - Shantal Lopez MD [Staff Physician] - 05/30/19 11:45 am Disposition: HOME - Home Medications Comprehensive Discharge Medication List: Ambulatory Orders Aspirin [ASA -] 81 mg PO DAILY 01/09/15 Atorvastatin Ca [Lipitor] 20 mg PO DAILY 01/09/15 metFORMIN HCL [Metformin HCl] 1,000 mg PO DAILY 04/13/16 Digoxin [Lanoxin -] 0.125 mg PO DAILY 05/22/19 Ferrous Sulfate 325 mg PO BID 05/22/19 Verapamil HCl [Verapamil ER] 180 mg PO DAILY 05/22/19 Levothyroxine [Synthroid -] 125 mcg PO DAILY #30 tablet 05/23/19 This patient is new to me today: No Emergency Visit: No Critical Care patient: No - Discharge Referral Referred to [facility] No
--- NOTE | 2019-05-23 15:28 | PN ---
Teaching Attending Note Name of Resident: Stefania Gonzalez ATTENDING PHYSICIAN STATEMENT I saw and evaluated the patient. I reviewed the resident's note and discussed the case with the resident. I agree with the resident's findings and plan as documented. SUBJECTIVE: no fever or chills no pain. vomited this am . has aches every where in her body . No BM in 1 week OBJECTIVE: NAD CV : RRR. Lungs: CTAB ABd : soft, TTP in suprapubic area , ND , NL BS Ext : no edema or erythema, no rash . ASSESSMENT AND PLAN: 59 year old woman with a history of type 2 DM, HTN, hyperlipidemia, hypothyroidism who presented to the ED with weakness, lethargy, and abdominal pain. 1- Acute metabolic Encephalopathy : resolved 2- Possible UTI :dc abx as urine cx is negative. received 3 days already 3- R/o chronic adrenal insufficiency /hypopituitarism : case was d/w Endocrine dr. Vaz ( by dr. Gonzalez). labs were reviewed with him. ACTH is low but still need to non urgently follow up on STIM test done this am to confirm. also, synthroid dose was recommended to be increased to 125 mcg daily will have her followup with endocrine and try to schedule her appointment 4- KENNY , resolved. dc IVF . 5- DM : hypoglycemic on admission. A1c 5.1, sugars < 100 most of the time. will hodl metformin at dc pendign f/u with endo 6- Microcytic anemia: iron studies do not indicate iron def. OB neg. she will need f/u with heme . dc home
[2019-05-23] MEDS ORDERED: HYDROCORTISONE 20 MG TABLET PO ONE (15:36)
[2019-05-23] MEDS ORDERED: HYDROCORTISONE 20 MG TABLET PO SCH (15:45)
[2019-05-23 16:31] VITALS: BP 132/65; PULSE 72; TEMP 98.1
[2019-05-24] MEDS ORDERED: HYDROCORTISONE 20 MG TABLET PO SCH (10:00)
== END 2019-05-23 16:41 | disposition home or self-care (01) | DRG 720 ==
LOC: JER 16:58 → JERBED 21:34 → J4W 05-21 08:55
PROVIDERS: ADMIT Internal Medicine; ATTEND Internal Medicine
DX: A41.89 Other specified sepsis (principal); I25.10 Atherosclerotic heart disease of native coronary artery without angina pectoris; I10 Essential (primary) hypertension; E03.9 Hypothyroidism, unspecified; E11.9 Type 2 diabetes mellitus without complications; E86.0 Dehydration; E86.1 Hypovolemia; N17.9 Acute kidney failure, unspecified; I45.81 Long QT syndrome; R65.21 Severe sepsis with septic shock; R11.2 Nausea with vomiting, unspecified; R19.7 Diarrhea, unspecified; N39.0 Urinary tract infection, site not specified; I95.9 Hypotension, unspecified; I25.119 Atherosclerotic heart disease of native coronary artery with unspecified angina pectoris; R40.0 Somnolence; I47.1 Supraventricular tachycardia; D64.9 Anemia, unspecified; E23.0 Hypopituitarism; K52.89 Other specified noninfective gastroenteritis and colitis; E11.649 Type 2 diabetes mellitus with hypoglycemia without coma; E11.65 Type 2 diabetes mellitus with hyperglycemia; E88.09 Other disorders of plasma-protein metabolism, not elsewhere classified; R41.82 Altered mental status, unspecified; G93.41 Metabolic encephalopathy; E87.2 Acidosis; E27.40 Unspecified adrenocortical insufficiency; R10.9 Unspecified abdominal pain; M25.569 Pain in unspecified knee; K59.00 Constipation, unspecified; Z79.4 Long term (current) use of insulin
CPT/HCPCS: 36415; 70450-TC; 71045-TC-FY; 74176-TC; 76999; 80053; 80307; 81003; 82024; 82272; 82533; 82550; 82553; 82607; 82728; 82746; 82803; 82962; 83036; 83540; 83550; 83605; 83690; 83735; 83880; 84100; 84207; 84439; 84443; 84481; 84484; 85025; 85027; 85610; 85730; 86140; 87040; 87086; 87389; 93005; 93010; 97116-GP; 97161-GP; 99285-25; J0131; J0834; J1100; J1644; J7030

== ENCOUNTER 2019-08-15 00:35 | Observation (INO) | payer OTHER ==
[2019-08-15 02:09] VITALS: BMI 23.6
--- NOTE | 2019-08-15 04:03 | PDOC ---
Attending Attestation - Resident Resident Name: KaylaAllieelizabethRicardoyvesjamie - ED Attending Attestation I have performed the following: I have examined & evaluated the patient, The case was reviewed & discussed with the resident, I agree w/resident's findings & plan - HPI HPI: 08/15/19 06:51 see resident hpi - Physicial Exam PE: 08/15/19 06:52 agree with resident exam - Medical Decision Making 08/15/19 06:52 59-year-old female with complaints of abdominal pain and shortness of breath CT scan of the abdomen and pelvis was consistent with constipation as well as bilateral pleural effusions plan to be admitted to medical service for further evaluation of possible CHF and dyspnea on exertion Patient is not currently on diuretics She also had some nonspecific epigastric/chest pain EKG shows a normal sinus rhythm at [address] elevations There are T wave inversions in leads V1 and V2 with nonspecific T-wave abnormalities and lateral leads
[2019-08-15 04:36] LABS: BASO % 0.6 % (0-2.0); EOS % 6.9 % (0-4.5); HEMATOCRIT 34.7 % (32.4-45.2); HEMOGLOBIN 11.2 GM/dL (10.7-15.3); LYMPH % 58.4 % (8-40); MCHC 32.2 g/dl (32.0-36.0); MEAN CELL VOLUME 77.7 fl (80-96); MEAN PLT VOLUME 9.7 fl (7.5-11.1); MONO % 6.5 % (3.8-10.2); NEUT % 27.6 % (42.8-82.8); PLATELET COUNT 210 K/MM3 (134-434); RBC 4.47 M/mm3 (3.60-5.2); RDW 16.3 % (11.6-15.6); WHITE BLOOD COUNT 4.6 K/mm3 (4.0-10.0)
[2019-08-15 04:55] LABS: ALBUMIN 3.7 g/dl (3.4-5.0); BILIRUBIN,TOTAL 0.3 mg/dL (0.2-1); BLOOD UREA NITROGEN 13.7 mg/dL (7-18); CALCIUM 9.4 mg/dL (8.5-10.1); CREATININE 1.1 mg/dL (0.55-1.3); POTASSIUM 4.4 mmol/L (3.5-5.1); TOT PROT 7.1 g/dl (6.4-8.2)
--- NOTE | 2019-08-15 05:21 | PDOC ---
History of Present Illness - General Chief Complaint: Shortness of Breath Stated Complaint: S.O.B. Time Seen by Provider: 08/15/19 02:49 - History of Present Illness Initial Comments: 08/15/19 05:10 59y/o F hx of diabetes, SVT,CAD, HTN, hypothyroidism, presents to the ED with 4 days of shortness of breath. Symptoms began with an episode of PND . Since then , shortness of breath occurs intermittently and frequency has increased over the last few days. She also reports associated chest pain that radiates to the right early in the morning and eventually dissipates. At baseline she has 3 pillow orthopnea, and does not use oxygen at home. She denies any cough, fevers , chills, nausea, vomiting. She endorses 4 episodes of watery non bloody diarrhea and burning with urination. 08/15/19 06:04 08/15/19 06:52 Past History - Past Medical History Allergies/Adverse Reactions: Allergies Allergy/AdvReac Type Severity Reaction Status Date / Time Penicillins Allergy Verified 05/20/19 17:32 Home Medications: Ambulatory Orders Aspirin [ASA -] 81 mg PO DAILY 01/09/15 Atorvastatin Ca [Lipitor] 20 mg PO DAILY 01/09/15 Digoxin [Lanoxin -] 0.125 mg PO DAILY 05/22/19 Ferrous Sulfate 325 mg PO BID 05/22/19 Verapamil HCl [Verapamil ER] 180 mg PO DAILY 05/22/19 Levothyroxine [Synthroid -] 125 mcg PO DAILY #30 tablet 05/23/19 Cardiac Disorders: Yes (palpitations,CAD, SVT) COPD: No CHF: No Diabetes: Yes HTN: Yes Hypercholesterolemia: Yes Thyroid Disease: Yes (HYPO.) - Surgical History Neurologic Surgery: Yes (pituitary tumor) - Immunization History Immunization Up to Date: No - Suicide/Smoking/Psychosocial Hx Smoking History: Never smoked Have you smoked in the past 12 months: No If you are a former smoker, when did you quit?: 30 years ago Hx Alcohol Use: No Drug/Substance Use Hx: No Substance Use Type: None Hx Substance Use Treatment: No Review of Systems - Review of Systems Constitutional: No: Chills, Fever HEENTM: No: Eye Pain, Blurred Vision Respiratory: No: Cough Cardiac (ROS): Yes: Symptoms Reported ABD/GI: Yes: Diarrhea, Vomiting : No: Flank Pain, Hematuria Integumentary: No: Bruising, Change in Color Neurological: No: Headache *Physical Exam - Vital Signs Last Vital Signs Temp Pulse Resp BP Pulse Ox 98.2 F 85 19 108/76 100 08/15/19 00:35 08/15/19 00:35 08/15/19 00:35 08/15/19 00:35 08/15/19 01:29 - Physical Exam Comments: 08/15/19 06:02 GENERAL: Awake, alert, and fully oriented, in no acute distress HEAD: No signs of trauma, normocephalic, atraumatic EYES: PERRLA, EOMI, sclera anicteric, conjunctiva clear ENT: Auricles normal inspection, hearing grossly normal, nares patent, oropharynx clear without exudates. Moist mucosa NECK: Normal ROM, supple, no lymphadenopathy, JVD, or masses LUNGS: No distress, speaks full sentences, decreases breath sounds HEART: Regular rate and rhythm, normal S1 and S2, no murmurs, rubs or gallops, peripheral pulses normal and equal bilaterally. ABDOMEN: Soft,diffuse tenderness to palpation normoactive bowel sounds. No guarding, no rebound. No masses EXTREMITIES : Normal inspection, Normal range of motion, no edema. No clubbing or cyanosis NEUROLOGICAL: Cranial nerves II through XII grossly intact. Normal speech, normal gait, no focal sensorimotor deficits SKIN: Warm, Dry, normal turgor, no rashes or lesions noted ED Treatment Course - LABORATORY CBC & Chemistry Diagram: 08/15/19 04:30 08/15/19 04:30 - ADDITIONAL ORDERS Additional order review: Laboratory Results 08/15/19 08/15/19 04:30 04:30 Sodium 140 Potassium 4.4 Chloride 105 Carbon Dioxide 27 Anion Gap 8 BUN 13.7 Creatinine 1.1 Est GFR (CKD-EPI)AfAm 64.54 Est GFR (CKD-EPI)NonAf 55.69 Random Glucose 73 L Calcium 9.4 Total Bilirubin 0.3 AST 27 ALT 13 Alkaline Phosphatase 65 Creatine Kinase 348 H Troponin I < 0.02 Total Protein 7.1 Albumin 3.7 08/15/19 04:30 RBC 4.47 MCV 77.7 L MCHC 32.2 RDW 16.3 H MPV 9.7 Neutrophils % 27.6 L D Lymphocytes % 58.4 H D Monocytes % 6.5 D Eosinophils % 6.9 H D Basophils % 0.6 D - RADIOLOGY Radiology Studies Ordered: Category Date Time Status CHEST X-RAY PORTABLE* [RAD] Stat Radiology 08/15/19 03:29 Taken Medical Decision Making - Medical Decision Making 08/15/19 06:06 59y/o F hx of diabetes, SVT,CAD, HTN, hypothyroidism, presents to the ED with 4 days of shortness of breath. ekg, cmp,cbc, ct abdomen and pelvis with contrast, bnp,CXR 08/15/19 06:07 08/15/19 06:12 EKG: normal sinus rhythm with 1st degree AV block. prolonged qt, no st elevations CXR: BNP 08/15/19 06:46 CT abdomen and pelvis Trace bilateral pleural effusions with bibasilar atelectasis Calcified gallstones 0.7 cm nonobstructing stone within the superior pole of the right kidney No evidence of ureterolithiasis or obstructive uropathy Normal appendix Large colonic stool burden No evidence of intestinal obstruction, perforation, or free fluid Distended bladder *DC/Admit/Observation/Transfer - Discharge Dispostion Condition at time of disposition: Fair - Referrals Referrals: David Pink MD [Primary Care Provider] - - Patient Instructions - Post Discharge Activity
[2019-08-15 06:53] LABS: EPI CELLS 1.1 /HPF (0-5/HPF); HYALINE CASTS 1 /lpf (0-8); PH,URINE 6.5 (5.0-8.0); URINE APPEARANCE CLEAR; URINE BACTERIA 3.2 /hpf (NEGATIVE); URINE BILIRUBIN NEGATIVE (NEGATIVE); URINE COLOR YELLOW; URINE GLUCOSE (UA) NEGATIVE (NEGATIVE); URINE KETONE NEGATIVE (NEGATIVE); URINE LEUK ESTERASE 2+ (NEGATIVE); URINE NITRITE NEGATIVE (NEGATIVE); URINE PROTEIN NEGATIVE (NEGATIVE); URINE RBC 1 /hpf (0-4); URINE WBC 6 /hpf (0-5)
--- NOTE | 2019-08-15 08:30 | HP ---
CHIEF COMPLAINT: SOB and chest pain PCP: Ashlyn HISTORY OF PRESENT ILLNESS: Patient is a 59 y/o female with a history of diabetes, SVT, CAD, HTN, HLD, and hypothyroidism who presents for shortness of breath and chest pain. On evening (5 days ago) patient was watching her grandaughter when she developed shortness of breath. They were playing a game together. Since then the shortness of breath has come and go, she has it while laying down and sitting it. It lasts for variable amounts of time. She has not found that anything makes it better. On her chest pain also began. the chest pain comes and goes and is not associated with anything. The pain is midsternal and is described as a burning sensation. Patient states she also has GERD occasionally and this does not feel similar. The chest pain does not radiate and lasts for around 30 minutes, yesterday she reports having the episodes 4 times. Patient also reports she has soft and hard stools, she has abdominal pain that is relieved with defecation, denies feeling constipated. Patient has migraines, feels nausea, has dyruria, and increased freqeuency. Patient does not know her medications. States she was unable to follow up with specialists from last visit. Patient reports she saw her PCP In May. ER course was notable for: (1) CT (2) (3) Recent Travel: denies PAST MEDICAL HISTORY: diabetes, SVT, CAD, HLD, HTN, and hypothyroidism PAST SURGICAL HISTORY: Pituitary removed 2001 Social History: Smoking: denies Alcohol: denies Drugs: denies Allergies Penicillins Allergy (Verified 08/15/19 07:18) HOME MEDICATIONS: Home Medications Medication Instructions Recorded Aspirin [ASA -] 81 mg PO DAILY 01/09/15 Atorvastatin Ca [Lipitor] 20 mg PO DAILY 01/09/15 Digoxin [Lanoxin -] 0.125 mg PO DAILY 05/22/19 Ferrous Sulfate 325 mg PO BID 05/22/19 Verapamil HCl [Verapamil ER] 180 mg PO DAILY 05/22/19 Levothyroxine [Synthroid -] 125 mcg PO DAILY #30 tablet 05/23/19 Metformin HCl [Glucophage] 1,000 mg PO BID 08/15/19 REVIEW OF SYSTEMS CONSTITUTIONAL: Absent: fever, chills, diaphoresis, generalized weakness, malaise, loss of appetite, weight change HEENT: Absent: rhinorrhea, nasal congestion, throat pain, throat swelling, difficulty swallowing, mouth swelling, ear pain, eye pain, visual changes CARDIOVASCULAR: chest pain, Absent: syncope, palpitations, irregular heart rate, lightheadedness, peripheral edema RESPIRATORY: cough Absent: , shortness of breath, dyspnea with exertion, orthopnea, wheezing, stridor, hemoptysis GASTROINTESTINAL:abdominal pain, nausea, Absent: abdominal distension, vomiting, diarrhea, constipation, melena, hematochezia GENITOURINARY: dysuria, frequency, urgency, Absent: hesitancy, hematuria, flank pain, genital pain MUSCULOSKELETAL: Absent: myalgia, arthralgia, joint swelling, back pain, neck pain SKIN: Absent: rash, itching, pallor HEMATOLOGIC/IMMUNOLOGIC: Absent: easy bleeding, easy bruising, lymphadenopathy, frequent infections ENDOCRINE: Absent: unexplained weight gain, unexplained weight loss, heat intolerance, cold intolerance NEUROLOGIC: Absent: headache, focal weakness or paresthesias, dizziness, unsteady gait, seizure, mental status changes, bladder or bowel incontinence PSYCHIATRIC: Absent: anxiety, depression, suicidal or homicidal ideation, hallucinations. PHYSICAL EXAMINATION Vital Signs - 24 hr 08/15/19 08/15/19 00:35 01:29 Temperature 98.2 F Pulse Rate 85 Respiratory 19 Rate Blood Pressure 108/76 O2 Sat by Pulse 97 100 Oximetry (%) GENERAL: Awake, alert, and fully oriented, in no acute distress. HEAD: Normal with no signs of trauma. EYES: Pupils equal, round and reactive to light, extraocular movements intact, s EARS, NOSE, THROAT: no erythema or ulcers noted, Moist mucous membranes. NECK: Normal range of motion, LUNGS: Breath sounds equal, clear to auscultation bilaterally. No wheezes, and no crackles. No accessory muscle use. HEART: Regular rate and rhythm, normal S1 and S2 without murmur, rub or gallop. ABDOMEN: tender to deep palpation, soft, non distended MUSCULOSKELETAL: Normal range of motion at all joints. No bony deformities or tenderness. R CVA tenderness. LOWER EXTREMITIES: 2+ pulses, warm, well-perfused. No calf tenderness. No peripheral edema. 5/5 strength upper and lower extremity NEUROLOGICAL: Cranial nerves II-XII intact. sensations intact SKIN: Warm, dry, normal turgor, no rashes or lesions noted, normal capillary refill. CBC,CMP WBC 4.6 K/mm3 (4.0-10.0) 08/15/19 04:30 RBC 4.47 M/mm3 (3.60-5.2) 08/15/19 04:30 Hgb 11.2 GM/dL (10.7-15.3) 08/15/19 04:30 Hct 34.7 % (32.4-45.2) D 08/15/19 04:30 MCV 77.7 fl (80-96) L 08/15/19 04:30 MCH 25.0 pg (25.7-33.7) L 08/15/19 04:30 MCHC 32.2 g/dl (32.0-36.0) 08/15/19 04:30 RDW 16.3 % (11.6-15.6) H 08/15/19 04:30 Plt Count 210 K/MM3 (134-434) 08/15/19 04:30 MPV 9.7 fl (7.5-11.1) 08/15/19 04:30 Absolute Neuts (auto) 1.3 K/mm3 (1.5-8.0) L 08/15/19 04:30 Neutrophils % 27.6 % (42.8-82.8) L D 08/15/19 04:30 Lymphocytes % 58.4 % (8-40) H D 08/15/19 04:30 Monocytes % 6.5 % (3.8-10.2) D 08/15/19 04:30 Eosinophils % 6.9 % (0-4.5) H D 08/15/19 04:30 Basophils % 0.6 % (0-2.0) D 08/15/19 04:30 Nucleated RBC % 0 % (0-0) 08/15/19 04:30 Sodium 140 mmol/L (136-145) 08/15/19 04:30 Potassium 4.4 mmol/L (3.5-5.1) 08/15/19 04:30 Chloride 105 mmol/L (98-107) 08/15/19 04:30 Carbon Dioxide 27 mmol/L (21-32) 08/15/19 04:30 Anion Gap 8 MMOL/L (8-16) 08/15/19 04:30 BUN 13.7 mg/dL (7-18) 08/15/19 04:30 Creatinine 1.1 mg/dL (0.55-1.3) 08/15/19 04:30 Est GFR (CKD-EPI)AfAm 64.54 08/15/19 04:30 Est GFR (CKD-EPI)NonAf 55.69 08/15/19 04:30 Random Glucose 73 mg/dL (74-106) L 08/15/19 04:30 Calcium 9.4 mg/dL (8.5-10.1) 08/15/19 04:30 Total Bilirubin 0.3 mg/dL (0.2-1) 08/15/19 04:30 AST 27 U/L (15-37) 08/15/19 04:30 ALT 13 U/L (13-61) 08/15/19 04:30 Alkaline Phosphatase 65 U/L (45-117) 08/15/19 04:30 Creatine Kinase 348 U/L (26-192) H 08/15/19 04:30 Creatine Kinase Index 0.3 % (0.0-5.0) 08/15/19 04:30 CK-MB (CK-2) 1.3 ng/mL (0.5-3.6) 08/15/19 04:30 Troponin I < 0.02 ng/ml (0.00-0.05) 08/15/19 04:30 B-Natriuretic Peptide 236.6 pg/ml (5-125) H 08/15/19 04:32 Total Protein 7.1 g/dl (6.4-8.2) 08/15/19 04:30 Albumin 3.7 g/dl (3.4-5.0) 08/15/19 04:30 ASSESSMENT/PLAN: Patient is a 59 y/o female with a history of diabetes, SVT, CAD, HTN, and hypothyroidism who presents for shortness of breath and chest pain, admitted to r/o ACS. #atypical chest pain - r/o ACS, likely GERD - troponin negative x 1, f/u second troponin - ekg without any st elevations or t wave changes - monitor patient on tele - protonix 40 daily - carafate qid #SOB, with trace b/l pleural effusions - possibly 2/2 to atelectasis, difficulty breathing related to chest pain - Wells score 0 - CXR: no abnormalities - ABD/pelvis CT: trace b/l pleaural effusions, with bibasilar atelectasis - BNP: 236, previous results ~4000, unlikely CHF - last Echo 10/17/18 EF 60%, mild aortic sclerosis, poor quality - f/u Pulm - duonebs standing, f/u influenza swab #dysuria - UA: LE 2+, low bacteria, negative nitrates - monitor off abx - f/u Ucx - abd/pelvis CT .7 cm non obstructing stone within superior pole of right kidney #SVT - continue verapamil - continue digoxin #CAD - continue aspirin #hypothyroidsim - continue levothyroxine #HLD - continue atorvastatin #anemia - iron deficiency - resolved from last visit - continue ferrous sulfate #DM - monitor bgms ACHS - SS - hold metformin #DVT ppx - Lovenox 40 sq daily FEN - low sodium/diabetic diet Dispo: monitor on tele obs and r/o ACS Visit type - Emergency Visit Emergency Visit: Yes ED Registration Date: 08/15/19 Care time: The patient presented to the Emergency Department on the above date and was hospitalized for further evaluation of their emergent condition. - New Patient This patient is new to me today: Yes Date on this admission: 08/16/19 - Critical Care Critical Care patient: No ATTENDING PHYSICIAN STATEMENT I saw and evaluated the patient. I reviewed the resident's note and discussed the case with the resident. I agree with the resident's findings and plan as documented. SUBJECTIVE: OBJECTIVE: ASSESSMENT AND PLAN:
[2019-08-15] MEDS ORDERED: PANTOPRAZOLE 40 MG TABLET (FP) ONE (09:05)
[2019-08-15] MEDS ORDERED: SUCRALFATE 1 GM TABLET (FP) ONE (09:05)
[2019-08-15] MEDS ORDERED: DIGOXIN 0.125 MG TABLET (FP) ONE (09:05)
[2019-08-15] MEDS ORDERED: ASPIRIN 81 MG CHEWABLE TABLETS ONE (09:05)
[2019-08-15] MEDS ORDERED: FERROUS SO4 325 MG TABLET (FP) ONE (09:06)
[2019-08-15] MEDS ORDERED: ENOXAPARIN NA (PORCINE) 40 MG/0.4 ML DISP.SYRIN SQ ONE (09:06)
[2019-08-15] MEDS: ASPIRIN 81 MG CHEWABLE TABLETS PO SCH (09:33)
[2019-08-15] MEDS: SUCRALFATE 1 GM TABLET (FP) PO SCH ×4 (09:33→21:56)
[2019-08-15] MEDS: FERROUS SO4 325 MG TABLET (FP) PO SCH ×2 (09:33→21:56)
[2019-08-15] MEDS: DIGOXIN 0.125 MG TABLET (FP) PO SCH (09:33)
[2019-08-15] MEDS: PANTOPRAZOLE 40 MG TABLET (FP) PO SCH (09:34)
[2019-08-15] MEDS: ENOXAPARIN NA (PORCINE) 40 MG/0.4 ML DISP.SYRIN SQ SCH (09:34)
--- NOTE | 2019-08-15 10:57 | EKG ---
Test Reason : Blood Pressure : / mmHG Vent. Rate : 068 BPM Atrial Rate : 068 BPM P-R Int : 220 ms QRS Dur : 076 ms QT Int : 462 ms P-R-T Axes : 065 003 065 degrees QTc Int : 491 ms SINUS RHYTHM WITH 1ST DEGREE A-V BLOCK PROLONGED QT ABNORMAL ECG WHEN COMPARED WITH ECG OF 21-MAY-2019 09:42, NONSPECIFIC T WAVE ABNORMALITY NO LONGER EVIDENT IN LATERAL LEADS Confirmed by Alfonzo Blanco ([id number]) on 08/15/2019 10:57:14 AM Referred By: Confirmed By:Alfonzo Blanco
[2019-08-15] MEDS ORDERED: INSULIN SLIDING SCALE (NOVOLOG) 1 VIAL SQ SCH (11:00)
[2019-08-15] MEDS: VERAPAMIL HCL 180 MG E.R. TABLET PO SCH (11:30)
[2019-08-15] MEDS: LEVOTHYROXINE NA 125 MCG TABLET (FP) PO SCH (11:30)
--- NOTE | 2019-08-15 11:56 | ECHO ---
Version: 1 Name: TAPAN PERRY Exam: Adult Echocardiogram Study Date: 08/15/2019, 10:05 AM Age: 59 Years MMode/2D Measurements & Calculations IVSd: 0.73 cm LVIDs: 2.6 cm LVIDd: 3.9 cm LVPWd: 0.92 cm LVOT diam: 2.01 cm Ao root diam: 2.8 cm LA dimension: 2.45 cm Doppler Measurements & Calculations MV E max jeremías: 67.1 cm/sec Med E/e': 9.7 MV A max jeremías: 49.9 cm/sec Med Peak E' Jeremías: 6.9 cm/sec MV E/A: 1.35 Lat E/e': 6.1 Lat Peak E' Jeremías: 11.0 cm/sec Ao max P.4 mmHg LUZMARIA(I,D): 2.47 cm Ao mean P.73 mmHg LV V1 mean: 46.3 cm/sec Ao V2 max: 104.5 cm/sec LV V1 mean P.11 mmHg AI P1/2t: 612.6 msec TR max jeremías: 192.6 cm/sec TR max P.0 mmHg Procedure A complete two-dimensional transthoracic echocardiogram was performed (2D, M-mode, Doppler and color flow Doppler). The patient was in normal sinus rhythm during the exam. Left Ventricle The left ventricular size, thickness and function are normal. Ejection Fraction = 55%. E/A reversal consistent with but not diagnostic of poor LV compliance. The left ventricular wall motion is normal . Right Ventricle The right ventricle is normal in size and function. Atria Normal left and right atrial size and function. Mitral Valve The mitral valve is normal in structure and function. There is trace to mild mitral regurgitation. Tricuspid Valve The tricuspid valve is normal in structure and function. There is mild tricuspid regurgitation. Righ t ventricular systolic pressure is 27 mmhg. Aortic Valve There is mild aortic valve thickening. Trace to mild aortic regurgitation. Pulmonic Valve The pulmonic valve is not well visualized. Great Vessels The aortic root is normal size. Pericardium/Pleura There is no pericardial effusion. There is no pleural effusion. Summary Statements The left ventricular size, thickness and function are normal Ejection Fraction = 55%. The right ventricle is normal in size and function. There is trace to mild mitral regurgitation. There is mild tricuspid regurgitation. Right ventricular systolic pressure is 27 mmhg. There is mild aortic valve thickening. Trace to mild aortic regurgitation. MD Rishi Barber 08/15/2019, 10:55 AM Ordering Physician: AKIL GUEVARA Referring Physician: AKIL SOLARES Performed By: Ruby Quiroga
[2019-08-15] MEDS: ALBUTEROL SO4 2.5/IPRATROPIUM 0.5 INH SOL 3 ML VIAL.NEB. NEB SCH ×3 (13:07→20:45)
[2019-08-15] MEDS ORDERED: ALBUTEROL SO4 2.5/IPRATROPIUM 0.5 INH SOL 3 ML VIAL.NEB. NEB ONE (13:16)
--- NOTE | 2019-08-15 14:10 | PN ---
Teaching Attending Note Name of Resident: Rosita Shook ATTENDING PHYSICIAN STATEMENT I saw and evaluated the patient. I reviewed the resident's note and discussed the case with the resident. I agree with the resident's findings and plan as documented. PULMONARY IMP DYSPNEA/CP R/O ASHD ? OBSTRUCTIVE AIRWAY DISEASE ? H/O DVT/PE H/O SVT ANEMIA PLAN O2 NEEDED INHALED BRONCHODILATORS D-DIMER IF ELEVATED CHEST CTA CONSIDER CARDIOLOGY EVALUATION OUTPATIENT PFTS HUI DIAZ
--- NOTE | 2019-08-15 14:14 | CONSULT ---
Consult Consult Specialty:: Pulmonology Referred by:: Dr Gonzalez Reason for Consultation:: SOB with atelectasis and pleural effusion - History of Present Illness Chief Complaint: SOB x 5 History of Present Illness: Pt is a 59 yoF with PMHx of DM, SVT, HTN, HLD, pituitary surgery, hypothyroidism , prior PNA, remote smoking hx presenting from home with hx of worsening SOB and chest pain. Pt describes exertional chest pain, pricking in nature, worse with walking, received with rest over the past 2 months that was aggravated since . Pt reports waking up with sudden shortness of breath, retrosternal, non radiating. She also reports L sided abdominal pain with nausea and vomiting and one episode of loose stools. Pt denies fever, dysuria, hematuria, hematemesis or melena. Pt reports being treated for a "blood clot" early this year for 2 months but unable to say what medication she used. She denies any hx of cancer or immobility. Pt reports that her grandmothers had blood clots. 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: Other Cardio/Vascular: Yes: HTN, Hyperlipdemia ...: No Endocrine: Yes: Diabetes Mellitus, Hypothyroidism - Alcohol/Substance Use Hx Alcohol Use: No - Smoking History Smoking history: Former smoker Have you smoked in the past 12 months: No If you are a former smoker, when did you quit?: 30 years ago - Social History Usual Living Arrangement: With Child ADL: Independent 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 History of Recent Travel: No Home Medications - Allergies Allergies/Adverse Reactions: Allergies Allergy/AdvReac Type Severity Reaction Status Date / Time Penicillins Allergy Verified 08/15/19 07:18 - Home Medications Home Medications: Ambulatory Orders Aspirin [ASA -] 81 mg PO DAILY 01/09/15 Atorvastatin Ca [Lipitor] 20 mg PO DAILY 01/09/15 Digoxin [Lanoxin -] 0.125 mg PO DAILY 05/22/19 Ferrous Sulfate 325 mg PO BID 05/22/19 Verapamil HCl [Verapamil ER] 180 mg PO DAILY 05/22/19 Levothyroxine [Synthroid -] 125 mcg PO DAILY #30 tablet 05/23/19 Metformin HCl [Glucophage] 1,000 mg PO BID 08/15/19 Family Medical History Family Hx Diabetes: Mother Review of Systems - Review of Systems Constitutional: denies: Chills, Diaphoresis, Fever, Loss of Appetite HENT: denies: Difficult Swallowing, Ear Pain Cardiovascular: reports: Chest Pain Respiratory: reports: SOB, SOB on Exertion. denies: Cough, Hemoptysis, Wheezing Gastrointestinal: reports: Abdominal Pain, Vomiting Genitourinary: denies: Flank Pain Neurological: denies: Change in Speech, Confusion, Numbness, Parasthesia Physical Exam Vital Signs: Vital Signs Temperature 98 F 08/15/19 14:05 Pulse Rate 74 08/15/19 14:05 Respiratory Rate 18 08/15/19 14:05 Blood Pressure 132/76 08/15/19 14:05 O2 Sat by Pulse Oximetry (%) 99 08/15/19 14:05 Constitutional: Yes: Calm, Poor Hygeine (Poor dental hygiene) Eyes: Yes: Conjunctiva Clear. No: Sclera Icterus Neck: Yes: Supple Cardiovascular: Yes: S1, S2 Respiratory: Yes: CTA Bilaterally. No: Rales, Rhonchi, Wheezes Gastrointestinal: Yes: Normal Bowel Sounds, Soft, Tenderness (LLQ) Renal/: Yes: CVA Tenderness - Left Musculoskeletal: No: Joint Stiffness, Joint Swelling Edema: No Peripheral Pulses WNL: Yes Neurological: Yes: Alert, Oriented. No: Aphasia, Confusion, Lethargy ...Motor Strength: WNL Psychiatric: Yes: Alert, Oriented Labs: CBC, BMP 08/15/19 04:30 08/15/19 04:30 Imaging - Results Cat Scan: Image Reviewed Assessment/Plan Current Medications Albuterol/Ipratropium (Duoneb -) 1 amp NEB RQID [facility] Last Admin: 08/15/19 13:07 Dose: 1 amp Aspirin (Asa -) 81 mg PO DAILY [facility] Last Admin: 08/15/19 09:33 Dose: 81 mg Atorvastatin Calcium (Lipitor -) 20 mg PO HS [facility] Digoxin (Lanoxin -) 0.125 mg PO DAILY [facility] Last Admin: 08/15/19 09:33 Dose: 0.125 mg Enoxaparin Sodium (Lovenox -) 40 mg SQ DAILY [facility] Last Admin: 08/15/19 09:34 Dose: 40 mg Ferrous Sulfate (Feosol -) 325 mg PO BID [facility] Last Admin: 08/15/19 09:33 Dose: 325 mg Insulin Aspart (Novolog Vial Sliding Scale -) 1 vial SQ [facility]; Protocol Last Admin: 08/15/19 13:06 Dose: Not Given Levothyroxine Sodium (Synthroid -) 125 mcg PO DAILY@0700 [facility] Last Admin: 08/15/19 11:30 Dose: 125 mcg Pantoprazole Sodium (Protonix -) 40 mg PO DAILY [facility] Last Admin: 08/15/19 09:34 Dose: 40 mg Sucralfate (Carafate -) 1 gm PO [facility] Last Admin: 08/15/19 11:30 Dose: 1 gm Verapamil HCl (Calan Sr -) 180 mg PO DAILY [facility] Last Admin: 08/15/19 11:30 Dose: 180 mg Assessment/Plan: Pt is a 59 yoF with PMHx of DM, SVT, HTN, HLD, pituitary surgery, hypothyroidism , prior PNA, remote smoking hx presenting from home with hx of worsening SOB and chest pain. DM, SVT, HTN, HLD, pituitary surgery, hypothyroidism, prior PNA Possible atelectasis Possible pleural effusions trace to mild MR Mild aortic valve thickening Trace to mild AR SOB Chest pain Plan: Pt with SOB and questionable hx of blood clot in past- will do d dimer, if positive will do CTA to r/o PE Hx of chest pain on exertion, consider atypical chest pain, would recommend cardio consult CT pending read, no acute pulmonary changes, no effusions or atelectasis noted would recommend outpt PFTs Continue other mx per primary team D/W Dr Lilli Shook PGY 3 Visit type - Emergency Visit Emergency Visit: Yes ED Registration Date: 08/15/19 Care time: The patient presented to the Emergency Department on the above date and was hospitalized for further evaluation of their emergent condition. - New Patient This patient is new to me today: Yes Date on this admission: 08/15/19 - Critical Care Critical Care patient: No ATTENDING PHYSICIAN STATEMENT I saw and evaluated the patient. I reviewed the resident's note and discussed the case with the resident. I agree with the resident's findings and plan as documented. SUBJECTIVE: OBJECTIVE: ASSESSMENT AND PLAN:
--- NOTE | 2019-08-15 15:03 | PN ---
Teaching Attending Note Name of Resident: Stefania Gonzalez ATTENDING PHYSICIAN STATEMENT. I saw and evaluated the patient. I reviewed the resident's note and discussed the case with the resident. I agree with the resident's findings and plan as documented. SUBJECTIVE: CC: SOB and CP HPI:77 year old woman with a history of type 2 DM, HTN, hyperlipidemia, ? CAD, SVTs, migraines, hypothyroidism who presented to the ED with a complaint of SOB and CP. SOB started 5 days ago. it is at rest and with exertion. denies any cough , or sputum production. No runny nose or fever or chills. Chest pain is burning like and located in epigastric and retrosternal area and worse with bending forward. she also complains of intermittent dysuria x 1 month. no dysuria today. no hematuria. no flank pain . No abd pain. although she reported different sx to resident Last admission , she was found to have low ACTH and was referred to endocrine, but she never followed. PE: NAD, awake, alert oriented, missing upper teeth, poor dentition, MMM. no HVD. Thyroid , palpable isthmus with no nodule, possible nodule in R thyrpoid lobe. CV: RRR. no MRG . No JVD Lungs: CTAB ABd: soft, Nt, ND, NL BS Ext: no edema or erythema, no rash. no fungal infection Neuro: EOMI, round equal pupils, reactive to light, no facial droop. strength 5/ 5 in upper and lower extremities proximally and distally. sensation to light touch nl. reflexes : 2+ biceps , sensitive to knees being tapped ASSESSMENT AND PLAN: 77 year old woman with a history of type 2 DM, HTN, hyperlipidemia, ? CAD, SVTs , migraines, hypothyroidism who presented to the ED with a complaint of SOB and CP. 1- CP: suspect due to GERD ( burning , worse with bending forward). Do not suspect ACS. , EKG reviewed. - Add carafate and PPI - send another trop - order echo ( last echo in 12/09 reviewed, poor quality but EF of 60%) 2- SOB x 5 days. No clear etiology as of now. NO signs of PNA, no signs of heart failure despite trace pleural effusion . WELLS score of 0. - pulmonary consulted and D dimer ordered . will follow - will ask CArd opinion - give breathing treatments - order flu swab 3- dysuria : no signs of urinary infection . sx are intermittent and long lasting. might have dryness due to estrogen insufficiency 4- h/o DM, now sugar on lower side.last admission her A1c was 5.1 and she was asked to stop metformin due to episodeds of hypoglycemia. She continued to use it . - monitor sugar off any DM meds 5- concern for chronic secondary adrenal insufficiency due to hypopituitarism , ( hypoglycemia, hypothyrpoidism , abnormal STIM test last admisison ) - she nevere followed with endocrine - will add endocrine consult - might have to do MRI of brain 6- H/o iron def anemia: on iron supplements at home. need GI follow up
[2019-08-15] MEDS ORDERED: HYDROCORTISONE 20 MG TABLET PO ONE (18:12)
[2019-08-15] MEDS ORDERED: PT OWN MED DRAWER 7, Y5N ONE (21:52)
[2019-08-15] MEDS: ATORVASTATIN CA 20 MG TABLET (FP) PO SCH (21:56)
[2019-08-16] MEDS ORDERED: PT OWN MED DRAWER 7, Y5N ONE ×3 (05:52→21:08)
[2019-08-16] MEDS: LEVOTHYROXINE NA 125 MCG TABLET (FP) PO SCH (06:16)
[2019-08-16] MEDS: SUCRALFATE 1 GM TABLET (FP) PO SCH ×4 (06:16→21:16)
[2019-08-16 07:00] LABS: BASO % 0.4 % (0-2.0); EOS % 1.3 % (0-4.5); HEMOGLOBIN 10.6 GM/dL (10.7-15.3); LYMPH % 20.9 % (8-40); MCH 24.8 pg (25.7-33.7); MEAN CELL VOLUME 77.5 fl (80-96); MEAN PLT VOLUME 10.5 fl (7.5-11.1); MONO % 4.9 % (3.8-10.2); NEUT % 72.5 % (42.8-82.8); PLATELET COUNT 191 K/MM3 (134-434); RBC 4.26 M/mm3 (3.60-5.2); RDW 16.3 % (11.6-15.6); WHITE BLOOD COUNT 4.9 K/mm3 (4.0-10.0)
[2019-08-16] MEDS: ALBUTEROL SO4 2.5/IPRATROPIUM 0.5 INH SOL 3 ML VIAL.NEB. NEB SCH ×4 (07:30→21:19)
[2019-08-16 07:31] LABS: ALBUMIN 3.9 g/dl (3.4-5.0); BILIRUBIN,TOTAL 0.4 mg/dL (0.2-1); BLOOD UREA NITROGEN 14.1 mg/dL (7-18); CALCIUM 9.7 mg/dL (8.5-10.1); CREATININE 1.2 mg/dL (0.55-1.3); POTASSIUM 4.3 mmol/L (3.5-5.1); TOT PROT 7.4 g/dl (6.4-8.2)
[2019-08-16] MEDS: INSULIN SLIDING SCALE (NOVOLOG) 1 VIAL SQ SCH ×4 (07:33→21:16)
--- NOTE | 2019-08-16 08:34 | PN ---
Teaching Attending Note Name of Resident: Ewa Ingram ATTENDING PHYSICIAN STATEMENT I saw and evaluated the patient. I reviewed the resident's note and discussed the case with the resident. I agree with the resident's findings and plan as documented. SUBJECTIVE: Patient is comfortable now but was having shortness of breath earlier. OBJECTIVE: Vital Signs Temperature 97.8 F 08/16/19 06:00 Pulse Rate 74 08/16/19 06:00 Respiratory Rate 19 08/16/19 06:00 Blood Pressure 106/45 L 08/16/19 06:00 O2 Sat by Pulse Oximetry (%) 96 08/15/19 21:00 GENERAL: The patient is awake, alert, and fully oriented, in no acute distress. HEAD: Normal with no signs of trauma. EYES: PERRL, extraocular movements intact, sclera anicteric, conjunctiva clear. ENT: Ears normal, oropharynx clear without exudates, moist mucous membranes. NECK: Trachea midline, full range of motion, supple. LUNGS: Breath sounds equal, clear to auscultation bilaterally, no wheezes, no crackles, no accessory muscle use. HEART: Regular rate and rhythm, S1, S2 without murmur, rub or gallop. ABDOMEN: Soft, NT,ND, normoactive bowel sounds, no guarding, no rebound, no hepatosplenomegaly, no masses. EXTREMITIES: 2+ pulses, warm, well-perfused, no edema. NEUROLOGICAL: Cranial nerves II through XII grossly intact. Normal speech, gait not observed. PSYCH: Normal mood, normal affect. SKIN: Warm, dry, normal turgor, no rashes or lesions noted CBCD WBC 4.9 K/mm3 (4.0-10.0) 08/16/19 06:10 RBC 4.26 M/mm3 (3.60-5.2) 08/16/19 06:10 Hgb 10.6 GM/dL (10.7-15.3) L 08/16/19 06:10 Hct 33.0 % (32.4-45.2) 08/16/19 06:10 MCV 77.5 fl (80-96) L 08/16/19 06:10 MCHC 32.0 g/dl (32.0-36.0) 08/16/19 06:10 RDW 16.3 % (11.6-15.6) H 08/16/19 06:10 Plt Count 191 K/MM3 (134-434) 08/16/19 06:10 MPV 10.5 fl (7.5-11.1) 08/16/19 06:10 CMP Sodium 138 mmol/L (136-145) 08/16/19 06:10 Potassium 4.3 mmol/L (3.5-5.1) 08/16/19 06:10 Chloride 105 mmol/L (98-107) 08/16/19 06:10 Carbon Dioxide 25 mmol/L (21-32) 08/16/19 06:10 Anion Gap 9 MMOL/L (8-16) 08/16/19 06:10 BUN 14.1 mg/dL (7-18) 08/16/19 06:10 Creatinine 1.2 mg/dL (0.55-1.3) 08/16/19 06:10 Random Glucose 95 mg/dL (74-106) 08/16/19 06:10 Calcium 9.7 mg/dL (8.5-10.1) 08/16/19 06:10 Total Bilirubin 0.4 mg/dL (0.2-1) 08/16/19 06:10 AST 24 U/L (15-37) 08/16/19 06:10 ALT 12 U/L (13-61) L 08/16/19 06:10 Alkaline Phosphatase 55 U/L (45-117) 08/16/19 06:10 Total Protein 7.4 g/dl (6.4-8.2) 08/16/19 06:10 Albumin 3.9 g/dl (3.4-5.0) 08/16/19 06:10 CARDIAC ENZYMES Creatine Kinase 348 U/L (26-192) H 08/15/19 04:30 Troponin I < 0.02 ng/ml (0.00-0.05) 08/15/19 12:15 Current Medications Generic Name Dose Route Start Last Admin Trade Name Freq PRN Reason Stop Dose Admin Albuterol/Ipratropium 1 amp 08/15/19 12:00 08/15/19 20:45 Duoneb - NEB 1 amp RQID VIRAL Administration Aspirin 81 mg 08/15/19 10:00 08/15/19 09:33 Asa - PO 81 mg DAILY VIRAL Administration Atorvastatin Calcium 20 mg 08/15/19 22:00 08/15/19 21:56 Lipitor - PO 20 mg HS VIRAL Administration Digoxin 0.125 mg 08/15/19 10:00 08/15/19 09:33 Lanoxin - PO 0.125 mg DAILY VIRAL Administration Enoxaparin Sodium 40 mg 08/15/19 10:00 08/15/19 09:34 Lovenox - SQ 40 mg DAILY VIARL Administration Ferrous Sulfate 325 mg 08/15/19 10:00 08/15/19 21:56 Feosol - PO 325 mg BID VIRAL Administration Insulin Aspart 1 vial 08/16/19 07:00 08/16/19 07:33 Novolog Vial Sliding Scale - SQ Not Given [facility] Protocol Levothyroxine Sodium 125 mcg 08/15/19 10:00 08/16/19 06:16 Synthroid - PO 125 mcg DAILY@0700 VIRAL Administration Pantoprazole Sodium 40 mg 08/15/19 10:00 08/15/19 09:34 Protonix - PO 40 mg DAILY VIRAL Administration Sucralfate 1 gm 08/15/19 10:00 08/16/19 06:16 Carafate - PO 1 gm ACHS VIRAL Administration Verapamil HCl 180 mg 08/15/19 10:00 08/15/19 11:30 Calan Sr - PO 180 mg DAILY VIRAL Administration Home Medications Medication Instructions Recorded Aspirin [ASA -] 81 mg PO DAILY 01/09/15 Atorvastatin Ca [Lipitor] 20 mg PO DAILY 01/09/15 Digoxin [Lanoxin -] 0.125 mg PO DAILY 05/22/19 Ferrous Sulfate 325 mg PO BID 05/22/19 Verapamil HCl [Verapamil ER] 180 mg PO DAILY 05/22/19 Levothyroxine [Synthroid -] 125 mcg PO DAILY #30 tablet 05/23/19 Metformin HCl [Glucophage] 1,000 mg PO BID 08/15/19 Microbiology 08/15/19 06:40 Urine - Urine Clean Catch Urine Culture - Final NO GROWTH OBTAINED Laboratory Tests 08/15/19 08/15/19 04:30 12:15 Troponin I < 0.02 < 0.02 ECHO: left ventricle nl in size, EJF is 55%, right ventricle in normal, mild MR. mild tr, mild AR ASSESSMENT AND PLAN: Patient is a 77yo female with PMHx of T2DM, HTN, hyperlipidemia, questionable CAD, SVTs, migraines, hypothyroidism who presented to the ED with a complaint of SOB and CP. # Acute CP: Acs is ruled out with negative stress echo and 2 sets of trops are negative. EKG reviewed. ECHO: left ventricle nl in size, EJF is 55%, right ventricle in normal, mild MR. mild tr, mild AR # Atypical cp most likely due to GERD ( burning , worse with bending forward). on carafate and PPI . # SOB x 5 days. Hx of COPD but stable , CTA is negative , No clear etiology as of now. NO signs of PNA, no signs of heart failure despite trace pleural effusion. WELLS score of 0. pulmonary consulted appreciated # dysuria : no signs of urinary infection . sx are intermittent and long lasting. due to having estrogen insufficiency due to menapause. f/u with obgyn as an outpatient. # T2DM, low sugar on lower side last admission , her last A1c was 5.1 and she was asked to stop metformin due to episodes of hypoglycemia. She continued to use it . monitor sugar, off any DM meds # Hx of Pituitary surgery with adrenal insufficiency , due hypopituitarism , ( hypoglycemia, hypothyrpoidism , abnormal STIM test last admisison ), MRI of pituitary without and with Boaz , on Prednisone 5mg Daily, Continue LT4 125, continue levothyroxine # H/o iron def anemia: on iron supplements at home. need GI follow up as an outpatient # Hyperlipidemia on Lipitor continue DVt Px: Lovenox Will call to get the record from pt's previous Endo Dr Alvarez
--- NOTE | 2019-08-16 09:21 | CONSULT ---
Consult Consult Specialty:: Endocrinology Referred by:: Dr Polo Reason for Consultation:: Adrenal Insufficiency - History of Present Illness Chief Complaint: SOB History of Present Illness: This is a 59 y/o female with a history of T2DM, Hypopituitarism s/p Pituitary surgery >20 years ago in [place], SVT, CAD, HTN, HLD, and hypothyroidism who presented with shortness of breath and chest pain. On evening (6 days ago) patient was watching her grandaughter when she developed shortness of breath. She also felt chest pain which was intermittent and was not associated with anything. The pain was midsternal felt as a burning sensation. pt was admitted for management of the symptoms. Pt referred for evaluation of adrenal insufficiency. Pt says she was on Prednisone 5mg daily until about a year ago when she stopped seeing her Endo who is no longer in practice and stopped taking it. 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 History of Recent Travel: No Home Medications - Allergies Allergies/Adverse Reactions: Allergies Allergy/AdvReac Type Severity Reaction Status Date / Time Penicillins Allergy Verified 08/15/19 07:18 - Home Medications Home Medications: Ambulatory Orders Aspirin [ASA -] 81 mg PO DAILY 01/09/15 Atorvastatin Ca [Lipitor] 20 mg PO DAILY 01/09/15 Digoxin [Lanoxin -] 0.125 mg PO DAILY 05/22/19 Ferrous Sulfate 325 mg PO BID 05/22/19 Verapamil HCl [Verapamil ER] 180 mg PO DAILY 05/22/19 Levothyroxine [Synthroid -] 125 mcg PO DAILY #30 tablet 05/23/19 Metformin HCl [Glucophage] 1,000 mg PO BID 08/15/19 Review of Systems - Review of Systems Constitutional: reports: No Symptoms Eyes: reports: No Symptoms HENT: reports: No Symptoms Neck: reports: No Symptoms Cardiovascular: reports: Chest Pain Respiratory: reports: SOB Gastrointestinal: reports: No Symptoms Genitourinary: reports: No Symptoms Musculoskeletal: reports: No Symptoms Neurological: reports: No Symptoms Endocrine: reports: No Symptoms Hematology/Lymphatic: reports: No Symptoms Physical Exam Vital Signs: Vital Signs Temperature 97.8 F 08/16/19 06:00 Pulse Rate 74 08/16/19 06:00 Respiratory Rate 08/16/19 06:00 Blood Pressure 106/45 L 08/16/19 06:00 O2 Sat by Pulse Oximetry (%) 96 08/15/19 21:00 Constitutional: Yes: No Distress, Calm Eyes: Yes: Conjunctiva Clear, EOM Intact HENT: Yes: Atraumatic, Normocephalic Neck: Yes: Supple, Trachea Midline Cardiovascular: Yes: Regular Rate and Rhythm Respiratory: Yes: Regular, CTA Bilaterally Gastrointestinal: Yes: Normal Bowel Sounds, Soft Musculoskeletal: Yes: WNL Extremities: Yes: WNL Edema: No Neurological: Yes: Alert, Oriented Labs: CBC, BMP 08/16/19 06:10 08/16/19 06:10 Assessment/Plan AP: S/P Pituitary surgery Adrenal Insufficiency HYpothyroidism Chest pain and dyspnea on exertion ruled out for PE, rule out ischemia COPD Hyperlipidemia Start Prednisone 5mg Daily Rec MRI of pituitary without and with Boaz Continue LT4 125 Bronchodilators Atorvastatin Will call to get tecord from pt's previous Endo Dr Alvarez
[2019-08-16] MEDS ORDERED: predniSONE 5 MG TABLET (UD) PO ONE ×2 (09:45→15:00)
[2019-08-16] MEDS: VERAPAMIL HCL 180 MG E.R. TABLET PO SCH (10:01)
[2019-08-16] MEDS: DIGOXIN 0.125 MG TABLET (FP) PO SCH (10:01)
[2019-08-16] MEDS: ASPIRIN 81 MG CHEWABLE TABLETS PO SCH (10:01)
[2019-08-16] MEDS: FERROUS SO4 325 MG TABLET (FP) PO SCH ×2 (10:01→21:15)
[2019-08-16] MEDS: ENOXAPARIN NA (PORCINE) 40 MG/0.4 ML DISP.SYRIN SQ SCH (10:01)
[2019-08-16] MEDS: PANTOPRAZOLE 40 MG TABLET (FP) PO SCH (10:02)
--- NOTE | 2019-08-16 11:04 | PN ---
Teaching Attending Note Name of Resident: Rosita Shook ATTENDING PHYSICIAN STATEMENT I saw and evaluated the patient. I reviewed the resident's note and discussed the case with the resident. I agree with the resident's findings and plan as documented. PULMONARY ATTENDING ALERT,STILL C/O CP WITH EXERTION. CHEST CTA -PE IMP DYSPNEA/CP R/O ASHD ? OBSTRUCTIVE AIRWAY DISEASE ? H/O DVT/PE H/O SVT ANEMIA PLAN O2 NEEDED INHALED BRONCHODILATORS OUTPATIENT PFTS CE DR DIAZ Problem List - Problems (1) Hypertension Code(s): I10 - ESSENTIAL (PRIMARY) HYPERTENSION (2) Hypothyroidism Code(s): E03.9 - HYPOTHYROIDISM, UNSPECIFIED Qualifiers: Hypothyroidism type: unspecified Qualified Code(s): E03.9 - Hypothyroidism , unspecified (3) Chest pain Code(s): R07.9 - CHEST PAIN, UNSPECIFIED Qualifiers: Chest pain type: unspecified Qualified Code(s): R07.9 - Chest pain, unspecified (4) Shortness of breath on exertion Code(s): R06.02 - SHORTNESS OF BREATH
--- NOTE | 2019-08-16 11:17 | CON.CARD ---
Consult Consult Specialty:: Cardiology Referred by:: Hospitalist Medicine Reason for Consultation:: Chest pain and dyspnea - History of Present Illness Chief Complaint: Chest pain and dyspnea History of Present Illness: 59 year old woman with a history of type 2 DM, HTN, hyperlipidemia, PSVT, migraines, hypothyroidism who presented to the ED with a complaint of SOB and CP over last 4 months worse climbing inclines, around second hand smoke, feels resolved after nebulizer treatments in hospital. she report occasional whheze, denies any cough, however her history wavers per previous notes. 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 History of Recent Travel: No Home Medications - Allergies Allergies/Adverse Reactions: Allergies Allergy/AdvReac Type Severity Reaction Status Date / Time Penicillins Allergy Verified 08/15/19 07:18 - Home Medications Home Medications: Ambulatory Orders Aspirin [ASA -] 81 mg PO DAILY 01/09/15 Atorvastatin Ca [Lipitor] 20 mg PO DAILY 01/09/15 Digoxin [Lanoxin -] 0.125 mg PO DAILY 05/22/19 Ferrous Sulfate 325 mg PO BID 05/22/19 Verapamil HCl [Verapamil ER] 180 mg PO DAILY 05/22/19 Levothyroxine [Synthroid -] 125 mcg PO DAILY #30 tablet 05/23/19 Metformin HCl [Glucophage] 1,000 mg PO BID 08/15/19 Review of Systems - Review of Systems Cardiovascular: reports: Chest Pain Respiratory: reports: SOB on Exertion Vital Signs: Vital Signs Temperature 97.8 F 08/16/19 06:00 Pulse Rate 83 08/16/19 10:01 Respiratory Rate 18 08/16/19 10:00 Blood Pressure 104/74 08/16/19 10:00 O2 Sat by Pulse Oximetry (%) 96 08/16/19 09:00 Constitutional: Yes: No Distress, Calm Neck: Yes: Supple Respiratory: Yes: Regular, Diminished Gastrointestinal: Yes: Normal Bowel Sounds, Soft Cardiovascular: Yes: Regular Rate and Rhythm JVD: No Carotid Bruit: No Heart Sounds: Yes: S1, S2 Edema: No - Other Data Labs, Other Data: CBC, BMP 08/16/19 06:10 08/16/19 06:10 Troponin, BNP 08/15/19 12:15 Troponin I < 0.02 Troponin, BNP 08/15/19 12:15 Troponin I < 0.02 NSR @ 68 nonspec T changes Ejection Fraction %: LVEF > or = 40 % Imaging - Results Chest X-ray: Report Reviewed (NAD) Problem List - Problems (1) Shortness of breath on exertion Code(s): R06.02 - SHORTNESS OF BREATH (2) Hypertension Code(s): I10 - ESSENTIAL (PRIMARY) HYPERTENSION Qualifiers: Hypertension type: essential hypertension Qualified Code(s): I10 - Essential (primary) hypertension (3) Hypothyroidism Code(s): E03.9 - HYPOTHYROIDISM, UNSPECIFIED Qualifiers: Hypothyroidism type: unspecified Qualified Code(s): E03.9 - Hypothyroidism , unspecified (4) SVT (supraventricular tachycardia) Code(s): I47.1 - SUPRAVENTRICULAR TACHYCARDIA (5) Adrenal insufficiency Code(s): E27.40 - UNSPECIFIED ADRENOCORTICAL INSUFFICIENCY Assessment/Plan 08/15/2019 Echo: Normal LV and RV size and fxn, mild TR RVSP 27, mild AR, tr- mild MR 1. Chest pain and dyspnea on exertion ruled out for PE, rule out ischemia 2. COPD 3. H/o PSVT 4. Adrenal insufficiency 5. Hypothyroidism 6. Anemia 7. Hyperlipidemia P:1. Ruled out for VA 2. Stress echo r/o ischemia, continue Lipitor 20 qd, Calan SR 180 qd, recommend d/c digoxin and ASA in absence of established CAD, PAD or stroke 3. BD, O2 as needed 4. Prednisone with GI protection, synthroid repletion, MRI of pituitary without and with Boaz 5. Thank you for consultative opportunity
--- NOTE | 2019-08-16 14:56 | ECHO ---
Name: ACACIA PERRYN Exam:Dobutamine Stress Echocardiogram Study Date: 08/16/2019 12:44 PM Age: 59 yrs Reason For Study: Chest pain Height: 69 in Weight: 160 lb BSA: 1.9 m2 Procedure Details: Exercise Stress Echocardiogram with 2D imaging. Stress Comments Normal resting electrocardiogram. A treadmill exercise test according to Yaya protocol was performed. Maximum Heart Rate achieved was 80-85% of maximum age-predicted heart rate. Poor exercise tolerance. Test terminated after 1 min 51 seconds due to fatigue. No chest pain, no arrhythmias. ECHO images TDS grossly negative for inducibe ischemia. Connsider pharmacologic stress tets for further evaluation. Exercise Echocardiogram Negative exercise stress echocardiogram, adequate by heart rate criteria, without symptoms, diagnosti c EKG changes or echocardiographic evidence of ischemia. Interpretation Summary Exercise Stress Echocardiogram with 2D imaging Normal resting electrocardiogram. A treadmill exercise test according to Yaya protocol was performed. Maximum Heart Rate achieved was 80-85% of maximum age-predicted heart rate. Poor exercise tolerance. Test terminated after 1 min 51 seconds due to fatigue. No chest pain, no arrhythmias. ECHO images TDS grossly negative for inducibe ischemia. Connsider pharmacologic stress tets for further evaluation. Reading Physician: MD Jaylon Arthur 08/16/2019 02:55 PM
--- NOTE | 2019-08-16 16:02 | PN ---
Physical Exam: SUBJECTIVE: Patient seen and examined. Reports having another episode of chest pain with SOB this am as she attempted to get out of bed, that resolved spontaneously. Reports intermittent burning on micturition. No fevers, no current chest pain, no abdominal pain. PE ruled out with CTA yesterday. Tele with occ PVCs. OBJECTIVE: Vital Signs Period Temp Pulse Resp BP Sys/Long Pulse Ox Last 24 Hr 97.8 F-98.4 F 66-93 18- 92-106/45-74 96-96 Vital Signs Temp 98.4 F 08/16/19 14:00 Pulse 77 08/16/19 14:00 Resp 18 08/16/19 10:00 BP 94/74 08/16/19 14:00 Pulse Ox 96 08/16/19 09:00 Intake & Output 08/15/19 08/16/19 08/16/19 23:59 11:59 23:59 Intake Total 670 370 Balance 670 370 Weight 72.575 kg Intake: IV 10 10 saline lock 10 10 Oral 660 360 Other: Voiding Method Diaper Toilet # Unmeasured Voids Void 1 1 Bowel Movement No No Height 1.75 m Body Mass Index (BMI) 23.6 Weight Measurement Method Standing Scale GENERAL: The patient is awake, alert, and fully oriented, in no acute distress. EYES: PERRL, extraocular movements intact, sclera anicteric, conjunctiva clear. ENT: rudimentary upper teeth, poor dentition NECK: supple. LUNGS: Breath sounds equal, clear to auscultation bilaterally, no wheezes, no crackles HEART: Regular rate and rhythm, S1, S2, murmur RSB, ABDOMEN: Soft, nontender, nondistended, normoactive bowel sounds, no guarding EXTREMITIES: 2+ pulses, warm, well-perfused, no edema. NEUROLOGICAL: Cranial nerves II through XII grossly intact. Normal speech, gait not observed. CBC, BMP 08/16/19 06:10 08/16/19 06:10 Laboratory Results - last 24 hr 08/15/19 08/16/19 08/16/19 15:30 06:10 06:10 WBC 4.9 RBC 4.26 Hgb 10.6 L Hct 33.0 MCV 77.5 L MCH 24.8 L MCHC 32.0 RDW 16.3 H Plt Count 191 MPV 10.5 Absolute Neuts (auto) 3.6 Neutrophils % 72.5 D Lymphocytes % 20.9 D Monocytes % 4.9 Eosinophils % 1.3 D Basophils % 0.4 Nucleated RBC % 0 D-Dimer 649 H Sodium 138 Potassium 4.3 Chloride 105 Carbon Dioxide 25 Anion Gap 9 BUN 14.1 Creatinine 1.2 Est GFR (CKD-EPI)AfAm 58.10 Est GFR (CKD-EPI)NonAf 50.13 Random Glucose 95 Calcium 9.7 Total Bilirubin 0.4 AST 24 ALT 12 L Alkaline Phosphatase 55 Total Protein 7.4 Albumin 3.9 Active Medications Generic Name Dose Route Start Last Admin Trade Name Freq PRN Reason Stop Dose Admin Albuterol/Ipratropium 1 amp 08/15/19 12:00 08/16/19 11:15 Duoneb - NEB 1 amp RQID VIRAL Administration Atorvastatin Calcium 20 mg 08/15/19 22:00 08/15/19 21:56 Lipitor - PO 20 mg HS VIRAL Administration Enoxaparin Sodium 40 mg 08/15/19 10:00 08/16/19 10:01 Lovenox - SQ 40 mg DAILY VIRAL Administration Ferrous Sulfate 325 mg 08/15/19 10:00 08/16/19 10:01 Feosol - PO 325 mg BID VIRAL Administration Insulin Aspart 1 vial 08/16/19 07:00 08/16/19 12:36 Novolog Vial Sliding Scale - SQ Not Given ACHS [facility] Protocol Levothyroxine Sodium 125 mcg 08/15/19 10:00 08/16/19 06:16 Synthroid - PO 125 mcg DAILY@0700 VIRAL Administration Pantoprazole Sodium 40 mg 08/15/19 10:00 08/16/19 10:02 Protonix - PO 40 mg DAILY VIRAL Administration Sucralfate 1 gm 08/15/19 10:00 08/16/19 10:00 Carafate - PO 1 gm ACHS VIRAL Administration Verapamil HCl 180 mg 08/15/19 10:00 08/16/19 10:01 Calan Sr - PO 180 mg DAILY VIRAL Administration CTA- 08/15/19-Faint opacifcation medial left upper lobe suggestive of early infiltrate, R 7mm non obstructive nephrolithiasis ASSESSMENT/PLAN: Pt is a 59 yoF with PMHx of DM, SVT, HTN, HLD, pituitary surgery, hypothyroidism , prior PNA, remote smoking hx presenting from home with hx of worsening SOB and chest pain. DM, SVT, HTN, HLD, pituitary surgery, hypothyroidism, prior PNA Possible atelectasis Possible pleural effusions trace to mild MR Mild aortic valve thickening Trace to mild AR SOB Chest pain PE ruled out Plan: Cont dudesi Cardiology on board- pt for stress test recommend outpt PFTs Continue other mx per primary team Case D/W Dr Lilli Shook PGY3 Visit type - Emergency Visit Emergency Visit: Yes ED Registration Date: 08/15/19 Care time: The patient presented to the Emergency Department on the above date and was hospitalized for further evaluation of their emergent condition. - New Patient This patient is new to me today: No - Critical Care Critical Care patient: No - Discharge Referral Referred to [facility] No ATTENDING PHYSICIAN STATEMENT I saw and evaluated the patient. I reviewed the resident's note and discussed the case with the resident. I agree with the resident's findings and plan as documented. SUBJECTIVE: OBJECTIVE: ASSESSMENT AND PLAN:
--- NOTE | 2019-08-16 17:34 | PN ---
Physical Exam: SUBJECTIVE: Patient seen and examined. pt continues to complain of chest pain on and off. OBJECTIVE: Vital Signs Period Temp Pulse Resp BP Sys/Long Pulse Ox Last 24 Hr 97.8 F-98.4 F 66-93 18-19 92-106/45-74 96-96 GENERAL: The patient is awake, alert, and fully oriented, in mild distress. HEAD: Normal with no signs of trauma. EYES: PERRL, extraocular movements intact, sclera anicteric, conjunctiva clear. No ptosis. ENT: oropharynx clear without exudates, moist mucous membranes, poor dentition LUNGS: Breath sounds equal, clear to auscultation bilaterally, no wheezes, no crackles, no accessory muscle use. HEART: Regular rate and rhythm, S1, S2 without murmur, rub or gallop. ABDOMEN: Soft, nontender, nondistended, normoactive bowel sounds, no guarding, no rebound, no hepatosplenomegaly, no masses. EXTREMITIES: 2+ pulses, warm, well-perfused, no edema. Laboratory Results - last 24 hr 08/16/19 08/16/19 06:10 06:10 WBC 4.9 RBC 4.26 Hgb 10.6 L Hct 33.0 MCV 77.5 L MCH 24.8 L MCHC 32.0 RDW 16.3 H Plt Count 191 MPV 10.5 Absolute Neuts (auto) 3.6 Neutrophils % 72.5 D Lymphocytes % 20.9 D Monocytes % 4.9 Eosinophils % 1.3 D Basophils % 0.4 Nucleated RBC % 0 Sodium 138 Potassium 4.3 Chloride 105 Carbon Dioxide 25 Anion Gap 9 BUN 14.1 Creatinine 1.2 Est GFR (CKD-EPI)AfAm 58.10 Est GFR (CKD-EPI)NonAf 50.13 Random Glucose 95 Calcium 9.7 Total Bilirubin 0.4 AST 24 ALT 12 L Alkaline Phosphatase 55 Total Protein 7.4 Albumin 3.9 Active Medications Generic Name Dose Route Start Last Admin Trade Name Freq PRN Reason Stop Dose Admin Albuterol/Ipratropium 1 amp 08/15/19 12:00 08/16/19 11:15 Duoneb - NEB 1 amp RQID VIRAL Administration Atorvastatin Calcium 20 mg 08/15/19 22:00 08/15/19 21:56 Lipitor - PO 20 mg HS VIRAL Administration Enoxaparin Sodium 40 mg 08/15/19 10:00 08/16/19 10:01 Lovenox - SQ 40 mg DAILY VIRAL Administration Ferrous Sulfate 325 mg 08/15/19 10:00 08/16/19 10:01 Feosol - PO 325 mg BID VIRAL Administration Insulin Aspart 1 vial 08/16/19 07:00 08/16/19 12:36 Novolog Vial Sliding Scale - SQ Not Given ACHS [facility] Protocol Levothyroxine Sodium 125 mcg 08/15/19 10:00 08/16/19 06:16 Synthroid - PO 125 mcg DAILY@0700 VIRAL Administration Pantoprazole Sodium 40 mg 08/15/19 10:00 08/16/19 10:02 Protonix - PO 40 mg DAILY VIRAL Administration Prednisone 5 mg 08/17/19 07:00 Deltasone - PO AM VIRAL Sucralfate 1 gm 08/15/19 10:00 08/16/19 16:52 Carafate - PO 1 gm ACHS VIRAL Administration Verapamil HCl 180 mg 08/15/19 10:00 08/16/19 10:01 Calan Sr - PO 180 mg DAILY VIRAL Administration ASSESSMENT/PLAN: Patient is a 59 y/o female with a history of diabetes, SVT, CAD, HTN, and hypothyroidism who presents for shortness of breath and chest pain, admitted to r/o ACS. atypical chest pain NPO for stress test r/o ACS, pharmacological stress due to poor performance on today echo stress test troponin negative x 2, ekg without any st elevations or t wave changes protonix 40 daily carafate qid SOB, with trace b/l pleural effusions possibly 2/2 to atelectasis, difficulty breathing related to chest pain CXR: no abnormalities f/u Pulm continue bronchodilators and o/p PFTs duonebs standing, f/u influenza swab dysuria UA: LE 2+, low bacteria, negative nitrates Ucx neg abd/pelvis CT .7 cm non obstructing stone within superior pole of right kidney SVT continue verapamil D/c digoxin per Cardio CAD D/c aspirin per cardio due to questionable hx hypothyroidsim continue levothyroxine Pending MRI with [facility] for pituitary eval as per Endo Start Prednisone 5mg Daily HLD continue atorvastatin anemia iron deficiency resolved from last visit continue ferrous sulfate DM monitor bgms ACHS SS DVT ppx Lovenox 40 sq daily FEN NPO Visit type - Emergency Visit Emergency Visit: Yes ED Registration Date: 08/15/19 Care time: The patient presented to the Emergency Department on the above date and was hospitalized for further evaluation of their emergent condition. - New Patient This patient is new to me today: Yes Date on this admission: 08/16/19 - Critical Care Critical Care patient: No - Discharge Referral Referred to [facility] No ATTENDING PHYSICIAN STATEMENT I saw and evaluated the patient. I reviewed the resident's note and discussed the case with the resident. I agree with the resident's findings and plan as documented. SUBJECTIVE: OBJECTIVE: ASSESSMENT AND PLAN:
[2019-08-16] MEDS: ATORVASTATIN CA 20 MG TABLET (FP) PO SCH (21:16)
[2019-08-17] MEDS: INSULIN SLIDING SCALE (NOVOLOG) 1 VIAL SQ SCH ×2 (06:14→16:33)
[2019-08-17] MEDS: SUCRALFATE 1 GM TABLET (FP) PO SCH ×3 (06:18→16:33)
[2019-08-17] MEDS: LEVOTHYROXINE NA 125 MCG TABLET (FP) PO SCH (06:19)
[2019-08-17] MEDS ORDERED: predniSONE 5 MG TABLET (UD) PO SCH (07:00)
[2019-08-17] MEDS: ALBUTEROL SO4 2.5/IPRATROPIUM 0.5 INH SOL 3 ML VIAL.NEB. NEB SCH ×4 (08:45→19:52)
[2019-08-17] MEDS: FERROUS SO4 325 MG TABLET (FP) PO SCH (09:10)
[2019-08-17] MEDS: VERAPAMIL HCL 180 MG E.R. TABLET PO SCH (09:10)
[2019-08-17] MEDS: PANTOPRAZOLE 40 MG TABLET (FP) PO SCH (09:11)
[2019-08-17] MEDS: ENOXAPARIN NA (PORCINE) 40 MG/0.4 ML DISP.SYRIN SQ SCH (09:11)
--- NOTE | 2019-08-17 09:12 | PN ---
Progress Note (short form) - Note Progress Note: Denies any complaints Feels better on Prednisone Vital Signs Period Temp Pulse Resp BP Sys/Long Pulse Ox Last 24 Hr 97.1 F-98.6 F 71-84 18-20 91-117/50-74 100-100 PE: AOx3 Neck: Supple, No JVD HEENT: EOMI Lungs: CTA CVS: s1S2 Abd: Benign EXt: No edema Neuro: No focal deficit CMP Sodium 138 mmol/L (136-145) 08/16/19 06:10 Potassium 4.3 mmol/L (3.5-5.1) 08/16/19 06:10 Chloride 105 mmol/L (98-107) 08/16/19 06:10 Carbon Dioxide 25 mmol/L (21-32) 08/16/19 06:10 Anion Gap 9 MMOL/L (8-16) 08/16/19 06:10 BUN 14.1 mg/dL (7-18) 08/16/19 06:10 Creatinine 1.2 mg/dL (0.55-1.3) 08/16/19 06:10 Est GFR (CKD-EPI)AfAm 58.10 08/16/19 06:10 Est GFR (CKD-EPI)NonAf 50.13 08/16/19 06:10 POC Glucometer 102 UNITS (80-120) 08/17/19 06:13 Random Glucose 95 mg/dL (74-106) 08/16/19 06:10 Calcium 9.7 mg/dL (8.5-10.1) 08/16/19 06:10 Total Bilirubin 0.4 mg/dL (0.2-1) 08/16/19 06:10 AST 24 U/L (15-37) 08/16/19 06:10 ALT 12 U/L (13-61) L 08/16/19 06:10 Alkaline Phosphatase 55 U/L (45-117) 08/16/19 06:10 Creatine Kinase 348 U/L (26-192) H 08/15/19 04:30 Creatine Kinase Index 0.3 % (0.0-5.0) 08/15/19 04:30 CK-MB (CK-2) 1.3 ng/mL (0.5-3.6) 08/15/19 04:30 Troponin I < 0.02 ng/ml (0.00-0.05) 08/15/19 12:15 B-Natriuretic Peptide 236.6 pg/ml (5-125) H 08/15/19 04:32 Total Protein 7.4 g/dl (6.4-8.2) 08/16/19 06:10 Albumin 3.9 g/dl (3.4-5.0) 08/16/19 06:10 Current Medications Generic Name Dose Route Start Last Admin Trade Name Kayley PRN Reason Stop Dose Admin Albuterol/Ipratropium 1 amp 08/15/19 12:00 08/16/19 21:19 Duoneb - NEB 1 amp RQID VIRAL Administration Atorvastatin Calcium 20 mg 08/15/19 22:00 08/16/19 21:16 Lipitor - PO 20 mg HS VIRAL Administration Enoxaparin Sodium 40 mg 08/15/19 10:00 08/17/19 09:11 Lovenox - SQ Not Given DAILY [facility] Ferrous Sulfate 325 mg 08/15/19 10:00 08/17/19 09:10 Feosol - PO Not Given BID [facility] Insulin Aspart 1 vial 08/16/19 07:00 08/17/19 06:14 Novolog Vial Sliding Scale - SQ Not Given ACHS [facility] Protocol Levothyroxine Sodium 125 mcg 08/15/19 10:00 08/17/19 06:19 Synthroid - PO Not Given DAILY@0700 [facility] Pantoprazole Sodium 40 mg 08/15/19 10:00 08/17/19 09:11 Protonix - PO Not Given DAILY [facility] Prednisone 5 mg 08/17/19 07:00 08/17/19 06:18 Deltasone - PO Not Given AM [facility] Sucralfate 1 gm 08/15/19 10:00 08/17/19 06:18 Carafate - PO Not Given ACHS [facility] Verapamil HCl 180 mg 08/15/19 10:00 08/17/19 09:10 Calan Sr - PO Not Given DAILY [facility] AP: Hypopituitarism, S/P Pituitary surgery Adrenal Insufficiency HYpothyroidism Chest pain and dyspnea on exertion ruled out for PE, rule out ischemia COPD Hyperlipidemia Continue Prednisone 5mg Daily Got labs from previous Endo done on 07.14.18: IGF 1 31.7 A1c 5.6 GH <0.05 Will get MRI of pituitary without and with Boaz FT4 Continue LT4 125, Not clear if she was taking home meds. Bronchodilators Atorvastatin
[2019-08-17 09:31] LABS: BASO % 0.3 % (0-2.0); HEMATOCRIT 29.8 % (32.4-45.2); HEMOGLOBIN 9.6 GM/dL (10.7-15.3); LYMPH % 34.7 % (8-40); MCH 24.9 pg (25.7-33.7); MCHC 32.3 g/dl (32.0-36.0); MEAN CELL VOLUME 76.9 fl (80-96); MEAN PLT VOLUME 9.1 fl (7.5-11.1); MONO % 6.3 % (3.8-10.2); NEUT % 56.7 % (42.8-82.8); PLATELET COUNT 209 K/MM3 (134-434); RBC 3.88 M/mm3 (3.60-5.2); RDW 16.4 % (11.6-15.6); WHITE BLOOD COUNT 5.7 K/mm3 (4.0-10.0)
[2019-08-17 09:48] LABS: ALBUMIN 3.8 g/dl (3.4-5.0); BILIRUBIN,TOTAL 0.4 mg/dL (0.2-1); BLOOD UREA NITROGEN 15.1 mg/dL (7-18); CALCIUM 9.2 mg/dL (8.5-10.1); CREATININE 1.1 mg/dL (0.55-1.3); POTASSIUM 4.8 mmol/L (3.5-5.1); TOT PROT 7.3 g/dl (6.4-8.2)
--- NOTE | 2019-08-17 11:43 | PN ---
Progress Note, Physician History of Present Illness: Denies further chest pain or dyspnea, no events on telemetry. - Current Medication List Current Medications: Active Medications Albuterol/Ipratropium (Duoneb -) 1 amp NEB RQID [facility] Last Admin: 08/17/19 08:45 Dose: 1 amp Atorvastatin Calcium (Lipitor -) 20 mg PO HS [facility] Last Admin: 08/16/19 21:16 Dose: 20 mg Enoxaparin Sodium (Lovenox -) 40 mg SQ DAILY [facility] Last Admin: 08/17/19 09:11 Dose: Not Given Ferrous Sulfate (Feosol -) 325 mg PO BID [facility] Last Admin: 08/17/19 09:10 Dose: Not Given Insulin Aspart (Novolog Vial Sliding Scale -) 1 vial SQ [facility]; Protocol Last Admin: 08/17/19 06:14 Dose: Not Given Levothyroxine Sodium (Synthroid -) 125 mcg PO DAILY@0700 [facility] Last Admin: 08/17/19 06:19 Dose: Not Given Pantoprazole Sodium (Protonix -) 40 mg PO DAILY [facility] Last Admin: 08/17/19 09:11 Dose: Not Given Prednisone (Deltasone -) 5 mg PO AM [facility] Last Admin: 08/17/19 06:18 Dose: Not Given Sucralfate (Carafate -) 1 gm PO [facility] Last Admin: 08/17/19 10:54 Dose: Not Given Verapamil HCl (Calan Sr -) 180 mg PO DAILY [facility] Last Admin: 08/17/19 09:10 Dose: Not Given - Objective Vital Signs: Vital Signs Temperature 98.6 F 08/17/19 05:00 Pulse Rate 71 08/17/19 05:00 Respiratory Rate 18 08/17/19 08:59 Blood Pressure 117/64 08/17/19 05:00 O2 Sat by Pulse Oximetry (%) 100 08/17/19 08:59 Constitutional: Yes: No Distress, Calm, Thin Neck: Yes: Supple Cardiovascular: Yes: Regular Rate and Rhythm Respiratory: Yes: Regular, CTA Bilaterally Gastrointestinal: Yes: Normal Bowel Sounds, Soft Edema: No Labs: CBC, BMP 08/17/19 08:15 08/17/19 08:15 - ....Imaging EKG: Report Reviewed (Tele: NSR) Problem List - Problems (1) Shortness of breath on exertion Code(s): R06.02 - SHORTNESS OF BREATH (2) Hypertension Code(s): I10 - ESSENTIAL (PRIMARY) HYPERTENSION Qualifiers: Hypertension type: essential hypertension Qualified Code(s): I10 - Essential (primary) hypertension (3) Hypothyroidism Code(s): E03.9 - HYPOTHYROIDISM, UNSPECIFIED Qualifiers: Hypothyroidism type: unspecified Qualified Code(s): E03.9 - Hypothyroidism , unspecified (4) SVT (supraventricular tachycardia) Code(s): I47.1 - SUPRAVENTRICULAR TACHYCARDIA (5) Adrenal insufficiency Code(s): E27.40 - UNSPECIFIED ADRENOCORTICAL INSUFFICIENCY Assessment/Plan 08/15/2019 Echo: Normal LV and RV size and fxn, mild TR RVSP 27, mild AR, tr- mild MR 08/16/2019 Stress echo: Negative submaximal stress echo for inducible ischemia after 1 min 51 sec 80-85% MPHR 1. Chest pain and dyspnea on exertion ruled out for PE, rule out ischemia 2. COPD 3. H/o PSVT 4. s/p pituitary surgery 5. Adrenal insufficiency 6. Hypothyroidism 7. Anemia 8. Hyperlipidemia P:1. Ruled out for RI 2. Submaximal stress echo negative for ischemia, continue Lipitor 20 qd, Calan SR 180 qd, d/everett digoxin and ASA in absence of established CAD, PAD or stroke 3. BD, O2 as needed 4. Prednisone 5 qd with GI protection, synthroid repletion, MRI of pituitary without and with Boaz, endo to review records from her former endo Dr.Nadem Alvarez.
--- NOTE | 2019-08-17 12:03 | PN ---
Progress Note (short form) - Note Progress Note: PULMONARY Denies shortness of breath or chest pain. Stress echo negative for ischemia. Vital Signs Period Temp Pulse Resp BP Sys/Long Pulse Ox Last 24 Hr 97.1 F-98.6 F 71-84 18-20 91-117/50-74 100-100 Gen: NAD at rest Heart: RRR Lung: decreased breath sounds at the bases Abd: soft, nontender Ext: no edema CBC, BMP 08/17/19 08:15 08/17/19 08:15 Active Medications Albuterol/Ipratropium (Duoneb -) 1 amp NEB RQID [facility] Last Admin: 08/17/19 08:45 Dose: 1 amp Atorvastatin Calcium (Lipitor -) 20 mg PO HS [facility] Last Admin: 08/16/19 21:16 Dose: 20 mg Enoxaparin Sodium (Lovenox -) 40 mg SQ DAILY [facility] Last Admin: 08/17/19 09:11 Dose: Not Given Ferrous Sulfate (Feosol -) 325 mg PO BID [facility] Last Admin: 08/17/19 09:10 Dose: Not Given Insulin Aspart (Novolog Vial Sliding Scale -) 1 vial SQ [facility]; Protocol Last Admin: 08/17/19 06:14 Dose: Not Given Levothyroxine Sodium (Synthroid -) 125 mcg PO DAILY@0700 [facility] Last Admin: 08/17/19 06:19 Dose: Not Given Pantoprazole Sodium (Protonix -) 40 mg PO DAILY [facility] Last Admin: 08/17/19 09:11 Dose: Not Given Prednisone (Deltasone -) 5 mg PO AM [facility] Last Admin: 08/17/19 06:18 Dose: Not Given Sucralfate (Carafate -) 1 gm PO [facility] Last Admin: 08/17/19 10:54 Dose: Not Given Verapamil HCl (Calan Sr -) 180 mg PO DAILY [facility] Last Admin: 08/17/19 09:10 Dose: Not Given A/P Chest Pain resolved COPD h/o PSVT Adrenal Insufficiency Hypothyroidism Hyperlipidemia Anemia - continue current meds - no further inpatient pulmonary work up at this time - outpt PFTs - DVT prophylaxis
[2019-08-17 15:18] VITALS: BP 116/74; PULSE 73; TEMP 97.9
--- NOTE | 2019-08-17 18:29 | PN ---
Teaching Attending Note Name of Resident: Ewa Ingram ATTENDING PHYSICIAN STATEMENT I saw and evaluated the patient. I reviewed the resident's note and discussed the case with the resident. I agree with the resident's findings and plan as documented. SUBJECTIVE: Patient is comfortable with no acute distress. OBJECTIVE: Vital Signs Temperature 97.9 F 08/17/19 14:00 Pulse Rate 73 08/17/19 14:00 Respiratory Rate 18 08/17/19 08:59 Blood Pressure 116/74 08/17/19 14:00 O2 Sat by Pulse Oximetry (%) 100 08/17/19 08:59 GENERAL: The patient is awake, alert, and fully oriented, in no acute distress. HEAD: Normal with no signs of trauma. EYES: PERRL, extraocular movements intact, sclera anicteric, conjunctiva clear. ENT: Ears normal, oropharynx clear without exudates, moist mucous membranes. NECK: Trachea midline, full range of motion, supple. LUNGS: Breath sounds equal, clear to auscultation bilaterally, no wheezes, no crackles, no accessory muscle use. HEART: Regular rate and rhythm, S1, S2 without murmur, rub or gallop. ABDOMEN: Soft, NT,ND, normoactive bowel sounds, no guarding, no rebound, no hepatosplenomegaly, no masses. EXTREMITIES: 2+ pulses, warm, well-perfused, no edema. NEUROLOGICAL: Cranial nerves II through XII grossly intact. Normal speech, gait not observed. PSYCH: Normal mood, normal affect. SKIN: Warm, dry, normal turgor, no rashes or lesions noted CBCD WBC 5.7 K/mm3 (4.0-10.0) 08/17/19 08:15 RBC 3.88 M/mm3 (3.60-5.2) 08/17/19 08:15 Hgb 9.6 GM/dL (10.7-15.3) L 08/17/19 08:15 Hct 29.8 % (32.4-45.2) L 08/17/19 08:15 MCV 76.9 fl (80-96) L 08/17/19 08:15 MCHC 32.3 g/dl (32.0-36.0) 08/17/19 08:15 RDW 16.4 % (11.6-15.6) H 08/17/19 08:15 Plt Count 209 K/MM3 (134-434) 08/17/19 08:15 MPV 9.1 fl (7.5-11.1) D 08/17/19 08:15 CMP Sodium 142 mmol/L (136-145) 08/17/19 08:15 Potassium 4.8 mmol/L (3.5-5.1) 08/17/19 08:15 Chloride 108 mmol/L (98-107) H 08/17/19 08:15 Carbon Dioxide 27 mmol/L (21-32) 08/17/19 08:15 Anion Gap 7 MMOL/L (8-16) L 08/17/19 08:15 BUN 15.1 mg/dL (7-18) 08/17/19 08:15 Creatinine 1.1 mg/dL (0.55-1.3) 08/17/19 08:15 Random Glucose 81 mg/dL (74-106) 08/17/19 08:15 Calcium 9.2 mg/dL (8.5-10.1) 08/17/19 08:15 Total Bilirubin 0.4 mg/dL (0.2-1) 08/17/19 08:15 AST 20 U/L (15-37) 08/17/19 08:15 ALT 11 U/L (13-61) L 08/17/19 08:15 Alkaline Phosphatase 48 U/L (45-117) 08/17/19 08:15 Total Protein 7.3 g/dl (6.4-8.2) 08/17/19 08:15 Albumin 3.8 g/dl (3.4-5.0) 08/17/19 08:15 CARDIAC ENZYMES Creatine Kinase 348 U/L (26-192) H 08/15/19 04:30 Troponin I < 0.02 ng/ml (0.00-0.05) 08/15/19 12:15 Current Medications Generic Name Dose Route Start Last Admin Trade Name Freq PRN Reason Stop Dose Admin Albuterol/Ipratropium 1 amp 08/15/19 12:00 08/17/19 16:19 Duoneb - NEB 1 amp RQID VIRAL Administration Atorvastatin Calcium 20 mg 08/15/19 22:00 08/16/19 21:16 Lipitor - PO 20 mg HS VIRAL Administration Enoxaparin Sodium 40 mg 08/15/19 10:00 08/17/19 09:11 Lovenox - SQ Not Given DAILY [facility] Ferrous Sulfate 325 mg 08/15/19 10:00 08/17/19 09:10 Feosol - PO Not Given BID [facility] Insulin Aspart 1 vial 08/16/19 07:00 08/17/19 16:33 Novolog Vial Sliding Scale - SQ Not Given ACHS [facility] Protocol Levothyroxine Sodium 125 mcg 08/15/19 10:00 08/17/19 06:19 Synthroid - PO Not Given DAILY@0700 [facility] Pantoprazole Sodium 40 mg 08/15/19 10:00 08/17/19 09:11 Protonix - PO Not Given DAILY [facility] Prednisone 5 mg 08/17/19 07:00 08/17/19 06:18 Deltasone - PO Not Given AM [facility] Sucralfate 1 gm 08/15/19 10:00 08/17/19 16:33 Carafate - PO Not Given ACHS [facility] Verapamil HCl 180 mg 08/15/19 10:00 08/17/19 09:10 Calan Sr - PO Not Given DAILY [facility] Home Medications Medication Instructions Recorded Atorvastatin Ca [Lipitor] 20 mg PO DAILY 01/09/15 Ferrous Sulfate 325 mg PO BID 05/22/19 Verapamil HCl [Verapamil ER] 180 mg PO DAILY 05/22/19 Calcium Carbonate/Vitamin D3 1 each PO BID 08/17/19 [Calcium 500-Vit D3 200 [place]] Doxepin HCl [Sinequan -] 10 mg PO HS 08/17/19 Levothyroxine [Synthroid -] 125 mcg PO DAILY #30 tablet 08/17/19 predniSONE [Deltasone -] 5 mg PO AM #30 tablet 08/17/19 Laboratory Tests 08/15/19 08/15/19 04:30 12:15 Troponin I < 0.02 < 0.02 Laboratory Tests 08/15/19 08/15/19 08/17/19 04:30 12:15 12:33 Troponin I < 0.02 < 0.02 TSH 0.02 L Free T4 0.24 L 08/15/19 06:40 Urine - Urine Clean Catch Urine Culture - Final NO GROWTH OBTAINED ECHO: left ventricle nl in size, EJF is 55%, right ventricle in normal, mild MR. mild tr, mild AR ASSESSMENT AND PLAN: Patient is a 77yo female with PMHx of T2DM, HTN, hyperlipidemia, questionable CAD, SVTs, migraines, hypothyroidism who presented to the ED with a complaint of SOB and CP. # Hx of Pituitary surgery with adrenal insufficiency , due hypopituitarism , ( hypoglycemia, hypothyrpoidism , abnormal STIM test last admisison) MRI of pituitary without and with Boaz , as an outpatient with dr Mcgrath on Prednisone 5mg Daily. Hypothyoidism: discussed with dr Mcgrath most likely not taking it at home her levoxy, will continue the same dose Ft4 0.24, TSH 0.02 continue levothyroxine 125mcg daily , follow with dr mcgrath within a week period. # Acute CP: Acs is ruled out with negative stress echo and 2 sets of trops are negative. EKG reviewed. ECHO: left ventricle nl in size, EJF is 55%, right ventricle in normal, mild MR. mild tr, mild AR # Atypical cp most likely due to GERD ( burning , worse with bending forward). on carafate and PPI . # SOB x 5 days. Hx of COPD but stable , CTA is negative , No clear etiology as of now. NO signs of PNA, no signs of heart failure despite trace pleural effusion. WELLS score of 0. pulmonary consulted appreciated # dysuria : no signs of urinary infection . sx are intermittent and long lasting. due to having estrogen insufficiency due to menapause. f/u with obgyn as an outpatient. # T2DM, low sugar on lower side last admission , her last A1c was 5.1 and she was asked to stop metformin due to episodes of hypoglycemia. She continued to use it . monitor sugar, off any DM meds # H/o iron def anemia: on iron supplements at home. need GI follow up as an outpatient # Hyperlipidemia on Lipitor continue DVt Px: Lovenox Will call to get the record from pt's previous Endo Dr Alvarez
--- NOTE | 2019-08-17 18:58 | DS ---
Physical Exam: SUBJECTIVE: Patient seen and examined.Pt endorsed feeling better. chest pain improved since duoned and prednisone. OBJECTIVE: Vital Signs Period Temp Pulse Resp BP Sys/Long Pulse Ox Last 24 Hr 97.9 F-98.6 F 71-79 18-18 93-117/50-74 100-100 PHYSICAL EXAM GENERAL: The patient is awake, alert, and fully oriented, in no acute distress. HEAD: Normal with no signs of trauma. ENT: oropharynx clear without exudates, moist mucous membranes. NECK: Trachea midline, full range of motion, supple. LUNGS: Breath sounds equal, clear to auscultation bilaterally, no wheezes, no crackles, no accessory muscle use. HEART: Regular rate and rhythm, S1, S2 without murmur, rub or gallop. ABDOMEN: Soft, nontender, nondistended, normoactive bowel sounds, no guarding, no rebound, no hepatosplenomegaly, no masses. EXTREMITIES: 2+ pulses, warm, well-perfused, no edema. SKIN: Warm, dry, normal turgor, no rashes or lesions noted. LABS Laboratory Results - last 24 hr 08/16/19 08/17/19 08/17/19 21:15 06:00 06:13 WBC RBC Hgb Hct MCV MCH MCHC RDW Plt Count MPV Absolute Neuts (auto) Neutrophils % Lymphocytes % Monocytes % Eosinophils % Basophils % Nucleated RBC % Sodium Potassium Chloride Carbon Dioxide Anion Gap BUN Creatinine Est GFR (CKD-EPI)AfAm Est GFR (CKD-EPI)NonAf POC Glucometer 106 102 Random Glucose Calcium Total Bilirubin AST ALT Alkaline Phosphatase Total Protein Albumin TSH Free T4 Influenza A (Rapid) Negative Influenza B (Rapid) Negative 08/17/19 08/17/19 08/17/19 08:15 08:15 12:33 WBC 5.7 RBC 3.88 Hgb 9.6 L Hct 29.8 L MCV 76.9 L MCH 24.9 L MCHC 32.3 RDW 16.4 H Plt Count 209 MPV 9.1 D Absolute Neuts (auto) 3.2 Neutrophils % 56.7 D Lymphocytes % 34.7 D Monocytes % 6.3 Eosinophils % 2.0 Basophils % 0.3 Nucleated RBC % 0 Sodium 142 Potassium 4.8 Chloride 108 H Carbon Dioxide 27 Anion Gap 7 L BUN 15.1 Creatinine 1.1 Est GFR (CKD-EPI)AfAm 64.54 Est GFR (CKD-EPI)NonAf 55.69 POC Glucometer Random Glucose 81 Calcium 9.2 Total Bilirubin 0.4 AST 20 ALT 11 L Alkaline Phosphatase 48 Total Protein 7.3 Albumin 3.8 TSH 0.02 L Free T4 0.24 L Influenza A (Rapid) Influenza B (Rapid) 08/17/19 16:25 WBC RBC Hgb Hct MCV MCH MCHC RDW Plt Count MPV Absolute Neuts (auto) Neutrophils % Lymphocytes % Monocytes % Eosinophils % Basophils % Nucleated RBC % Sodium Potassium Chloride Carbon Dioxide Anion Gap BUN Creatinine Est GFR (CKD-EPI)AfAm Est GFR (CKD-EPI)NonAf POC Glucometer 79 Random Glucose Calcium Total Bilirubin AST ALT Alkaline Phosphatase Total Protein Albumin TSH Free T4 Influenza A (Rapid) Influenza B (Rapid) CXR 08/15/19 No evidence of active pulmonary disease CT abdomen 08/15/19 Minimal bibasal atelectatic changes and a trace of right pleural effusion. Gallstones without CT evidence of acute cholecystitis. Small nonobstructing right renal stones again seen without evidence of hydroureteronephrosis or obstructing ureteral stone. Normal-appearing appendix. There is no evidence of small bowel obstruction. Moderate amount of fecal residue in the colon without wall thickening. No free air or free fluid in the abdomen and pelvis CTA 08/15/19 No evidence of pulmonary embolism HOSPITAL COURSE: Date of Admission:08/15/19 Patient is a 59 y/o female with a history of diabetes, SVT, CAD, HTN, and hypothyroidism and pituitary mass removal who presents for shortness of breath and chest pain, admitted to r/o ACS. Trops negative x2, d dimers were elevated. echo unremarkable with EF of 55% normal LV and RV and mild valvular changes. Stress echo was negative for ischemia however, due to limited study time pt is to repeat o/p pharm stress test. Digoxin and ASA were D/C as pt had no clinical evidence of need for either. CTA was negative for PE. duonebs and oxygen was given to pt for shortness of breath. Pt is to f/u with pulm o/p due to assess for poss lung process as source of SOB. Pt has history of hypothyroidism however , tsh and FT4 are low and pt has mild lab changes in support of adrenal insufficiency. outpatient f/u with endocrine and MRI w and w/o BOAZ to further evaluate pituitary. Pt restarted on 5 mg of prednisone in the am as pt was previously was on it and felt better on admission after administration of steroids. PT to follow up with cardio, pulm and endo as outpatient for further eval Date of Discharge: 08/17/19 Minutes to complete discharge: 35 Discharge Summary Problems reviewed: Yes Reason For Visit: CHEST PAIN Current Active Problems Adrenal insufficiency (Acute) Shortness of breath on exertion (Acute) Condition: Stable - Instructions Diet, Activity, Other Instructions: You came into the ED because of chest pain and shortness of breath. we tested your blood for signs of heart attack and that was negative. We did an ultrasound of your heart which showed no acute findings. We also did scans of your chest and they all were negative. We stressed your heart while taking an ultrasound and it also came back negative however, please follow up with cardiology outpatient for the second stress test. You were also seen by pulmonary while you were here; please follow up outpatient for further evaluation. Endocrinology saw you while you were here; please follow up for outpatient MRI.MRI of pituitary without and with Boaz , as an outpatient with dr Vaz Medications: Please resume all of your home medications. We are also sending you home with new medications; Please take prednisone 5 mg by mouth daily. Please stop taking the digoxin and the aspirin. Please continue to take your Levoxyl 125mcg daily as prescribed (very important that you take it) Follow up: Please follow up with Cardiology, Dr Foy within a week and have a pharmacologic stress test. Please follow up with Endocrinology, Dr Lopez within one week to have a Brain MRI Please follow up with Pulmonary, Dr Reeder within one week, for Pulmonary Function Testing Please follow up with your PCP Doc, within one week. If you begin to experience worsening chest pain, shortness of breath, bleeding, fevers, abdominal pain, please return to the Emergency room immediately. Referrals: Eusebio Reeder MD [Staff Physician] - 1 Week David Pink MD [Primary Care Provider] - 1 Week Darryn Foy MD [Staff Physician] - 1 Week Shantal Lopez MD [Staff Physician] - 1 Week Disposition: HOME - Home Medications Comprehensive Discharge Medication List: Ambulatory Orders Atorvastatin Ca [Lipitor] 20 mg PO DAILY 01/09/15 Ferrous Sulfate 325 mg PO BID 05/22/19 Verapamil HCl [Verapamil ER] 180 mg PO DAILY 05/22/19 Calcium Carbonate/Vitamin D3 [Calcium 500-Vit D3 200 Caplet] 1 each PO BID 08/17 Doxepin HCl [Sinequan -] 10 mg PO HS 08/17/19 Levothyroxine [Synthroid -] 125 mcg PO DAILY #30 tablet 08/17/19 predniSONE [Deltasone -] 5 mg PO AM #30 tablet 08/17/19 Problem List - Problems (1) Adrenal insufficiency Code(s): E27.40 - UNSPECIFIED ADRENOCORTICAL INSUFFICIENCY (2) Shortness of breath on exertion Code(s): R06.02 - SHORTNESS OF BREATH (3) Hypertension Code(s): I10 - ESSENTIAL (PRIMARY) HYPERTENSION Qualifiers: Hypertension type: essential hypertension Qualified Code(s): I10 - Essential (primary) hypertension (4) Hypothyroidism Code(s): E03.9 - HYPOTHYROIDISM, UNSPECIFIED Qualifiers: Hypothyroidism type: unspecified Qualified Code(s): E03.9 - Hypothyroidism , unspecified (5) SVT (supraventricular tachycardia) Code(s): I47.1 - SUPRAVENTRICULAR TACHYCARDIA This patient is new to me today: Yes Date on this admission: 08/17/19 Emergency Visit: Yes ED Registration Date: 08/15/19 Care time: The patient presented to the Emergency Department on the above date and was hospitalized for further evaluation of their emergent condition. Critical Care patient: No - Discharge Referral Referred to [facility] Med [facility].C[facility] No ATTENDING PHYSICIAN STATEMENT I saw and evaluated the patient. I reviewed the resident's note and discussed the case with the resident. I agree with the resident's findings and plan as documented. SUBJECTIVE: OBJECTIVE: ASSESSMENT AND PLAN:
== END 2019-08-17 20:15 | disposition home or self-care (01) ==
LOC: JER 00:35 → JERBED 08:03 → J4W 13:44
PROVIDERS: ADMIT Internal Medicine; ATTEND Internal Medicine
PROC: 3E0F7GC Introduction of Other Therapeutic Substance into Respiratory Tract, Via Natural or Artificial Opening (ICD-10-PCS; principal; 2019-08-15)
DX: R07.89 Other chest pain (principal); R06.02 Shortness of breath; J90 Pleural effusion, not elsewhere classified; R30.0 Dysuria; I10 Essential (primary) hypertension; E11.9 Type 2 diabetes mellitus without complications; E03.9 Hypothyroidism, unspecified; E78.5 Hyperlipidemia, unspecified; I25.10 Atherosclerotic heart disease of native coronary artery without angina pectoris; I44.0 Atrioventricular block, first degree; I47.1 Supraventricular tachycardia; I35.0 Nonrheumatic aortic (valve) stenosis; R45.81 Low self-esteem; D50.9 Iron deficiency anemia, unspecified; E27.40 Unspecified adrenocortical insufficiency; J44.9 Chronic obstructive pulmonary disease, unspecified; Z87.01 Personal history of pneumonia (recurrent); Z98.890 Other specified postprocedural states; Z86.39 Personal history of other endocrine, nutritional and metabolic disease; Z88.0 Allergy status to penicillin; Z79.82 Long term (current) use of aspirin; Z79.84 Long term (current) use of oral hypoglycemic drugs; Z87.891 Personal history of nicotine dependence
CPT/HCPCS: 36415; 71045-TC-FY; 71275-TC; 74176-TC; 80053; 80162; 81003; 82550; 82553; 82962; 83880; 84439; 84443; 84481; 84484; 85025; 85379; 87086; 87804; 93005; 93010; 93306-TC; 93351; 94640; 99285-25; G0378

== ENCOUNTER 2019-08-20 05:07 | Emergency (ER) | payer OTHER ==
[2019-08-20 05:23] VITALS: BP 109/74; PULSE 85; TEMP 99; BMI 22.1
[2019-08-20] MEDS ORDERED: ONDANSETRON *ODT* 4 MG TABLET ONE (05:49)
--- NOTE | 2019-08-20 06:28 | PDOC ---
Attending Attestation - Resident Resident Name: Baldomero Pedraza - ED Attending Attestation I have performed the following: I have examined & evaluated the patient, The case was reviewed & discussed with the resident, I agree w/resident's findings & plan - HPI HPI: 08/20/19 06:28 Pt comes with chest pain - Physicial Exam PE: 08/20/19 07:02 Agree with resident exam - Medical Decision Making 08/20/19 07:02 Basic labs; Check for adrenal insufficency 08/20/19 19:49 Pt advised by me to take her cortisone PO; I explained that her pituitary was removed and she needs it to survive well.
--- NOTE | 2019-08-20 06:34 | PDOC ---
History of Present Illness - General Chief Complaint: Chest Pain Stated Complaint: SOB, CHEST PAIN Time Seen by Provider: 08/20/19 05:14 History Source: Patient, Old Records Exam Limitations: No Limitations - History of Present Illness Initial Comments: HPI: 59 y/o female presenting to [facility] ER complaining of two days of nonradiating, pleuritic substernal chest pain. Started spontaneously. Made worse with deep inspiration. Associates SOB. Denies productive cough. Two episodes of small mucous emesis yesterday with abdominal pain during the act of retching. Further complaining of dizziness and lightheadedness. Tolerating PO well. Pt was discharged from this facility on 17 Aug 2019 for similar symptoms. Pt states todays symptoms are different because she now has shortness of breath. CTA during last admission was unremarkable for PE. During the course of hospitalization, pt was evaluated by endocrine service. Suspected to have mild adrenal insufficiency. Restarted on Prednisone. Pt reports she has not started taking this medication yet. Medical Hx: - Non-insulin dependent Diabetes - H/o PSVT - CAD - HTN - Hypothyroidism and pituitary mass removal (>20 years ago in [place]) - COPD - HLD - Anemia Review of Systems: In addition to that documented in the HPI above, the additional ROS was obtained : Constitutional: Denies fevers or chills Head: Denies vision changes ENMT: Denies sore throat CV: Endorses chest pain. Denies palpitations, bilateral lower extremity swelling. Resp: Endorses SOB GI: Endorses vomiting. Denies diarrhea : Endorses increased urinary frequency. Denies painful urination or hematuria. MSK: Denies recent trauma Skin: Denies new rashes Neuro: Denies new numbness or tingling or weakness Endocrine: Denies polyuria Heme: Denies bleeding or bruising Physical Examination: Constitutional: Adult female in no acute distress or obvious discomfort. Found semi-fowlers on hospital bed. Answered all questions appropriately and completely. Speech was non-labored, non-pressured. Head: Normocephalic. No obvious external signs of trauma. Cardiovascular / Chest: Regular rate and regular rhythm. No murmur, rubs, clicks , or gallops. Peripheral pulses: radial pulses full. Respiratory: Breathing unlabored. Speaking with multi-word responses without pausing for breath. Equal chest rise and fall. Clear to auscultation bilaterally. No stridor, no wheezing, no rhonchi. Gastrointestinal: abdomen is soft, non-tender, non-distended. Neuro: Alert and oriented x4. Moving all four extremities spontaneously. Skin: Warm, dry, and intact. Psych: Affect: appropriate. Mood: normal. MDM: *Reviewed vital signs, nursing notes, and prior visit documentation (if available). 59 y/o female presenting with two days of non radiating, pleuritic chest pain. Recently admitted for similar symptoms with unremarkable cardiac and PE workup. Afebrile. Vitals unremarkable for hypotension or tachycardia. Physical exam as described above. EKG unremarkable for ischemic findings or changes from previous EKG. Pt signed out to resident Dr. Baig after she was verbally appraised of the pt s HPI, current ED course, and plan of management. Will follow up on pending CXR , cardiac workup, and adrenal insufficiency workup. Dispo pending. Baldomero Pedraza M.D., PGY2 Emergency Medicine Resident Past History - Past Medical History Allergies/Adverse Reactions: Allergies Allergy/AdvReac Type Severity Reaction Status Date / Time Penicillins Allergy Verified 08/15/19 07:18 Home Medications: Ambulatory Orders Atorvastatin Ca [Lipitor] 20 mg PO DAILY 01/09/15 Ferrous Sulfate 325 mg PO BID 05/22/19 Verapamil HCl [Verapamil ER] 180 mg PO DAILY 05/22/19 Calcium Carbonate/Vitamin D3 [Calcium 500-Vit D3 200 Caplet] 1 each PO BID 08/17 Doxepin HCl [Sinequan -] 10 mg PO HS 08/17/19 Levothyroxine [Synthroid -] 125 mcg PO DAILY #30 tablet 08/17/19 predniSONE [Deltasone -] 5 mg PO AM #30 tablet 08/17/19 Cardiac Disorders: Yes (palpitations,CAD, SVT) COPD: No CHF: No Diabetes: Yes HTN: Yes Hypercholesterolemia: Yes Thyroid Disease: Yes (HYPO.) - Surgical History Neurologic Surgery: Yes (pituitary tumor) - Immunization History Immunization Up to Date: No - Psycho Social/Smoking Cessation Hx Smoking History: Never smoked Have you smoked in the past 12 months: No If you are a former smoker, when did you quit?: 30 years ago Information on smoking cessation initiated: No Hx Alcohol Use: No Drug/Substance Use Hx: No Substance Use Type: None Hx Substance Use Treatment: No *Physical Exam - Vital Signs Last Vital Signs Temp Pulse Resp BP Pulse Ox 99.0 F 85 18 109/74 97 08/20/19 05:17 08/20/19 05:17 08/20/19 05:17 08/20/19 05:17 08/20/19 05:17 ED Treatment Course - LABORATORY CBC & Chemistry Diagram: 08/20/19 06:24 08/20/19 06:24 - RADIOLOGY Radiology Studies Ordered: Category Date Time Status CHEST X-RAY PORTABLE* [RAD] Stat Radiology 08/20/19 05:58 Ordered Discharge - Discharge Information Problems reviewed: Yes Clinical Impression/Diagnosis: Chest pain Qualifiers: Chest pain type: chest pain on breathing Qualified Code(s): R07.1 - Chest pain on breathing Condition: Improved Disposition: HOME - Follow up/Referral Referrals: David Pink MD [Primary Care Provider] - - Patient Discharge Instructions Patient Printed Discharge Instructions: DI for Atypical Chest Pain Additional Instructions: You were seen in the ER today for chest pain. The results of your labs and imaging today were normal. Please follow-up with your primary care doctor within 1-2 days to discuss your visit and make sure your symptoms have improved. Please return to the ER if you have any worsening pain, development of fevers or chills, loss of consciousness, inability to tolerate food or fluids , or any other concerns. PLEASE TAKE YOUR PREDNISONE PRESCRIBED. IT IS WAITING FOR YOU AT THE PHARMACY. YOU CAN START YOUR DAILY DOSING AGAIN TOMORROW. - Post Discharge Activity
[2019-08-20 06:43] LABS: BASO % 0.8 % (0-2.0); EOS % 5.9 % (0-4.5); HEMATOCRIT 29.9 % (32.4-45.2); HEMOGLOBIN 9.8 GM/dL (10.7-15.3); LYMPH % 55.9 % (8-40); MCHC 32.6 g/dl (32.0-36.0); MEAN CELL VOLUME 76.8 fl (80-96); MONO % 6.9 % (3.8-10.2); NEUT % 30.5 % (42.8-82.8); PLATELET COUNT 191 K/MM3 (134-434); RDW 15.8 % (11.6-15.6)
[2019-08-20 06:55] LABS: MAGNESIUM 1.9 mg/dL (1.8-2.4); PHOSPHOROUS 3.6 mg/dL (2.5-4.9)
[2019-08-20] MEDS ORDERED: predniSONE 5 MG TABLET (UD) PO ONE (07:35)
--- NOTE | 2019-08-20 07:35 | PDOC ---
*Physical Exam - Vital Signs Last Vital Signs Temp Pulse Resp BP Pulse Ox 99.0 F 85 18 109/74 97 08/20/19 05:17 08/20/19 05:17 08/20/19 05:17 08/20/19 05:17 08/20/19 05:17 ED Treatment Course - LABORATORY CBC & Chemistry Diagram: 08/20/19 06:24 08/20/19 06:24 - ADDITIONAL ORDERS Additional order review: Laboratory Results 08/20/19 08/20/19 06:24 06:24 Phosphorus 3.6 Magnesium 1.9 Troponin I < 0.02 08/20/19 06:24 RBC 3.90 MCV 76.8 L MCHC 32.6 RDW 15.8 H MPV 9.0 Neutrophils % 30.5 L D Lymphocytes % 55.9 H D Monocytes % 6.9 Eosinophils % 5.9 H D Basophils % 0.8 Medical Decision Making - Medical Decision Making Pt was signed out to me by resident Dr. Pedraza, who explained the presentation, ED course, any pending results, and needed interventions. Pending results include UA, CMP, and chest x-ray. Pt is currently stable and is lying comfortably. 2nd troponin to be sent ~9:30 am. If second troponin negative, pt can be discharged to home with PCP f/u, pending other normal results. Pt had negative ACS w/u and was discharged 3 days ago, negative CTA as well at that time. Starting prednisone dose, as pt has been non-compliant (5 mg PO). 08/20/19 07:32 Chest x-ray without acute pathology. Pending trop x2 and urine sample for UA. 08/20/19 09:17 Second troponin negative. With troponin x2 negative and recent cardiac work-up Pt states pain improved after tylenol, completely reproducible on exam. Pt can f/u with PCP. Advised pt to start prednisone and f/u as needed. Strict return precautions provided with pt understanding. 08/20/19 11:25 Discharge - Discharge Information Problems reviewed: Yes Clinical Impression/Diagnosis: Chest pain Qualifiers: Chest pain type: chest pain on breathing Qualified Code(s): R07.1 - Chest pain on breathing; R07.81 - Pleurodynia Condition: Improved Disposition: HOME - Admission No - Follow up/Referral Referrals: David Pink MD [Primary Care Provider] - - Patient Discharge Instructions Patient Printed Discharge Instructions: DI for Atypical Chest Pain Additional Instructions: You were seen in the ER today for chest pain. The results of your labs and imaging today were normal. Please follow-up with your primary care doctor within 1-2 days to discuss your visit and make sure your symptoms have improved. Please return to the ER if you have any worsening pain, development of fevers or chills, loss of consciousness, inability to tolerate food or fluids , or any other concerns. PLEASE TAKE YOUR PREDNISONE PRESCRIBED. IT IS WAITING FOR YOU AT THE PHARMACY. YOU CAN START YOUR DAILY DOSING AGAIN TOMORROW. - Post Discharge Activity
[2019-08-20 07:48] LABS: ALBUMIN 3.7 g/dl (3.4-5.0); ALK PHOS 54 U/L (45-117); ANION GAP 8 MMOL/L (8-16); BILIRUBIN,TOTAL 0.2 mg/dL (0.2-1); BLOOD UREA NITROGEN 15.9 mg/dL (7-18); CHLORIDE 109 mmol/L (98-107); CO2 25 mmol/L (21-32); GLUCOSE,RANDOM 84 mg/dL (74-106); SGOT/AST 23 U/L (15-37); SGPT/ALT 11 U/L (13-61); SODIUM 142 mmol/L (136-145); TOT PROT 6.9 g/dl (6.4-8.2)
[2019-08-20] MEDS ORDERED: ACETAMINOPHEN 325 MG TABLET (FP) PO ONE (08:16)
[2019-08-20] MEDS ORDERED: ACETAMINOPHEN 325 MG TABLET (FP) ONE (09:26)
[2019-08-20 10:03] LABS: EPI CELLS 1.6 /HPF (0-5/HPF); HYALINE CASTS 5 /lpf (0-8); PH,URINE 5.5 (5.0-8.0); URINE APPEARANCE CLEAR; URINE BILIRUBIN NEGATIVE (NEGATIVE); URINE COLOR YELLOW; URINE GLUCOSE (UA) NEGATIVE (NEGATIVE); URINE KETONE NEGATIVE (NEGATIVE); URINE LEUK ESTERASE 2+ (NEGATIVE); URINE NITRITE NEGATIVE (NEGATIVE); URINE PROTEIN NEGATIVE (NEGATIVE); URINE RBC 1 /hpf (0-4); URINE WBC 8 /hpf (0-5)
--- NOTE | 2019-08-20 16:47 | EKG ---
Test Reason : Blood Pressure : / mmHG Vent. Rate : 082 BPM Atrial Rate : 082 BPM P-R Int : 212 ms QRS Dur : 076 ms QT Int : 394 ms P-R-T Axes : 065 001 071 degrees QTc Int : 460 ms SINUS RHYTHM WITH 1ST DEGREE A-V BLOCK NONSPECIFIC T WAVE ABNORMALITY PROLONGED QT ABNORMAL ECG WHEN COMPARED WITH ECG OF 15-AUG-2019 04:37, T WAVE VARIATION Confirmed by CYNDEE HOLT, HANNAH ([id number]) on 08/20/2019 4:46:57 PM Referred By: Confirmed By:HANNAH COTTER MD
== END 2019-08-20 12:04 | disposition home or self-care (01) ==
LOC: JER 05:07
DX: R07.1 Chest pain on breathing (principal); R07.81 Pleurodynia; I25.10 Atherosclerotic heart disease of native coronary artery without angina pectoris; I10 Essential (primary) hypertension; E11.9 Type 2 diabetes mellitus without complications; Z79.84 Long term (current) use of oral hypoglycemic drugs; E03.9 Hypothyroidism, unspecified; E89.3 Postprocedural hypopituitarism; E78.00 Pure hypercholesterolemia, unspecified; E27.40 Unspecified adrenocortical insufficiency; Z88.0 Allergy status to penicillin; J44.9 Chronic obstructive pulmonary disease, unspecified
CPT/HCPCS: 36415; 71045-TC-FY; 80053; 81003; 82436; 82533; 82565; 83735; 83930; 84100; 84133; 84300; 84484; 85025; 93005; 93010; 99285-25

== ENCOUNTER 2019-09-09 22:30 | Inpatient (IN) | payer OTHER ==
--- NOTE | 2019-09-09 22:36 | PDOC ---
History of Present Illness - General Stated Complaint: WEAKNESS,VOMITING Time Seen by Provider: 09/09/19 22:35 - History of Present Illness Initial Comments: 09/09/19 22:37 59y/o F hx IDDM, hypothryoidism, CAD, HTN, pituitary mass s/p removal, hx of SVT and nephrolithiasis who presents with with 4 days of diarrhea, lightheadedness. The patient reports that she fell 4 days ago and hit her head. She states she fell today but her son caught her. She denies chest pain, but admit to some shortness of breath and some subjective fever. She has no other complaints here. ROS GENERAL/CONSTITUTIONAL: No fever or chills. No weakness. HEAD, EYES, EARS, NOSE AND THROAT: No change in vision. No ear pain or discharge. No sore throat. CARDIOVASCULAR: No chest pain or shortness of breath RESPIRATORY: No cough, wheezing, or hemoptysis. GASTROINTESTINAL: No nausea, vomiting, diarrhea or constipation. GENITOURINARY: No dysuria, frequency, or change in urination. MUSCULOSKELETAL: No joint or muscle swelling or pain. No neck or back pain. SKIN: No rash PE GENERAL: Awake, alert, and fully oriented, in no acute distress HEAD: No signs of trauma, normocephalic, atraumatic EYES: EOMI, sclera anicteric, conjunctiva clear ENT: oropharynx clear without exudates. Moist mucosa NECK: Normal ROM, supple LUNGS: No distress, speaks full sentences, clear to auscultation bilaterally HEART: Regular rate and rhythm, normal S1 and S2, no murmurs, rubs or gallops, peripheral pulses normal and equal bilaterally. ABDOMEN: Soft, nontender, normoactive bowel sounds. No guarding, no rebound. No masses EXTREMITIES : Normal inspection, Normal range of motion, no edema. No clubbing or cyanosis. NEUROLOGICAL: Cranial nerves II through XII grossly intact. Normal speech, no focal sensorimotor deficits SKIN: Warm, Dry, normal turgor, no rashes or lesions noted MDM DDX including but not limited to: dehydration vs adrenal insuff r/o acs ED Course: labs wnl will need to be evaluating inpt for recurrent falls and possible adrenal insuff case discussed with resident Dr. Hooks admitted Rachel Charles, PGY2 Emergency Medicine Past History - Past Medical History Allergies/Adverse Reactions: Allergies Allergy/AdvReac Type Severity Reaction Status Date / Time Penicillins Allergy Verified 08/15/19 07:18 Home Medications: Ambulatory Orders Atorvastatin Ca [Lipitor] 20 mg PO DAILY 01/09/15 Ferrous Sulfate 325 mg PO BID 05/22/19 Verapamil HCl [Verapamil ER] 180 mg PO DAILY 05/22/19 Calcium Carbonate/Vitamin D3 [Calcium 500-Vit D3 200 Caplet] 1 each PO BID 08/17 Doxepin HCl [Sinequan -] 10 mg PO HS 08/17/19 Levothyroxine [Synthroid -] 125 mcg PO DAILY #30 tablet 08/17/19 predniSONE [Deltasone -] 5 mg PO AM #30 tablet 08/17/19 Cardiac Disorders: Yes (palpitations,CAD, SVT) COPD: No CHF: No Diabetes: Yes HTN: Yes Hypercholesterolemia: Yes Thyroid Disease: Yes (HYPO.) - Surgical History Neurologic Surgery: Yes (pituitary tumor) - Immunization History Immunization Up to Date: No - Psycho Social/Smoking Cessation Hx Smoking History: Never smoked Have you smoked in the past 12 months: No If you are a former smoker, when did you quit?: 30 years ago Hx Alcohol Use: No Drug/Substance Use Hx: No Substance Use Type: None Hx Substance Use Treatment: No ED Treatment Course - LABORATORY CBC & Chemistry Diagram: 09/09/19 23:05 09/09/19 23:05 Discharge - Discharge Information Problems reviewed: Yes Clinical Impression/Diagnosis: Fall Condition: Stable - Admission Yes - Follow up/Referral - Patient Discharge Instructions - Post Discharge Activity
[2019-09-09] MEDS ORDERED: SODIUM CHLORIDE 1,000 ML IV SCH (22:45)
[2019-09-09 23:37] LABS: BASO % 0.3 % (0-2.0); EOS % 4.5 % (0-4.5); HEMATOCRIT 34.8 % (32.4-45.2); HEMOGLOBIN 11.2 GM/dL (10.7-15.3); LYMPH % 57.5 % (8-40); MCH 25.4 pg (25.7-33.7); MCHC 32.2 g/dl (32.0-36.0); MEAN CELL VOLUME 78.7 fl (80-96); MEAN PLT VOLUME 8.5 fl (7.5-11.1); NEUT % 32.7 % (42.8-82.8); PLATELET COUNT 274 K/MM3 (134-434); RBC 4.43 M/mm3 (3.60-5.2); RDW 15.9 % (11.6-15.6); WHITE BLOOD COUNT 5.6 K/mm3 (4.0-10.0)
[2019-09-10 00:14] LABS: ALBUMIN 4.1 g/dl (3.4-5.0); BILIRUBIN,TOTAL 0.4 mg/dL (0.2-1); BLOOD UREA NITROGEN 12.5 mg/dL (7-18); CALCIUM 9.4 mg/dL (8.5-10.1); CREATININE 1.3 mg/dL (0.55-1.3); POTASSIUM 3.7 mmol/L (3.5-5.1); TOT PROT 7.8 g/dl (6.4-8.2)
--- NOTE | 2019-09-10 02:22 | PDOC ---
Documentation entered by Patricia Do SCRIBE, acting as scribe for Jessy Guerin MD. Jessy Guerin MD: This documentation has been prepared by the Hi foster Nirvannie, SCRIBE, under my direction and personally reviewed by me in its entirety. I confirm that the documentation accurately reflects all work, treatment, procedures, and medical decision making performed by me. Attending Attestation - Resident Resident Name: Rachel Charles - ED Attending Attestation I have performed the following: I have examined & evaluated the patient, The case was reviewed & discussed with the resident, I agree w/resident's findings & plan - HPI HPI: 09/09/19 23:34 The patient is a 59 year old female, with a significant past medical history of NIDDM, SVT, CAD, HTN, hypothyroidism, COPD, anemia, HLD, who presents to the emergency department with, 3 days of diarrhea, weakness, lightheadedness, and fall (x2). Patient notes her son caught her before she could hit the ground today. She denies any recent chest pain or shortness of breath. She denies any recent dysuria, frequency, urgency or hematuria. Allergies: Penicillin. Primary Care Physician: Dr. Lowery - Physicial Exam PE: 09/10/19 05:38 Agree with resident exam. - Medical Decision Making 09/10/19 01:52 09/10/19 02:20 Patient Name: TAPAN PERRY THIS IS A PRELIMINARY REPORT FROM [employer] [employer] DATE OF SERVICE: 2019-09-10 00:23:35 IMAGES: [id number] EXAM: HEAD CT WITHOUT CONTRAST HISTORY: Patient fell COMPARISON: May 20, 2019 FINDINGS: No acute intracranial abnormality. No hemorrhage. No visible infarct or mass. Osseous structures are intact. 09/10/19 05:39 Pt will be admitted for adrenal insufficiency
--- NOTE | 2019-09-10 03:19 | HP ---
CHIEF COMPLAINT: Falls PCP: HISTORY OF PRESENT ILLNESS: 59 y/o F with PMHx of DM, CAD (No stents, recent Stress echo negative for ischemia), HTN, Hypothyroidism, Pituitary mass removal, who was recently discharged from [facility] in 08/10 (Negative chest pain workup), presents with Diarrhea after a fall. Patient was in her usual state of health until Wednesday when she began to experience a loose, nonbloody BM. After defecating, she experienced a fall resulting in her hitting her head. She did not have any preceeding lightheadedness or dizziness and no subsequent loss of bowel/bladder control, tongue biting or convulsions. Since Wednesday, she has continued to have foul smelling, loose, nonbloody BM's. Today she also experienced some SOB prompting her to visit the ED. Denies any changes in medications, recent travel or sick contacts. Patient has not followed up with any doctors since last admission. Last tolerated PO intake this evening. Last loose BM this evening. Endorses chills. Denies any fevers, chest pain, nausea, vomiting, dysuria. ER course was notable for: (1) (2) (3) Recent Travel: Denies PAST MEDICAL HISTORY: As above PAST SURGICAL HISTORY: Pituitary growth removal, Right leg tumor removal Social History: Smoking: Denies Alcohol: Denies Drugs: Denies Allergies Penicillins Allergy (Verified 08/15/19 07:18) HOME MEDICATIONS: Home Medications Medication Instructions Recorded Atorvastatin Ca [Lipitor] 20 mg PO DAILY 01/09/15 Ferrous Sulfate 325 mg PO BID 05/22/19 Verapamil HCl [Verapamil ER] 180 mg PO DAILY 05/22/19 Calcium Carbonate/Vitamin D3 1 each PO BID 08/17/19 [Calcium 500-Vit D3 200 Caplet] Doxepin HCl [Sinequan -] 10 mg PO HS 08/17/19 Levothyroxine [Synthroid -] 125 mcg PO DAILY #30 tablet 08/17/19 predniSONE [Deltasone -] 5 mg PO AM #30 tablet 08/17/19 REVIEW OF SYSTEMS As above PHYSICAL EXAMINATION Vital Signs - 24 hr 09/09/19 22:35 Temperature 98.1 F Pulse Rate 75 Respiratory 18 Rate Blood Pressure 91/78 O2 Sat by Pulse 100 Oximetry (%) GENERAL: A&Ox3, NAD HEAD: NCAT EYES: PERRL, EOMI EARS, NOSE, THROAT: Poor dentition, Moist mucous membranes. NECK: Supple LUNGS: CTAB, No wheezes, no crackles HEART: Regular rate and rhythm, normal S1 and S2 without murmur ABDOMEN: Soft, nontender, not distended, + bowel sounds, no guarding, no rebound EXTREMITIES: No peripheral edema. NEUROLOGICAL: Cranial nerves II-XII intact. SKIN: Warm, dry Laboratory Results - last 24 hr 09/09/19 09/09/19 09/09/19 22:41 23:05 23:05 WBC 5.6 RBC 4.43 Hgb 11.2 Hct 34.8 D MCV 78.7 L MCH 25.4 L MCHC 32.2 RDW 15.9 H Plt Count 274 D MPV 8.5 Absolute Neuts (auto) 1.8 Neutrophils % 32.7 L Lymphocytes % 57.5 H Monocytes % 5.0 Eosinophils % 4.5 Basophils % 0.3 Nucleated RBC % 0 Sodium Potassium Chloride Carbon Dioxide Anion Gap BUN Creatinine Est GFR (CKD-EPI)AfAm Est GFR (CKD-EPI)NonAf POC Glucometer 73 Random Glucose Calcium Total Bilirubin AST ALT Alkaline Phosphatase Troponin I < 0.02 Total Protein Albumin TSH 09/09/19 09/10/19 23:05 02:25 WBC RBC Hgb Hct MCV MCH MCHC RDW Plt Count MPV Absolute Neuts (auto) Neutrophils % Lymphocytes % Monocytes % Eosinophils % Basophils % Nucleated RBC % Sodium 143 Potassium 3.7 Chloride 105 Carbon Dioxide 30 Anion Gap 8 BUN 12.5 Creatinine 1.3 Est GFR (CKD-EPI)AfAm 52.74 Est GFR (CKD-EPI)NonAf 45.50 POC Glucometer 91 Random Glucose 67 L Calcium 9.4 Total Bilirubin 0.4 AST 31 ALT 15 Alkaline Phosphatase 66 Troponin I Total Protein 7.8 Albumin 4.1 TSH 0.04 L ASSESSMENT/PLAN: 59 y/o F with PMHx of DM, CAD (No stents, recent Stress echo negative for ischemia), HTN, Hypothyroidism, Pituitary mass removal, who was recently discharged from [facility] in 08/10 (Negative chest pain workup), presents with Diarrhea after a fall. #Hypothyroidism -TSH 0.04; TSH and T4 low on previous admission -Check TSH, FT4 Early AM Cortisol level -Endocrine (Dr. Lopez) Consulted -Continue home dose LT4. Prednisone #Falls -PT Eval -Analgesia via acetaminophen -Fall precautions -Orthostatic vital signs #DM -ISS BGMs ACHS #Prolonged QTc -Avoid QT prolonging agents -Serial EKG #FEN -No standing fluids -Replete lytes PRN -DIabetic diet #PPx -DVT: SCDs Dispo: Admit to med-surg Visit type - Emergency Visit Emergency Visit: Yes ED Registration Date: 09/10/19 Care time: The patient presented to the Emergency Department on the above date and was hospitalized for further evaluation of their emergent condition. - New Patient This patient is new to me today: Yes Date on this admission: 09/10/19 - Critical Care Critical Care patient: No ATTENDING PHYSICIAN STATEMENT I saw and evaluated the patient. I reviewed the resident's note and discussed the case with the resident. I agree with the resident's findings and plan as documented. SUBJECTIVE: OBJECTIVE: ASSESSMENT AND PLAN:
--- NOTE | 2019-09-10 03:22 | PN ---
Teaching Attending Note Name of Resident: Katarzyna Hooks ATTENDING PHYSICIAN STATEMENT I saw and evaluated the patient. I reviewed the resident's note and discussed the case with the resident. I agree with the resident's findings and plan as documented. SUBJECTIVE: 59-year-old woman with remote history of pituitary surgery resulting in hypo- pituitaries him adrenal insufficiency, hypothyroidism, COPD, hyperlipidemia who was recently admitted for adrenal insufficiency in July 2019, evaluated by endocrine. She presents today status post fall in which she hit her head without loss of consciousness. Patient was placed on prednisone 5 mg daily and was on Synthroid 0.125 mg daily. Endocrine documented that she was supposed to get MRI as an outpatient however she denied to have appointment. She returns with weakness, falls, lightheadedness, loose stools. She reported compliance with her prednisone and levothyroxine. OBJECTIVE: Last Vital Signs Temp Pulse Resp BP Pulse Ox 98.1 F 75 18 91/78 100 09/09/19 22:35 09/09/19 22:35 09/09/19 22:35 09/09/19 22:35 09/09/19 22:35 GENERAL: Well developed, well nourished. Awake and alert. No acute distress. AAOX3 HEENT: Normocephalic, atraumatic. PERRLA, EOMI. No conjunctival pallor. Sclera are non- icteric. Moist mucous membranes. Oropharynx is clear. NECK: Supple. Full ROM. No JVD. Carotid pulses 2+ and symmetric, without bruits. No thyromegaly. No lymphadenopathy. CARDIOVASCULAR: Regular rate and rhythm. No murmurs, rubs, or gallops. Distal pulses are 2+ and symmetric. PULMONARY: No evidence of respiratory distress. Lungs clear to auscultation bilaterally. No wheezing, rales or rhonchi. ABDOMINAL: Soft. Non-tender. Non-distended. No rebound or guarding. No organomegaly. Normoactive bowel sounds. MUSCULOSKELETAL Normal range of motion at all joints. No bony deformities or tenderness. No CVA tenderness. EXTREMITIES: No cyanosis. No clubbing. No edema. No calf tenderness. SKIN: Warm and dry. Normal capillary refill. No rashes. No jaundice. PSYCHIATRIC: Cooperative. Good eye contact. Appropriate mood and affect. Abnormal Lab Results 09/09/19 09/09/19 23:05 23:05 MCV 78.7 L MCH 25.4 L RDW 15.9 H Neutrophils % 32.7 L Lymphocytes % 57.5 H Random Glucose 67 L TSH 0.04 L Imaging reviewed ASSESSMENT AND PLAN: 59-year-old woman with adrenal insufficiency and secondary hypothyroidism status post pituitary surgery, Status post fall with no loss of consciousness and a normal head CT. Hypotension likely related to underlying adrenal insufficiency. Do not suspect adrenal crisis or myxedema coma at this time. TSH appears to be increasing from prior admission and is on the right track. # CAD #Diabetes mellitus Admit to [facility] Fall precautions and bedrest Check orthostatics freeT4 A.m. cortisol level Continue with prednisone 5 mg daily Synthroid home dose 0.125 mg daily Endocrine follow-up NovoLog sliding scale Diabetic diet
[2019-09-10 06:11] VITALS: BMI 24.3
--- NOTE | 2019-09-10 09:11 | PN ---
Progress Note, Physician Chief Complaint: Feels weak diarrhea improved History of Present Illness: 59 y/o F with PMHx of DM, CAD (No stents, recent Stress echo negative for ischemia), HTN, Hypothyroidism, Pituitary mass removal in 1996, who was recently discharged from [facility] in 08/10 (Negative chest pain workup), presents with Diarrhea after a fall. Patient was in her usual state of health until Wednesday when she began to experience a loose, nobody BM. After defecating, she experienced a fall resulting in her hitting her head. - Current Medication List Current Medications: Active Medications Active Medications Atorvastatin Calcium (Lipitor -) 20 mg PO HS VIRAL Calcium Carbonate/Cholecalciferol (Os-Jose 500+D -) 1 tab PO BID VIRAL Doxepin HCl (Sinequan -) 10 mg PO HS VIRAL Ferrous Sulfate (Feosol -) 325 mg PO BID VIRAL Last Admin: 09/10/19 11:29 Dose: 325 mg Sodium Chloride (Normal Saline -) 1,000 mls @ 0 mls/hr IV ASDIR VIRAL Last Admin: 09/09/19 23:32 Dose: 1,000 mls/hr Sodium Chloride (Normal Saline -) 1,000 mls @ 100 mls/hr IV ASDIR VIRAL Levothyroxine Sodium (Synthroid -) 150 mcg PO DAILY@0700 VIRAL Prednisone (Deltasone -) 5 mg PO AM VIRAL - Objective Vital Signs: Vital Signs Temperature 98.7 F 09/10/19 05:26 Pulse Rate 78 09/10/19 05:26 Respiratory Rate 18 09/10/19 05:26 Blood Pressure 105/60 09/10/19 05:26 O2 Sat by Pulse Oximetry (%) 98 09/10/19 05:22 Middle aged F not in distress, Hemodynamically stable HEENT: Mm moist, no anemia, PERRLA EOMI NECK: No JVd No Bruit CHEST: CTA B/L CVS: S1S2 R ABD: No distention, non tender Bs + EXT: No edema feet.no calf tenderness RN X RAY: AOX3 non focal Labs: CBC, BMP 09/09/19 23:05 09/09/19 23:05 Problem List - Problems (1) Fall Assessment/Plan: Due to Dizziness no active issue no gait abnormality Code(s): W19.XXXA - UNSPECIFIED FALL, INITIAL ENCOUNTER (2) CAD (coronary artery disease) Assessment/Plan: ? Recent Stress ECHO is -ve during last hospitalization Code(s): I25.10 - ATHSCL HEART DISEASE OF [place] CORONARY ARTERY W/O ANG PCTRS Qualifiers: Coronary Disease-Associated Artery/Lesion type: unspecified vessel or lesion type [place] vs. transplanted heart: [place] heart Associated angina: with unspecified angina Qualified Code(s): I25.119 - Atherosclerotic heart disease of [place] coronary artery with unspecified angina pectoris (3) Hypertension Assessment/Plan: at present Hypotensive hold BP meds, cont Saline infusion Code(s): I10 - ESSENTIAL (PRIMARY) HYPERTENSION Qualifiers: Hypertension type: essential hypertension Qualified Code(s): I10 - Essential (primary) hypertension (4) Hypothyroidism Assessment/Plan: increse Levothyroxine 150 mcg daily T3 T4 are low Code(s): E03.9 - HYPOTHYROIDISM, UNSPECIFIED Qualifiers: Hypothyroidism type: unspecified Qualified Code(s): E03.9 - Hypothyroidism , unspecified (5) Diarrhea Assessment/Plan: Resolved cont IV Hydration NS 100 CC/HR Code(s): R19.7 - DIARRHE[place], UNSPECIFIED (6) Hypopituitarism Assessment/Plan: S/P Pituitary adenoma resection 1996 evaluated by Endo cont Prednisone 5 mg am and increase Levothyroxine to 150 advised MRI Pituitary Code(s): E23.0 - HYPOPITUITARISM
[2019-09-10] MEDS ORDERED: LEVOTHYROXINE NA 125 MCG TABLET (FP) PO SCH (10:00)
--- NOTE | 2019-09-10 10:22 | CONSULT ---
Consult Consult Specialty:: Endocrinology Referred by:: Katarzyna Hooks MD Reason for Consultation:: Hypothyroidism - History of Present Illness Chief Complaint: Diarrhoea, dizziness History of Present Illness: This is a 59 y/o F with h/o DM, CAD (No stents, recent Stress echo negative for ischemia), HTN, Hypothyroidism, Hypopituitarism s/p pituitary surgery, who was recently discharged from [facility] in 08/10 (Negative chest pain workup), presents with Diarrhea after a fall. Patient was in her usual state of health until Wednesday when she began to experience a loose, nonbloody BM. After defecating, she experienced a fall resulting in her hitting her head. She did not have any preceeding lightheadedness or dizziness and no subsequent loss of bowel/bladder control, tongue biting or convulsions. Since Wednesday, she has continued to have foul smelling, loose, nonbloody BM's. No BM today. C/o feeling dizzy. Pt was discharged last admission without MRI of brain as it could be done as outpt per my discussion with primary. Pt hasn't followed up since the discharge and she hasn't made appointment in my office. Pt says she had been taking LT4 and Prednisone regularly. 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 History of Recent Travel: No Home Medications - Allergies Allergies/Adverse Reactions: Allergies Allergy/AdvReac Type Severity Reaction Status Date / Time Penicillins Allergy Verified 08/15/19 07:18 - Home Medications Home Medications: Ambulatory Orders Atorvastatin Ca [Lipitor] 20 mg PO DAILY 01/09/15 Ferrous Sulfate 325 mg PO BID 05/22/19 Verapamil HCl [Verapamil ER] 180 mg PO DAILY 05/22/19 Calcium Carbonate/Vitamin D3 [Calcium 500-Vit D3 200 Caplet] 1 each PO BID 08/17 Doxepin HCl [Sinequan -] 10 mg PO HS 08/17/19 Levothyroxine [Synthroid -] 125 mcg PO DAILY #30 tablet 08/17/19 predniSONE [Deltasone -] 5 mg PO AM #30 tablet 08/17/19 Review of Systems - Review of Systems Constitutional: reports: Malaise Eyes: reports: No Symptoms HENT: reports: No Symptoms Neck: reports: No Symptoms Cardiovascular: reports: No Symptoms Respiratory: reports: No Symptoms Gastrointestinal: reports: Diarrhea Genitourinary: reports: No Symptoms Musculoskeletal: reports: No Symptoms Neurological: reports: Dizziness Endocrine: reports: No Symptoms Hematology/Lymphatic: reports: No Symptoms Physical Exam Vital Signs: Vital Signs Temperature 98.7 F 09/10/19 05:26 Pulse Rate 78 09/10/19 05:26 Respiratory Rate 18 09/10/19 05:26 Blood Pressure 105/60 09/10/19 05:26 O2 Sat by Pulse Oximetry (%) 98 09/10/19 05:22 Constitutional: Yes: No Distress, Calm Eyes: Yes: Conjunctiva Clear, EOM Intact HENT: Yes: Atraumatic, Normocephalic Neck: Yes: Supple, Trachea Midline Cardiovascular: Yes: Regular Rate and Rhythm Respiratory: Yes: Regular, CTA Bilaterally Gastrointestinal: Yes: Normal Bowel Sounds, Soft Musculoskeletal: Yes: WNL Extremities: Yes: WNL Edema: No Neurological: Yes: Alert, Oriented Labs: CBC, BMP 09/09/19 23:05 09/09/19 23:05 Assessment/Plan AP: Diarrhoea Dizziness Hypothyroidism Adrenal Insufficiency Increase LT4 150 mcg QD Prednisone 5 mg daily MRI of Pituirary without and with Boaz Will f/u
--- NOTE | 2019-09-10 10:30 | EKG ---
Test Reason : Blood Pressure : / mmHG Vent. Rate : 067 BPM Atrial Rate : 067 BPM P-R Int : 244 ms QRS Dur : 082 ms QT Int : 472 ms P-R-T Axes : 060 -19 057 degrees QTc Int : 498 ms SINUS RHYTHM WITH 1ST DEGREE A-V BLOCK LOW VOLTAGE QRS PROLONGED QT ABNORMAL ECG WHEN COMPARED WITH ECG OF 20-AUG-2019 05:28, NONSPECIFIC T WAVE ABNORMALITY, IMPROVED IN ANTERIOR LEADS Confirmed by MD JONAH, THANH ([id number]) on 09/10/2019 10:30:16 AM Referred By: Confirmed By:THANH MCKENZIE MD
[2019-09-10] MEDS ORDERED: predniSONE 5 MG TABLET (UD) PO ONE (10:45)
[2019-09-10] MEDS ORDERED: PT OWN MED DRAWER 7, Y5N ONE ×2 (10:54→13:19)
[2019-09-10] MEDS ORDERED: LEVOTHYROXINE NA 150 MCG TABLET PO ONE (11:05)
[2019-09-10] MEDS: FERROUS SO4 325 MG TABLET (FP) PO SCH ×2 (11:29→22:20)
[2019-09-10] MEDS: SODIUM CHLORIDE 1,000 ML IV SCH (12:00)
[2019-09-10] MEDS: CALCIUM 500MG/VIT-D 200 UNITS COMBO TABLET (FP) PO SCH ×2 (13:52→23:32)
[2019-09-10] MEDS: ACETAMINOPHEN 325 MG TABLET (FP) PO PRN (19:20)
[2019-09-10 21:12] LABS: EPI CELLS 0.8 /HPF (0-5/HPF); HYALINE CASTS 3 /lpf (0-8); URINE APPEARANCE CLEAR; URINE BACTERIA 3.9 /hpf (NEGATIVE); URINE BILIRUBIN NEGATIVE (NEGATIVE); URINE COLOR YELLOW; URINE GLUCOSE (UA) NEGATIVE (NEGATIVE); URINE KETONE TRACE (NEGATIVE); URINE LEUK ESTERASE TRACE (NEGATIVE); URINE NITRITE NEGATIVE (NEGATIVE); URINE PROTEIN NEGATIVE (NEGATIVE); URINE RBC 3 /hpf (0-4); URINE UROBILINOGEN 0.2 mg/dL (0.2-1.0); URINE WBC 4 /hpf (0-5)
[2019-09-10] MEDS: ATORVASTATIN CA 20 MG TABLET (FP) PO SCH (22:20)
[2019-09-10] MEDS: DOXEPIN HCL 10 MG CAPSULE PO SCH (23:32)
[2019-09-11] MEDS: SODIUM CHLORIDE 1,000 ML IV SCH ×2 (03:05→15:29)
[2019-09-11] MEDS: predniSONE 5 MG TABLET (UD) PO SCH (06:11)
[2019-09-11] MEDS: LEVOTHYROXINE NA 150 MCG TABLET PO SCH (06:11)
[2019-09-11 08:56] LABS: BASO % 0.2 % (0-2.0); EOS % 2.6 % (0-4.5); HEMATOCRIT 30.6 % (32.4-45.2); HEMOGLOBIN 9.9 GM/dL (10.7-15.3); LYMPH % 43.2 % (8-40); MCH 25.3 pg (25.7-33.7); MCHC 32.4 g/dl (32.0-36.0); MEAN CELL VOLUME 78.2 fl (80-96); MEAN PLT VOLUME 8.6 fl (7.5-11.1); MONO % 6.1 % (3.8-10.2); NEUT % 47.9 % (42.8-82.8); PLATELET COUNT 228 K/MM3 (134-434); RBC 3.91 M/mm3 (3.60-5.2); RDW 16.4 % (11.6-15.6); WHITE BLOOD COUNT 4.9 K/mm3 (4.0-10.0)
[2019-09-11] MEDS ORDERED: PT OWN MED DRAWER 7, Y5N ONE ×2 (09:55→21:45)
[2019-09-11] MEDS: FERROUS SO4 325 MG TABLET (FP) PO SCH ×2 (10:22→21:47)
[2019-09-11] MEDS: CALCIUM 500MG/VIT-D 200 UNITS COMBO TABLET (FP) PO SCH ×2 (10:22→21:47)
[2019-09-11 10:35] LABS: ALBUMIN 3.7 g/dl (3.4-5.0); BILIRUBIN,TOTAL 0.5 mg/dL (0.2-1); BLOOD UREA NITROGEN 12.1 mg/dL (7-18); CALCIUM 9.3 mg/dL (8.5-10.1); CREATININE 1.1 mg/dL (0.55-1.3); POTASSIUM 4.5 mmol/L (3.5-5.1); TOT PROT 7.3 g/dl (6.4-8.2)
--- NOTE | 2019-09-11 17:14 | PN ---
Teaching Attending Note Name of Resident: Stefania Gonzalez ATTENDING PHYSICIAN STATEMENT I saw and evaluated the patient. I reviewed the resident's note and discussed the case with the resident. I agree with the resident's findings and plan as documented. SUBJECTIVE: No fever or chills . NO Cp or SOB. reprots taking good po . no SOB . OBJECTIVE: NAD, awake, alert oriented, poor dentition, MMM. CV: RRR. no MRG. No JVD Lungs: CTAB ABD: soft, NT, ND, NL BS Ext: no edema or erythema, no rash. no fungal infection ASSESSMENT AND PLAN: 77 year old woman with a history of type 2 DM, HTN, hyperlipidemia, CAD, SVTs, migraines, hypothyroidism, h/o hypopituitarism after pituitary sx in , adrenal insufficiency who presented to the ED after a fall and head trauma 1- fall. No orthostatsis. looks euvolemic. CT head reviewed. 2- H/o Hypopituitarism. - Synthroid increased due to low FT4, - order MRI of the brain . - cont prednisone for chronic secondary adrenal insufficiency . patient said she takes, btu her pharmacy did not have it on file. will clarify - f/u with endo as out pt 3- H/o Dm. last A1c 5.6, she was asked to stop her metformin inpast but she cont to use. - will repeat A1c. 4- H/o Iron def anemia : cont ferrous sulfate 5- prolonged QTc : EKG reviewed. Dispo : dc pending MRI of brain as she failed to get it done as out pt after 3 admissions
--- NOTE | 2019-09-11 17:32 | PN ---
Physical Exam: SUBJECTIVE: Patient seen and examined in the morning. Was resting comfortably and talkative. No complaints of chest pain, shortness of breath, abdominal pain , diarrhea, or nausea. Has not had any recent episodes of dizziness. OBJECTIVE: Vital Signs Period Temp Pulse Resp BP Sys/Long Pulse Ox Last 24 Hr 98.3 F-98.9 F 71-81 18-20 111-119/58-72 GENERAL: The patient is awake, alert, and fully oriented, in no acute distress. HEAD: Normal with no signs of trauma. EYES: PERRL, extraocular movements intact, sclera anicteric, conjunctiva clear. No ptosis. ENT: Ears normal, nares patent, oropharynx clear without exudates, moist mucous membranes. Poor dentition. NECK: Trachea midline, full range of motion, supple. EJ line in place on left side. LUNGS: Breath sounds equal, clear to auscultation bilaterally, no wheezes, no crackles, no accessory muscle use. HEART: Regular rate and rhythm, S1, S2 without murmur, rub or gallop. ABDOMEN: Soft, nontender, nondistended, normoactive bowel sounds, no guarding. EXTREMITIES: 2+ pulses, warm, well-perfused, no edema. NEUROLOGICAL: Cranial nerves II through XII grossly intact. Normal speech, gait not observed. PSYCH: Normal mood, normal affect. SKIN: Warm, dry, normal turgor, no rashes or lesions noted Laboratory Results - last 24 hr 09/10/19 09/10/19 09/11/19 17:28 17:52 00:30 WBC RBC Hgb Hct MCV MCH MCHC RDW Plt Count MPV Absolute Neuts (auto) Neutrophils % Lymphocytes % Monocytes % Eosinophils % Basophils % Nucleated RBC % Sodium Potassium Chloride Carbon Dioxide Anion Gap BUN Creatinine Est GFR (CKD-EPI)AfAm Est GFR (CKD-EPI)NonAf POC Glucometer 91 107 Random Glucose Calcium Total Bilirubin AST ALT Alkaline Phosphatase Total Protein Albumin Urine Color Yellow Urine Appearance Clear Urine pH 5.0 Ur Specific [place] 1.022 Urine Protein Negative Urine Glucose (UA) Negative Urine Ketones Trace H Urine Blood Negative Urine Nitrite Negative Urine Bilirubin Negative Urine Urobilinogen 0.2 Ur Leukocyte Esterase Trace Urine WBC (Auto) 4 Urine RBC (Auto) 3 Urine Casts (Auto) 3 U Epithel Cells (Auto) 0.8 Urine Bacteria (Auto) 3.9 09/11/19 09/11/19 09/11/19 05:40 08:00 08:00 WBC 4.9 RBC 3.91 Hgb 9.9 L Hct 30.6 L MCV 78.2 L MCH 25.3 L MCHC 32.4 RDW 16.4 H Plt Count 228 MPV 8.6 Absolute Neuts (auto) 2.4 Neutrophils % 47.9 D Lymphocytes % 43.2 H D Monocytes % 6.1 Eosinophils % 2.6 Basophils % 0.2 Nucleated RBC % 0 Sodium 140 Potassium 4.5 Chloride 110 H Carbon Dioxide 24 Anion Gap 7 L BUN 12.1 Creatinine 1.1 Est GFR (CKD-EPI)AfAm 64.54 Est GFR (CKD-EPI)NonAf 55.69 POC Glucometer 82 Random Glucose 78 Calcium 9.3 Total Bilirubin 0.5 AST 25 ALT 12 L Alkaline Phosphatase 59 Total Protein 7.3 Albumin 3.7 Urine Color Urine Appearance Urine pH Ur Specific [place] Urine Protein Urine Glucose (UA) Urine Ketones Urine Blood Urine Nitrite Urine Bilirubin Urine Urobilinogen Ur Leukocyte Esterase Urine WBC (Auto) Urine RBC (Auto) Urine Casts (Auto) U Epithel Cells (Auto) Urine Bacteria (Auto) 09/11/19 09/11/19 12:04 16:57 WBC RBC Hgb Hct MCV MCH MCHC RDW Plt Count MPV Absolute Neuts (auto) Neutrophils % Lymphocytes % Monocytes % Eosinophils % Basophils % Nucleated RBC % Sodium Potassium Chloride Carbon Dioxide Anion Gap BUN Creatinine Est GFR (CKD-EPI)AfAm Est GFR (CKD-EPI)NonAf POC Glucometer 101 102 Random Glucose Calcium Total Bilirubin AST ALT Alkaline Phosphatase Total Protein Albumin Urine Color Urine Appearance Urine pH Ur Specific [place] Urine Protein Urine Glucose (UA) Urine Ketones Urine Blood Urine Nitrite Urine Bilirubin Urine Urobilinogen Ur Leukocyte Esterase Urine WBC (Auto) Urine RBC (Auto) Urine Casts (Auto) U Epithel Cells (Auto) Urine Bacteria (Auto) Active Medications Generic Name Dose Route Start Last Admin Trade Name Freq PRN Reason Stop Dose Admin Acetaminophen 650 mg 09/10/19 19:20 09/10/19 19:20 Tylenol - PO 650 mg Q6H PRN Administration PAIN LEVEL 1-5 Atorvastatin Calcium 20 mg 09/10/19 22:00 09/10/19 22:20 Lipitor - PO 20 mg HS VIRAL Administration Calcium Carbonate/Cholecalciferol 1 tab 09/10/19 10:00 09/11/19 10:22 Os-Jose 500+D - PO 1 tab BID VIRAL Administration Doxepin HCl 10 mg 09/10/19 22:00 09/10/19 23:32 Sinequan - PO 10 mg HS VIRAL Administration Ferrous Sulfate 325 mg 09/10/19 10:00 09/11/19 10:22 Feosol - PO 325 mg BID VIRAL Administration Sodium Chloride 1,000 mls @ 100 mls/hr 09/10/19 11:30 09/11/19 15:29 Normal Saline - IV 100 mls/hr ASDIR VIRAL Administration Levothyroxine Sodium 150 mcg 09/11/19 07:00 09/11/19 06:11 Synthroid - PO 150 mcg DAILY@0700 VIRAL Administration Prednisone 5 mg 09/11/19 07:00 09/11/19 06:11 Deltasone - PO 5 mg AM VIRAL Administration ASSESSMENT/PLAN: 59 F with PMH significant for DM, CAD, HTN, Hypothyroidism, pituitary mass removal, who was admitted for lightheadedness and fall. 1) Fall -Reported fall in the last week, patient described epiosdes of lightheadedness preceding fall and occurring afterwards. -Head CT negative -Was here for chest pain work up in prior admission in July, was negative. -Orthostatics are negative. -Patient is receiving physical therapy. 2) History of Pituitary Mass Removal -MRI scheduled for today, patient has not followed up with scan from prior 3 discharges -Increased Levothyroxine dose to 150 mcg Qdaily due to Low TSH and low T3 levels -Continue prednisone 5mg PO for adrenal insufficiency. 3) Diabetes Mellitus -Patient has POC blood sugars ranging from 82-107. -Follow up HbA1c -Diabetic diet 4)Chronic Anemia -Continue ferrous sulfate 325 PO BID 5)CAD -EKG reviewed, QTc prolongation present. -Continue Atorvastatin 20 mg PO 6) HTN -Blood pressures are currently controlled. F: NS @ 100 ml/hr E: Monitor CMP N: Diabetic Diet DVT Prophylaxis: SCD Dispo: Currently admitted to floors. Visit type - Emergency Visit Emergency Visit: No - New Patient This patient is new to me today: Yes Date on this admission: 09/11/19 - Critical Care Critical Care patient: No ATTENDING PHYSICIAN STATEMENT I saw and evaluated the patient. I reviewed the resident's note and discussed the case with the resident. I agree with the resident's findings and plan as documented. SUBJECTIVE: OBJECTIVE: ASSESSMENT AND PLAN:
[2019-09-11] MEDS: ATORVASTATIN CA 20 MG TABLET (FP) PO SCH (21:47)
[2019-09-11] MEDS: DOXEPIN HCL 10 MG CAPSULE PO SCH (21:47)
[2019-09-11] MEDS: ACETAMINOPHEN 325 MG TABLET (FP) PO PRN (21:59)
[2019-09-12] MEDS: SODIUM CHLORIDE 1,000 ML IV SCH (04:03)
[2019-09-12] MEDS: LEVOTHYROXINE NA 150 MCG TABLET PO SCH (06:46)
[2019-09-12] MEDS: predniSONE 5 MG TABLET (UD) PO SCH (06:46)
[2019-09-12] MEDS ORDERED: PT OWN MED DRAWER 7, Y5N ONE (10:14)
[2019-09-12 10:54] LABS: BASO % 0.5 % (0-2.0); EOS % 3.6 % (0-4.5); HEMATOCRIT 28.7 % (32.4-45.2); HEMOGLOBIN 9.1 GM/dL (10.7-15.3); LYMPH % 42.6 % (8-40); MCH 25.1 pg (25.7-33.7); MCHC 31.6 g/dl (32.0-36.0); MEAN CELL VOLUME 79.4 fl (80-96); MEAN PLT VOLUME 9.2 fl (7.5-11.1); MONO % 5.7 % (3.8-10.2); NEUT % 47.6 % (42.8-82.8); PLATELET COUNT 222 K/MM3 (134-434); RBC 3.62 M/mm3 (3.60-5.2); RDW 15.9 % (11.6-15.6); WHITE BLOOD COUNT 4.6 K/mm3 (4.0-10.0)
[2019-09-12 11:27] LABS: ALBUMIN 3.9 g/dl (3.4-5.0); BILIRUBIN,TOTAL 0.4 mg/dL (0.2-1); BLOOD UREA NITROGEN 18.4 mg/dL (7-18); CALCIUM 8.6 mg/dL (8.5-10.1); CREATININE 1.2 mg/dL (0.55-1.3); POTASSIUM 3.9 mmol/L (3.5-5.1); TOT PROT 7.3 g/dl (6.4-8.2)
[2019-09-12] MEDS: CALCIUM 500MG/VIT-D 200 UNITS COMBO TABLET (FP) PO SCH (11:45)
[2019-09-12] MEDS: FERROUS SO4 325 MG TABLET (FP) PO SCH (11:45)
--- NOTE | 2019-09-12 13:36 | DS ---
Physical Exam: SUBJECTIVE: Patient seen and examined in the morning. Has no complaints of chest pain, shortness of breath, abdominal pain, diarrhea, nausea, vomiting, or heat and cold intolerance. She says that she is feeling better than she has when she first arrived in the hospital. OBJECTIVE: Vital Signs Period Temp Pulse Resp BP Sys/Long Pulse Ox Last 24 Hr 98.2 F-98.9 F 69-80 20-20 104-119/48-72 PHYSICAL EXAM GENERAL: The patient is awake, alert, and fully oriented, in no acute distress. HEAD: Normal with no signs of trauma. EYES: PERRL, extraocular movements intact, sclera anicteric, conjunctiva clear. ENT: Ears normal, nares patent, oropharynx clear without exudates, moist mucous membranes. NECK: Trachea midline, full range of motion, supple. LUNGS: Breath sounds equal, clear to auscultation bilaterally, no wheezes, no crackles, no accessory muscle use. HEART: Regular rate and rhythm, S1, S2 without murmur, rub or gallop. ABDOMEN: Soft, nontender, nondistended, normoactive bowel sounds EXTREMITIES: 2+ pulses, warm, well-perfused, no edema. NEUROLOGICAL: Cranial nerves II through XII grossly intact. Normal speech, gait not observed. LABS Laboratory Results - last 24 hr CBC, BMP 09/12/19 09:50 09/12/19 09:50 Microbiology HOSPITAL COURSE: Date of Admission:09/10/19 Date of Discharge: 09/12/19 Patient was admitted on 09/10/19 after presenting to the hospital 4 days after a fall at home. Patient was experiencing multiple episodes of non-bloody diarrhea from 2 days prior to admission. She was also experiencing some shortness of breath which prompted her to visit the ED that day. In the ED she had a chest x-ray done which did not show any changes, and a Head CT which showed no bleed or fractures. Her diarrhea resolved in the morning of the . She was continued on her home medications and had her dose of Synthroid increased to 150 mcg PO daily, and was started on Prednisone 5mg PO daily. Brain MRI was completed on and showed no regrowth of pituitary mass. Orthostatics were negative. Discussed with patient the importance of continuing her medications. 09/10/19 22:00 Urine - Urine Clean Catch Urine Culture - Final NO GROWTH OBTAINED Head CT: No acute bleed or fracture. No CT evidence of acute fracture. Brain MRI:No evidence of edema, acute ischemia changes, hemorrhage or demyelinating process. No evidence of intracranial enhancing lesions. Status post resection of pituitary gland. T2 increased signal intensity is observed in the mastoid air cells at the tip of the left mastoid, with small air-fluid level. Minutes to complete discharge: 35 Discharge Summary Problems reviewed: Yes Reason For Visit: HYPOADRENALISM,FALL Current Active Problems Adrenal insufficiency (Chronic) CAD (coronary artery disease) (Chronic) Hypopituitarism (Chronic) Hospital Course: Patient was admitted on 09/10/19 after presenting to the hospital 4 days after a fall at home. Patient was experiencing multiple episodes of non-bloody diarrhea from 2 days prior to admission. She was also experiencing some shortness of breath which prompted her to visit the ED that day. In the ED she had a chest x-ray done which did not show any changes, and a Head CT which showed no bleed or fractures. Her diarrhea resolved in the morning of the . She was continued on her home medications and had her dose of Synthroid increased to 150 mcg PO daily, and was started on Prednisone 5mg PO daily. Brain MRI was completed on and showed no regrowth of pituitary mass. Orthostatics were negative. Condition: Improved - Instructions Diet, Activity, Other Instructions: You were admitted to the hospital because you have been having episodes of dizziness and falls. While you were here we evaluated your hormone levels and found that your thyroid hormone levels were lower. We also scanned your head to make sure that there was no regrowth of the pituitary mass. There was no mass or abnormality. You are stable to go home. We changed your synthroid dose. Please take as follows: Levothyroxine 150 mcg once in the morning before food. We have stopped your Metformin. Please throw it out when you get home and DO NOT TAKE METFORMIN. We are prescribing you steroids for your adrenal insufficiency. Please take as follows: Prednisone 5 mg once a day. Continue all your medications as prescribed Follow up with your PCP within 1 week Follow up with your manager online on , 09/14/2019. Return to the emergency department if you have chest pain, shortness of breath, nausea and vomiting, or worsening of your symptoms. Referrals: David Pink MD [Primary Care Provider] - 1 Week Shantal Lopez MD [Staff Physician] - 09/14/19 Disposition: HOME - Home Medications Comprehensive Discharge Medication List: Ambulatory Orders Atorvastatin Ca [Lipitor] 20 mg PO DAILY 01/09/15 Ferrous Sulfate 325 mg PO BID 05/22/19 Verapamil HCl [Verapamil ER] 180 mg PO DAILY 05/22/19 Calcium Carbonate/Vitamin D3 [Calcium 500-Vit D3 200 Caplet] 1 each PO BID 08/17 Doxepin HCl [Sinequan -] 10 mg PO DAILY 08/17/19 Aspirin [Adult Aspirin Regimen] 81 mg BID 09/11/19 Digoxin [Lanoxin -] 0.125 mg DAILY 09/11/19 Levothyroxine [Synthroid -] 150 mcg PO DAILY@0700 #30 tablet 09/12/19 predniSONE [Deltasone -] 5 mg PO AM #30 tablet 09/12/19 Prescription Drug Monitoring Program (I-STOP) results: I-STOP reviewed and no issues identified This patient is new to me today: No Emergency Visit: Yes ED Registration Date: 09/10/19 Care time: The patient presented to the Emergency Department on the above date and was hospitalized for further evaluation of their emergent condition. Critical Care patient: No - Discharge Referral Referred to [facility] Med [facility] Yes Physician Referral: David Lowery MD ([facility]) ATTENDING PHYSICIAN STATEMENT I saw and evaluated the patient. I reviewed the resident's note and discussed the case with the resident. I agree with the resident's findings and plan as documented. SUBJECTIVE: OBJECTIVE: ASSESSMENT AND PLAN:
--- NOTE | 2019-09-12 13:53 | PN ---
Teaching Attending Note Name of Resident: Stefania Gonzalez ATTENDING PHYSICIAN STATEMENT I saw and evaluated the patient. I reviewed the resident's note and discussed the case with the resident. I agree with the resident's findings and plan as documented. SUBJECTIVE: No fever or chills .No AMIN , no weakness, or tingling OBJECTIVE: NAD, awake, alert oriented, poor dentition, MMM. CV: RRR. no MRG. No JVD Lungs: CTAB ABD: soft, NT, ND, NL BS Ext: no edema or erythema, no rash. ASSESSMENT AND PLAN: 77 year old woman with a history of type 2 DM, HTN, hyperlipidemia, CAD, SVTs, migraines, hypothyroidism, h/o hypopituitarism after pituitary sx in , adrenal insufficiency who presented to the ED after a fall and head trauma 1- Fall. No orthostatsis. looks euvolemic. 2- H/o Hypopituitarism. - Synthroid increased due to low FT4, - MRI reviewed. f/u with Dr. Giraldo - cont prednisone for chronic secondary adrenal insufficiency .the patietn stated she was not taking prednisone which explains her hypoglycemia and hypotension - f/u with endo as out pt 3- H/o Dm. last A1c 5.6, she will be asked again to stop her metformin for now 4- H/o Iron def anemia : cont ferrous sulfate 5- prolonged QTc: Dispo : Dc home today
[2019-09-12 14:14] VITALS: BP 122/73; PULSE 68; TEMP 99
== END 2019-09-12 15:27 | disposition home or self-care (01) | DRG 111 ==
LOC: JER 22:30 → JERBED 09-10 02:42 → J5S 09-10 04:47
PROVIDERS: ADMIT Internal Medicine; ATTEND Internal Medicine
DX: R42 Dizziness and giddiness (principal); R19.7 Diarrhea, unspecified; E03.9 Hypothyroidism, unspecified; E11.9 Type 2 diabetes mellitus without complications; R94.31 Abnormal electrocardiogram [ECG] [EKG]; E23.0 Hypopituitarism; J44.9 Chronic obstructive pulmonary disease, unspecified; D50.9 Iron deficiency anemia, unspecified; I25.10 Atherosclerotic heart disease of native coronary artery without angina pectoris; E27.40 Unspecified adrenocortical insufficiency; W18.39XA Other fall on same level, initial encounter; Y92.098 Other place in other non-institutional residence as the place of occurrence of the external cause
CPT/HCPCS: 36415; 70450-TC; 70553-TC; 71045-TC-FY; 80053; 81003; 82530; 82533; 82962; 83036; 84439; 84443; 84484; 85025; 87086; 93005; 93010; 97116-GP; 97161-GP; 99283-25; A9579; J7030

== ENCOUNTER 2019-12-14 16:13 | Inpatient (IN) | payer OTHER ==
--- NOTE | 2019-12-14 16:50 | PDOC ---
History of Present Illness - General Chief Complaint: Weakness Stated Complaint: WEAKNESS - History of Present Illness Initial Comments: The pt is a 59F w/ a history of DM, hypothryoidism, CAD, HTN, pituitary mass s/ p removal, hx of SVT who presents for evaluation after a syncopal episode last night. She states that she was feeling lightheaded last night and passed out on her bed. She endorses associated several days of subjective fevers and generalized weakness. Further, she states she has not been taking her normal medications for the last 6 weeks because they were delivered to the wrong address. She reports worsening BALTAZAR and unstable angina. She states that she typically gets CP with physical activity but states that she recently will experience CP with less physical activity than usual. Endorses NB diarrhea for 3 days Denies vision changes, dysuria, hematuria, or changes in strength/sensation 12/14/19 16:49 Past History - Past Medical History Allergies/Adverse Reactions: Allergies Allergy/AdvReac Type Severity Reaction Status Date / Time Penicillins Allergy Verified 12/14/19 16:32 Home Medications: Ambulatory Orders Atorvastatin Ca [Lipitor] 20 mg PO DAILY 01/09/15 Ferrous Sulfate 325 mg PO BID 05/22/19 Verapamil HCl [Verapamil ER] 180 mg PO DAILY 05/22/19 Calcium Carbonate/Vitamin D3 [Calcium 500-Vit D3 200 Caplet] 1 each PO BID 08/17 Doxepin HCl [Sinequan -] 10 mg PO DAILY 08/17/19 Aspirin [Adult Aspirin Regimen] 81 mg BID 09/11/19 Digoxin [Lanoxin -] 0.125 mg DAILY 09/11/19 Levothyroxine [Synthroid -] 150 mcg PO DAILY@0700 #30 tablet 09/12/19 predniSONE [Deltasone -] 5 mg PO AM #30 tablet 09/12/19 Cardiac Disorders: Yes (palpitations,CAD, SVT) COPD: No CHF: No Diabetes: Yes HTN: Yes Hypercholesterolemia: Yes Thyroid Disease: Yes (HYPO.) - Surgical History Neurologic Surgery: Yes (pituitary tumor) - Immunization History Immunization Up to Date: No - Psycho Social/Smoking Cessation Hx Smoking History: Never smoked Have you smoked in the past 12 months: No If you are a former smoker, when did you quit?: 30 years ago Hx Alcohol Use: No Drug/Substance Use Hx: No Substance Use Type: None Hx Substance Use Treatment: No Review of Systems - Review of Systems Able to Perform ROS?: Yes Comments:: GENERAL/CONSTITUTIONAL: +subjective fevers and generalized weakness HEAD, EYES, EARS, NOSE AND THROAT: No change in vision. No change in hearing. No sore throat CARDIOVASCULAR: +BALTAZAR and CP on exertion RESPIRATORY: Denies cough, hemoptysis GASTROINTESTINAL: +3d NB diarrhea GENITOURINARY: No dysuria, frequency, or change in urination MUSCULOSKELETAL: No joint or muscle swelling or pain. No neck or back pain SKIN: No rash NEUROLOGIC: No headache, vertigo, loss of consciousness, or change in strength/ sensation ENDOCRINE: No increased thirst. No abnormal weight change HEMATOLOGIC/LYMPHATIC: No anemia, easy bleeding, or history of blood clots ALLERGIC/IMMUNOLOGIC: No hives or skin allergy 12/14/19 16:50 Is the patient limited British proficient: No *Physical Exam - Vital Signs Initial Vital Signs Temp Pulse Resp BP Pulse Ox 98.1 F 89 16 116/75 100 12/14/19 16:37 12/14/19 16:37 12/14/19 16:37 12/14/19 16:37 12/14/19 16:37 12/14/19 17:25 - Physical Exam GENERAL: Awake, alert, and oriented to person/place/time, in no acute distress HEAD: No signs of trauma, normoc ephalic, atraumatic EYES: PERRLA, EOMI, sclera anicteric, conjunctiva clear ENT: Hearing grossly normal, nares patent, oropharynx clear without exudates. Poor snf. Moist mucosa LUNGS: No distress, speaks in full sentences, clear to auscultation bilaterally HEART: Regular rate and rhythm, normal S1 and S2, no murmurs appreciated, peripheral pulses normal and equal bilaterally ABDOMEN: Soft, nontender, normoactive bowel sounds. No guarding, no rebound EXTREMITIES: Normal inspection, Normal range of motion, no edema. No clubbing or cyanosis NEUROLOGICAL: Cranial nerves II through XII grossly intact. Normal speech, no focal sensorimotor deficits SKIN: Warm, Dry 12/14/19 16:50 ED Treatment Course - LABORATORY CBC & Chemistry Diagram: 12/14/19 17:25 12/14/19 17:25 Medical Decision Making - Medical Decision Making The pt is a 59F w/ a history of DM, hypothryoidism, CAD, HTN, pituitary mass s/ p removal, hx of SVT who presents for evaluation after a syncopal episode last night. Further she has worsening BALTAZAR and unstable angina. ED Course Labs sent ECG CXR Cardiac monitoring CT head No leukocytosis No anemia Lytes unremarkable No KENNY LFTs unremarkable Trop I neg CT head read pending 12/14/19 18:39 ECG w/ 1st degree AV block; HR 76; QTc 486; no axis deviation; TWI V2-V3; abn ecg Pending CT head read, TSH added on to labs Pt signed out to Dr. Guevara 12/14/19 18:50 Discharge - Discharge Information Problems reviewed: Yes Clinical Impression/Diagnosis: Unstable angina Syncope Qualifiers: Syncope type: unspecified Qualified Code(s): R55 - Syncope and collapse Condition: Stable - Admission Yes - Follow up/Referral Referrals: David Pink MD [Primary Care Provider] - - Patient Discharge Instructions - Post Discharge Activity
--- NOTE | 2019-12-14 17:04 | PDOC ---
Attending Attestation - Resident Resident Name: Yang Wolfe - ED Attending Attestation I have performed the following: I have examined & evaluated the patient, The case was reviewed & discussed with the resident, I agree w/resident's findings & plan - HPI HPI: 12/14/19 17:01 59F w/ a history of IDDM, hypothryoidism, CAD, HTN, pituitary mass s/p removal, hx of SVT presenting with generalized body aches, subjective fever, weakness x several days +BALTAZAR and chest pain, exertional component. ?syncope last night while in bed. not taking meds x 6 weeks due to issue with delivery 12/14/19 17:02 - Physicial Exam PE: 12/14/19 17:01 Agree with the resident's HPI and PE as documented in the electronic medical record. NAD, well appearing, oriented appropriately and alert. EOMI, PERRL, nl conjunctiva, anicteric; neck supple. lungs clear, RRR, no murmur, abdomen soft nontender. no rebound, guarding. Back nontender. DUNLAP x4, no focal neuro deficits. No peripheral edema. normal color for ethnicity, WWP. speech clear. 5/5 prox and distal strength against resistance. SILT in all extrem. 12/14/19 17:54 - Medical Decision Making 12/14/19 17:04 Vital Signs Temp Pulse Resp BP Pulse Ox 98.1 F 89 16 116/75 100 12/14/19 16:37 12/14/19 16:37 12/14/19 16:37 12/14/19 16:37 12/14/19 16:37 vitals reviewed wnl, reassuring neuro intact now. however with being off meds x 6 weeks due to miscommunication error, likely cause of her CP/sob, ?syncope basic labs/lytes, EKG, trop. CT imaging of head eval for bleed/mass for/syncope ? 12/14/19 17:55 ECG is nonischemic. NSR. admit for syncope, CP/SOB with exertional component 12/14/19 18:38 Heart Score/ECG Review #1 ECG reviewed & interpreted by me at: 17:50 General ECG Interpretation: Sinus Rhythm, Normal Rate, Normal Intervals Compared to previous ECG there are: No significant change 12/14/19 17:56 EKG normal sinus rhythm 76 bpm, no interval abnormalities, narrow QRS, ST and T wave segments and morphology normal. Nonspecific T wave abnormalities
[2019-12-14 17:43] LABS: BASO % 0.2 % (0-2.0); EOS % 11.8 % (0-4.5); HEMATOCRIT 29.4 % (32.4-45.2); HEMOGLOBIN 9.4 GM/dL (10.7-15.3); LYMPH % 52.6 % (8-40); MCH 25.8 pg (25.7-33.7); MEAN CELL VOLUME 80.6 fl (80-96); MEAN PLT VOLUME 8.7 fl (7.5-11.1); MONO % 5.5 % (3.8-10.2); NEUT % 29.9 % (42.8-82.8); PLATELET COUNT 283 K/MM3 (134-434); RBC 3.64 M/mm3 (3.60-5.2); WHITE BLOOD COUNT 4.7 K/mm3 (4.0-10.0)
[2019-12-14 17:59] LABS: ACTIVATED PTT 40.2 SECONDS (25.2-36.5)
[2019-12-14 18:31] LABS: ALBUMIN 3.6 g/dl (3.4-5.0); BILIRUBIN,TOTAL 0.4 mg/dL (0.2-1); BLOOD UREA NITROGEN 8.8 mg/dL (7-18); CALCIUM 9.1 mg/dL (8.5-10.1); CREATININE 1.3 mg/dL (0.55-1.3); POTASSIUM 4.2 mmol/L (3.5-5.1); TOT PROT 7.3 g/dl (6.4-8.2)
[2019-12-14 18:44] LABS: INR 1.34 (0.83-1.09); PROTHROMBIN TIME (PATIENT) 15.9 SEC (9.7-13.0)
--- NOTE | 2019-12-14 19:00 | PDOC ---
*Physical Exam - Vital Signs Last Vital Signs Temp Pulse Resp BP Pulse Ox 98.1 F 89 16 116/75 100 12/14/19 16:37 12/14/19 16:37 12/14/19 16:37 12/14/19 16:37 12/14/19 16:37 - Physical Exam General Appearance: Yes: Appropriately Dressed, Disheveled, Other (looks unkept) . No: Apparent Distress HEENT: positive: EOMI, DAVID, Normal Voice, Pale Conjunctivae, Other (Terrible dentition). negative: Normal ENT Inspection Neck: positive: Supple Respiratory/Chest: positive: Lungs Clear Cardiovascular: positive: Regular Rhythm, Regular Rate, S1, S2 Vascular Pulses: Dorsalis-Pedis (R): 2+, Doralis-Pedis (L): 2+ Gastrointestinal/Abdominal: positive: Soft Rectal Exam: positive: deferred Lymphatic: negative: Adenopathy Musculoskeletal: positive: Normal Inspection. 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 negative: Normal Mood/Affect, Normal Response, Confused, Disoriented ED Treatment Course - LABORATORY CBC & Chemistry Diagram: 12/14/19 17:25 12/14/19 17:25 - ADDITIONAL ORDERS Additional order review: Laboratory Results 12/14/19 12/14/19 12/14/19 17:25 17:25 17:25 PT with INR 15.90 H INR 1.34 H PTT (Actin FS) 40.2 H Sodium 139 Potassium 4.2 Chloride 106 Carbon Dioxide 28 Anion Gap 4 L BUN 8.8 Creatinine 1.3 Est GFR (CKD-EPI)AfAm 52.74 Est GFR (CKD-EPI)NonAf 45.50 Random Glucose 75 Calcium 9.1 Magnesium 2.0 Total Bilirubin 0.4 AST 81 H ALT 25 Alkaline Phosphatase 34 L Troponin I < 0.02 Total Protein 7.3 Albumin 3.6 12/14/19 17:25 RBC 3.64 MCV 80.6 MCHC 32.0 RDW 15.0 MPV 8.7 Neutrophils % 29.9 L D Lymphocytes % 52.6 H D Monocytes % 5.5 Eosinophils % 11.8 H D Basophils % 0.2 Medical Decision Making - Medical Decision Making Patient signed out to me from Dr. Wolfe pending a head CT and admission to the hospital for syncope and ACS rule out EKG: Sinus rhythm w/ 1st degree AVB, rate 76, narrow complexes, normal axis, low voltage QRS, no hypertrophy, no ST elevations or depressions, there are TWI' s in leads V2 and V3, Q wave in lead III, QTc 432, [place] 248. Head CT: Basal ganglia calcifications, no acute bleed Labs: Tropx1 negative, Hb anemia Disposition: Tele Obs Discharge - Discharge Information Problems reviewed: Yes Clinical Impression/Diagnosis: Unstable angina Syncope Qualifiers: Syncope type: unspecified Qualified Code(s): R55 - Syncope and collapse Condition: Stable - Admission Yes - Follow up/Referral - Patient Discharge Instructions - Post Discharge Activity
[2019-12-14 20:37] LABS: EPI CELLS 1.7 /HPF (0-5/HPF); HYALINE CASTS 7 /lpf (0-8); URINE APPEARANCE CLEAR; URINE BACTERIA 8.8 /hpf (NEGATIVE); URINE BILIRUBIN NEGATIVE (NEGATIVE); URINE COLOR YELLOW; URINE GLUCOSE (UA) NEGATIVE (NEGATIVE); URINE KETONE NEGATIVE (NEGATIVE); URINE LEUK ESTERASE TRACE (NEGATIVE); URINE NITRITE NEGATIVE (NEGATIVE); URINE PROTEIN NEGATIVE (NEGATIVE); URINE RBC 1 /hpf (0-4); URINE WBC 11 /hpf (0-5)
[2019-12-14 20:44] LABS: COCAINE, UR NEGATIVE ng/ml (CUTOFF=300); METHADONE, UR NEGATIVE ng/ml (CUTOFF=300); OPIATES, URI NEGATIVE ng/ml (CUTOFF=300); PHENCYCLIDINE,URINE NEGATIVE ng/ml (CUTOFF=25); URINE AMPHETAMINES NEGATIVE ng/ml (CUTOFF=500); URINE BARBITURATES NEGATIVE ng/ml (CUTOFF=200); URINE BENZODIAZEPINES NEGATIVE ng/ml (CUTOFF=200)
--- NOTE | 2019-12-14 21:56 | PN ---
Teaching Attending Note Name of Resident: Mac Montesinos ATTENDING PHYSICIAN STATEMENT I saw and evaluated the patient. I reviewed the resident's note and discussed the case with the resident. I agree with the resident's findings and plan as documented. SUBJECTIVE: 59F w/ a history of DM, PSVT, hypothryoidism, Adrenal insufficiency HTN, Hypopituitarism status post pituitary mass removal, presents after a syncopal episode on 12/14/19 in the evening. Patient reported that she has not taken her levothyroxine or prednisone for at least 6 weeks because she was unable to obtain her medications. Was evaluated by cardiology and 08/10 and determined to have absence of CAD. Digoxin and aspirin were recommended to be DC'd. OBJECTIVE: Last Vital Signs Temp Pulse Resp BP Pulse Ox 98.1 F 77 18 104/68 100 12/14/19 16:37 12/14/19 20:10 12/14/19 20:10 12/14/19 20:10 12/14/19 20:10 GENERAL: Well developed, well nourished. Awake and alert. No acute distress. Slow mentation, slow speech HEENT: Normocephalic, atraumatic. PERRLA, EOMI. No conjunctival pallor. Sclera are non- icteric. Moist mucous membranes. Oropharynx is clear. NECK: Supple. Full ROM. No JVD. Carotid pulses 2+ and symmetric, without bruits. No thyromegaly. No lymphadenopathy. CARDIOVASCULAR: Regular rate and rhythm. No murmurs, rubs, or gallops. Distal pulses are 2+ and symmetric. PULMONARY: No evidence of respiratory distress. Lungs clear to auscultation bilaterally. No wheezing, rales or rhonchi. ABDOMINAL: Soft. Non-tender. Non-distended. No rebound or guarding. No organomegaly. Normoactive bowel sounds. MUSCULOSKELETAL Normal range of motion at all joints. No bony deformities or tenderness. No CVA tenderness. EXTREMITIES: No cyanosis. No clubbing. No edema. No calf tenderness. SKIN: Dry, flaky skin PSYCHIATRIC: Cooperative. Good eye contact. Appropriate mood and affect. Abnormal Lab Results 12/14/19 12/14/19 12/14/19 17:25 17:25 17:25 Hgb 9.4 L Hct 29.4 L Absolute Neuts (auto) 1.4 L Neutrophils % 29.9 L D Lymphocytes % 52.6 H D Eosinophils % 11.8 H D PT with INR 15.90 H INR 1.34 H PTT (Actin FS) 40.2 H Anion Gap 4 L AST 81 H Alkaline Phosphatase 34 L TSH 12/14/19 17:25 Hgb Hct Absolute Neuts (auto) Neutrophils % Lymphocytes % Eosinophils % PT with INR INR PTT (Actin FS) Anion Gap AST Alkaline Phosphatase TSH 0.11 L ECG w/ 1st degree AV block; HR 76; QTc 486 Echo from 08/10 appreciated. Left ventricular size, thickness, function are normal. Ejection fraction was 55%. Right ventricular is normal in size and function. Right ventricular systolic pressure was 27 mmHg ASSESSMENT AND PLAN: 59-year-old woman status post syncope episode. History of paroxysmal supraventricular tachycardia, conceivable that this may have contributed to her syncope episode. EKG was normal other than first-degree AV block. Patient noted to be hypotensive in the emergency room. Suspect probable adrenal sufficiency as well as uncontrolled hypothyroidism as patient has been noncompliant with her medications for at least 6 weeks. Clinical evidence of hypothyroidism evident. Low TSH is likely from secondary hypothyroidism from pituitary gland removal. Telemetry observation Bedrest, fall precautions Cardiology evaluation for possible Holter monitoring versus loop event recorder Check orthostatics SCDs for DVT prophylaxis IV fluid hydration #Hypothyroidism Send free T4, T3 Continue with levothyroxine 150 mcg p.o. daily #Anemianormocytic Iron studies, ferritin, vitamin B12 #Adrenal insufficiency Continue with prednisone dose5 mg p.o. daily Endocrinology evaluation No antihypertensives at this time due to current hypotension Continue with home dose Lipitor
[2019-12-14] MEDS ORDERED: SODIUM CHLORIDE 1,000 ML IV SCH ×2 (22:00→22:17)
--- NOTE | 2019-12-14 22:04 | HP ---
CHIEF COMPLAINT: syncope and chest pain PCP: Dr. Lowery HISTORY OF PRESENT ILLNESS: Bhavna Richard is a 69 year old female with a past medical history of HTN, DM, hx of SVT, and pituitary tumor removal (23 years ago) who presents with a 4 day history of persistent dizziness. Patient states she feels as if the room is spinning and reports associated watery diarrhea, non-bloody, about 4 times total in the past 3 days with the last one being this morning after breakfast. Patient also reports associated chills, generalized weakness, a migraine and decreased appetite. She states she has been drinking lots of juice but not eating enough. Per patient, her medications were sent to her old address, which is why she has not taken any of her medications in 6 weeks. Patient denies any shortness of breath, but states she did have some chest pain prior to arrival which subsided after drinking water in the ED. She denies any abdominal pain, constipation, nausea, vomiting, dysuria, urinary frequency or urgency. She received the flu shot this year. Denies sick contacts or recent travel. She lives at home with her daughter and is able to ambulate on her own. 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 Allergies Penicillins Allergy (Verified 12/14/19 16:32) HOME MEDICATIONS: Home Medications Medication Instructions Recorded Atorvastatin Ca [Lipitor] 20 mg PO DAILY 01/09/15 Ferrous Sulfate 325 mg PO BID 05/22/19 Verapamil HCl [Verapamil ER] 180 mg PO DAILY 05/22/19 Calcium Carbonate/Vitamin D3 1 each PO BID 08/17/19 [Calcium 500-Vit D3 200 Caplet] Doxepin HCl [Sinequan -] 10 mg PO DAILY 08/17/19 Aspirin [Adult Aspirin Regimen] 81 mg BID 09/11/19 Digoxin [Lanoxin -] 0.125 mg DAILY 09/11/19 Levothyroxine [Synthroid -] 150 mcg PO DAILY@0700 #30 tablet 09/12/19 predniSONE [Deltasone -] 5 mg PO AM #30 tablet 09/12/19 REVIEW OF SYSTEMS CONSTITUTIONAL: chills, loss of appetite Absent: fever, diaphoresis, generalized weakness, malaise, weight change HEENT: Absent: rhinorrhea, nasal congestion, throat pain, throat swelling, difficulty swallowing, visual changes CARDIOVASCULAR: chest pain, syncope, palpitations, lightheadedness Absent: irregular heart rate, peripheral edema RESPIRATORY: Absent: cough, shortness of breath, dyspnea with exertion, orthopnea, wheezing, GASTROINTESTINAL: diarrhea Absent: abdominal pain, abdominal distension, nausea, vomiting, constipation, GENITOURINARY: Absent: dysuria, frequency, urgency, hesitancy, hematuria, flank pain MUSCULOSKELETAL: Absent: myalgia, arthralgia, joint swelling, back pain, neck pain SKIN: Absent: rash, itching, pallor HEMATOLOGIC/IMMUNOLOGIC: Absent: easy bleeding, easy bruising, lymphadenopathy, frequent infections ENDOCRINE: Absent: unexplained weight gain, unexplained weight loss, heat intolerance, cold intolerance NEUROLOGIC: headache, dizziness Absent: focal weakness or paresthesias, unsteady gait, seizure, mental status changes, PSYCHIATRIC: Absent: anxiety, depression, suicidal or homicidal ideation, hallucinations. PHYSICAL EXAMINATION Vital Signs - 24 hr 12/14/19 12/14/19 16:37 20:10 Temperature 98.1 F Pulse Rate 89 Pulse Rate [ 77 Right Radial] Respiratory 16 18 Rate Blood Pressure 116/75 Blood Pressure 104/68 [Left Arm] O2 Sat by Pulse 100 100 Oximetry (%) GENERAL: Awake, alert, and fully oriented, in no acute distress. HEAD: Normal with no signs of trauma. EYES: Pupils equal, round and reactive to light, extraocular movements intact, sclera anicteric, conjunctiva clear. EARS, NOSE, THROAT: Oropharynx clear without exudates. Dry mucous membranes. NECK: Normal range of motion, supple without lymphadenopathy, JVD. LUNGS: Breath sounds equal, clear to auscultation bilaterally. No wheezes, and no crackles. HEART: Regular rate and rhythm, normal S1 and S2 without murmur, rub. ABDOMEN: Soft, nontender, not distended, normoactive bowel sounds, no guarding, no rebound, no masses. MUSCULOSKELETAL: Normal range of motion at all joints. No bony deformities or tenderness. UPPER EXTREMITIES: 2+ pulses, warm, well-perfused. No cyanosis. No clubbing. No peripheral edema. LOWER EXTREMITIES: 2+ pulses, warm, well-perfused. No calf tenderness. No peripheral edema. NEUROLOGICAL: Cranial nerves II-XII intact. 5/5 muscle strength bilaterally upper and lower extremities. Sensation intact to gross touch throughout. PSYCHIATRIC: Cooperative. Good eye contact. Appropriate mood and affect. Speaking slowly. SKIN: Cool, very dry, mildly decreased turgor, no rashes or lesions noted, normal capillary refill. Laboratory Results - last 24 hr 12/14/19 12/14/19 12/14/19 17:25 17:25 17:25 WBC 4.7 RBC 3.64 Hgb 9.4 L Hct 29.4 L MCV 80.6 MCH 25.8 MCHC 32.0 RDW 15.0 Plt Count 283 D MPV 8.7 Absolute Neuts (auto) 1.4 L Neutrophils % 29.9 L D Lymphocytes % 52.6 H D Monocytes % 5.5 Eosinophils % 11.8 H D Basophils % 0.2 Nucleated RBC % 0 PT with INR 15.90 H INR 1.34 H PTT (Actin FS) 40.2 H Sodium 139 Potassium 4.2 Chloride 106 Carbon Dioxide 28 Anion Gap 4 L BUN 8.8 Creatinine 1.3 Est GFR (CKD-EPI)AfAm 52.74 Est GFR (CKD-EPI)NonAf 45.50 Random Glucose 75 Calcium 9.1 Magnesium 2.0 Total Bilirubin 0.4 AST 81 H ALT 25 Alkaline Phosphatase 34 L Troponin I Total Protein 7.3 Albumin 3.6 Urine Color Urine Appearance Urine pH Ur Specific [place] Urine Protein Urine Glucose (UA) Urine Ketones Urine Blood Urine Nitrite Urine Bilirubin Urine Urobilinogen Ur Leukocyte Esterase Urine WBC (Auto) Urine RBC (Auto) Urine Casts (Auto) U Epithel Cells (Auto) Urine Bacteria (Auto) Opiates Screen Methadone Screen Barbiturate Screen Phencyclidine Screen Ur Amphetamines Screen MDMA (Ecstasy) Screen Benzodiazepines Screen Cocaine Screen U Marijuana (THC) Screen 12/14/19 12/14/19 12/14/19 17:25 20:00 20:00 WBC RBC Hgb Hct MCV MCH MCHC RDW Plt Count MPV Absolute Neuts (auto) Neutrophils % Lymphocytes % Monocytes % Eosinophils % Basophils % Nucleated RBC % PT with INR INR PTT (Actin FS) Sodium Potassium Chloride Carbon Dioxide Anion Gap BUN Creatinine Est GFR (CKD-EPI)AfAm Est GFR (CKD-EPI)NonAf Random Glucose Calcium Magnesium Total Bilirubin AST ALT Alkaline Phosphatase Troponin I < 0.02 Total Protein Albumin Urine Color Yellow Urine Appearance Clear Urine pH 5.0 Ur Specific [place] 1.022 Urine Protein Negative Urine Glucose (UA) Negative Urine Ketones Negative Urine Blood Negative Urine Nitrite Negative Urine Bilirubin Negative Urine Urobilinogen 1.0 Ur Leukocyte Esterase Trace Urine WBC (Auto) 11 Urine RBC (Auto) 1 Urine Casts (Auto) 7 U Epithel Cells (Auto) 1.7 Urine Bacteria (Auto) 8.8 Opiates Screen Negative Methadone Screen Negative Barbiturate Screen Negative Phencyclidine Screen Negative Ur Amphetamines Screen Negative MDMA (Ecstasy) Screen Negative Benzodiazepines Screen Negative Cocaine Screen Negative U Marijuana (THC) Screen Negative EKG--> sinus with 1st degree AV block, T wave inversion V2, V3 present on previous EKG, Qtc 486 ASSESSMENT/PLAN: Bhavna Richard is a 69 year old female with a past medical history of HTN, DM, hx of SVT, and pituitary tumor removal admitted for syncope and ACS rule-out. Syncope - likely in the setting of hypovolemia from diarrhea, poor oral intake, and non- adherence to medications which she hasn't taken in 6 weeks - head CT negative - EKG negative for any acute new changes - last Echo 08/10 noting normal LV, EF 55%, trace mitral regurg, mild tricuspid regurg, mild aortic sclerosis, mild aortic regurg - normal stress echo in August 2019 - orthostatics performed at bedside (supine HR 86 BP 99/65, sitting HR 84 BP 86/ 59, standing HR 88 BP 88/55), negative - continue NS at 100cc/hr and encourage PO hydration - resume home medications, avoid diuretics - fall risk precautions - cardiology consulted for history of SVT and recent syncope for possible holter monitor or loop recorder Chest Pain - spontaneously resolved - EKG with no acute changes since previous admission - first troponin negative, continue to trend Hx of pituitary tumor resection - resumed levothyroxine and prednisone - TSH 0.11, may need synthroid dose adjustment, T4, T3 ordered - endocrine consulted - protonix 20mg for GI protection while on steroid ?CAD - in chart but last note in 08/10 from cardio notes that there is no established CAD - as per last cardio note continue Lipitor, Caldan SR. D/c aspirin and digoxin DM - BGM - ISS - A1c DVT PPx - heparin 5000 units subq tid FEN - NS at 100cc/hr and encourage PO hydration - continue to monitor electrolytes and replete as necessary - Diabetic/sodium controlled diet Dispo - observation on telemetry - needs medication reconciliation Visit type - Emergency Visit Emergency Visit: Yes ED Registration Date: 12/14/19 Care time: The patient presented to the Emergency Department on the above date and was hospitalized for further evaluation of their emergent condition. - New Patient This patient is new to me today: Yes Date on this admission: 12/15/19 - Critical Care Critical Care patient: No
[2019-12-14] MEDS ORDERED: TRIMETHOBENZAMIDE HCL 200MG/2ML INJ IM PRN (22:47)
[2019-12-14] MEDS ORDERED: HEPARIN NA (PORCINE) 5,000 UNITS/ML 1ML VIAL ONE (23:11)
[2019-12-14] MEDS: INSULIN SLIDING SCALE (NOVOLOG) 1 VIAL SQ SCH (23:23)
[2019-12-14] MEDS: HEPARIN NA (PORCINE) 5,000 UNITS/ML 1ML VIAL SQ SCH (23:23)
[2019-12-15 06:35] LABS: ALBUMIN 3.4 g/dl (3.4-5.0); ALK PHOS 32 U/L (45-117); ANION GAP 5 MMOL/L (8-16); BILIRUBIN,TOTAL 0.4 mg/dL (0.2-1); BLOOD UREA NITROGEN 7.8 mg/dL (7-18); CALCIUM 8.7 mg/dL (8.5-10.1); CHLORIDE 109 mmol/L (98-107); CO2 26 mmol/L (21-32); CREATININE 1.2 mg/dL (0.55-1.3); GLUCOSE,RANDOM 70 mg/dL (74-106); MAGNESIUM 1.8 mg/dL (1.8-2.4); POTASSIUM 3.8 mmol/L (3.5-5.1); SGOT/AST 73 U/L (15-37); SGPT/ALT 22 U/L (13-61); SODIUM 140 mmol/L (136-145); TOT PROT 6.8 g/dl (6.4-8.2)
[2019-12-15] MEDS ORDERED: HEPARIN NA (PORCINE) 5,000 UNITS/ML 1ML VIAL ONE (06:42)
[2019-12-15] MEDS: predniSONE 5 MG TABLET (UD) PO SCH (06:47)
[2019-12-15] MEDS: HEPARIN NA (PORCINE) 5,000 UNITS/ML 1ML VIAL SQ SCH ×3 (06:47→21:53)
[2019-12-15] MEDS: INSULIN SLIDING SCALE (NOVOLOG) 1 VIAL SQ SCH (08:20)
[2019-12-15] MEDS: LEVOTHYROXINE NA 150 MCG TABLET PO SCH (08:25)
--- NOTE | 2019-12-15 09:05 | CONSULT ---
Consult Consult Specialty:: Endocrinology Referred by:: Nikolai Berman Reason for Consultation:: Abnormal TFT - History of Present Illness Chief Complaint: Dizziness History of Present Illness: This is a 59 year old female with a past medical history of HTN, DM, hx of SVT, Hypothyroidism and adrenal insufficiency s/ppituitary tumor removal (23 years ago) who presented with a syncopal after 4 day history of persistent dizziness. Patient states she feels as if the room is spinning and reports associated watery diarrhea, non-bloody, about 4 times total in the past 3 days with the last one being this morning after breakfast. Patient also reports associated chills, generalized weakness, a migraine and decreased appetite. She states she has been drinking lots of juice but not eating enough. Per patient, her medications were sent to her old address, which is why she has not taken any of her medications in 6 weeks. Patient denies any shortness of breath, but states she did have some chest pain prior to arrival which subsided after drinking water in the ED. She denies any abdominal pain, constipation, nausea, vomiting, dysuria, urinary frequency or urgency. She received the flu shot this year. Denies sick contacts or recent travel. She lives at home with her daughter and is able to ambulate on her own. 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 History of Recent Travel: No Home Medications - Allergies Allergies/Adverse Reactions: Allergies Allergy/AdvReac Type Severity Reaction Status Date / Time Penicillins Allergy Verified 12/14/19 16:32 - Home Medications Home Medications: Ambulatory Orders Atorvastatin Ca [Lipitor] 20 mg PO DAILY 01/09/15 Ferrous Sulfate 325 mg PO BID 05/22/19 Verapamil HCl [Verapamil ER] 180 mg PO DAILY 05/22/19 Calcium Carbonate/Vitamin D3 [Calcium 500-Vit D3 200 Caplet] 1 each PO BID 08/17 Doxepin HCl [Sinequan -] 10 mg PO DAILY 08/17/19 Aspirin [Adult Aspirin Regimen] 81 mg BID 09/11/19 Levothyroxine [Synthroid -] 150 mcg PO DAILY@0700 #30 tablet 09/12/19 predniSONE [Deltasone -] 5 mg PO AM #30 tablet 09/12/19 Review of Systems - Review of Systems Constitutional: reports: Malaise, Weakness Eyes: reports: No Symptoms HENT: reports: No Symptoms Neck: reports: No Symptoms Cardiovascular: reports: No Symptoms Respiratory: reports: No Symptoms Gastrointestinal: reports: No Symptoms Musculoskeletal: reports: No Symptoms Neurological: reports: Dizziness Endocrine: reports: Intolerance to Cold Hematology/Lymphatic: reports: No Symptoms Physical Exam Vital Signs: Vital Signs Temperature 98.1 F 12/14/19 16:37 Pulse Rate 77 12/14/19 20:10 Respiratory Rate 16 12/15/19 08:11 Blood Pressure 104/68 12/14/19 20:10 O2 Sat by Pulse Oximetry (%) 98 12/15/19 08:11 Constitutional: Yes: No Distress, Calm Eyes: Yes: Conjunctiva Clear, EOM Intact HENT: Yes: Atraumatic, Normocephalic Neck: Yes: Supple, Trachea Midline Cardiovascular: Yes: Regular Rate and Rhythm Respiratory: Yes: Regular, CTA Bilaterally Gastrointestinal: Yes: Normal Bowel Sounds Musculoskeletal: Yes: WNL Extremities: Yes: WNL Edema: No Neurological: Yes: Alert, Oriented Labs: CBC, BMP 12/15/19 05:35 12/15/19 05:35 Problem List - Problems (1) Syncope Code(s): R55 - SYNCOPE AND COLLAPSE Qualifiers: Syncope type: vasovagal syncope Qualified Code(s): R55 - Syncope and collapse (2) Adrenal insufficiency Code(s): E27.40 - UNSPECIFIED ADRENOCORTICAL INSUFFICIENCY (3) CAD (coronary artery disease) Code(s): I25.10 - ATHSCL HEART DISEASE OF [place] CORONARY ARTERY W/O ANG PCTRS Qualifiers: Coronary Disease-Associated Artery/Lesion type: unspecified vessel or lesion type [place] vs. 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 - HYPOPITUITARISM (5) Hypothyroidism Code(s): E03.9 - HYPOTHYROIDISM, UNSPECIFIED Qualifiers: Hypothyroidism type: unspecified Qualified Code(s): E03.9 - Hypothyroidism , unspecified Assessment/Plan AP: Syncope Sec Hypothyroidism S/P Pituitary surgery DM Adrenal Insufficiency MRI 19: S/p pituitary resection, Unremarkable optic chiasm and pituitary infundibulum Low T4 and low TSH compatible with patient's history of hypothyroidism sec to pituitary surgery and pt not taking LT4 for about 6 weeks Continue LT4 150 Discussed with pt need for compliance with meds Prednisone 5mg QD I will be away until Dec 24. Dr Doyle is covering.
[2019-12-15] MEDS: PANTOPRAZOLE 20 MG TABLET PO SCH (09:06)
--- NOTE | 2019-12-15 10:37 | CON.CARD ---
Consult Consult Specialty:: Cardiology Referred by:: Hospitalist Medicine Reason for Consultation:: Syncope - History of Present Illness Chief Complaint: Syncope History of Present Illness: 59 year old woman with a history of type 2 DM, HTN, hyperlipidemia, PSVT, migraines, hypothyroidism, adrenal insufficiency, hypopituitarism status post pituitary mass removal who presented to the ED after a syncopal episode with prodrome of dizziness, watery non-bloody diarrhea, weakness, anorexia. Patient reported that she has not taken her levothyroxine or prednisone for at least 6 weeks because medications were sent to old address. She denies chest pain, palpitations, orthopnea, PND or LE edema. 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 History of Recent Travel: No Home Medications - Allergies Allergies/Adverse Reactions: Allergies Allergy/AdvReac Type Severity Reaction Status Date / Time Penicillins Allergy Verified 12/14/19 16:32 - Home Medications Home Medications: Ambulatory Orders Atorvastatin Ca [Lipitor] 20 mg PO DAILY 01/09/15 Ferrous Sulfate 325 mg PO BID 05/22/19 Verapamil HCl [Verapamil ER] 180 mg PO DAILY 05/22/19 Calcium Carbonate/Vitamin D3 [Calcium 500-Vit D3 200 Caplet] 1 each PO BID 08/17 Doxepin HCl [Sinequan -] 10 mg PO DAILY 08/17/19 Aspirin [Adult Aspirin Regimen] 81 mg BID 09/11/19 Levothyroxine [Synthroid -] 150 mcg PO DAILY@0700 #30 tablet 09/12/19 predniSONE [Deltasone -] 5 mg PO AM #30 tablet 09/12/19 Review of Systems - Review of Systems Constitutional: reports: Loss of Appetite, Weakness Neurological: reports: Dizziness, Syncope, Weakness Vital Signs: Vital Signs Temperature 98.1 F 12/14/19 16:37 Pulse Rate 78 12/15/19 08:11 Respiratory Rate 16 12/15/19 08:11 Blood Pressure 108/65 12/15/19 08:11 O2 Sat by Pulse Oximetry (%) 98 12/15/19 08:11 Constitutional: Yes: No Distress, Calm Neck: Yes: Supple Respiratory: Yes: Regular, CTA Bilaterally Gastrointestinal: Yes: Soft, Hypoactive Bowel Sounds Cardiovascular: Yes: Regular Rate and Rhythm JVD: No Carotid Bruit: No Heart Sounds: Yes: S1, S2 Murmur: Yes: Systolic Murmur, Grade 1 Edema: No - Other Data Labs, Other Data: CBC, BMP 12/15/19 05:35 12/15/19 05:35 INR, PTT INR 1.34 (0.83-1.09) H 12/14/19 17:25 Troponin, BNP 12/14/19 12/15/19 17:25 05:35 Troponin I < 0.02 < 0.02 Troponin, BNP 12/14/19 12/15/19 17:25 05:35 Troponin I < 0.02 < 0.02 NSR @ 76 1[address] deg AVB nonspec T changes Ejection Fraction %: LVEF > or = 40 % Imaging - Results Chest X-ray: Report Reviewed (NAD) Cat Scan: Report Reviewed (No acute changes) Problem List - Problems (1) Syncope Code(s): R55 - SYNCOPE AND COLLAPSE Qualifiers: Syncope type: vasovagal syncope Qualified Code(s): R55 - Syncope and collapse (2) Adrenal insufficiency Code(s): E27.40 - UNSPECIFIED ADRENOCORTICAL INSUFFICIENCY (3) Hypertension Code(s): I10 - ESSENTIAL (PRIMARY) HYPERTENSION Qualifiers: Hypertension type: essential hypertension Qualified Code(s): I10 - Essential (primary) hypertension (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 Syncope 2. Secondary Hypothyroidism not taking LT4 for about 6 weeks 3. COPD 4. H/o PSVT 5. s/p pituitary surgery 6. Adrenal insufficiency on chronic steroids 7. Type 2 DM 8. Anemia 9. Hyperlipidemia P:1. Resumed Synthroid 150 qd and emphasized compliance with meds 2. Recheck echocardiogram, telemetry monitoring, check orthostasis 3. Continue Lipitor 20 qd, resume Calan SR 180 qd as hemodynamics tolerate 4. Prednisone 5 qd with GI protection, synthroid repletion 5. Thank you for consultative opportunity
[2019-12-15 11:22] VITALS: BMI 25.5
--- NOTE | 2019-12-15 13:41 | PN ---
Teaching Attending Note Name of Resident: Sony Lim ATTENDING PHYSICIAN STATEMENT I saw and evaluated the patient. I reviewed the resident's note and discussed the case with the resident. I agree with the resident's findings and plan as documented. SUBJECTIVE: seen at 10 am No fever or chills. No CP or SOB. no dizziness. no cough. she admits to not taking her home meds for few months since her dc from hospital last august. she claims they were delivered to the wrong address twice. OBJECTIVE: NAD, awake, alert oriented, poor dentition, MMM.cooperative CV: RRR. no MRG. No JVD Lungs: CTAB ABD: soft, NT, ND, NL BS Ext: no edema or erythema, no rash. Neuro: EOMI, round equal pupils, reactive to light, no facial droop. strength 5/ 5 in upper or lower extremities proximally and distally. sensatio to light touch nl. reflexes 1+ biceps and 2+ knee jerk bilaterally ASSESSMENT AND PLAN: 59 year old woman with a history of type 2 DM, HTN, hyperlipidemia, CAD, SVTs, migraines, hypothyroidism, h/o hypopituitarism after pituitary sx in , adrenal insufficiency, non compliance, who presented due to syncope. 1- Syncope: was found to be hypotensive in ER at presentation. syncope could be due to hypotension , arrhythmias, or hypoglycemia. doubt ACS or stroke. - cont IVF - monitor on tele - echo. 2- hypopituitarism, secondary adrenalinsufficiency, and secondary hypothyroidism. : hypotension and hypoglycemia could be manifestations of her adrenal insufficiency . BP improved. No need for IV steroids - resume her home dose prednisone - cont home dose synthroid. repeat TSH in 6 weeks 3- Hypoglycemia: dc SSI . not diabetic . last A1c 5.6 . - cont BGMuntil gluc stabilizes 4- H/o SVTs: resume her verapamil when bp allows. - no need for dig. 5- VT Px: heparin sq patient ocmpliance is an issue. she was counseled . team to address with her daughter who lives with her as this is an ongoing issue .
--- NOTE | 2019-12-15 14:03 | EKG ---
Test Reason : Blood Pressure : / mmHG Vent. Rate : 076 BPM Atrial Rate : 076 BPM P-R Int : 248 ms QRS Dur : 080 ms QT Int : 432 ms P-R-T Axes : 053 -27 053 degrees QTc Int : 486 ms SINUS RHYTHM WITH 1ST DEGREE A-V BLOCK LOW VOLTAGE QRS NONSPECIFIC T WAVE ABNORMALITY ABNORMAL ECG WHEN COMPARED WITH ECG OF 10-SEP-2019 01:39, NO SIGNIFICANT CHANGE WAS FOUND Confirmed by SHIRA HAYES MD ([id number]) on 12/15/2019 2:03:11 PM Referred By: Confirmed By:SHIRA HAYES MD
[2019-12-15] MEDS ORDERED: PT OWN MED DRAWER 7, Y5N ONE ×2 (14:15→15:35)
[2019-12-15] MEDS ORDERED: SODIUM CHLORIDE NASAL SPRAY 44 ML BOTTLE NS PRN (14:17)
--- NOTE | 2019-12-15 18:15 | PN ---
Physical Exam: SUBJECTIVE: Patient seen and examined VELASQUEZ Has mild spinning sensation in head. Denies AMIN, weakness. OBJECTIVE: Vital Signs Period Temp Pulse Resp BP Sys/Long Pulse Ox Last 24 Hr 98.2 F-98.2 F 77-79 16-18 104-128/60-68 98-100 GENERAL: The patient is awake, alert, and fully oriented, in no acute distress. Mild lethargy HEAD: Normal with no signs of trauma. EYES: PERRL, extraocular movements intact, sclera anicteric, conjunctiva clear. No ptosis. ENT: Ears normal, nares patent, oropharynx clear without exudates, moist mucous membranes. Large tongue. Poor dentition NECK: Trachea midline, full range of motion, supple. LUNGS: Breath sounds equal, clear to auscultation bilaterally, no wheezes, no crackles, no accessory muscle use. HEART: Regular rate and rhythm, S1, S2 without murmur, rub or gallop. ABDOMEN: Soft, nontender, nondistended, normoactive bowel sounds, no guarding, no rebound. EXTREMITIES: 2+ pulses, warm, well-perfused, no edema. NEUROLOGICAL: Cranial nerves II through XII grossly intact. Normal speech, gait not observed. PSYCH: Normal mood, normal affect. SKIN: Warm, dry, normal turgor, no rashes or lesions noted Laboratory Results - last 24 hr 12/14/19 12/14/19 12/14/19 17:25 17:25 17:25 WBC Corrected WBC (auto) RBC Hgb Hct MCV MCH MCHC RDW Plt Count MPV Absolute Neuts (auto) Neutrophils % Lymphocytes % Monocytes % Eosinophils % Basophils % Nucleated RBC % Platelet Estimate Platelet Comment PT with INR 15.90 H INR 1.34 H PTT (Actin FS) 40.2 H Sodium 139 Potassium 4.2 Chloride 106 Carbon Dioxide 28 Anion Gap 4 L BUN 8.8 Creatinine 1.3 Est GFR (CKD-EPI)AfAm 52.74 Est GFR (CKD-EPI)NonAf 45.50 POC Glucometer Random Glucose 75 Calcium 9.1 Magnesium 2.0 Total Bilirubin 0.4 AST 81 H ALT 25 Alkaline Phosphatase 34 L Troponin I < 0.02 Total Protein 7.3 Albumin 3.6 TSH 0.11 L Thyroxine (T4) Urine Color Urine Appearance Urine pH Ur Specific [place] Urine Protein Urine Glucose (UA) Urine Ketones Urine Blood Urine Nitrite Urine Bilirubin Urine Urobilinogen Ur Leukocyte Esterase Urine WBC (Auto) Urine RBC (Auto) Urine Casts (Auto) U Epithel Cells (Auto) Urine Bacteria (Auto) Ur Random Creatinine Ur Random Sodium Ur Random Potassium Ur Random Chloride Opiates Screen Methadone Screen Barbiturate Screen Phencyclidine Screen Ur Amphetamines Screen MDMA (Ecstasy) Screen Benzodiazepines Screen Cocaine Screen U Marijuana (THC) Screen 12/14/19 12/14/19 12/14/19 20:00 20:00 23:19 WBC Corrected WBC (auto) RBC Hgb Hct MCV MCH MCHC RDW Plt Count MPV Absolute Neuts (auto) Neutrophils % Lymphocytes % Monocytes % Eosinophils % Basophils % Nucleated RBC % Platelet Estimate Platelet Comment PT with INR INR PTT (Actin FS) Sodium Potassium Chloride Carbon Dioxide Anion Gap BUN Creatinine Est GFR (CKD-EPI)AfAm Est GFR (CKD-EPI)NonAf POC Glucometer 86 Random Glucose Calcium Magnesium Total Bilirubin AST ALT Alkaline Phosphatase Troponin I Total Protein Albumin TSH Thyroxine (T4) Urine Color Yellow Urine Appearance Clear Urine pH 5.0 Ur Specific [place] 1.022 Urine Protein Negative Urine Glucose (UA) Negative Urine Ketones Negative Urine Blood Negative Urine Nitrite Negative Urine Bilirubin Negative Urine Urobilinogen 1.0 Ur Leukocyte Esterase Trace Urine WBC (Auto) 11 Urine RBC (Auto) 1 Urine Casts (Auto) 7 U Epithel Cells (Auto) 1.7 Urine Bacteria (Auto) 8.8 Ur Random Creatinine Ur Random Sodium Ur Random Potassium Ur Random Chloride Opiates Screen Negative Methadone Screen Negative Barbiturate Screen Negative Phencyclidine Screen Negative Ur Amphetamines Screen Negative MDMA (Ecstasy) Screen Negative Benzodiazepines Screen Negative Cocaine Screen Negative U Marijuana (THC) Screen Negative 12/15/19 12/15/19 12/15/19 05:35 05:35 06:50 WBC Cancelled Corrected WBC (auto) Cancelled RBC Cancelled Hgb Cancelled Hct Cancelled MCV Cancelled MCH Cancelled MCHC Cancelled RDW Cancelled Plt Count Cancelled MPV Cancelled Absolute Neuts (auto) Cancelled Neutrophils % Cancelled Lymphocytes % Cancelled Monocytes % Cancelled Eosinophils % Cancelled Basophils % Cancelled Nucleated RBC % Cancelled Platelet Estimate Cancelled Platelet Comment Cancelled PT with INR INR PTT (Actin FS) Sodium 140 Potassium 3.8 Chloride 109 H Carbon Dioxide 26 Anion Gap 5 L BUN 7.8 Creatinine 1.2 Est GFR (CKD-EPI)AfAm 58.10 Est GFR (CKD-EPI)NonAf 50.13 POC Glucometer Random Glucose 70 L Calcium 8.7 Magnesium 1.8 Total Bilirubin 0.4 AST 73 H ALT 22 Alkaline Phosphatase 32 L Troponin I < 0.02 Total Protein 6.8 Albumin 3.4 TSH Thyroxine (T4) 2.7 L Urine Color Urine Appearance Urine pH Ur Specific [place] Urine Protein Urine Glucose (UA) Urine Ketones Urine Blood Urine Nitrite Urine Bilirubin Urine Urobilinogen Ur Leukocyte Esterase Urine WBC (Auto) Urine RBC (Auto) Urine Casts (Auto) U Epithel Cells (Auto) Urine Bacteria (Auto) Ur Random Creatinine 342.0 H Ur Random Sodium Ur Random Potassium Ur Random Chloride Opiates Screen Methadone Screen Barbiturate Screen Phencyclidine Screen Ur Amphetamines Screen MDMA (Ecstasy) Screen Benzodiazepines Screen Cocaine Screen U Marijuana (THC) Screen 12/15/19 12/15/19 12/15/19 06:50 11:40 16:53 WBC Corrected WBC (auto) RBC Hgb Hct MCV MCH MCHC RDW Plt Count MPV Absolute Neuts (auto) Neutrophils % Lymphocytes % Monocytes % Eosinophils % Basophils % Nucleated RBC % Platelet Estimate Platelet Comment PT with INR INR PTT (Actin FS) Sodium Potassium Chloride Carbon Dioxide Anion Gap BUN Creatinine Est GFR (CKD-EPI)AfAm Est GFR (CKD-EPI)NonAf POC Glucometer 85 83 Random Glucose Calcium Magnesium Total Bilirubin AST ALT Alkaline Phosphatase Troponin I Total Protein Albumin TSH Thyroxine (T4) Urine Color Urine Appearance Urine pH Ur Specific [place] Urine Protein Urine Glucose (UA) Urine Ketones Urine Blood Urine Nitrite Urine Bilirubin Urine Urobilinogen Ur Leukocyte Esterase Urine WBC (Auto) Urine RBC (Auto) Urine Casts (Auto) U Epithel Cells (Auto) Urine Bacteria (Auto) Ur Random Creatinine Ur Random Sodium 136 Ur Random Potassium 41.0 Ur Random Chloride 156 Opiates Screen Methadone Screen Barbiturate Screen Phencyclidine Screen Ur Amphetamines Screen MDMA (Ecstasy) Screen Benzodiazepines Screen Cocaine Screen U Marijuana (THC) Screen Active Medications Generic Name Dose Route Start Last Admin Trade Name Freq PRN Reason Stop Dose Admin Heparin Sodium (Porcine) 5,000 unit 12/14/19 22:15 12/15/19 13:32 Heparin - SQ 5,000 unit TID VIARL Administration Sodium Chloride 1,000 mls @ 100 mls/hr 12/14/19 22:17 12/14/19 23:23 Normal Saline - IV 12/15/19 21:57 100 mls/hr ASDIR VIRAL Administration Levothyroxine Sodium 150 mcg 12/15/19 07:00 12/15/19 08:25 Synthroid - PO 150 mcg DAILY@0700 VIRAL Administration Pantoprazole Sodium 20 mg 12/15/19 10:00 12/15/19 09:06 Protonix - PO 20 mg DAILY VIRAL Administration Prednisone 5 mg 12/15/19 07:00 12/15/19 06:47 Deltasone - PO 5 mg AM VIRAL Administration Sodium Chloride 2 spray 12/15/19 14:17 12/15/19 17:49 [place] Nasal [place] - NS 2 spray BID PRN Administration NASAL CONGESTION ASSESSMENT/PLAN: 69 year old female with a past medical history of HTN, DM, hx of SVT, and pituitary tumor removal admitted for syncope and ACS rule-out. #Syncope --secondary adrenal insufficiency(meds, noncompliance) > head CT: negative > Echo 08/10 noting normal LV, EF 55%, trace mitral regurg, mild tricuspid regurg , mild aortic sclerosis, mild aortic regurg > normal stress echo in August 2019 > negative orthostatics performed at bedside (supine HR 86 BP 99/65, sitting HR 84 BP 86/59, standing HR 88 BP 88/55) - IVF - Endo(Shresta) consult: --prednisone 5mg --levothyroxin 150 - resume home medications, avoid diuretics - fall risk precautions #Chest Pain --resolved #h/o PSVT > troponin neg x1 - Cardio([facility]) consult --recheck echo #unknown ?CAD - as per last cardio note continue Lipitor, Caldan SR. D/c aspirin and digoxin #DM - BGM - A1c #DVT PPx - heparin 5000 units subq tid #FEN - NS at 100cc/hr and encourage PO hydration - Diabetic/sodium controlled diet #Dispo - observation on telemetry Visit type - Emergency Visit Emergency Visit: No - New Patient This patient is new to me today: No - Critical Care Critical Care patient: No ATTENDING PHYSICIAN STATEMENT I saw and evaluated the patient. I reviewed the resident's note and discussed the case with the resident. I agree with the resident's findings and plan as documented. SUBJECTIVE: OBJECTIVE: ASSESSMENT AND PLAN:
[2019-12-16] MEDS ORDERED: IBUPROFEN 400 MG TABLET (FP) PO ONE (03:04)
[2019-12-16] MEDS: predniSONE 5 MG TABLET (UD) PO SCH (06:37)
[2019-12-16] MEDS: HEPARIN NA (PORCINE) 5,000 UNITS/ML 1ML VIAL SQ SCH ×3 (06:37→22:12)
[2019-12-16] MEDS: LEVOTHYROXINE NA 150 MCG TABLET PO SCH (06:37)
[2019-12-16 07:49] LABS: HEMATOCRIT 27.2 % (32.4-45.2); HEMOGLOBIN 8.8 GM/dL (10.7-15.3); MCH 26.2 pg (25.7-33.7); MCHC 32.5 g/dl (32.0-36.0); MEAN CELL VOLUME 80.6 fl (80-96); MEAN PLT VOLUME 8.8 fl (7.5-11.1); PLATELET COUNT 245 K/MM3 (134-434); RBC 3.37 M/mm3 (3.60-5.2)
--- NOTE | 2019-12-16 08:37 | PN ---
Physical Exam: SUBJECTIVE: Patient seen and examined at bedside this morning. OBJECTIVE: Vital Signs Period Temp Pulse Resp BP Sys/Long Pulse Ox Last 24 Hr 97.3 F-98.9 F 74-80 18-78 114-129/60-80 98-99 GENERAL: The patient is awake, alert, and fully oriented, in no acute distress. HEAD: Normal with no signs of trauma. EYES: PERRL, extraocular movements intact, sclera anicteric, conjunctiva clear. No ptosis. ENT: Ears normal, nares patent, oropharynx clear without exudates, moist mucous membranes. NECK: Trachea midline, full range of motion, supple. LUNGS: Breath sounds equal, clear to auscultation bilaterally, no wheezes, no crackles, no accessory muscle use. HEART: Regular rate and rhythm, S1, S2 without murmur, rub or gallop. ABDOMEN: Soft, nontender, nondistended, normoactive bowel sounds, no guarding, no rebound, no hepatosplenomegaly, no masses. EXTREMITIES: 2+ pulses, warm, well-perfused, no edema. NEUROLOGICAL: Cranial nerves II through XII grossly intact. Normal speech, gait not observed. PSYCH: Normal mood, normal affect. SKIN: Warm, dry, normal turgor, no rashes or lesions noted Laboratory Results - last 24 hr 12/15/19 12/15/19 12/15/19 05:35 05:35 11:40 WBC RBC Hgb Hct MCV MCH MCHC RDW Plt Count MPV Sodium 140 Potassium 3.8 Chloride 109 H Carbon Dioxide 26 Anion Gap 5 L BUN 7.8 Creatinine 1.2 Est GFR (CKD-EPI)AfAm 58.10 Est GFR (CKD-EPI)NonAf 50.13 POC Glucometer 85 Random Glucose 70 L Calcium 8.7 Magnesium 1.8 Total Bilirubin 0.4 AST 73 H ALT 22 Alkaline Phosphatase 32 L Troponin I < 0.02 Total Protein 6.8 Albumin 3.4 Thyroxine (T4) 2.7 L Free T3 0.6 L 12/15/19 12/16/19 12/16/19 16:53 06:39 06:47 WBC 6.0 RBC 3.37 L Hgb 8.8 L Hct 27.2 L MCV 80.6 MCH 26.2 MCHC 32.5 RDW 15.0 Plt Count 245 MPV 8.8 Sodium Potassium Chloride Carbon Dioxide Anion Gap BUN Creatinine Est GFR (CKD-EPI)AfAm Est GFR (CKD-EPI)NonAf POC Glucometer 83 85 Random Glucose Calcium Magnesium Total Bilirubin AST ALT Alkaline Phosphatase Troponin I Total Protein Albumin Thyroxine (T4) Free T3 Active Medications Generic Name Dose Route Start Last Admin Trade Name Freq PRN Reason Stop Dose Admin Heparin Sodium (Porcine) 5,000 unit 12/14/19 22:15 12/16/19 06:37 Heparin - SQ 5,000 unit TID VIRAL Administration Levothyroxine Sodium 150 mcg 12/15/19 07:00 12/16/19 06:37 Synthroid - PO 150 mcg DAILY@0700 VIRAL Administration Pantoprazole Sodium 20 mg 12/15/19 10:00 12/15/19 09:06 Protonix - PO 20 mg DAILY VIRAL Administration Prednisone 5 mg 12/15/19 07:00 12/16/19 06:37 Deltasone - PO 5 mg AM VIRAL Administration Sodium Chloride 2 spray 12/15/19 14:17 12/15/19 17:49 [place] Nasal [place] - NS 2 spray BID PRN Administration NASAL CONGESTION ASSESSMENT/PLAN: Patient is a 59 year old female with history of pituitary tumor (s/p resection) , hypertension, SVT, presents after a syncopal episode. Syncope -Likely secondary to adrenal insufficiency (s/p pituitary resection) -Patient admits she has not been taking any medications for past six months -Noted prior stress test 08/10; normal EF. Follow repeat ECHO -Reinstate Prednisone 5mg Hypothyroidism -Reinstate synthroid 150mcg PO daily -Endocrinology recommendations appreciated. History of Diabetes mellitus -A1c 5.6. Holding insuling sliding scale as currently hypo/ euglycemic FEN -IV normal saline at 100mL/ hour -Follow BMP -Diabetic diet, sodium modificaiton Prophylaxis -Heparin 5000units subq TID Disposition -Telemetry observation ATTENDING PHYSICIAN STATEMENT I saw and evaluated the patient. I reviewed the resident's note and discussed the case with the resident. I agree with the resident's findings and plan as documented. SUBJECTIVE: OBJECTIVE: ASSESSMENT AND PLAN:
[2019-12-16 09:21] LABS: ALBUMIN 3.7 g/dl (3.4-5.0); BILIRUBIN,TOTAL 0.4 mg/dL (0.2-1); BLOOD UREA NITROGEN 9.2 mg/dL (7-18); CALCIUM 9.3 mg/dL (8.5-10.1); CREATININE 1.3 mg/dL (0.55-1.3); PHOSPHOROUS 2.5 mg/dL (2.5-4.9); POTASSIUM 4.1 mmol/L (3.5-5.1); TOT PROT 7.4 g/dl (6.4-8.2)
[2019-12-16] MEDS: PANTOPRAZOLE 20 MG TABLET PO SCH (09:40)
--- NOTE | 2019-12-16 09:47 | PN ---
Progress Note, Physician History of Present Illness: Denies recurrent near or true syncope, no events on telemetry. - Current Medication List Current Medications: Active Medications Heparin Sodium (Porcine) (Heparin -) 5,000 unit SQ TID [facility] Last Admin: 12/16/19 06:37 Dose: 5,000 unit Levothyroxine Sodium (Synthroid -) 150 mcg PO DAILY@0700 [facility] Last Admin: 12/16/19 06:37 Dose: 150 mcg Pantoprazole Sodium (Protonix -) 20 mg PO DAILY [facility] Last Admin: 12/16/19 09:40 Dose: 20 mg Prednisone (Deltasone -) 5 mg PO AM [facility] Last Admin: 12/16/19 06:37 Dose: 5 mg Sodium Chloride ([place] -) 2 spray NS BID PRN PRN Reason: NASAL CONGESTION Last Admin: 12/15/19 17:49 Dose: 2 spray - Objective Vital Signs: Vital Signs Temperature 98.5 F 12/16/19 09:41 Pulse Rate 77 12/16/19 09:41 Respiratory Rate 19 12/16/19 09:41 Blood Pressure 107/66 12/16/19 09:41 O2 Sat by Pulse Oximetry (%) 98 12/15/19 21:07 Constitutional: Yes: No Distress, Calm Neck: Yes: Supple Cardiovascular: Yes: Regular Rate and Rhythm Respiratory: Yes: Regular, CTA Bilaterally Gastrointestinal: Yes: Normal Bowel Sounds, Soft Edema: No Labs: CBC, BMP 12/16/19 06:39 12/16/19 06:39 INR, PTT INR 1.34 (0.83-1.09) H 12/14/19 17:25 - ....Imaging EKG: Report Reviewed (Tele: NSR) Problem List - Problems (1) Syncope Code(s): R55 - SYNCOPE AND COLLAPSE Qualifiers: Syncope type: vasovagal syncope Qualified Code(s): R55 - Syncope and collapse (2) Adrenal insufficiency Code(s): E27.40 - UNSPECIFIED ADRENOCORTICAL INSUFFICIENCY (3) Hypertension Code(s): I10 - ESSENTIAL (PRIMARY) HYPERTENSION Qualifiers: Hypertension type: essential hypertension Qualified Code(s): I10 - Essential (primary) hypertension (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 Syncope 2. Secondary Hypothyroidism not taking LT4 for about 6 weeks 3. COPD 4. H/o PSVT 5. s/p pituitary surgery 6. Adrenal insufficiency on chronic steroids 7. Type 2 DM 8. Anemia 9. Hyperlipidemia P:1. Resumed Synthroid 150 qd and emphasized compliance with meds 2. Recheck echocardiogram, telemetry monitoring, check orthostasis 3. Continue Lipitor 20 qd, resume Calan SR 180 qd as hemodynamics tolerate 4. Prednisone 5 qd with GI protection
--- NOTE | 2019-12-16 10:53 | EKG ---
Test Reason : Blood Pressure : / mmHG Vent. Rate : 079 BPM Atrial Rate : 079 BPM P-R Int : 244 ms QRS Dur : 080 ms QT Int : 470 ms P-R-T Axes : 058 -38 079 degrees QTc Int : 538 ms SINUS RHYTHM WITH 1ST DEGREE A-V BLOCK LEFT AXIS DEVIATION NONSPECIFIC T WAVE ABNORMALITY ABNORMAL ECG WHEN COMPARED WITH ECG OF 14-DEC-2019 17:47, QT HAS LENGTHENED Confirmed by SHIRA HAYES MD ([id number]) on 12/16/2019 10:52:50 AM Referred By: DELMY SCHWARTZ Confirmed By:SHIRA HAYES MD
--- NOTE | 2019-12-16 14:06 | PN ---
Teaching Attending Note Name of Resident: Sony Lim ATTENDING PHYSICIAN STATEMENT I saw and evaluated the patient. I reviewed the resident's note and discussed the case with the resident. I agree with the resident's findings and plan as documented. SUBJECTIVE: No fever or chills. No AMIN , no CP , no SOB . no light headedness OBJECTIVE: NAD, awake, alert oriented, poor dentition, MMM.cooperative CV: RRR. no MRG. No JVD Lungs: CTAB Ext: no edema or erythema, no rash. 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 1- Syncope: due to hypotension . BP improved with IVF . patient has no sx . walked well with PT . tele with no events . echo can be done as out pt. 2- Hypopituitarism, secondary adrenalinsufficiency, and secondary hypothyroidism. : -cont prednisone 5 mg daily and synthroid 150 mg daily 3- Hypoglycemia: sugar has improved 4- H/o SVTs: resume verapamil - no need for dig. 5- h/o CAD: cont asa . and statin. [facility], and get them delivered to her room. she did well with PT. she states that she lives with her daughter and her grand daughter. her daughter will pick her up and take her home today. Again, compliance with meds and medical follow up was stressed . DC today
--- NOTE | 2019-12-16 14:26 | DS ---
Physical Exam: SUBJECTIVE: Patient seen and examined at bedside this morning. Denies acute complaints. OBJECTIVE: Vital Signs Period Temp Pulse Resp BP Sys/Long Pulse Ox Last 24 Hr 97.3 F-98.9 F 74-96 18-78 107-132/64-86 98-99 PHYSICAL EXAM GENERAL: The patient is awake, alert, and fully oriented, in no acute distress. HEAD: Normocephalic, atraumatic. EYES: PERRL, extraocular movements intact, sclera anicteric, conjunctiva clear. ENT: Oropharynx clear, without erythema or exudates. Moist mucous membranes. Poor dentition. NECK: Trachea midline, full range of motion. Supple without lymphadenopathy. LUNGS: Breath sounds equal, clear to auscultation bilaterally. No wheezes, no crackles. No accessory muscle use. HEART: Regular rate and rhythm. S1, S2 without murmur, rub or gallop. ABDOMEN: Soft, nondistended, nontender to light and deep palpation x4 quadrants. No rebound tenderness, no guarding. Normoactive bowel sounds x4 quadrants. No hepatosplenomegaly, no masses appreciated. EXTREMITIES: 2+ radial, dorsalis pedis pulses bilaterally. Warm, well-perfused. No lower extremity edema bilaterally. NEUROLOGICAL: Cranial nerves II through XII grossly intact. Normal speech. No gross focal deficits. PSYCH: Normal mood, normal affect upon my encounter. SKIN: Warm, dry. LABS Laboratory Results - last 24 hr 12/15/19 12/15/19 12/16/19 05:35 16:53 06:39 WBC 6.0 RBC 3.37 L Hgb 8.8 L Hct 27.2 L MCV 80.6 MCH 26.2 MCHC 32.5 RDW 15.0 Plt Count 245 MPV 8.8 Sodium Potassium Chloride Carbon Dioxide Anion Gap BUN Creatinine Est GFR (CKD-EPI)AfAm Est GFR (CKD-EPI)NonAf POC Glucometer 83 Random Glucose Calcium Phosphorus Magnesium Total Bilirubin AST ALT Alkaline Phosphatase Total Protein Albumin Free T3 0.6 L 12/16/19 12/16/19 06:39 06:47 WBC RBC Hgb Hct MCV MCH MCHC RDW Plt Count MPV Sodium 141 Potassium 4.1 Chloride 110 H Carbon Dioxide 25 Anion Gap 6 L BUN 9.2 Creatinine 1.3 Est GFR (CKD-EPI)AfAm 52.74 Est GFR (CKD-EPI)NonAf 45.50 POC Glucometer 85 Random Glucose 79 Calcium 9.3 Phosphorus 2.5 Magnesium 2.0 Total Bilirubin 0.4 AST 74 H ALT 23 Alkaline Phosphatase 36 L Total Protein 7.4 Albumin 3.7 Free T3 HOSPITAL COURSE: Date of Admission:12/14/19 Date of Discharge: 12/16/19 Patient is a 59 year old female with history of pituitary tumor (s/p resection) , hypertension, SVT, presents after a syncopal episode. CT head was negative for acute intracranial pathology. EKG revealed sinus rhythm with first degree block at 76BPM; unchanged from prior studies. Troponin 0.02 x2. Of note, patient had negative stress ECHO in 07/2019. Patient admitted she has not been taking any medications for past six months. Syncopal episode likely secondary to secondary adrenal insufficiency, with resulting hypothyroidism as patient has not been taking her Synthroid. Patient evaluated by endocrinology and reinstated on Synthroid, Prednisone. HbA1c was 5.6; insulin sliding scale was held. Patient walked well with physical therapy. Discharged home with all medications delivered to bedside. Referral provided to primary care physician, endocrinology, cardiology (for outpatient echo). Counselled regarding importance of compliance. Minutes to complete discharge: 36 Discharge Summary Problems reviewed: Yes Reason For Visit: UNSTABLE ANGINA PECTORIS Current Active Problems Syncope (Acute) Condition: Improved - Instructions Diet, Activity, Other Instructions: You were admitted to the hospital for an episode of loss of consciousness. You were evaluated by the top frame fitter. Your workup was negative, and you home medications were reinstated. You are discharged home. Continue taking your home medications as directed. It is very important that you are compliant with your medications. We have stopped your Digoxin. Discuss this change with your top frame fitter at your appointment. Also, discuss if Aspirin is recommended as part of your medication regimen. Follow up with your primary care physician within one -two days after discharge. A referral has been provided. You will need an echocardiogram as outpatient. Discuss with your primary care physician. Follow up with [facility] (Dr. Lopez) within one 2 week of discharge. A referral has been provided. Follow up with [facility] Dr. Foy within one 2 weeks of discharge. A referral has been provided. Return to the nearest emergency department if you experience worsening symptoms , subjective fevers, chills, shortness of breath, chest pain, palpitations, abdominal pain, nausea, vomiting, any trauma or loss of consciousness. Only take the medications that are on this discharge list . prescriptions [facility]. Your synthroid dose is 150 not 112 mcg daily Referrals: David Pink MD [Primary Care Provider] - Darryn Foy MD [Staff Physician] - Shantal Lopez MD [Staff Physician] - Disposition: HOME - Home Medications Comprehensive Discharge Medication List: Ambulatory Orders Aspirin [Aspirin EC] 81 mg PO DAILY #30 tablet.dr 12/16/19 Atorvastatin Ca [Lipitor] 20 mg PO DAILY 30 Days #30 tablet 12/16/19 Calcium Carbonate/Vitamin D3 [Calcium 500-Vit D3 200 Caplet] 1 each PO DAILY 30 Days #30 tablet 12/16/19 Ferrous Sulfate [Feosol] 325 mg PO DAILY 30 Days #30 tablet 12/16/19 Levothyroxine [Synthroid -] 150 mcg PO DAILY 30 Days #30 tablet 12/16/19 Prednisone 5 mg PO DAILY 30 Days #30 tablet 12/16/19 Verapamil HCl [Verapamil ER] 180 mg PO DAILY 30 Days #30 [id number] 12/16/19 This patient is new to me today: No Emergency Visit: Yes ED Registration Date: 12/14/19 Care time: The patient presented to the Emergency Department on the above date and was hospitalized for further evaluation of their emergent condition. Critical Care patient: No - Discharge Referral [facility]erred to [facility] Med P.C.: No ATTENDING PHYSICIAN STATEMENT I saw and evaluated the patient. I reviewed the resident's note and discussed the case with the resident. I agree with the resident's findings and plan as documented. SUBJECTIVE: OBJECTIVE: ASSESSMENT AND PLAN:
--- NOTE | 2019-12-16 17:16 | PN ---
Physical Exam: SUBJECTIVE: Patient seen and examined at bedside. Upon getting ready to go home , patient noted to be tachycardic, lightheaded. Endorses palpitations, denies chest pain, shortness of breath, abdominal pain, nausea, vomiting. Agrees to stay for cardiac transthorasic ECHO and further monitoring. OBJECTIVE: Vital Signs Period Temp Pulse Resp BP Sys/Long Pulse Ox Last 24 Hr 97.3 F-98.9 F 74-96 18-78 107-132/66-86 98-99 GENERAL: The patient is awake, alert, and fully oriented, in no acute distress. HEAD: Normocephalic, atraumatic. EYES: PERRL, extraocular movements intact, sclera anicteric, conjunctiva clear. ENT: Oropharynx clear, without erythema or exudates. Moist mucous membranes. Poor dentition. NECK: Trachea midline, full range of motion. Supple without lymphadenopathy. LUNGS: Breath sounds equal, clear to auscultation bilaterally. No wheezes, no crackles. No accessory muscle use. HEART: Tachycardic. S1, S2 without murmur, rub or gallop. ABDOMEN: Soft, nondistended, nontender to light and deep palpation x4 quadrants. No rebound tenderness, no guarding. Normoactive bowel sounds x4 quadrants. No hepatosplenomegaly, no masses appreciated. EXTREMITIES: 2+ radial, dorsalis pedis pulses bilaterally. Warm, well-perfused. No lower extremity edema bilaterally. NEUROLOGICAL: Cranial nerves II through XII grossly intact. Normal speech. No gross focal deficits. PSYCH: Normal mood, normal affect upon my encounter. SKIN: Warm, dry. Laboratory Results - last 24 hr 12/15/19 12/16/19 12/16/19 05:35 06:39 06:39 WBC 6.0 RBC 3.37 L Hgb 8.8 L Hct 27.2 L MCV 80.6 MCH 26.2 MCHC 32.5 RDW 15.0 Plt Count 245 MPV 8.8 Sodium 141 Potassium 4.1 Chloride 110 H Carbon Dioxide 25 Anion Gap 6 L BUN 9.2 Creatinine 1.3 Est GFR (CKD-EPI)AfAm 52.74 Est GFR (CKD-EPI)NonAf 45.50 POC Glucometer Random Glucose 79 Calcium 9.3 Phosphorus 2.5 Magnesium 2.0 Total Bilirubin 0.4 AST 74 H ALT 23 Alkaline Phosphatase 36 L Total Protein 7.4 Albumin 3.7 Free T3 0.6 L 12/16/19 06:47 WBC RBC Hgb Hct MCV MCH MCHC RDW Plt Count MPV Sodium Potassium Chloride Carbon Dioxide Anion Gap BUN Creatinine Est GFR (CKD-EPI)AfAm Est GFR (CKD-EPI)NonAf POC Glucometer 85 Random Glucose Calcium Phosphorus Magnesium Total Bilirubin AST ALT Alkaline Phosphatase Total Protein Albumin Free T3 Active Medications Generic Name Dose Route Start Last Admin Trade Name Freq PRN Reason Stop Dose Admin Heparin Sodium (Porcine) 5,000 unit 12/14/19 22:15 12/16/19 14:24 Heparin - SQ 5,000 unit TID VIRAL Administration Sodium Chloride 1,000 mls @ 100 mls/hr 12/16/19 17:00 Normal Saline - IV ASDIR VIRAL Levothyroxine Sodium 150 mcg 12/15/19 07:00 12/16/19 06:37 Synthroid - PO 150 mcg DAILY@0700 VIRAL Administration Pantoprazole Sodium 20 mg 12/15/19 10:00 12/16/19 09:40 Protonix - PO 20 mg DAILY VIRAL Administration Prednisone 5 mg 12/15/19 07:00 12/16/19 06:37 Deltasone - PO 5 mg AM VIRAL Administration Sodium Chloride 2 spray 12/15/19 14:17 12/15/19 17:49 [place] Nasal [place] - NS 2 spray BID PRN Administration NASAL CONGESTION ASSESSMENT/PLAN: Patient is a 59 year old female with history of pituitary tumor (s/p resection) , hypertension, SVT, presents after a syncopal episode. Syncopal episode -Likely secondary to secondary adrenal insufficiency, with resulting hypothyroidism as patient has not been taking her Synthroid -CT head negative for acute intracranial pathology -Will follow cardiac transthoracic ECHO on Wednesday. -Telemetry monitoring -Fall risk precautions Supraventricular tachycardia -Will reinstate Verapamil 80mg PO tonight, 180mg PO ordered for tomorrow morning. -Telemetry monitoring -Orthostatics negative -EKG reveals junctional rhythm at 108BPM. -Troponin 0.02. Secondary adrenal insufficency -Continue Prednisone 5mg PO daily -Synthroid 150mcg PO daily -Endocrinology recommendations appreciated. FEN -IV normal saline at 100mL/ hour -Follow BMP -Diabetic diet Prophylaxis -Heparin 5000units subq TID Disposition -Telemetry observation. Visit type - Emergency Visit Emergency Visit: Yes ED Registration Date: 12/14/19 Care time: The patient presented to the Emergency Department on the above date and was hospitalized for further evaluation of their emergent condition. - New Patient This patient is new to me today: No - Critical Care Critical Care patient: No - Discharge Referral Referred to [facility] Med P.C.: No ATTENDING PHYSICIAN STATEMENT I saw and evaluated the patient. I reviewed the resident's note and discussed the case with the resident. I agree with the resident's findings and plan as documented. SUBJECTIVE: OBJECTIVE: ASSESSMENT AND PLAN:
[2019-12-16] MEDS ORDERED: VERAPAMIL HCL 80 MG TABLET PO ONE (18:03)
[2019-12-16] MEDS ORDERED: PT OWN MED DRAWER 7, Y5N ONE (18:36)
[2019-12-16] MEDS: SODIUM CHLORIDE 1,000 ML IV SCH (18:40)
[2019-12-17] MEDS: HEPARIN NA (PORCINE) 5,000 UNITS/ML 1ML VIAL SQ SCH ×3 (06:05→21:30)
[2019-12-17] MEDS: predniSONE 5 MG TABLET (UD) PO SCH (06:05)
[2019-12-17] MEDS: LEVOTHYROXINE NA 150 MCG TABLET PO SCH (06:05)
[2019-12-17 06:23] LABS: HEMATOCRIT 26.8 % (32.4-45.2); HEMOGLOBIN 8.8 GM/dL (10.7-15.3); MCH 26.6 pg (25.7-33.7); MCHC 32.9 g/dl (32.0-36.0); MEAN CELL VOLUME 81.1 fl (80-96); MEAN PLT VOLUME 8.5 fl (7.5-11.1); PLATELET COUNT 252 K/MM3 (134-434); RDW 15.1 % (11.6-15.6); WHITE BLOOD COUNT 5.6 K/mm3 (4.0-10.0)
[2019-12-17 06:56] LABS: ALBUMIN 3.6 g/dl (3.4-5.0); BILIRUBIN,TOTAL 0.4 mg/dL (0.2-1); BLOOD UREA NITROGEN 11.2 mg/dL (7-18); CALCIUM 8.4 mg/dL (8.5-10.1); CREATININE 1.3 mg/dL (0.55-1.3); POTASSIUM 3.5 mmol/L (3.5-5.1); TOT PROT 7.2 g/dl (6.4-8.2)
[2019-12-17] MEDS: PANTOPRAZOLE 20 MG TABLET PO SCH (09:31)
[2019-12-17] MEDS: VERAPAMIL HCL 180 MG E.R. TABLET PO SCH (09:31)
--- NOTE | 2019-12-17 09:53 | PN ---
Progress Note (short form) - Note Progress Note: Subjective: No fever or chills. No AMIN. no SOB . no CP at this time. Dc was canceleed yesterday due to severe light headedness and tachycardia with accelerated junctional rhythm on EKG Objective: Vital Signs: Last Vital Signs Temp Pulse Resp BP Pulse Ox 98.3 F 80 20 116/70 99 12/17/19 06:00 12/17/19 06:00 12/17/19 06:00 12/17/19 06:00 12/16/19 21:00 Laboratory Results - last 24 hr 12/16/19 12/16/19 12/17/19 17:58 19:00 05:35 WBC 5.6 RBC 3.30 L Hgb 8.8 L Hct 26.8 L MCV 81.1 MCH 26.6 MCHC 32.9 RDW 15.1 Plt Count 252 MPV 8.5 Sodium Potassium Chloride Carbon Dioxide Anion Gap BUN Creatinine Est GFR (CKD-EPI)AfAm Est GFR (CKD-EPI)NonAf POC Glucometer 114 Random Glucose Calcium Total Bilirubin AST ALT Alkaline Phosphatase Troponin I < 0.02 Total Protein Albumin 12/17/19 05:35 WBC RBC Hgb Hct MCV MCH MCHC RDW Plt Count MPV Sodium 141 Potassium 3.5 Chloride 110 H Carbon Dioxide 26 Anion Gap 5 L BUN 11.2 Creatinine 1.3 Est GFR (CKD-EPI)AfAm 52.74 Est GFR (CKD-EPI)NonAf 45.50 POC Glucometer Random Glucose 70 L Calcium 8.4 L Total Bilirubin 0.4 AST 62 H ALT 23 Alkaline Phosphatase 33 L Troponin I Total Protein 7.2 Albumin 3.6 NAD, awake, alert oriented, poor dentition, MMM.cooperative CV: RRR. no MRG. No JVD Lungs: CTAB Ext: no edema or erythema, no rash. 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 1- Syncope: due to hypotension and possibly arrhythmias - tachycardia yesterday to 140s, with severe light headedness. EKG showed accelerated junctional rhythm. - cont verapamil - germán lget echo tomorrow - card input.? resume digoxin ? - tele reviewed today: recurrent episodes of narrow complex tachycardia in 130s. No A fib or SVTs . likely junctional rhythm. - orthostatic VS neg yesterday ricky. will repeat - cont IVF 2- Hypopituitarism, secondary adrenalinsufficiency, and secondary hypothyroidism. : -cont prednisone 5 mg daily and synthroid 150 mg daily 3- Hypoglycemia: sugar has improved 4- H/o SVTs: resume verapamil - no need for dig. 5- h/o CAD: cont asa . and statin. Dispo : will cont tele and get echo tomorrow. monitor sx . PT eval Visit type - Emergency Visit Emergency Visit: Yes ED Registration Date: 12/14/19 Care time: The patient presented to the Emergency Department on the above date and was hospitalized for further evaluation of their emergent condition. - New Patient This patient is new to me today: No - Critical Care Critical Care patient: No
--- NOTE | 2019-12-17 10:21 | PN ---
Progress Note, Physician History of Present Illness: Recurrent PSVT on telemetry with near syncope w/o true syncope or palpitations. - Current Medication List Current Medications: Active Medications Heparin Sodium (Porcine) (Heparin -) 5,000 unit SQ TID [facility] Last Admin: 12/17/19 06:05 Dose: 5,000 unit Sodium Chloride (Normal Saline -) 1,000 mls @ 100 mls/hr IV ASDIR [facility] Last Admin: 12/16/19 18:40 Dose: 100 mls/hr Levothyroxine Sodium (Synthroid -) 150 mcg PO DAILY@0700 [facility] Last Admin: 12/17/19 06:05 Dose: 150 mcg Pantoprazole Sodium (Protonix -) 20 mg PO DAILY [facility] Last Admin: 12/17/19 09:31 Dose: 20 mg Prednisone (Deltasone -) 5 mg PO AM [facility] Last Admin: 12/17/19 06:05 Dose: 5 mg Sodium Chloride ([place] Nasal [place] -) 2 spray NS BID PRN PRN Reason: NASAL CONGESTION Last Admin: 12/15/19 17:49 Dose: 2 spray Verapamil HCl ([place] Sr -) 180 mg PO DAILY [facility] Last Admin: 12/17/19 09:31 Dose: 180 mg - Objective Vital Signs: Vital Signs Temperature 98.3 F 12/17/19 06:00 Pulse Rate 80 12/17/19 06:00 Respiratory Rate 20 12/17/19 06:00 Blood Pressure 116/70 12/17/19 06:00 O2 Sat by Pulse Oximetry (%) 99 12/16/19 21:00 Constitutional: Yes: No Distress, Calm Neck: Yes: Supple Cardiovascular: Yes: Tachycardia Respiratory: Yes: Regular, CTA Bilaterally Gastrointestinal: Yes: Normal Bowel Sounds, Soft Edema: No Labs: CBC, BMP 12/17/19 05:35 12/17/19 05:35 INR, PTT INR 1.34 (0.83-1.09) H 12/14/19 17:25 - ....Imaging EKG: Report Reviewed (Tele: Recurrent PSVT ECG: Accelerated junctional rhythm) Problem List - Problems (1) Syncope Code(s): R55 - SYNCOPE AND COLLAPSE Qualifiers: Syncope type: vasovagal syncope Qualified Code(s): R55 - Syncope and collapse (2) Adrenal insufficiency Code(s): E27.40 - UNSPECIFIED ADRENOCORTICAL INSUFFICIENCY (3) Hypertension Code(s): I10 - ESSENTIAL (PRIMARY) HYPERTENSION Qualifiers: Hypertension type: essential hypertension Qualified Code(s): I10 - Essential (primary) hypertension (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 Syncope 2. Secondary Hypothyroidism not taking LT4 for about 6 weeks 3. COPD 4. Recurrent PSVT 5. s/p pituitary surgery 6. Adrenal insufficiency on chronic steroids 7. Type 2 DM 8. Anemia 9. Hyperlipidemia P:1. Resumed Synthroid 150 qd and emphasized compliance with meds 2. Recheck echocardiogram, telemetry monitoring, check orthostasis 3. Continue Lipitor 20 qd, resumed [place]an SR 180 qd as hemodynamics tolerate 4. Prednisone 5 qd with GI protection
--- NOTE | 2019-12-17 12:35 | EKG ---
Test Reason : Blood Pressure : / mmHG Vent. Rate : 108 BPM Atrial Rate : 214 BPM P-R Int : 000 ms QRS Dur : 084 ms QT Int : 332 ms P-R-T Axes : 000 -30 027 degrees QTc Int : 444 ms ACCELERATED JUNCTIONAL RHYTHM LEFT AXIS DEVIATION INFERIOR INFARCT , AGE UNDETERMINED ABNORMAL ECG WHEN COMPARED WITH ECG OF 16-DEC-2019 13:11, NO SIGNIFICANT CHANGE WAS FOUND Confirmed by SHIRA HAYES MD ([id number]) on 12/17/2019 12:34:32 PM Referred By: Confirmed By:SHIRA HAYES MD
--- NOTE | 2019-12-17 12:36 | EKG ---
Test Reason : Blood Pressure : / mmHG Vent. Rate : 112 BPM Atrial Rate : 112 BPM P-R Int : 000 ms QRS Dur : 086 ms QT Int : 292 ms P-R-T Axes : 000 -33 180 degrees QTc Int : 398 ms ACCELERATED JUNCTIONAL RHYTHM WITH RETROGRADE CONDUCTION LEFT AXIS DEVIATION NONSPECIFIC T WAVE ABNORMALITY ABNORMAL ECG Confirmed by SHIRA HAYES MD ([id number]) on 12/17/2019 12:36:28 PM Referred By: Leonora RAMIREZ Confirmed By:SHIRA HAYES MD
[2019-12-17] MEDS ORDERED: ARTIFICIAL TEARS (POLYVINYL ALCOHOL) OPTH DROPS OU PRN (16:01)
[2019-12-17] MEDS: SODIUM CHLORIDE 1,000 ML IV SCH (16:20)
[2019-12-18] MEDS: HEPARIN NA (PORCINE) 5,000 UNITS/ML 1ML VIAL SQ SCH ×2 (06:17→13:19)
[2019-12-18] MEDS: LEVOTHYROXINE NA 150 MCG TABLET PO SCH (06:18)
[2019-12-18] MEDS: predniSONE 5 MG TABLET (UD) PO SCH (06:18)
[2019-12-18] MEDS ORDERED: PT OWN MED DRAWER 7, Y5N ONE ×2 (08:32→10:05)
[2019-12-18] MEDS: VERAPAMIL HCL 180 MG E.R. TABLET PO SCH (09:02)
[2019-12-18] MEDS: PANTOPRAZOLE 20 MG TABLET PO SCH (09:02)
--- NOTE | 2019-12-18 10:22 | PN ---
Progress Note, Physician History of Present Illness: No further recurrence of PSVT on telemetry back on [place], subjective palpitations in AM w/o corresponding arrhythmias. - Current Medication List Current Medications: Active Medications Artificial Tears (Artificial Tears) 1 drop OU QID PRN PRN Reason: DRY EYES Heparin Sodium (Porcine) (Heparin -) 5,000 unit SQ TID [facility] Last Admin: 12/18/19 06:17 Dose: 5,000 unit Sodium Chloride (Normal Saline -) 1,000 mls @ 100 mls/hr IV ASDIR [facility] Last Admin: 12/17/19 16:20 Dose: 100 mls/hr Levothyroxine Sodium (Synthroid -) 150 mcg PO DAILY@0700 [facility] Last Admin: 12/18/19 06:18 Dose: 150 mcg Pantoprazole Sodium (Protonix -) 20 mg PO DAILY [facility] Last Admin: 12/18/19 09:02 Dose: 20 mg Prednisone (Deltasone -) 5 mg PO AM [facility] Last Admin: 12/18/19 06:18 Dose: 5 mg Sodium Chloride ([place] Nasal [place] -) 2 spray NS BID PRN PRN Reason: NASAL CONGESTION Last Admin: 12/15/19 17:49 Dose: 2 spray Verapamil HCl ([place] Sr -) 180 mg PO DAILY [facility] Last Admin: 12/18/19 09:02 Dose: 180 mg - Objective Vital Signs: Vital Signs Temperature 98.0 F 12/18/19 06:00 Pulse Rate 62 12/18/19 06:00 Respiratory Rate 20 12/18/19 06:00 Blood Pressure 112/70 12/18/19 06:00 O2 Sat by Pulse Oximetry (%) 97 12/17/19 19:50 Constitutional: Yes: No Distress, Calm Neck: Yes: Supple Cardiovascular: Yes: Regular Rate and Rhythm Respiratory: Yes: Regular, CTA Bilaterally Gastrointestinal: Yes: Normal Bowel Sounds, Soft Edema: No Labs: CBC, BMP 12/17/19 05:35 12/17/19 05:35 INR, PTT INR 1.34 (0.83-1.09) H 12/14/19 17:25 - ....Imaging EKG: Report Reviewed (Tele: NSR no recurrent PSVT) Problem List - Problems (1) Syncope Code(s): R55 - SYNCOPE AND COLLAPSE Qualifiers: Syncope type: vasovagal syncope Qualified Code(s): R55 - Syncope and collapse (2) Adrenal insufficiency Code(s): E27.40 - UNSPECIFIED ADRENOCORTICAL INSUFFICIENCY (3) Hypertension Code(s): I10 - ESSENTIAL (PRIMARY) HYPERTENSION Qualifiers: Hypertension type: essential hypertension Qualified Code(s): I10 - Essential (primary) hypertension (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 Syncope 2. Secondary Hypothyroidism not taking LT4 for about 6 weeks 3. COPD 4. Recurrent PSVT 5. s/p pituitary surgery 6. Adrenal insufficiency on chronic steroids 7. Type 2 DM 8. Anemia 9. Hyperlipidemia P:1. Continue Synthroid 150 qd and emphasized compliance with meds 2. Recheck echocardiogram, telemetry monitoring, check orthostasis 3. Resume Lipitor 20 qd and continue Calan SR 180 qd as hemodynamics tolerate 4. Prednisone 5 qd with GI protection
--- NOTE | 2019-12-18 13:40 | ECHO ---
Name: ACACIA PERRYN Exam:Adult Echocardiogram Study Date: 12/18/2019 09:18 AM Age: 59 yrs Reason For Study: synope evaluate for systolic function Height: 69 in Weight: 173 lb BSA: 1.9 m2 MMode/2D Measurements & Calculations IVSd: 0.60 cm Ao root diam: 2.5 cm LVIDd: 3.7 cm LA dimension: 2.7 cm LVIDs: 2.7 cm LVPWd: 1.1 cm LVPWs: 1.3 cm EDV(Teich): 58.5 ml ESV(Teich): 27.0 ml LVOT diam: 1.7 cm LAV (MOD-bp): 35.0 ml RV S Jeremías: 11.0 cm/sec Doppler Measurements & Calculations MV E max jeremías: 94.8 cm/sec Ao V2 max: 95.9 cm/sec MV A max jeremías: 39.0 cm/sec Ao max P.7 mmHg MV E/A: 2.4 AI P1/2t: 579.0 msec MV dec time: 0.12 sec LUZMARIA(V,D): 1.7 cm2 AI max jeremías: 261.8 cm/sec LV V1 max P.9 mmHg AI max P.4 mmHg LV V1 max: 69.1 cm/sec AI dec slope: 132.4 cm/sec2 MR max jeremías: 466.0 cm/sec TR max jeremías: 191.0 cm/sec MR max P.9 mmHg TR max P.6 mmHg PA V2 max: 67.7 cm/sec Med Peak E' Jeremías: 8.4 cm/sec PA max P.8 mmHg Med E/e': 11.2 Lat Peak E' Jeremías: 11.7 cm/sec Lat E/e': 8.1 Left Ventricle The left ventricular size, thickness and function are normal. Left Ventricular Filling pattern is nor mal for age. Right Ventricle The right ventricle is grossly normal size. The right ventricular systolic function is normal. Atria Normal left and right atrial size and function. Mitral Valve The mitral valve is grossly normal. There is trace to mild mitral regurgitation. Tricuspid Valve The tricuspid valve is not well visualized, but is grossly normal. Right ventricular systolic pressur e is normal. There is mild tricuspid regurgitation. Aortic Valve The aortic valve is not well visualized. There is mild aortic sclerosis.;. Trace to mild aortic regur gitation. Pulmonic Valve The pulmonic valve is not well visualized. Great Vessels The aortic root is normal size. Pericardium/Pleura There is no pericardial effusion. Interpretation Summary Normal left ventricular size and function Normal right ventricle Mild tricuspid regurgitation Trace to mild mitral and aortic regurgitation. RACHAEL\dsedab 12/18/2019 12:02 PM
[2019-12-18 14:07] VITALS: BP 114/69; PULSE 84; TEMP 97.8
--- NOTE | 2019-12-18 15:48 | PN ---
Teaching Attending Note Name of Resident: Sony Lim ATTENDING PHYSICIAN STATEMENT I saw and evaluated the patient. I reviewed the resident's note and discussed the case with the resident. I agree with the resident's findings and plan as documented. SUBJECTIVE: No fever or chills. no AMIN, no CP , no palpitations. No N/V. OBJECTIVE: NAD, awake, alert oriented, poor dentition, MMM.cooperative CV: RRR. no MRG. No JVD Lungs: CTAB Ext: no edema or erythema. 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 1- Syncope: due to hypotension and arrhythmias. - cont verapamil. No events on tele. No more episodes of tachy or near syncope. echo reviewed. No digoxin at dc . orthosattic VS today did not show any drop 2- Hypopituitarism, secondary adrenalinsufficiency, and secondary hypothyroidism. : -cont prednisone 5 mg daily and synthroid 150 mg daily 3- Hypoglycemia: sugar has improved 4- H/o SVTs: verapamil 5- h/o CAD: cont asa. and statin. prednisone and synthroid were deiverd to her room from our pharmacy. medicine cabinet was called, patient had picked up verapamil 10 days ago. dc home
--- NOTE | 2019-12-18 16:36 | DS ---
Physical Exam: SUBJECTIVE: Patient seen and examined OBJECTIVE: Vital Signs Period Temp Pulse Resp BP Sys/Long Pulse Ox Last 24 Hr 97.8 F-98.6 F 62-84 20-20 109-127/64-82 97-98 PHYSICAL EXAM GENERAL: The patient is awake, alert, and fully oriented, in no acute distress. Mild lethargy HEAD: Normal with no signs of trauma. EYES: PERRL, extraocular movements intact, sclera anicteric, conjunctiva clear. No ptosis. ENT: Ears normal, nares patent, oropharynx clear without exudates, moist mucous membranes. Large tongue. Poor dentition NECK: Trachea midline, full range of motion, supple. LUNGS: Breath sounds equal, clear to auscultation bilaterally, no wheezes, no crackles, no accessory muscle use. HEART: Regular rate and rhythm, S1, S2 without murmur, rub or gallop. ABDOMEN: Soft, nontender, nondistended, normoactive bowel sounds, no guarding, no rebound. EXTREMITIES: 2+ pulses, warm, well-perfused, no edema. NEUROLOGICAL: Cranial nerves II through XII grossly intact. Normal speech, gait not observed. PSYCH: Normal mood, normal affect. SKIN: Warm, dry, normal turgor, no rashes or lesions noted LABS Laboratory Results - last 24 hr 12/18/19 10:58 POC Glucometer 75 HOSPITAL COURSE: Date of Admission:12/17/19 Date of Discharge: 12/18/19 69 year old female with a past medical history of HTN, DM, hx of SVT, and pituitary tumor removal admitted for syncope and ACS rule-out. Syncope likely 2/ 2 secondary adrenal insufficiency. CTH negative. Negative orthostatcs. Endo started prednisone 5mg and levothyroxine. Troponin neg x2. Cardiology elevated for h/o PSVT, echo was normal. HbA1c 5.6. Low pressure resolved with steroids and NS. Stable for d/c Minutes to complete discharge: 32 Discharge Summary Problems reviewed: Yes Reason For Visit: UNSTABLE ANGINA PECTORIS Current Active Problems Accelerated junctional rhythm (Acute) Syncope (Acute) Condition: Stable - Instructions Diet, Activity, Other Instructions: You were admitted to the hospital for an episode of loss of consciousness. You were evaluated by the merchandise presentation manager. Your workup was negative, and you home medications were reinstated. You are discharged home. Continue taking your home medications as directed. It is very important that you are compliant with your medications. We have stopped your Digoxin. Discuss this change with your merchandise presentation manager at your appointment. Also, discuss if Aspirin is recommended as part of your medication regimen. Follow up with your primary care physician within one -two days after discharge. A referral has been provided. You will need an echocardiogram as outpatient. Discuss with your primary care physician. Follow up with Assurance Analyst (Dr. Lopez) within 1- 2 weeks of discharge. A referral has been provided. Follow up with [facility] Dr. Foy within 1-2 weeks of discharge. A referral has been provided. Return to the nearest emergency department if you experience worsening symptoms , subjective fevers, chills, shortness of breath, chest pain, palpitations, abdominal pain, nausea, vomiting, any trauma or loss of consciousness. Only take the medications that are on this discharge list . prescriptions were sent to [facility]. Your synthroid dose is 150 not 112 mcg daily - you picked up synthroid and prednisone and calcium from our pharmacy today. - the rest of your medications are waiting to be picked up from the medicine cabinet pharmacy ) . Please call and go pick them up as soon as you can . we also learned from you [facility] that you picked up Verapamil 10 days ago. please take it Referrals: David Pink MD [Primary Care Provider] - Darryn Foy MD [Staff Physician] - Shantal Lopez MD [Staff Physician] - Disposition: VNS/HOME HEALTH CARE - Home Medications Comprehensive Discharge Medication List: Ambulatory Orders Aspirin [Aspirin EC] 81 mg PO DAILY #30 tablet. 12/16/19 Atorvastatin Ca [Lipitor] 20 mg PO DAILY 30 Days #30 tablet 12/16/19 Calcium Carbonate/Vitamin D3 [Calcium 500-Vit D3 200 Caplet] 1 each PO DAILY 30 Days #30 tablet 12/16/19 Ferrous Sulfate [Feosol] 325 mg PO DAILY 30 Days #30 tablet 12/16/19 Levothyroxine [Synthroid -] 150 mcg PO DAILY 30 Days #30 tablet 12/16/19 Prednisone 5 mg PO DAILY 30 Days #30 tablet 12/16/19 Verapamil HCl [Verapamil ER] 180 mg PO DAILY 30 Days #30 [email or web address] 12/16/19 This patient is new to me today: No Emergency Visit: No Critical Care patient: No - Discharge Referral Referred to [facility] Med P.C.: No ATTENDING PHYSICIAN STATEMENT I saw and evaluated the patient. I reviewed the resident's note and discussed the case with the resident. I agree with the resident's findings and plan as documented. SUBJECTIVE: OBJECTIVE: ASSESSMENT AND PLAN:
== END 2019-12-18 16:59 | disposition home health service (06) | DRG 201 ==
LOC: JER 16:13 → JERBED 17:05 → J4W 12-15 10:34 → OBSVTOIN 12-17 10:00
PROVIDERS: ATTEND Internal Medicine
DX: I47.1 Supraventricular tachycardia (principal); E03.9 Hypothyroidism, unspecified; E11.9 Type 2 diabetes mellitus without complications; I10 Essential (primary) hypertension; R50.9 Fever, unspecified; I44.0 Atrioventricular block, first degree; E86.1 Hypovolemia; R19.7 Diarrhea, unspecified; E27.40 Unspecified adrenocortical insufficiency; D64.9 Anemia, unspecified; E23.0 Hypopituitarism; G43.909 Migraine, unspecified, not intractable, without status migrainosus; R42 Dizziness and giddiness; E16.2 Hypoglycemia, unspecified; I25.119 Atherosclerotic heart disease of native coronary artery with unspecified angina pectoris; I49.9 Cardiac arrhythmia, unspecified; R07.9 Chest pain, unspecified; R63.0 Anorexia; Z88.0 Allergy status to penicillin
CPT/HCPCS: 36415; 70450-TC; 71045-TC-FY; 80053; 80307; 81003; 82436; 82565; 82962; 83735; 84100; 84133; 84300; 84436; 84443; 84481; 84484; 85025; 85027; 85610; 85730; 87086; 93005; 93010; 93306-TC; 97116-GP; 97161-GP; 99284-25; G0378; J1644; J7030

== ENCOUNTER 2020-01-31 23:27 | Inpatient (IN) | payer OTHER ==
--- NOTE | 2020-01-31 23:42 | PDOC ---
Attending Attestation - Resident Resident Name: SaadLucas - ED Attending Attestation I have performed the following: I have examined & evaluated the patient, The case was reviewed & discussed with the resident, I agree w/resident's findings & plan - HPI HPI: 02/01/20 01:25 see resident hpi - Physicial Exam PE: 02/01/20 01:25 see resident exam - Medical Decision Making 02/01/20 01:25 60-year-old female with an episode of loss time that she believes is loss of consciousness Plan for labs including troponin, EKG and chest x-ray Will hold for observation pending results
--- NOTE | 2020-01-31 23:43 | PDOC ---
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 Patient was getting ready for bed when she began to feel light-headed. She looked at the TV and noted the time to be 10:31 then next noted it to be 10:34 and believes she lost consciousness inbetween. She also reports shortness of breath since last night and audible wheezing since two nights ago - she denies COPD/Asthma, any prior wheezing, cough or URI symptoms. Reports that she feels her heart racing, some mild non-descript chest discomfort, chills, and previously had nausea and vomiting but denies these symptoms at present. Denies fevers, chills, diarrhea, dysuria, headache, numbness / tingling / weakness. No clotting disorders, no sick contacts or immob ilization. All: PCN Meds: Per chart PMH: As above PSH: Trans-sphenoidal pituitary tumor resection Past History - Travel Traveled outside of the country in the last 30 days: No Close contact w/someone who was outside of country & ill: No - Past Medical History Allergies/Adverse Reactions: Allergies Allergy/AdvReac Type Severity Reaction Status Date / Time Penicillins Allergy Verified 01/31/20 23:53 Home Medications: Ambulatory Orders Aspirin [Aspirin EC] 81 mg PO DAILY #30 tablet. 12/16/19 Atorvastatin Ca [Lipitor] 20 mg PO DAILY 30 Days #30 tablet 12/16/19 Calcium Carbonate/Vitamin D3 [Calcium 500-Vit D3 200 Caplet] 1 each PO DAILY 30 Days #30 tablet 12/16/19 Ferrous Sulfate [Feosol] 325 mg PO DAILY 30 Days #30 tablet 12/16/19 Levothyroxine [Synthroid -] 150 mcg PO DAILY 30 Days #30 tablet 12/16/19 Prednisone 5 mg PO DAILY 30 Days #30 tablet 12/16/19 Verapamil HCl [Verapamil ER] 180 mg PO DAILY 30 Days #30 [email or web address].pel 12/16/19 Cardiac Disorders: Yes (palpitations,CAD, PSVT) COPD: No CHF: No Diabetes: Yes HTN: Yes Hypercholesterolemia: Yes Thyroid Disease: Yes (HYPO.) - Surgical History Neurologic Surgery: Yes (pituitary tumor removed 23 yrs ago) - Immunization History Immunization Up to Date: No - Psycho Social/Smoking Cessation Hx Smoking History: Never smoked Have you smoked in the past 12 months: No If you are a former smoker, when did you quit?: 30 years ago Hx Alcohol Use: No Drug/Substance Use Hx: No Substance Use Type: None Hx Substance Use Treatment: No Review of Systems - Review of Systems Able to Perform ROS?: Yes Is the patient limited Hong [place]er proficient: Yes Constitutional: Yes: Chills. No: Diaphoresis, Fever HEENTM: No: Nose Congestion, Throat Pain Respiratory: Yes: See HPI, Shortness of Breath, SOB with Exertion, SOB at Rest, Wheezing. No: Cough, Productive cough, Hemoptysis Cardiac (ROS): Yes: See HPI, Palpitations, Syncope. No: Chest Pain, Edema, Irregular Heart Rate, Lightheadedness, Chest Tightness ABD/GI: Yes: See HPI, Nausea, Vomiting. No: Constipated, Diarrhea : No: Burning, Dysuria, Frequency Musculoskeletal: No: Back Pain, Muscle Pain, Muscle Weakness, Neck Pain Integumentary: No: Bruising, Pruritus, Rash Neurological: No: Headache, Numbness, Tingling, Weakness Psychiatric: No: Stressors, Change in Appetite Endocrine: No: Increased Thirst, Increased Urine Hematologic/Lymphatic: No: Anemia, Blood Clots, Easy Bleeding All Other Systems: Reviewed and Negative *Physical Exam - Physical Exam 02/01/20 01:05 Vitals reviewed, AFVSS GEN: Well appearing, appears stated age, NAD, comfortable. AAOx3. HEENT: NCAT, EOMI, PERRL. Sclera anicteric, noninjected. No facial asymmetry. Moist mucous membranes. Poor dentition. Normal voice. CV: RRR, S1/S2, no murmurs / rubs / gallops appreciated. LUNG: Normal work of breathing. +Wheezing throughout. No rales or rhonchi. No cough. Speaking full sentences. GI: Soft, NTND, +BS, no guarding, no rebound. No masses. Neg CVAT b/l. EXTREMITIES: 2+ distal pulses. No LE edema. No obvious deformities of all extremities. SKIN: Warm, dry, no rashes appreciated, non-jaundiced. PSYCH: Normal mood and affect. Cooperative and appropriate. NEURO: CN grossly intact. Moving all extremities well. Normal strength and sensation grossly. 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 Concerning for r/o ACS, dehydration, vaso-vagal, arrhythmia, electrolyte derangements, occult infection, undiagnosed pulmonary disorder (COPD vs Asthma), atypical PNA. - CBC, CMP, Cardiac, PT/INR - CXR, EKG EKbpm, NSR with 1st degree AV block, LAD, prolonged QTc (492), low voltage QRS 02/01/20 02:52 - Labs drawn by myself and Dr. Sebastian, left EJ placed - CXR without consolidation, effusion, infiltrate, pneumothorax, or mediastinal widening on my preliminary read 02/01/20 03:00 - Duonebs and Solu-medrol for wheezing - CBC notable for baseline anemia, CMP unremarkable, CK 552, troponin negative Dispo: Admit 02/01/20 04:19 Sign-out given to inpatient team Discharge - Discharge Information Problems reviewed: Yes Clinical Impression/Diagnosis: Shortness of breath Syncope Qualifiers: Syncope type: unspecified Qualified Code(s): R55 - Syncope and collapse Condition: Fair - Follow up/Referral Referrals: David Pink MD [Primary Care Provider] - - Patient Discharge Instructions - Post Discharge Activity
[2020-01-31 23:53] VITALS: BMI 22.6
[2020-02-01 02:13] LABS: BASO % 1.1 % (0-2.0); EOS % 18.7 % (0-4.5); HEMATOCRIT 29.6 % (32.4-45.2); HEMOGLOBIN 9.7 GM/dL (10.7-15.3); LYMPH % 48.7 % (8-40); MCH 26.7 pg (25.7-33.7); MCHC 32.8 g/dl (32.0-36.0); MEAN CELL VOLUME 81.4 fl (80-96); MEAN PLT VOLUME 9.1 fl (7.5-11.1); MONO % 5.6 % (3.8-10.2); NEUT % 25.9 % (42.8-82.8); PLATELET COUNT 219 K/MM3 (134-434); RBC 3.64 M/mm3 (3.60-5.2); RDW 14.4 % (11.6-15.6)
[2020-02-01 02:25] LABS: INR 1.13 (0.83-1.09); PROTHROMBIN TIME (PATIENT) 13.4 SEC (9.7-13.0)
[2020-02-01 02:42] LABS: ALBUMIN 3.5 g/dl (3.4-5.0); ALK PHOS 50 U/L (45-117); ANION GAP 6 MMOL/L (8-16); BILIRUBIN,TOTAL 0.2 mg/dL (0.2-1); BLOOD UREA NITROGEN 8.1 mg/dL (7-18); CALCIUM 8.7 mg/dL (8.5-10.1); CHLORIDE 108 mmol/L (98-107); CO2 27 mmol/L (21-32); CREATININE 1.3 mg/dL (0.55-1.3); GLUCOSE,RANDOM 89 mg/dL (74-106); POTASSIUM 3.7 mmol/L (3.5-5.1); SGOT/AST 27 U/L (15-37); SGPT/ALT 14 U/L (13-61); SODIUM 141 mmol/L (136-145); TOT PROT 7.1 g/dl (6.4-8.2)
[2020-02-01] MEDS ORDERED: methylPREDNISolone NA SUCC 125 MG/2 ML VIAL IVPB ONE (03:16)
[2020-02-01] MEDS: ALBUTEROL SO4 2.5/IPRATROPIUM 0.5 INH SOL 3 ML VIAL.NEB. NEB SCH ×6 (03:59→23:11)
--- NOTE | 2020-02-01 04:01 | HP ---
CHIEF COMPLAINT: sudden loss of short-term memory, lightheaded and weak PCP: Joesph HISTORY OF PRESENT ILLNESS: 60F w/ pmh of HTN, HLD, DM, hypothyroidism 2/2 to pituitary insufficiency, 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 States that was feeling weak while walking so she sat down on her bed. She looked at the clock at ~ 8:30pm then noticed the clock read ~ 8:36pm. Denies LOC, being found on [place]mond or, confusion, weakness, CP, SOB, loss of bowel/bladder control. She has been feeling weak with sensation of lightheadedness x3d, usually when getting up from seated position. She also has complaint of rhinorrhea, wheezing, cough with white sputum x3d. Wheezing has improved. Denies sick contacts. 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 States that she has been compliant with her prednisone 5mg BID and levothyroxine 125mcg. ER course was notable for: (1) Duoneb + solumedrol (2) CXR: norm (3) troponin neg x1 (4) orthostatic neg 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) PAST SURGICAL HISTORY: RLE mass resection pituitary mass resection Social History: Smoking: smoked 20ys prior(1pack per week x 10ys) Alcohol: last drink 20ys prior Drugs: distant MJ Allergies Penicillins Allergy (Verified 01/31/20 23:53) HOME MEDICATIONS: Home Medications Medication Instructions Recorded Aspirin [Aspirin EC] 81 mg PO DAILY #30 tablet. 12/16/19 Atorvastatin Ca [Lipitor] 20 mg PO DAILY 30 Days #30 tablet 12/16/19 Calcium Carbonate/Vitamin D3 1 each PO DAILY 30 Days #30 tablet 12/16/19 [Calcium 500-Vit D3 200 Caplet] Ferrous Sulfate [Feosol] 325 mg PO DAILY 30 Days #30 tablet 12/16/19 Levothyroxine [Synthroid -] 150 mcg PO DAILY 30 Days #30 tablet 12/16/19 Prednisone 5 mg PO DAILY 30 Days #30 tablet 12/16/19 Verapamil HCl [Verapamil ER] 180 mg PO DAILY 30 Days #30 12/16/19 cap24h.pel REVIEW OF SYSTEMS CONSTITUTIONAL: weakness Absent: fever, chills, diaphoresis, malaise, loss of appetite, weight change HEENT: rhinorrhea, cough w/ white sputum Absent: throat pain, throat swelling, difficulty swallowing, mouth swelling, ear pain, eye pain, visual changes CARDIOVASCULAR: lightheadedness Absent: chest pain, syncope, palpitations, irregular heart rate, peripheral edema RESPIRATORY: wheezing Absent: cough, shortness of breath, dyspnea with exertion, orthopnea, stridor, hemoptysis GASTROINTESTINAL: Absent: abdominal pain, abdominal distension, nausea, vomiting, diarrhea, constipation, melena, hematochezia GENITOURINARY: Absent: dysuria, frequency, urgency, hesitancy, hematuria, flank pain, genital pain MUSCULOSKELETAL: Absent: myalgia, arthralgia, joint swelling, back pain, neck pain SKIN: Absent: rash, itching, pallor HEMATOLOGIC/IMMUNOLOGIC: Absent: easy bleeding, easy bruising, lymphadenopathy, frequent infections ENDOCRINE: Absent: unexplained weight gain, unexplained weight loss, heat intolerance, cold intolerance NEUROLOGIC: Absent: headache, focal weakness or paresthesias, dizziness, unsteady gait, seizure, mental status changes, bladder or bowel incontinence PSYCHIATRIC: Absent: anxiety, depression, suicidal or homicidal ideation, hallucinations. PHYSICAL EXAMINATION Vital Signs - 24 hr 01/31/20 23:27 Temperature 98.5 F Pulse Rate 83 Respiratory 20 Rate Blood Pressure 102/66 O2 Sat by Pulse 100 Oximetry (%) GENERAL: Awake, alert, and fully oriented, in no acute distress. Pleasant HEAD: NC/AT EYES: extraocular movements intact, sclera anicteric, conjunctiva clear. No lid lag. EARS, NOSE, THROAT: Ears normal, nares patent, oropharynx clear without exudates. Moist mucous membranes. Large tongue NECK: Normal range of motion, supple without lymphadenopathy, JVD, or masses. LUNGS: Breath sounds equal, clear to auscultation bilaterally. Very faint wheezes, and no crackles. No accessory muscle use. HEART: Regular rate and rhythm, normal S1 and S2 without murmur, rub or gallop. ABDOMEN: Soft, nontender, not distended, normoactive bowel sounds, no guarding, no rebound, no masses. MUSCULOSKELETAL: Normal range of motion at all joints. No bony deformities or tenderness. No CVA tenderness. UPPER EXTREMITIES: 2+ pulses, warm, well-perfused. No cyanosis. No clubbing. No peripheral edema. LOWER EXTREMITIES: 2+ pulses, warm, well-perfused. No calf tenderness. No perip heral edema. NEUROLOGICAL: Normal speech. PSYCHIATRIC: Cooperative. Good eye contact. Appropriate mood and affect. SKIN: Warm, dry, normal turgor, no rashes or lesions noted, normal capillary refill. Laboratory Results - last 24 hr 02/01/20 02/01/20 02/01/20 02:00 02:00 02:00 WBC 5.0 RBC 3.64 Hgb 9.7 L Hct 29.6 L MCV 81.4 MCH 26.7 MCHC 32.8 RDW 14.4 Plt Count 219 MPV 9.1 Absolute Neuts (auto) 1.3 L Neutrophils % 25.9 L Lymphocytes % 48.7 H Monocytes % 5.6 Eosinophils % 18.7 H Basophils % 1.1 Nucleated RBC % 0 PT with INR 13.40 H INR 1.13 H Sodium 141 Potassium 3.7 Chloride 108 H Carbon Dioxide 27 Anion Gap 6 L BUN 8.1 Creatinine 1.3 Est GFR (CKD-EPI)AfAm 52.37 Est GFR (CKD-EPI)NonAf 45.18 Random Glucose 89 Calcium 8.7 Total Bilirubin 0.2 AST 27 ALT 14 Alkaline Phosphatase 50 Creatine Kinase 552 H Troponin I < 0.02 Total Protein 7.1 Albumin 3.5 ASSESSMENT/PLAN: 60F w/ pmh of HTN, HLD, DM, hypothyroidism 2/2 to pituitary insufficiency, 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 Admitted for syncope workup # ?Syncope --possible 2/2 to pituitary insufficiency ---pt has been known to be medically noncompliant > CTH --pending > US carotid --pending > TSH(01/26/20) 0.13, Free T4(01/26/20) 0.23 - cw steroids and levothyroxine - neuro(Malkani) consult: --recs pending # wheeze --likely 2/2 to acute URI vs COPD vs asthma > CXR: grossly normal, awaiting final read - BDs, prednisone 40mg QD - Pulm(Brill) consult to formally evaluate for COPDe/asthma: --recs pending # chronic HTN - cw verapamil # KENNY vs CKD > Cr(baseline 0.9 - 1.1): 1.3 - gentle IVF # chronic DM - ISS # chronic pituitary insufficiency - cw home levothyroxine - incr home prednisone to 40mg QD(for possible COPDe) FEN - NS @83 - sodium-diabetic diet PPX - DVT PPX: SQH Visit type - Emergency Visit Emergency Visit: Yes ED Registration Date: 02/01/20 Care time: The patient presented to the Emergency Department on the above date and was hospitalized for further evaluation of their emergent condition. - New Patient This patient is new to me today: Yes Date on this admission: 02/01/20 - Critical Care Critical Care patient: No ATTENDING PHYSICIAN STATEMENT I saw and evaluated the patient. I reviewed the resident's note and discussed the case with the resident. I agree with the resident's findings and plan as documented. SUBJECTIVE: OBJECTIVE: ASSESSMENT AND PLAN:
--- NOTE | 2020-02-01 04:03 | PN ---
Teaching Attending Note Name of Resident: Segundo Ortega ATTENDING PHYSICIAN STATEMENT I saw and evaluated the patient. I reviewed the resident's note and discussed the case with the resident. I agree with the resident's findings and plan as documented. 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 Patient was getting ready for bed when she began to feel light-headed. She looked at the TV and noted the time to be 10:31 pm then next noted it to be 10:34 and believes she lost consciousness between that time. She also reports shortness of breath since last night and audible wheezing since two nights ago - she denies COPD/Asthma, any prior wheezing, cough or URI symptoms. Reports that she feels her heart racing, some mild chest discomfort, chills, and previously had nausea and vomiting but denies these symptoms at present. Denies fevers, chills, diarrhea, dysuria, headache, numbness, tingling or weakness. No clotting disorders or immobilization. Denies alcohol, tobacco or illicit drug use. No sick contacts or recent travels. OBJECTIVE: Alert Vital Signs Period Temp Pulse Resp BP Sys/Long Pulse Ox Last 24 Hr 98.5 F 83 20 102/66 100 HEENT: No Jaundice, eye redness or discharge, PERRLA, EOMI. Normocephalic, atraumatic. External ears are normal and hearing is grossly intact. No nasal discharge. Neck: Supple, nontender. No palpable adenopathy or thyromegaly. No JVD Chest: Good effort. Clear to auscultation and percussion. Heart: Regular. No S3, rub or murmur Abdomen: Not distended, soft, nontender and no HSM. No rebound or guarding. Normal bowel sounds. Ext: Peripheral pulses intact. No leg edema. Skin: Warm and dry. No petechiae, rash or ecchymosis. Neuro: Alert. Oriented x3. CN 2-12 grossly intact. Sensation grossly intact in all four extremities and DTR are symmetric. Psych: Appropriate mood and affect. Good insight. Current Medications Generic Name Dose Route Start Last Admin Trade Name Freq PRN Reason Stop Dose Admin Albuterol/Ipratropium 1 amp 02/01/20 03:30 Duoneb - NEB 02/01/20 04:16 Q15M [facility] Home Medications Medication Instructions Recorded Aspirin [Aspirin EC] 81 mg PO DAILY #30 tablet. 12/16/19 Atorvastatin Ca [Lipitor] 20 mg PO DAILY 30 Days #30 tablet 12/16/19 Calcium Carbonate/Vitamin D3 1 each PO DAILY 30 Days #30 tablet 12/16/19 [Calcium 500-Vit D3 200 Caplet] Ferrous Sulfate [Feosol] 325 mg PO DAILY 30 Days #30 tablet 12/16/19 Levothyroxine [Synthroid -] 150 mcg PO DAILY 30 Days #30 tablet 12/16/19 Prednisone 5 mg PO DAILY 30 Days #30 tablet 12/16/19 Verapamil HCl [Verapamil ER] 180 mg PO DAILY 30 Days #30 12/16/19 cap24h.pel Abnormal Lab Results 02/01/20 02/01/20 02/01/20 02:00 02:00 02:00 Hgb 9.7 L Hct 29.6 L Absolute Neuts (auto) 1.3 L Neutrophils % 25.9 L Lymphocytes % 48.7 H Eosinophils % 18.7 H PT with INR 13.40 H INR 1.13 H Chloride 108 H Anion Gap 6 L Creatine Kinase 552 H ASSESSMENT AND PLAN: 1. Syncope/COPD exacerbation? - Cause of syncope unclear. Head CT pending. Has history of ?SVT - will monitor on telemetry and get ECHO and carotid doppler. EKG shows NSR at 78/minute, 1o AV block, LAD and prolonged QTc. Will check Mg+ level and avoid drugs that prolong QTc. Consult neurology. Treated with Duoneb and Solumedrol in the ER. Will continue prednisone 40 mg qd and Duoneb PRN. CXR shows hyperinflation but no significant acute infiltrates. Consult Pulmonary. Will need outpatient PFTs to confirm COPD?. Urinalysis is pending. Will continue comprehensive care for all of patients comorbid conditions including Synthroid for hypothyroidism and Prednisone for Adrenal insufficiency. 2. DM For now, we will hold the home diabetes drugs and implement sliding scale insulin regimen. Provide comprehensive diabetes care with patient teaching and counseling about the importance of adherence to prescribed diabetes regimen, euglycemia, eye care and foot care. 3. Anemia - Cause unclear. Partly due to ?CKD. Will do basic anemia work up including serial stool guaiacs, reticulocyte count and iron studies. Consult GI for routine colonoscopy. Would benefit from Procrit therapy once iron replete. 4. Hypertension - Restart suitable outpatient antihypertensive drugs when clinically appropriate. 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 Nonpharmacologic measures to control hypertension like weight loss, salt restriction and exercise discussed. Importance of adherence to treatment regimen and attainment of normotension emphasized. 5. DVT prophylaxis - Lovenox 40 mg SQ q 24 hours. 6. Advance directives - Full code
[2020-02-01] MEDS ORDERED: ALBUTEROL SO4 2.5/IPRATROPIUM 0.5 INH SOL 3 ML VIAL.NEB. NEB ONE ×4 (04:16→16:53)
[2020-02-01] MEDS ORDERED: methylPREDNISolone NA SUCC 125 MG/2 ML VIAL ONE (04:16)
[2020-02-01 05:25] LABS: EPI CELLS 11.5 /HPF (0-5/HPF); HYALINE CASTS 123 /lpf (0-8); URINE APPEARANCE CLEAR; URINE BACTERIA 17.2 /hpf (NEGATIVE); URINE BILIRUBIN NEGATIVE (NEGATIVE); URINE COLOR YELLOW; URINE GLUCOSE (UA) NEGATIVE (NEGATIVE); URINE KETONE TRACE (NEGATIVE); URINE LEUK ESTERASE 1+ (NEGATIVE); URINE NITRITE NEGATIVE (NEGATIVE); URINE PROTEIN TRACE (NEGATIVE); URINE RBC 10 /hpf (0-4); URINE UROBILINOGEN 0.2 mg/dL (0.2-1.0); URINE WBC 43 /hpf (0-5)
[2020-02-01 05:39] LABS: URINE CRYSTALS NONE SEEN /hpf
[2020-02-01] MEDS ORDERED: DEXTROSE 5%-0.45% SALINE 1,000 ML IV SCH (06:30)
[2020-02-01] MEDS ORDERED: LEVOTHYROXINE NA 150 MCG TABLET PO SCH (07:30)
[2020-02-01] MEDS ORDERED: LEVOTHYROXINE NA 25 MCG TABLET (FP) ONE (07:33)
[2020-02-01] MEDS: INSULIN SLIDING SCALE (NOVOLOG) 1 VIAL SQ SCH ×3 (07:51→22:35)
[2020-02-01] MEDS: SODIUM CHLORIDE 1,000 ML IV SCH (07:52)
--- NOTE | 2020-02-01 08:55 | CONSULT ---
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 Stated that was feeling weak while walking so she sat down on her bed. She looked at the clock at ~ 8:30pm then noticed the clock read ~ 8:36pm. Denied LOC, being found on floor, confusion, weakness, CP, SOB, loss of bowel/bladder control. She has been feeling weak with sensation of lightheadedness x3d, usually when getting up from seated position. She also has complaint of rhinorrhea, wheezing, cough with white sputum x3d. Wheezing has improved. Denied sick contacts. 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 Stated that she has been compliant with her prednisone 5mg BID and levothyroxine 125mcg. During my evaluation, she was sleepy but arousable for interaction. Moving all extremities equally and does not have significant weakness. Was ableto tell me that she is at [facility] as well as month and year. Did not seem to have memory issues. For some reason, CT head has not yet been completed and I would advise having this completed to confirm no significant structural abnormalities. 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) PAST SURGICAL HISTORY: RLE mass resection pituitary mass resection Family History: HTN Social History: Smoking: smoked 20ys prior(1pack per week x 10ys) Alcohol: last drink 20ys prior Drugs: distant MJ REVIEW OF SYSTEMS CONSTITUTIONAL: weakness Absent: fever, chills, diaphoresis, malaise, loss of appetite, weight change HEENT: rhinorrhea, cough w/ white sputum Absent: throat pain, throat swelling, difficulty swallowing, mouth swelling, ear pain, eye pain, visual changes CARDIOVASCULAR: lightheadedness Absent: chest pain, syncope, palpitations, irregular heart rate, peripheral edema RESPIRATORY: wheezing Absent: cough, shortness of breath, dyspnea with exertion, orthopnea, stridor, hemoptysis GASTROINTESTINAL: Absent: abdominal pain, abdominal distension, nausea, vomiting, diarrhea, constipation, melena, hematochezia GENITOURINARY: Absent: dysuria, frequency, urgency, hesitancy, hematuria, flank pain, genital pain MUSCULOSKELETAL: Absent: myalgia, arthralgia, joint swelling, back pain, neck pain SKIN: Absent: rash, itching, pallor HEMATOLOGIC/IMMUNOLOGIC: Absent: easy bleeding, easy bruising, lymphadenopathy, frequent infections ENDOCRINE: Absent: unexplained weight gain, unexplained weight loss, heat intolerance, cold intolerance NEUROLOGIC: Absent: headache, focal weakness or paresthesias, dizziness, unsteady gait, seizure, mental status changes, bladder or bowel incontinence PSYCHIATRIC: Absent: anxiety, depression, suicidal or homicidal ideation, hallucinations. Allergies Penicillins Allergy (Verified 01/31/20 23:53) HOME MEDICATIONS: Home Medications Medication Instructions Recorded Aspirin [Aspirin EC] 81 mg PO DAILY #30 tablet. 12/16/19 Atorvastatin Ca [Lipitor] 20 mg PO DAILY 30 Days #30 tablet 12/16/19 Calcium Carbonate/Vitamin D3 1 each PO DAILY 30 Days #30 tablet 12/16/19 [Calcium 500-Vit D3 200 Caplet] Ferrous Sulfate [Feosol] 325 mg PO DAILY 30 Days #30 tablet 12/16/19 Levothyroxine [Synthroid -] 150 mcg PO DAILY 30 Days #30 tablet 12/16/19 Prednisone 5 mg PO DAILY 30 Days #30 tablet 12/16/19 Verapamil HCl [Verapamil ER] 180 mg PO DAILY 30 Days #30 12/16/19 cap24h.pel Active Medications Albuterol/Ipratropium (Duoneb -) 1 amp NEB RQID [facility] Last Admin: 02/01/20 07:52 Dose: 1 amp Documented by: Heparin Sodium (Porcine) (Heparin -) 5,000 unit SQ TID [facility] Sodium Chloride (Normal Saline -) 1,000 mls @ 83 mls/hr IV ASDIR [facility] Last Admin: 02/01/20 07:52 Dose: 83 mls/hr Documented by: Insulin Aspart (Novolog Vial Sliding Scale -) 1 vial SQ [facility]; Protocol Last Admin: 02/01/20 07:51 Dose: Not Given Documented by: Levothyroxine Sodium (Synthroid -) 150 mcg PO DAILY@0700 [facility] Last Admin: 03/12/20 07:52 Dose: 150 mcg Documented by: Prednisone (Deltasone -) 40 mg PO DAILY VIRAL Verapamil HCl (Calan Sr -) 180 mg PO DAILY [facility] PHYSICAL EXAMINATION Vital Signs Period Temp Pulse Resp BP Sys/Long Pulse Ox Last 24 Hr 98.1 F-98.5 F 73-83 18-20 101-111/66-71 98-100 GENERAL: Awake, alert, and fully oriented, in no acute distress. Pleasant HEAD: NC/AT EYES: extraocular movements intact, sclera anicteric, conjunctiva clear. No lid lag. EARS, NOSE, THROAT: Ears normal, nares patent, oropharynx clear without exudates. Moist mucous membranes. Large tongue NECK: Normal range of motion, supple without lymphadenopathy, JVD, or masses. LUNGS: Breath sounds equal, clear to auscultation bilaterally. Very faint wheezes, and no crackles. No accessory muscle use. HEART: Regular rate and rhythm, normal S1 and S2 without murmur, rub or gallop. ABDOMEN: Soft, nontender, not distended, normoactive bowel sounds, no guarding, no rebound, no masses. MUSCULOSKELETAL: Normal range of motion at all joints. No bony deformities or tenderness. No CVA tenderness. UPPER EXTREMITIES: 2+ pulses, warm, well-perfused. No cyanosis. No clubbing. No peripheral edema. LOWER EXTREMITIES: 2+ pulses, warm, well-perfused. No calf tenderness. No peripheral edema. NEUROLOGICAL: Normal speech, knows she is in the hospital and can tell methe name, moves all extremities equally, sensory intact PSYCHIATRIC: Cooperative. Good eye contact. Appropriate mood and affect. SKIN: Warm, dry, normal turgor, no rashes or lesions noted, normal capillary refill. CBCD WBC 5.0 K/mm3 (4.0-10.0) 02/01/20 02:00 RBC 3.64 M/mm3 (3.60-5.2) 02/01/20 02:00 Hgb 9.7 GM/dL (10.7-15.3) L 02/01/20 02:00 Hct 29.6 % (32.4-45.2) L 02/01/20 02:00 MCV 81.4 fl (80-96) 02/01/20 02:00 MCHC 32.8 g/dl (32.0-36.0) 02/01/20 02:00 RDW 14.4 % (11.6-15.6) 02/01/20 02:00 Plt Count 219 K/MM3 (134-434) 02/01/20 02:00 MPV 9.1 fl (7.5-11.1) 02/01/20 02:00 CMP Sodium 141 mmol/L (136-145) 02/01/20 02:00 Potassium 3.7 mmol/L (3.5-5.1) 02/01/20 02:00 Chloride 108 mmol/L (98-107) H 02/01/20 02:00 Carbon Dioxide 27 mmol/L (21-32) 02/01/20 02:00 Anion Gap 6 MMOL/L (8-16) L 02/01/20 02:00 BUN 8.1 mg/dL (7-18) 02/01/20 02:00 Creatinine 1.3 mg/dL (0.55-1.3) 02/01/20 02:00 Random Glucose 89 mg/dL (74-106) 02/01/20 02:00 Calcium 8.7 mg/dL (8.5-10.1) 02/01/20 02:00 Total Bilirubin 0.2 mg/dL (0.2-1) 02/01/20 02:00 AST 27 U/L (15-37) 02/01/20 02:00 ALT 14 U/L (13-61) 02/01/20 02:00 Alkaline Phosphatase 50 U/L (45-117) 02/01/20 02:00 Total Protein 7.1 g/dl (6.4-8.2) 02/01/20 02:00 Albumin 3.5 g/dl (3.4-5.0) 02/01/20 02:00 CARDIAC ENZYMES Creatine Kinase 552 U/L (26-192) H 02/01/20 02:00 Troponin I < 0.02 ng/ml (0.00-0.05) 02/01/20 02:00 ASSESSMENT/PLAN: 60F w/ pmh of HTN, HLD, DM, hypothyroidism 2/2 to pituitary insufficiency, 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 Stated that was feeling weak while walking so she sat down on her bed. She looked at the clock at ~ 8:30pm then noticed the clock read ~ 8:36pm. Denied LOC, being found on floor, confusion, weakness, CP, SOB, loss of bowel/bladder control. She has been feeling weak with sensation of lightheadedness x3d, usually when getting up from seated position. She also has complaint of rhinorrhea, wheezing, cough with white sputum x3d. Wheezing has improved. Denied sick contacts. 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 Stated that she has been compliant with her prednisone 5mg BID and levothyroxine 125mcg. During my evaluation, she was sleepy but arousable for interaction. Moving all extremities equally and does not have significant weakness. Was ableto tell me that she is at [facility] as well as month and year. Did not seem to have memory issues. For some reason, CT head has not yet been completed and I would advise having this completed to confirm no significant structural abnormalities. continue blood pressure medication, maintain less than 140/90, currently normotensive. Continue management of diabetes, maintain euglycemic range.
[2020-02-01] MEDS ORDERED: VERAPAMIL HCL 180 MG PO SCH (10:00)
[2020-02-01] MEDS ORDERED: predniSONE 20 MG TABLET (UD) PO SCH (10:00)
[2020-02-01] MEDS ORDERED: predniSONE 20 MG TABLET (UD) ONE (10:12)
[2020-02-01] MEDS: VERAPAMIL HCL 180 MG E.R. TABLET PO SCH (12:08)
[2020-02-01] MEDS ORDERED: HEPARIN NA (PORCINE) 5,000 UNITS/ML 1ML VIAL ONE (14:06)
[2020-02-01] MEDS: HEPARIN NA (PORCINE) 5,000 UNITS/ML 1ML VIAL SQ SCH ×2 (14:13→22:07)
--- NOTE | 2020-02-01 14:50 | CON.PULM ---
Consult Consult Specialty:: PULMONARY Referred by:: Dr Vieira Reason for Consultation:: shortness of breath - History of Present Illness Chief Complaint: generalized weakness History of Present Illness: 60yo female with h/o HTN, DM, hypothyroidism, h/o pituitary mass s/p resection with subsequent pituitary insufficiency who was admitted with generalized weakness. Reports some shortness of breath and wheezing. No fevers, chills or sweats. +cough productive of white sputum. She is a remote smoker, no history of asthma or COPD but children and grandchildren with asthma. Reports improvement after receiving nebulizers. 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 12/16/19 Atorvastatin Ca [Lipitor] 20 mg PO DAILY 30 Days #30 tablet 12/16/19 Calcium Carbonate/Vitamin D3 [Calcium 500-Vit D3 200 Caplet] 1 each PO DAILY 30 Days #30 tablet 12/16/19 Ferrous Sulfate [Feosol] 325 mg PO DAILY 30 Days #30 tablet 12/16/19 Levothyroxine [Synthroid -] 150 mcg PO DAILY 30 Days #30 tablet 12/16/19 Prednisone 5 mg PO DAILY 30 Days #30 tablet 12/16/19 Verapamil HCl [Verapamil ER] 180 mg PO DAILY 30 Days #30 cap24h.pel 12/16/19 Review of Systems - Review of Systems Constitutional: reports: Weakness. denies: Chills, Fever Eyes: denies: Recent Change in Vision HENT: denies: Nasal Congestion, Throat Pain Neck: denies: Stiffness, Tenderness Cardiovascular: reports: Shortness of Breath. denies: Chest Pain, Palpitations Respiratory: reports: Cough, SOB, Wheezing. denies: Hemoptysis Gastrointestinal: denies: Abdominal Pain, Nausea, Vomiting Neurological: reports: Dizziness. denies: Headache Endocrine: denies: Unexplained Weight Loss Physical Exam Vital Sings: Vital Signs Temperature 98 F 02/01/20 12:00 Pulse Rate 90 02/01/20 12:00 Respiratory Rate 16 02/01/20 12:00 Blood Pressure 110/60 02/01/20 12:00 O2 Sat by Pulse Oximetry (%) 99 02/01/20 08:00 Constitutional: Yes: Calm Eyes: Yes: Conjunctiva Clear, EOM Intact HENT: Yes: Atraumatic, Normocephalic Neck: Yes: Supple, Trachea Midline Cardiovascular: Yes: Regular Rate and Rhythm Respiratory: Yes: Diminished (decreased breath sounds at the bases) ...Clubbing: No Gastrointestinal: Yes: Normal Bowel Sounds, Soft. No: Tenderness Edema: No Neurological: Yes: Alert, Oriented Labs: CBC, BMP 02/01/20 02:00 02/01/20 02:00 Imaging - Results Chest X-ray: Report Reviewed, Image Reviewed (no infiltrates) Assessment/Plan Mild Asthma Exacerbation HTN DM Hyperlipideima Hypothyroidism h/o Pituitary Mass s/p resection - pt improved with nebulizers - can defer systemic steroids at this time - O2 to keep Spo2 >90% - outpt PFTs - DVT prophylaxis Thank you for this consult Ketan Prabhakar MD
--- NOTE | 2020-02-01 15:06 | EKG ---
Test Reason : Blood Pressure : / mmHG Vent. Rate : 078 BPM Atrial Rate : 078 BPM P-R Int : 226 ms QRS Dur : 084 ms QT Int : 432 ms P-R-T Axes : 071 -43 072 degrees QTc Int : 492 ms SINUS RHYTHM WITH 1ST DEGREE A-V BLOCK LEFT AXIS DEVIATION LOW VOLTAGE QRS PROLONGED QT ABNORMAL ECG WHEN COMPARED WITH ECG OF 16-DEC-2019 17:35, SINUS RHYTHM HAS REPLACED JUNCTIONAL RHYTHM CRITERIA FOR INFERIOR INFARCT ARE NO LONGER PRESENT T WAVE AMPLITUDE HAS INCREASED IN INFERIOR LEADS Confirmed by MANOLO VIRAMONTES MD ([id number]) on 02/01/2020 3:06:01 PM Referred By: Confirmed By:MANOLO VIRAMONTES MD
--- NOTE | 2020-02-01 23:27 | PN ---
Physical Exam: SUBJECTIVE: Patient seen and examined at bedside, denies complaints, awaiting tele bed in ICU, VS otherwise stable. OBJECTIVE: GENERAL: AAOx3, speaking in full sentences, answers to questions HEAD: NC/AT EYES: extraocular movements intact, sclera anicteric, conjunctiva clear. No lid lag. EARS, NOSE, THROAT: Ears normal, nares patent, oropharynx clear without exudates. Moist mucous membranes. Large tongue NECK: Normal range of motion, supple without lymphadenopathy, JVD, or masses. 1 louse found on neck pulled with tweezer and sent to lab. LUNGS: Breath sounds equal, clear to auscultation bilaterally. Very faint wheezes, and no crackles. No accessory muscle use. HEART: S1, S2+, RRR, no m/r/g ABDOMEN: Soft, non-tender, not distended, normoactive bowel sounds, no guarding, no rebound, no masses. MUSCULOSKELETAL: Normal range of motion at all joints. No bony deformities or tenderness. No CVA tenderness. UPPER EXTREMITIES: 2+ pulses, warm, well-perfused. No cyanosis. No clubbing. No peripheral edema. LOWER EXTREMITIES: 2+ pulses, warm, well-perfused. No calf tenderness. No peripheral edema. NEUROLOGICAL: Normal speech. PSYCHIATRIC: Cooperative. Good eye contact. Appropriate mood and affect. SKIN: Warm, dry, normal turgor, no rashes or lesions noted, normal capillary refill. Vital Signs Period Temp Pulse Resp BP Sys/Long Pulse Ox Last 24 Hr 97.6 F-98.5 F 73-103 14-20 101-117/60-71 98-100 Laboratory Results - last 24 hr 02/01/20 02/01/20 02/01/20 02:00 02:00 02:00 WBC 5.0 RBC 3.64 Hgb 9.7 L Hct 29.6 L MCV 81.4 MCH 26.7 MCHC 32.8 RDW 14.4 Plt Count 219 MPV 9.1 Absolute Neuts (auto) 1.3 L Neutrophils % 25.9 L Lymphocytes % 48.7 H Monocytes % 5.6 Eosinophils % 18.7 H Basophils % 1.1 Nucleated RBC % 0 PT with INR 13.40 H INR 1.13 H Sodium 141 Potassium 3.7 Chloride 108 H Carbon Dioxide 27 Anion Gap 6 L BUN 8.1 Creatinine 1.3 Est GFR (CKD-EPI)AfAm 52.37 Est GFR (CKD-EPI)NonAf 45.18 POC Glucometer Random Glucose 89 Calcium 8.7 Total Bilirubin 0.2 AST 27 ALT 14 Alkaline Phosphatase 50 Creatine Kinase 552 H Creatine Kinase Index 0.5 CK-MB (CK-2) 3.1 Troponin I < 0.02 Total Protein 7.1 Albumin 3.5 Urine Color Urine Appearance Urine pH Ur Specific [place] Urine Protein Urine Glucose (UA) Urine Ketones Urine Blood Urine Nitrite Urine Bilirubin Urine Urobilinogen Ur Leukocyte Esterase Urine WBC (Auto) Urine RBC (Auto) Urine Casts (Auto) U Pathogenic Cast Auto U Epithel Cells (Auto) U Sm Round Cell (Auto) Urine Crystals (Auto) Urine Bacteria (Auto) 02/01/20 02/01/20 02/01/20 04:20 07:45 12:02 WBC RBC Hgb Hct MCV MCH MCHC RDW Plt Count MPV Absolute Neuts (auto) Neutrophils % Lymphocytes % Monocytes % Eosinophils % Basophils % Nucleated RBC % PT with INR INR Sodium Potassium Chloride Carbon Dioxide Anion Gap BUN Creatinine Est GFR (CKD-EPI)AfAm Est GFR (CKD-EPI)NonAf POC Glucometer 96 104 Random Glucose Calcium Total Bilirubin AST ALT Alkaline Phosphatase Creatine Kinase Creatine Kinase Index CK-MB (CK-2) Troponin I Total Protein Albumin Urine Color Yellow Urine Appearance Clear Urine pH 5.0 Ur Specific [place] 1.022 Urine Protein Trace Urine Glucose (UA) Negative Urine Ketones Trace H Urine Blood Negative Urine Nitrite Negative Urine Bilirubin Negative Urine Urobilinogen 0.2 Ur Leukocyte Esterase 1+ H Urine WBC (Auto) 43 Urine RBC (Auto) 10 Urine Casts (Auto) 123 U Pathogenic Cast Auto None seen U Epithel Cells (Auto) 11.5 U Sm Round Cell (Auto) None seen Urine Crystals (Auto) None seen Urine Bacteria (Auto) 17.2 02/01/20 22:28 WBC RBC Hgb Hct MCV MCH MCHC RDW Plt Count MPV Absolute Neuts (auto) Neutrophils % Lymphocytes % Monocytes % Eosinophils % Basophils % Nucleated RBC % PT with INR INR Sodium Potassium Chloride Carbon Dioxide Anion Gap BUN Creatinine Est GFR (CKD-EPI)AfAm Est GFR (CKD-EPI)NonAf POC Glucometer 122 Random Glucose Calcium Total Bilirubin AST ALT Alkaline Phosphatase Creatine Kinase Creatine Kinase Index CK-MB (CK-2) Troponin I Total Protein Albumin Urine Color Urine Appearance Urine pH Ur Specific [place] Urine Protein Urine Glucose (UA) Urine Ketones Urine Blood Urine Nitrite Urine Bilirubin Urine Urobilinogen Ur Leukocyte Esterase Urine WBC (Auto) Urine RBC (Auto) Urine Casts (Auto) U Pathogenic Cast Auto U Epithel Cells (Auto) U Sm Round Cell (Auto) Urine Crystals (Auto) Urine Bacteria (Auto) Active Medications Generic Name Dose Route Start Last Admin Trade Name Freq PRN Reason Stop Dose Admin Albuterol/Ipratropium 1 amp 02/01/20 08:00 02/01/20 23:11 Duoneb - NEB Not Given RQID VIRAL Heparin Sodium (Porcine) 5,000 unit 02/01/20 14:00 02/01/20 22:07 Heparin - SQ 5,000 unit TID VIRAL Administration Sodium Chloride 1,000 mls @ 83 mls/hr 02/01/20 07:15 02/01/20 07:52 Normal Saline - IV 83 mls/hr ASDIR VIRAL Administration Insulin Aspart 1 vial 02/01/20 07:00 02/01/20 22:35 Novolog Vial Sliding Scale - SQ Not Given ACHS [facility] Protocol Levothyroxine Sodium 75 mcg/ 175 mcg 02/02/20 07:00 Levothyroxine Sodium 100 mcg PO DAILY@0700 VIRAL Verapamil HCl 180 mg 02/01/20 10:00 02/01/20 12:08 Calan Sr - PO 180 mg DAILY VIRAL Administration ASSESSMENT/PLAN: 60 F h/o HTN, HLD, T2DM, hypothyroidism 2/2 to pituitary insufficiency, 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 Reported syncopal episode ?no syncope witnessed, CT-brain unremarkable Admit to tele, neurochecks, send B12/RPR/TSH, Trops x3 Neurology consult COPD with acute exacerbation IV steroids, duonebs, chest physiotherapy Send viral panel Pulmonary evaluation HTN cont. BP meds KENNY on CKD CRE at baseline avoid nephrotoxins T2DM ISS, basal insulin PRN Chronic pituitary insufficiency obtain thyroid panel, Cortisol AM, ACTH AM Increase synthroid to 175mcg qAM Endo consult: Dr Doyle Tele monitoring DVT ppx: Lovenox SC Visit type - Emergency Visit Emergency Visit: Yes ED Registration Date: 02/01/20 Care time: The patient presented to the Emergency Department on the above date and was hospitalized for further evaluation of their emergent condition. - New Patient This patient is new to me today: Yes Date on this admission: 02/01/20 - Critical Care Critical Care patient: No - Discharge Referral Referred to [facility] No
[2020-02-02] MEDS ORDERED: LEVOTHYROXINE NA 150 MCG TABLET PO SCH (07:00)
[2020-02-02] MEDS ORDERED: PT OWN MED DRAWER 7, Y5N ONE ×2 (07:13→11:44)
[2020-02-02] MEDS: INSULIN SLIDING SCALE (NOVOLOG) 1 VIAL SQ SCH ×4 (07:53→22:50)
[2020-02-02] MEDS: HEPARIN NA (PORCINE) 5,000 UNITS/ML 1ML VIAL SQ SCH ×3 (07:53→22:38)
[2020-02-02] MEDS: LEVOTHYROXINE 75 MCG, LEVOTHYROXINE 100 MCG PO SCH (07:54)
[2020-02-02] MEDS: ALBUTEROL SO4 2.5/IPRATROPIUM 0.5 INH SOL 3 ML VIAL.NEB. NEB SCH ×3 (08:25→16:05)
--- NOTE | 2020-02-02 08:31 | PN ---
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 Stated that was feeling weak while walking so she sat down on her bed. She looked at the clock at ~ 8:30pm then noticed the clock read ~ 8:36pm. Denied LOC, being found on floor, confusion, weakness, CP, SOB, loss of bowel/bladder control. She has been feeling weak with sensation of lightheadedness x3d, usually when getting up from seated position. She also has complaint of rhinorrhea, wheezing, cough with white sputum x3d. Wheezing has improved. Denied sick contacts. 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 Stated that she has been compliant with her prednisone 5mg BID and levothyroxine 125mcg. During my evaluation, she was sleepy but arousable for interaction. Moving all extremities equally and does not have significant weakness. Was able to tell me that she is at [facility] as well as month and year. Did not seem to have memory issues. CT Head performed and showed moderate atrophy and no intracranial pathology. Left mastoid effusion. Carotid U/S completed and demonstrated B/L mild intimal thickening at distal CCA and at bifurcation w/o HD significant stenosis. Neurologically without significant deficits. hospitalist note reviewed, medical optimization occurring, for endocrinology consult due to prior pituitary insufficiency, no objection to this. Active Medications Albuterol/Ipratropium (Duoneb -) 1 amp NEB RQID [facility] Last Admin: 02/01/20 23:11 Dose: Not Given Documented by: Heparin Sodium (Porcine) (Heparin -) 5,000 unit SQ TID [facility] Last Admin: 02/02/20 07:53 Dose: 5,000 unit Documented by: Sodium Chloride (Normal Saline -) 1,000 mls @ 83 mls/hr IV ASDIR [facility] Last Admin: 02/01/20 07:52 Dose: 83 mls/hr Documented by: Insulin Aspart (Novolog Vial Sliding Scale -) 1 vial SQ ACHS [facility]; Protocol Last Admin: 02/02/20 07:53 Dose: Not Given Documented by: Levothyroxine Sodium 75 mcg/ (Levothyroxine Sodium 100 mcg) 175 mcg PO DAILY@0700 [facility] Last Admin: 02/02/20 07:54 Dose: 175 mcg Documented by: Verapamil HCl (Calan Sr -) 180 mg PO DAILY [facility] Last Admin: 02/01/20 12:08 Dose: 180 mg Documented by: PHYSICAL EXAMINATION Vital Signs Period Temp Pulse Resp BP Sys/Long Pulse Ox Last 24 Hr 97.6 F-98 F 77-90 16-19 98-117/60-71 100-100 GENERAL: Awake, alert, and fully oriented, in no acute distress. Pleasant HEAD: NC/AT EYES: extraocular movements intact, sclera anicteric, conjunctiva clear. No lid lag. EARS, NOSE, THROAT: Ears normal, nares patent, oropharynx clear without exudates. Moist mucous membranes. Large tongue NECK: Normal range of motion, supple without lymphadenopathy, JVD, or masses. LUNGS: Breath sounds equal, clear to auscultation bilaterally. Very faint wheezes, and no crackles. No accessory muscle use. HEART: Regular rate and rhythm, normal S1 and S2 without murmur, rub or gallop. ABDOMEN: Soft, nontender, not distended, normoactive bowel sounds, no guarding, no rebound, no masses. MUSCULOSKELETAL: Normal range of motion at all joints. No bony deformities or tenderness. No CVA tenderness. UPPER EXTREMITIES: 2+ pulses, warm, well-perfused. No cyanosis. No clubbing. No peripheral edema. LOWER EXTREMITIES: 2+ pulses, warm, well-perfused. No calf tenderness. No peripheral edema. NEUROLOGICAL: Normal speech, knows she is in the hospital and can tell methe name, moves all extremities equally, sensory intact PSYCHIATRIC: Cooperative. Good eye contact. Appropriate mood and affect. SKIN: Warm, dry, normal turgor, no rashes or lesions noted, normal capillary refill. CBCD WBC 5.0 K/mm3 (4.0-10.0) 02/01/20 02:00 RBC 3.64 M/mm3 (3.60-5.2) 02/01/20 02:00 Hgb 9.7 GM/dL (10.7-15.3) L 02/01/20 02:00 Hct 29.6 % (32.4-45.2) L 02/01/20 02:00 MCV 81.4 fl (80-96) 02/01/20 02:00 MCHC 32.8 g/dl (32.0-36.0) 02/01/20 02:00 RDW 14.4 % (11.6-15.6) 02/01/20 02:00 Plt Count 219 K/MM3 (134-434) 02/01/20 02:00 MPV 9.1 fl (7.5-11.1) 02/01/20 02:00 CMP Sodium 141 mmol/L (136-145) 02/01/20 02:00 Potassium 3.7 mmol/L (3.5-5.1) 02/01/20 02:00 Chloride 108 mmol/L (98-107) H 02/01/20 02:00 Carbon Dioxide 27 mmol/L (21-32) 02/01/20 02:00 Anion Gap 6 MMOL/L (8-16) L 02/01/20 02:00 BUN 8.1 mg/dL (7-18) 02/01/20 02:00 Creatinine 1.3 mg/dL (0.55-1.3) 02/01/20 02:00 Random Glucose 89 mg/dL (74-106) 02/01/20 02:00 Calcium 8.7 mg/dL (8.5-10.1) 02/01/20 02:00 Total Bilirubin 0.2 mg/dL (0.2-1) 02/01/20 02:00 AST 27 U/L (15-37) 02/01/20 02:00 ALT 14 U/L (13-61) 02/01/20 02:00 Alkaline Phosphatase 50 U/L (45-117) 02/01/20 02:00 Total Protein 7.1 g/dl (6.4-8.2) 02/01/20 02:00 Albumin 3.5 g/dl (3.4-5.0) 02/01/20 02:00 CARDIAC ENZYMES Creatine Kinase 552 U/L (26-192) H 02/01/20 02:00 Troponin I < 0.02 ng/ml (0.00-0.05) 02/01/20 02:00 ASSESSMENT/PLAN: 60F w/ pmh of HTN, HLD, DM, hypothyroidism 2/2 to pituitary insufficiency, 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 Stated that was feeling weak while walking so she sat down on her bed. She looked at the clock at ~ 8:30pm then noticed the clock read ~ 8:36pm. Denied LOC, being found on floor, confusion, weakness, CP, SOB, loss of bowel/bladder control. She has been feeling weak with sensation of lightheadedness x3d, usually when getting up from seated position. She also has complaint of rhinorrhea, wheezing, cough with white sputum x3d. Wheezing has improved. Denied sick contacts. 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 Stated that she has been compliant with her prednisone 5mg BID and levothyroxine 125mcg. During my evaluation, she was sleepy but arousable for interaction. Moving all extremities equally and does not have significant weakness. Was ableto tell me that she is at [facility] as well as month and year. Did not seem to have memory issues. Neurologically without significant deficits. hospitalist note reviewed, medical optimization occurring, for endocrinology consult due to prior pituitary insufficiency, no objection to this. Continue blood pressure medication, maintain less than 140/90, currently normotensive. Continue management of diabetes, maintain euglycemic range.
[2020-02-02] MEDS: VERAPAMIL HCL 180 MG E.R. TABLET PO SCH ×2 (11:57→12:12)
[2020-02-02] MEDS: SODIUM CHLORIDE 1,000 ML IV SCH (11:57)
--- NOTE | 2020-02-02 12:05 | PN ---
Progress Note (short form) - Note Progress Note: Patient is comfortable alert awake oriented denies any issue with the memory. No shortness of breath no palpitation. Her telemetry is sinus rhythm. Vital Signs Period Temp Pulse Resp BP Sys/Long Pulse Ox Last 24 Hr 97.6 F 77-80 16-19 98-117/62-71 100-100 Head no headache no dizziness Ear nose throat no epistaxis Cardiovascular no chest pain Pulmonary no wheezing no coughing GI no abdominal pain Endocrine no history of diabetes hypothyroidism Neuro no history of stroke Dermatology no history of stroke Locomotor no history of joint pain Rest of review of systems are negative Patient is comfortable HEENT normal Neck supple no JVD Lungs clear no wheezing Abdomen nontender no organomegaly bowel sounds normal Extremities no edema no cyanosis normal pulses Neurologically he is alert awake oriented, nonfocal Skin no rash noted Vital Signs Period Temp Pulse Resp BP Sys/Long Pulse Ox Last 24 Hr 97.6 F 77-80 16-19 98-117/62-71 100-100 Laboratory Results - last 24 hr 02/01/20 02/01/20 12:02 22:28 POC Glucometer 104 122 Laboratory Results - last 24 hr 02/01/20 02/01/20 12:02 22:28 POC Glucometer 104 122 Laboratory Results - last 24 hr 02/01/20 02/01/20 12:02 22:28 POC Glucometer 104 122 She is seen by neurologist today.She had a CAT scan of the head done which is normal.Carotid sonogram is normal no blockage Abnormal finding on her blood is hemoglobin 9.7She denies any history of bleeding or anything else Assessment and plan 60 F h/o HTN, HLD, T2DM, hypothyroidism 2/2 to pituitary insufficiency, 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 Reported syncopal episode All the work-up was negative she is cleared by neurologist COPD with acute exacerbation Much better no shortness of breath. HTN cont. BP meds KENNY on CKD CRE at baseline avoid nephrotoxins T2DM ISS, basal insulin PRN Chronic pituitary insufficiency obtain thyroid panel, Cortisol AM, ACTH AM Increase synthroid to 175mcg qAM Endo consult: lobito Tele monitoring DVT ppx: Lovenox SC Her low hemoglobin of 9.7 will repeat today if still the same will discharge home tomorrow morning to be seen by her primary care doctor to work-up for chronic anemia. Visit type - Emergency Visit Emergency Visit: Yes ED Registration Date: 02/01/20 Care time: The patient presented to the Emergency Department on the above date and was hospitalized for further evaluation of their emergent condition. - New Patient This patient is new to me today: Yes Date on this admission: 02/02/20 - Critical Care Critical Care patient: No - Discharge Referral Referred to [facility] No
--- NOTE | 2020-02-02 12:41 | CONSULT ---
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 States that was feeling weak while walking so she sat down on her bed. She looked at the clock at ~ 8:30pm then noticed the clock read ~ 8:36pm. Denies LOC, being found on floor, confusion, weakness, CP, SOB, loss of bowel/bladder control. She has been feeling weak with sensation of lightheadedness x3d, us ually when getting up from seated position. She also has complaint of rhinorrhea, wheezing, cough with white sputum x3d. Wheezing has improved. States that she has been compliant with her prednisone 5mg BID and levothyroxine 125mcg. 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 12/16/19 Atorvastatin Ca [Lipitor] 20 mg PO DAILY 30 Days #30 tablet 12/16/19 Calcium Carbonate/Vitamin D3 [Calcium 500-Vit D3 200 Caplet] 1 each PO DAILY 30 Days #30 tablet 12/16/19 Ferrous Sulfate [Feosol] 325 mg PO DAILY 30 Days #30 tablet 12/16/19 Levothyroxine [Synthroid -] 150 mcg PO DAILY 30 Days #30 tablet 12/16/19 Prednisone 5 mg PO DAILY 30 Days #30 tablet 12/16/19 Verapamil HCl [Verapamil ER] 180 mg PO DAILY 30 Days #30 [email or web address].pel 12/16/19 Review of Systems - Review of Systems Constitutional: reports: No Symptoms Eyes: reports: No Symptoms HENT: reports: No Symptoms Neck: reports: No Symptoms Cardiovascular: reports: No Symptoms Respiratory: reports: SOB Gastrointestinal: reports: No Symptoms Genitourinary: reports: No Symptoms Musculoskeletal: reports: No Symptoms Endocrine: reports: No Symptoms Physical Exam Vital Signs: Vital Signs Temperature 97.6 F 02/01/20 15:45 Pulse Rate 77 02/01/20 23:00 Respiratory Rate 19 02/02/20 04:00 Blood Pressure 98/62 02/01/20 23:00 O2 Sat by Pulse Oximetry (%) 100 02/02/20 04:00 Constitutional: Yes: No Distress, Calm Eyes: Yes: Conjunctiva Clear, EOM Intact HENT: Yes: Atraumatic, Normocephalic Neck: Yes: Supple, Trachea Midline Cardiovascular: Yes: Regular Rate and Rhythm Respiratory: Yes: Regular, CTA Bilaterally Gastrointestinal: Yes: Normal Bowel Sounds, Soft Musculoskeletal: Yes: WNL Extremities: Yes: WNL Edema: No Neurological: Yes: Alert, Oriented Labs: CBC, BMP 02/01/20 02:00 02/01/20 02:00 Assessment/Plan AP: Mild Asthma Exacerbation Adrenal Insufficiency HTN DM Hyperlipideima Hypothyroidism h/o Pituitary Mass s/p resection Start Prednisone 5mg stat and daily, Pt should be discharged on the same LT4 175mcg QD Bronchodilators PRN
--- NOTE | 2020-02-02 13:00 | PN ---
Progress Note (short form) - Note Progress Note: Breathing feels overall better. Less SOB and cough. Intake & Output 01/30/20 01/31/20 02/01/20 02/02/20 23:59 23:59 23:59 23:59 Intake Total 240 1810 Balance 240 1810 Weight 158 lb Last Vital Signs Temp Pulse Resp BP Pulse Ox 97.6 F 77 19 98/62 100 02/01/20 15:45 02/01/20 23:00 02/02/20 04:00 02/01/20 23:00 02/02/20 04:00 Active Medications Albuterol/Ipratropium (Duoneb -) 1 amp NEB RQID [facility] Last Admin: 02/01/20 23:11 Dose: Not Given Documented by: Heparin Sodium (Porcine) (Heparin -) 5,000 unit SQ TID [facility] Last Admin: 02/02/20 07:53 Dose: 5,000 unit Documented by: Sodium Chloride (Normal Saline -) 1,000 mls @ 83 mls/hr IV ASDIR [facility] Last Admin: 02/02/20 11:57 Dose: 83 mls/hr Documented by: Insulin Aspart (Novolog Vial Sliding Scale -) 1 vial SQ ACHS [facility]; Protocol Last Admin: 02/02/20 12:07 Dose: Not Given Documented by: Levothyroxine Sodium 75 mcg/ (Levothyroxine Sodium 100 mcg) 175 mcg PO DAILY@0700 [facility] Last Admin: 02/02/20 07:54 Dose: 175 mcg Documented by: Verapamil HCl (Calan Sr -) 180 mg PO DAILY [facility] Last Admin: 02/02/20 12:12 Dose: Not Given Documented by: Constitutional: Yes: Calm Eyes: Yes: Conjunctiva Clear, EOM Intact HENT: Yes: Atraumatic, Normocephalic Neck: Yes: Supple, Trachea Midline Cardiovascular: Yes: Regular Rate and Rhythm Respiratory: Yes: Diminished (decreased breath sounds at the bases) ...Clubbing: No Gastrointestinal: Yes: Normal Bowel Sounds, Soft. No: Tenderness Edema: No Neurological: Yes: Alert, Oriented Labs: Laboratory Results - last 24 hr 02/01/20 02/02/20 22:28 12:04 POC Glucometer 122 86 Imaging - Results Chest X-ray: Report Reviewed, Image Reviewed (no infiltrates) Assessment/Plan Mild Asthma Exacerbation HTN DM Hyperlipideima Hypothyroidism h/o Pituitary Mass s/p resection - BD TX as ordered - Defer systemic steroids at this time - O2 to keep Spo2 >90% - outpt PFTs - DVT prophylaxis - DC planning Dr Valencia
[2020-02-02] MEDS ORDERED: predniSONE 10 MG TABLET (UD) PO ONE (16:09)
[2020-02-02 16:26] LABS: BASO % 0.1 % (0-2.0); EOS % 0.3 % (0-4.5); HEMATOCRIT 27.7 % (32.4-45.2); MCH 26.4 pg (25.7-33.7); MCHC 32.4 g/dl (32.0-36.0); MEAN CELL VOLUME 81.3 fl (80-96); MEAN PLT VOLUME 9.4 fl (7.5-11.1); MONO % 6.1 % (3.8-10.2); NEUT % 75.5 % (42.8-82.8); PLATELET COUNT 217 K/MM3 (134-434); RBC 3.41 M/mm3 (3.60-5.2); RDW 14.7 % (11.6-15.6); WHITE BLOOD COUNT 10.1 K/mm3 (4.0-10.0)
[2020-02-02 16:50] LABS: ALBUMIN 3.5 g/dl (3.4-5.0); BILIRUBIN,TOTAL 0.3 mg/dL (0.2-1); BLOOD UREA NITROGEN 13.6 mg/dL (7-18); CALCIUM 8.9 mg/dL (8.5-10.1); CREATININE 1.2 mg/dL (0.55-1.3); MAGNESIUM 1.9 mg/dL (1.8-2.4); PHOSPHOROUS 1.7 mg/dL (2.5-4.9); POTASSIUM 4.1 mmol/L (3.5-5.1); TOT PROT 7.2 g/dl (6.4-8.2)
[2020-02-03] MEDS ORDERED: PT OWN MED DRAWER 7, Y5N ONE (05:28)
[2020-02-03] MEDS: SODIUM CHLORIDE 1,000 ML IV SCH (06:38)
[2020-02-03] MEDS: HEPARIN NA (PORCINE) 5,000 UNITS/ML 1ML VIAL SQ SCH ×3 (06:39→21:44)
[2020-02-03] MEDS: INSULIN SLIDING SCALE (NOVOLOG) 1 VIAL SQ SCH ×3 (06:39→17:19)
[2020-02-03] MEDS: predniSONE 5 MG TABLET (UD) PO SCH (06:39)
[2020-02-03] MEDS: LEVOTHYROXINE 75 MCG, LEVOTHYROXINE 100 MCG PO SCH (06:39)
[2020-02-03] MEDS: ALBUTEROL SO4 2.5/IPRATROPIUM 0.5 INH SOL 3 ML VIAL.NEB. NEB SCH ×5 (08:15→20:20)
[2020-02-03] MEDS: VERAPAMIL HCL 180 MG E.R. TABLET PO SCH (09:46)
--- NOTE | 2020-02-03 10:38 | PN ---
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 Stated that was feeling weak while walking so she sat down on her bed. She looked at the clock at ~ 8:30pm then noticed the clock read ~ 8:36pm. Denied LOC, being found on floor, confusion, weakness, CP, SOB, loss of bowel/bladder control. She has been feeling weak with sensation of lightheadedness x3d, usually when getting up from seated position. She also has complaint of rhinorrhea, wheezing, cough with white sputum x3d. Wheezing has improved. Denied sick contacts. 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 Stated that she has been compliant with her prednisone 5mg BID and levothyroxine 125mcg. During my evaluation, she was sleepy but arousable for interaction. Moving all extremities equally and does not have significant weakness. Was able to tell me that she is at [facility] as well as month and year. Did not seem to have memory issues. CT Head performed and showed moderate atrophy and no intracranial pathology. Left mastoid effusion. Carotid U/S completed and demonstrated B/L mild intimal thickening at distal CCA and at bifurcation w/o HD significant stenosis. Neurologically without significant deficits. hospitalist note reviewed, medical optimization occurring, pulm note reviewed. Neurologically stable. Active Medications Albuterol/Ipratropium (Duoneb -) 1 amp NEB RQID [facility] Last Admin: 02/03/20 08:15 Dose: 1 amp Documented by: Heparin Sodium (Porcine) (Heparin -) 5,000 unit SQ TID [facility] Last Admin: 02/03/20 06:39 Dose: 5,000 unit Documented by: Sodium Chloride (Normal Saline -) 1,000 mls @ 83 mls/hr IV ASDIR [facility] Last Admin: 02/03/20 06:38 Dose: 83 mls/hr Documented by: Insulin Aspart (Novolog Vial Sliding Scale -) 1 vial SQ ACHS [facility]; Protocol Last Admin: 02/03/20 06:39 Dose: Not Given Documented by: Levothyroxine Sodium 75 mcg/ (Levothyroxine Sodium 100 mcg) 175 mcg PO DAILY@0700 [facility] Last Admin: 02/03/20 06:39 Dose: 175 mcg Documented by: Prednisone (Deltasone -) 5 mg PO DAILY@0700 [facility] Last Admin: 02/03/20 06:39 Dose: 5 mg Documented by: Verapamil HCl (Calan Sr -) 180 mg PO DAILY [facility] Last Admin: 02/03/20 09:46 Dose: 180 mg Documented by: PHYSICAL EXAMINATION Vital Signs Period Temp Pulse Resp BP Sys/Long Pulse Ox Last 24 Hr 98 F-98.4 F 68-101 11-20 92-133/58-85 100-100 GENERAL: Awake, alert, and fully oriented, in no acute distress. Pleasant HEAD: NC/AT EYES: extraocular movements intact, sclera anicteric, conjunctiva clear. No lid lag. EARS, NOSE, THROAT: Ears normal, nares patent, oropharynx clear without exudates. Moist mucous membranes. Large tongue NECK: Normal range of motion, supple without lymphadenopathy, JVD, or masses. LUNGS: Breath sounds equal, clear to auscultation bilaterally. Very faint wheezes, and no crackles. No accessory muscle use. HEART: Regular rate and rhythm, normal S1 and S2 without murmur, rub or gallop. ABDOMEN: Soft, nontender, not distended, normoactive bowel sounds, no guarding, no rebound, no masses. MUSCULOSKELETAL: Normal range of motion at all joints. No bony deformities or tenderness. No CVA tenderness. UPPER EXTREMITIES: 2+ pulses, warm, well-perfused. No cyanosis. No clubbing. No peripheral edema. LOWER EXTREMITIES: 2+ pulses, warm, well-perfused. No calf tenderness. No peripheral edema. NEUROLOGICAL: Normal speech, knows she is in the hospital and can tell methe name, moves all extremities equally, sensory intact PSYCHIATRIC: Cooperative. Good eye contact. Appropriate mood and affect. SKIN: Warm, dry, normal turgor, no rashes or lesions noted, normal capillary refill. CBCD WBC 10.1 K/mm3 (4.0-10.0) H 02/02/20 15:45 RBC 3.41 M/mm3 (3.60-5.2) L 02/02/20 15:45 Hgb 9.0 GM/dL (10.7-15.3) L 02/02/20 15:45 Hct 27.7 % (32.4-45.2) L 02/02/20 15:45 MCV 81.3 fl (80-96) 02/02/20 15:45 MCHC 32.4 g/dl (32.0-36.0) 02/02/20 15:45 RDW 14.7 % (11.6-15.6) 02/02/20 15:45 Plt Count 217 K/MM3 (134-434) 02/02/20 15:45 MPV 9.4 fl (7.5-11.1) 02/02/20 15:45 CMP Sodium 141 mmol/L (136-145) 02/02/20 15:45 Potassium 4.1 mmol/L (3.5-5.1) 02/02/20 15:45 Chloride 108 mmol/L (98-107) H 02/02/20 15:45 Carbon Dioxide 24 mmol/L (21-32) 02/02/20 15:45 Anion Gap 10 MMOL/L (8-16) 02/02/20 15:45 BUN 13.6 mg/dL (7-18) 02/02/20 15:45 Creatinine 1.2 mg/dL (0.55-1.3) 02/02/20 15:45 Random Glucose 91 mg/dL (74-106) 02/02/20 15:45 Calcium 8.9 mg/dL (8.5-10.1) 02/02/20 15:45 Total Bilirubin 0.3 mg/dL (0.2-1) 02/02/20 15:45 AST 25 U/L (15-37) 02/02/20 15:45 ALT 12 U/L (13-61) L 02/02/20 15:45 Alkaline Phosphatase 41 U/L (45-117) L 02/02/20 15:45 Total Protein 7.2 g/dl (6.4-8.2) 02/02/20 15:45 Albumin 3.5 g/dl (3.4-5.0) 02/02/20 15:45 CARDIAC ENZYMES Creatine Kinase 552 U/L (26-192) H 02/01/20 02:00 Troponin I < 0.02 ng/ml (0.00-0.05) 02/01/20 02:00 ASSESSMENT/PLAN: 60F w/ pmh of HTN, HLD, DM, hypothyroidism 2/2 to pituitary insufficiency, pitu itary mass s/p resection(>20ys prior) presented to [facility]-ED for complaint of sudden loss of short-term memory, lightheadedness and weakness. Stated that was feeling weak while walking so she sat down on her bed. She looked at the clock at ~ 8:30pm then noticed the clock read ~ 8:36pm. Denied LOC, being found on floor, confusion, weakness, CP, SOB, loss of bowel/bladder control. She has been feeling weak with sensation of lightheadedness x3d, usually when getting up from seated position. She also has complaint of rhinorrhea, wheezing, cough with white sputum x3d. Wheezing has improved. Denied sick contacts. 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 Stated that she has been compliant with her prednisone 5mg BID and levothyroxine 125mcg. During my evaluation, she was sleepy but arousable for interaction. Moving all extremities equally and does not have significant weakness. Was ableto tell me that she is at [facility] as well as month and year. Did not seem to have memory issues. Neurologically without significant deficits. hospitalist note reviewed, medical optimization occurring, for endocrinology consult due to prior pituitary insufficiency, no objection to this. Continue blood pressure medication, maintain less than 140/90, currently normotensive. Continue management of diabetes, maintain euglycemic range. Pulm note reviewed. Neurologically stable. No further neurologic recommendation at this time.
--- NOTE | 2020-02-03 11:04 | PN ---
Progress Note (short form) - Note Progress Note: PULMONARY Denies shortness of breath, cough or wheezing. Vital Signs Period Temp Pulse Resp BP Sys/Long Pulse Ox Last 24 Hr 98 F-98.4 F 68-101 11-20 92-133/58-85 100-100 Gen: NAD at rest Heart: RRR Lung: decreased breath sounds at the bases Abd: soft, nontender Ext: no edema CBC, BMP 02/02/20 15:45 02/02/20 15:45 Active Medications Albuterol/Ipratropium (Duoneb -) 1 amp NEB RQID [facility] Last Admin: 02/03/20 08:15 Dose: 1 amp Documented by: Heparin Sodium (Porcine) (Heparin -) 5,000 unit SQ TID [facility] Last Admin: 02/03/20 06:39 Dose: 5,000 unit Documented by: Sodium Chloride (Normal Saline -) 1,000 mls @ 83 mls/hr IV ASDIR [facility] Last Admin: 02/03/20 06:38 Dose: 83 mls/hr Documented by: Insulin Aspart (Novolog Vial Sliding Scale -) 1 vial SQ ACHS [facility]; Protocol Last Admin: 02/03/20 06:39 Dose: Not Given Documented by: Levothyroxine Sodium 75 mcg/ (Levothyroxine Sodium 100 mcg) 175 mcg PO DAILY@0700 [facility] Last Admin: 02/03/20 06:39 Dose: 175 mcg Documented by: Prednisone (Deltasone -) 5 mg PO DAILY@0700 [facility] Last Admin: 02/03/20 06:39 Dose: 5 mg Documented by: Verapamil HCl (Calan Sr -) 180 mg PO DAILY [facility] Last Admin: 02/03/20 09:46 Dose: 180 mg Documented by: A/P Mild Asthma Exacerbation HTN DM Hyperlipideima Hypothyroidism h/o Pituitary Mass s/p resection - continue inhaled bronchodilators - can defer systemic steroids at this time - O2 to keep Spo2 >90% - outpt PFTs - DVT prophylaxis
[2020-02-03] MEDS ORDERED: DEXTROSE 50%-WATER - 25 GM/50 ML VIAL IVPUSH PRN (18:36)
--- NOTE | 2020-02-03 18:43 | PN ---
Progress Note, Physician History of Present Illness: seen and examined at bedside. Denies any symptoms. no nausea vomiting fever chills chest pain or SOB. diarrhea resolved. - Current Medication List Current Medications: Active Medications Albuterol/Ipratropium (Duoneb -) 1 amp NEB RQID [facility] Last Admin: 02/03/20 17:06 Dose: 1 amp Documented by: Heparin Sodium (Porcine) (Heparin -) 5,000 unit SQ TID [facility] Last Admin: 02/03/20 14:35 Dose: 5,000 unit Documented by: Sodium Chloride (Normal Saline -) 1,000 mls @ 83 mls/hr IV ASDIR [facility] Last Admin: 02/03/20 06:38 Dose: 83 mls/hr Documented by: Levothyroxine Sodium 75 mcg/ (Levothyroxine Sodium 100 mcg) 175 mcg PO DAILY@0700 [facility] Last Admin: 02/03/20 06:39 Dose: 175 mcg Documented by: Prednisone (Deltasone -) 5 mg PO DAILY@0700 [facility] Last Admin: 02/03/20 06:39 Dose: 5 mg Documented by: Verapamil HCl (Calan Sr -) 180 mg PO DAILY [facility] Last Admin: 02/03/20 09:46 Dose: 180 mg Documented by: - Objective Vital Signs: Vital Signs Temperature 97.8 F 02/03/20 14:00 Pulse Rate 79 02/03/20 14:00 Respiratory Rate 15 02/03/20 14:00 Blood Pressure 106/65 02/03/20 14:00 O2 Sat by Pulse Oximetry (%) 100 02/03/20 07:56 Constitutional: Yes: No Distress, Calm Eyes: Yes: EOM Intact HENT: Yes: Atraumatic Neck: Yes: Supple Cardiovascular: Yes: Regular Rate and Rhythm Respiratory: Yes: CTA Bilaterally Gastrointestinal: Yes: WNL, Normal Bowel Sounds, Soft Edema: No Labs: CBC, BMP 02/02/20 15:45 02/02/20 15:45 INR, PTT INR 1.13 (0.83-1.09) H 02/01/20 02:00 Impression/Plan Impression/Plan: 60 F h/o HTN, HLD, T2DM, hypothyroidism 2/2 to pituitary insufficiency, 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 Reported syncopal episode All the workup negative to date COPD with acute exacerbation lungs clear no acute distress HTN cont. BP meds well controlled KENNY on CKD creatinine 1.2 at baseline patient is not diabetic HbA1C 4.7% Chronic pituitary insufficiency obtain thyroid panel, Cortisol AM, ACTH AM continue increased dose of synthroid to 175mcg qAM Endo consult noted and appreciated Prednsione 5mg po daily-discharge with this medication as well as increased synthroid 175mcg daily normocytic Anemia: Likely dilutional no signs or symptoms of bleeding Stop IVF now and will repeat CBC in AM Tele monitoring DVT ppx: Lovenox SC Discharge tomorrow Visit type - Emergency Visit Emergency Visit: Yes ED Registration Date: 02/01/20 Care time: The patient presented to the Emergency Department on the above date and was hospitalized for further evaluation of their emergent condition. - New Patient This patient is new to me today: Yes Date on this admission: 02/03/20 - Critical Care Critical Care patient: No
[2020-02-03] MEDS ORDERED: ACETAMINOPHEN 325 MG TABLET (FP) PO ONE (22:09)
[2020-02-04] MEDS ORDERED: PT OWN MED DRAWER 7, Y5N ONE (06:22)
[2020-02-04] MEDS: HEPARIN NA (PORCINE) 5,000 UNITS/ML 1ML VIAL SQ SCH (06:29)
[2020-02-04] MEDS: predniSONE 5 MG TABLET (UD) PO SCH (06:29)
[2020-02-04] MEDS: LEVOTHYROXINE 75 MCG, LEVOTHYROXINE 100 MCG PO SCH (06:29)
[2020-02-04 06:35] LABS: BASO % 0.3 % (0-2.0); EOS % 6.6 % (0-4.5); HEMATOCRIT 26.6 % (32.4-45.2); HEMOGLOBIN 8.7 GM/dL (10.7-15.3); LYMPH % 47.5 % (8-40); MCH 26.5 pg (25.7-33.7); MCHC 32.5 g/dl (32.0-36.0); MEAN CELL VOLUME 81.4 fl (80-96); MEAN PLT VOLUME 9.1 fl (7.5-11.1); MONO % 4.1 % (3.8-10.2); NEUT % 41.5 % (42.8-82.8); PLATELET COUNT 194 K/MM3 (134-434); RBC 3.27 M/mm3 (3.60-5.2); RDW 14.6 % (11.6-15.6); WHITE BLOOD COUNT 7.8 K/mm3 (4.0-10.0)
[2020-02-04 07:38] LABS: BLOOD UREA NITROGEN 15.3 mg/dL (7-18); CALCIUM 8.1 mg/dL (8.5-10.1); CREATININE 1.3 mg/dL (0.55-1.3); MAGNESIUM 1.8 mg/dL (1.8-2.4); PHOSPHOROUS 2.5 mg/dL (2.5-4.9)
[2020-02-04] MEDS: ALBUTEROL SO4 2.5/IPRATROPIUM 0.5 INH SOL 3 ML VIAL.NEB. NEB SCH ×2 (08:51→12:29)
[2020-02-04] MEDS: VERAPAMIL HCL 180 MG E.R. TABLET PO SCH (10:30)
[2020-02-04 10:44] VITALS: BP 117/82; PULSE 80; TEMP 98.2
--- NOTE | 2020-02-04 11:45 | DS ---
Physical Examination Vital Signs: Vital Signs Temperature 98.2 F 02/04/20 10:29 Pulse Rate 80 02/04/20 10:29 Respiratory Rate 17 02/04/20 10:29 Blood Pressure 117/82 02/04/20 10:29 O2 Sat by Pulse Oximetry (%) 100 02/03/20 21:00 Findings/Remarks: Constitutional: Yes: No Distress, Calm Eyes: Yes: EOM Intact HENT: Yes: Atraumatic Neck: Yes: Supple Cardiovascular: Yes: Regular Rate and Rhythm Respiratory: Yes: CTA Bilaterally Gastrointestinal: Yes: WNL, Normal Bowel Sounds, Soft Edema: No Labs: CBC, BMP 02/04/20 05:47 02/04/20 05:47 Discharge Summary Problems reviewed: Yes Reason For Visit: SHORTNESS OF BREATH,SYNCOPE Current Active Problems Shortness of breath (Acute) Syncope (Acute) Hospital Course: 60F w/ pmh of HTN, HLD, DM, hypothyroidism 2/2 to pituitary insufficiency, 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 States that was feeling weak while walking so she sat down on her bed. She looked at the clock at 8:30pm then noticed the clock read ~ 8:36pm. Denies LOC, being found on floor, confusion, weakness, CP, SOB, loss of bowel/bladder control. She has been feeling weak with sensation of lightheadedness x3d, usually when getting up from seated position. During hospital course patient improved. Seen by endocrinology and synthroid increased to 175mcg and also started on prednisone 5mg po daily. Will follow up with Dr. Reeder for outpatient PFTs. Condition: Improved - Instructions Diet, Activity, Other Instructions: if you have worsening of your symptoms or nausea vomiting fever chills cough chest pain or shortness of breath please go to the nearest emergency room. Please meat pickler your prescriptions. Take all medications as prescribed. Follow up with Dr. Lopez from endocrinology. Referrals: David Pink MD [Primary Care Provider] - 1 Week Shantal Lopez MD [Staff Physician] - 2 Weeks Eusebio Reeder MD [Staff Physician] - 1 Month (outpatient PFTs) Disposition: HOME - Home Medications Comprehensive Discharge Medication List: Ambulatory Orders Aspirin [Aspirin EC] 81 mg PO DAILY #30 tablet. 12/16/19 Atorvastatin Ca [Lipitor] 20 mg PO DAILY 30 Days #30 tablet 12/16/19 Calcium Carbonate/Vitamin D3 [Calcium 500-Vit D3 200 Caplet] 1 each PO DAILY 30 Days #30 tablet 12/16/19 Ferrous Sulfate [Feosol] 325 mg PO DAILY 30 Days #30 tablet 12/16/19 Verapamil HCl [Verapamil ER] 180 mg PO DAILY 30 Days #30 cap24h.pel 12/16/19 Levothyroxine [Synthroid -] 175 mcg PO DAILY@0700 #30 tablet 02/04/20 predniSONE [Deltasone -] 5 mg PO DAILY@0700 #30 tablet 02/04/20 This patient is new to me today: No Emergency Visit: Yes ED Registration Date: 02/01/20 Care time: The patient presented to the Emergency Department on the above date and was hospitalized for further evaluation of their emergent condition. Critical Care patient: No - Discharge Referral Referred to [facility] Med [facility].C[facility] No Physician Referral: David Lowery MD ([facility])
--- NOTE | 2020-02-04 12:25 | PN ---
Progress Note (short form) - Note Progress Note: PULMONARY Denies shortness of breath, cough or wheezing. Vital Signs Period Temp Pulse Resp BP Sys/Long Pulse Ox Last 24 Hr 97.8 F-98.4 F 72-80 14-17 106-125/65-82 100 Gen: NAD at rest Heart: RRR Lung: decreased breath sounds at the bases Abd: soft, nontender Ext: no edema CBC, BMP 02/04/20 05:47 02/04/20 05:47 Active Medications Albuterol/Ipratropium (Duoneb -) 1 amp NEB RQID [facility] Last Admin: 02/04/20 08:51 Dose: 1 amp Documented by: Heparin Sodium (Porcine) (Heparin -) 5,000 unit SQ TID [facility] Last Admin: 02/04/20 06:29 Dose: 5,000 unit Documented by: Levothyroxine Sodium 75 mcg/ (Levothyroxine Sodium 100 mcg) 175 mcg PO YASMANY LY@0700 [facility] Last Admin: 02/04/20 06:29 Dose: 175 mcg Documented by: Prednisone (Deltasone -) 5 mg PO DAILY@0700 [facility] Last Admin: 02/04/20 06:29 Dose: 5 mg Documented by: Verapamil HCl (Calan Sr -) 180 mg PO DAILY [facility] Last Admin: 02/04/20 10:30 Dose: 180 mg Documented by: A/P Mild Asthma Exacerbation HTN DM Hyperlipideima Hypothyroidism h/o Pituitary Mass s/p resection - continue inhaled bronchodilators - can defer systemic steroids at this time - O2 to keep Spo2 >90% - outpt PFTs - DVT prophylaxis - d/c planning
== END 2020-02-04 14:00 | disposition home or self-care (01) | DRG 140 ==
LOC: JER 23:27 → JERBED 02-01 04:18 → J2W 02-01 17:59
PROVIDERS: ADMIT Internal Medicine; ATTEND Internal Medicine
DX: J44.1 Chronic obstructive pulmonary disease with (acute) exacerbation (principal); I25.10 Atherosclerotic heart disease of native coronary artery without angina pectoris; E78.00 Pure hypercholesterolemia, unspecified; I10 Essential (primary) hypertension; E11.9 Type 2 diabetes mellitus without complications; R55 Syncope and collapse; E23.0 Hypopituitarism; Z88.0 Allergy status to penicillin; E89.0 Postprocedural hypothyroidism; D64.9 Anemia, unspecified; J34.89 Other specified disorders of nose and nasal sinuses; I12.9 Hypertensive chronic kidney disease with stage 1 through stage 4 chronic kidney disease, or unspecified chronic kidney disease; E11.22 Type 2 diabetes mellitus with diabetic chronic kidney disease; N18.9 Chronic kidney disease, unspecified
CPT/HCPCS: 36415; 70450-TC; 71046-TC-FY; 80048; 80053; 80061; 81003; 82024; 82533; 82550; 82553; 82962; 83036; 83721; 83735; 84100; 84439; 84484; 85025; 85610; 87086; 93005; 93010; 93880-TC; 94640; 99285-25; J1644; J7030

== ENCOUNTER 2020-12-17 21:29 | Inpatient (IN) | payer OTHER ==
[2020-12-17 21:41] VITALS: BMI 22.6
[2020-12-17] MEDS ORDERED: SODIUM CHLORIDE 0.9% 500 ML INFUS.BAG IV ONE (23:24)
[2020-12-17 23:50] LABS: BASO % 0.9 % (0-2.0); EOS % 2.5 % (0-4.5); HEMATOCRIT 31.2 % (32.4-45.2); HEMOGLOBIN 10.1 GM/dL (10.7-15.3); LYMPH % 60.5 % (8-40); MCH 26.4 pg (25.7-33.7); MCHC 32.3 g/dl (32.0-36.0); MEAN CELL VOLUME 81.5 fl (80-96); MONO % 4.8 % (3.8-10.2); NEUT % 31.3 % (42.8-82.8); PLATELET COUNT 253 K/MM3 (134-434); RBC 3.83 M/mm3 (3.60-5.2); RDW 15.7 % (11.6-15.6); WHITE BLOOD COUNT 4.4 K/mm3 (4.0-10.0)
[2020-12-18 00:11] LABS: CHLORIDE 104 mmol/L (98-107); POTASSIUM 3.4 mmol/L (3.5-5.1); SODIUM 140 mmol/L (136-145)
[2020-12-18 00:13] LABS: CALCIUM 9.2 mg/dL (8.5-10.1)
[2020-12-18 00:14] LABS: ALBUMIN 3.8 g/dl (3.4-5.0); ANION GAP 9 MMOL/L (8-16); BLOOD UREA NITROGEN 6.6 mg/dL (7-18); CO2 27 mmol/L (21-32); GLUCOSE,RANDOM 81 mg/dL (74-106); MAGNESIUM 2.1 mg/dL (1.8-2.4)
[2020-12-18 00:17] LABS: CREATININE 1.5 mg/dL (0.55-1.3); SGOT/AST 120 U/L (15-37); SGPT/ALT 34 U/L (13-61)
[2020-12-18 00:18] LABS: BILIRUBIN,TOTAL 0.7 mg/dL (0.2-1); TOT PROT 7.4 g/dl (6.4-8.2)
[2020-12-18 00:19] LABS: ALK PHOS 30 U/L (45-117)
[2020-12-18 00:22] LABS: N-TERMINAL BNP 76.9 pg/ml (5-125)
[2020-12-18] MEDS ORDERED: ACETAMINOPHEN 325 MG TABLET (FP) PO ONE (01:46)
[2020-12-18] MEDS ORDERED: SODIUM CHLORIDE 1,000 ML IV STA (01:51)
[2020-12-18] MEDS ORDERED: POTASSIUM CHLORIDE ORAL LIQUID 20 MEQ/15 ML PO ONE (01:51)
[2020-12-18] MEDS ORDERED: ACETAMINOPHEN 325 MG TABLET (FP) ONE (01:57)
[2020-12-18] MEDS ORDERED: POTASSIUM CHLORIDE ORAL LIQUID 20 MEQ/15 ML ONE (01:57)
[2020-12-18 02:47] LABS: EPI CELLS 13 /uL (0-25.1); HYALINE CASTS 4 /uL (0-3.1); URINE APPEARANCE CLEAR; URINE BACTERIA 215 /uL (0-1359); URINE BILIRUBIN NEGATIVE (NEGATIVE); URINE COLOR YELLOW; URINE GLUCOSE (UA) NEGATIVE (NEGATIVE); URINE KETONE TRACE (NEGATIVE); URINE LEUK ESTERASE TRACE (NEGATIVE); URINE NITRITE NEGATIVE (NEGATIVE); URINE PROTEIN TRACE (NEGATIVE); URINE RBC 8 /uL (0-23.9); URINE WBC 43 /uL (0-25.8)
[2020-12-18] MEDS: SODIUM CHLORIDE 1,000 ML IV SCH (04:53)
[2020-12-18] MEDS ORDERED: HEPARIN NA (PORCINE) 5,000 UNITS/ML 1ML VIAL ONE ×2 (06:33→14:04)
[2020-12-18] MEDS: HEPARIN NA (PORCINE) 5,000 UNITS/ML 1ML VIAL SQ SCH ×3 (06:37→23:26)
[2020-12-18] MEDS: INSULIN SLIDING SCALE (NOVOLOG) 1 VIAL SQ SCH ×4 (08:49→22:30)
[2020-12-18 11:07] LABS: PHOSPHOROUS 3.1 mg/dL (2.5-4.9)
[2020-12-18] MEDS ORDERED: PANTOPRAZOLE 40 MG TABLET ONE (11:36)
[2020-12-18] MEDS: PANTOPRAZOLE 40 MG TABLET PO SCH (11:55)
[2020-12-18] MEDS: predniSONE 5 MG TABLET (UD) PO SCH ×2 (13:01→23:26)
[2020-12-18 13:56] LABS: CHLORIDE 105 mmol/L (98-107); POTASSIUM 3.7 mmol/L (3.5-5.1); SODIUM 138 mmol/L (136-145)
[2020-12-18 13:59] LABS: CALCIUM 8.9 mg/dL (8.5-10.1)
[2020-12-18 14:00] LABS: ANION GAP 7 MMOL/L (8-16); BLOOD UREA NITROGEN 6.5 mg/dL (7-18); CO2 25 mmol/L (21-32); GLUCOSE,RANDOM 75 mg/dL (74-106)
[2020-12-18 14:03] LABS: CREATININE 1.5 mg/dL (0.55-1.3)
[2020-12-18 14:10] LABS: BASO % 0.5 % (0-2.0); HEMATOCRIT 32.6 % (32.4-45.2); HEMOGLOBIN 10.6 GM/dL (10.7-15.3); MCH 26.3 pg (25.7-33.7); MCHC 32.5 g/dl (32.0-36.0); MEAN CELL VOLUME 80.9 fl (80-96); MEAN PLT VOLUME 9.7 fl (7.5-11.1); MONO % 4.8 % (3.8-10.2); NEUT % 25.7 % (42.8-82.8); PLATELET COUNT 247 K/MM3 (134-434); RBC 4.03 M/mm3 (3.60-5.2); RDW 15.8 % (11.6-15.6); WHITE BLOOD COUNT 4.7 K/mm3 (4.0-10.0)
[2020-12-18 14:35] LABS: ANISOCYTOSIS 1+; MACROCYTOSIS 0; PLATELET ESTIMATE NORMAL; POTASSIUM 3.5 mmol/L (3.5-5.1); TARGET CELLS 1+
[2020-12-18 14:38] LABS: CALCIUM 8.6 mg/dL (8.5-10.1)
[2020-12-18 14:39] LABS: BLOOD UREA NITROGEN 6.6 mg/dL (7-18); MAGNESIUM 1.9 mg/dL (1.8-2.4)
[2020-12-18 14:42] LABS: CREATININE 1.5 mg/dL (0.55-1.3)
[2020-12-18] MEDS ORDERED: SODIUM CHLORIDE 500 ML IV STA (22:16)
[2020-12-19] MEDS ORDERED: SODIUM CHLORIDE 250 ML IV STA (00:18)
[2020-12-19] MEDS ORDERED: SODIUM CHLORIDE 500 ML IV STA (01:59)
[2020-12-19] MEDS ORDERED: SODIUM CHLORIDE 1,000 ML IV STA (02:03)
[2020-12-19] MEDS ORDERED: LEVOTHYROXINE NA 125 MCG TABLET (FP) ONE (05:25)
[2020-12-19] MEDS ORDERED: LEVOTHYROXINE NA 50 MCG TABLET (FP) ONE (05:26)
[2020-12-19] MEDS: SODIUM CHLORIDE 1,000 ML IV SCH (06:03)
[2020-12-19] MEDS: HEPARIN NA (PORCINE) 5,000 UNITS/ML 1ML VIAL SQ SCH ×3 (06:04→21:46)
[2020-12-19] MEDS: LEVOTHYROXINE 125 MCG, LEVOTHYROXINE 50 MCG PO SCH (06:04)
[2020-12-19] MEDS: INSULIN SLIDING SCALE (NOVOLOG) 1 VIAL SQ SCH ×4 (06:57→21:48)
[2020-12-19] MEDS ORDERED: LEVOTHYROXINE NA 100 MCG TABLET (FP) PO SCH (07:00)
[2020-12-19 07:26] LABS: HEMATOCRIT 39.7 % (32.4-45.2); HEMOGLOBIN 12.7 GM/dL (10.7-15.3); MCH 26.3 pg (25.7-33.7); MCHC 32.1 g/dl (32.0-36.0); MEAN CELL VOLUME 81.9 fl (80-96); MEAN PLT VOLUME 10.7 fl (7.5-11.1); PLATELET COUNT 237 K/MM3 (134-434); RBC 4.85 M/mm3 (3.60-5.2); RDW 16.1 % (11.6-15.6); WHITE BLOOD COUNT 6.6 K/mm3 (4.0-10.0)
[2020-12-19 07:49] LABS: POTASSIUM 4.8 mmol/L (3.5-5.1)
[2020-12-19 07:51] LABS: CALCIUM 8.6 mg/dL (8.5-10.1)
[2020-12-19 07:52] LABS: ALBUMIN 3.4 g/dl (3.4-5.0); BLOOD UREA NITROGEN 7.1 mg/dL (7-18)
[2020-12-19 07:55] LABS: CREATININE 1.4 mg/dL (0.55-1.3)
[2020-12-19 07:56] LABS: BILIRUBIN,TOTAL 0.6 mg/dL (0.2-1)
[2020-12-19 07:57] LABS: TOT PROT 7.4 g/dl (6.4-8.2)
[2020-12-19] MEDS: CALCIUM 500MG/VIT-D 200 UNITS COMBO TABLET (FP) PO SCH (10:22)
[2020-12-19] MEDS: VERAPAMIL HCL 180 MG E.R. TABLET PO SCH (10:22)
[2020-12-19] MEDS: PANTOPRAZOLE 40 MG TABLET PO SCH (10:22)
[2020-12-19] MEDS: FERROUS SO4 325 MG TABLET (FP) PO SCH (10:23)
[2020-12-19] MEDS: ASPIRIN COATED 81 MG TABLET.EC PO SCH (10:23)
[2020-12-19] MEDS: predniSONE 5 MG TABLET (UD) PO SCH ×2 (10:23→21:44)
[2020-12-20] MEDS: SODIUM CHLORIDE 1,000 ML IV SCH (04:45)
[2020-12-20] MEDS ORDERED: LEVOTHYROXINE NA 125 MCG TABLET (FP) ONE (06:10)
[2020-12-20] MEDS ORDERED: LEVOTHYROXINE NA 50 MCG TABLET (FP) ONE (06:10)
[2020-12-20] MEDS: INSULIN SLIDING SCALE (NOVOLOG) 1 VIAL SQ SCH ×4 (06:16→22:40)
[2020-12-20] MEDS: LEVOTHYROXINE 125 MCG, LEVOTHYROXINE 50 MCG PO SCH (06:16)
[2020-12-20] MEDS: HEPARIN NA (PORCINE) 5,000 UNITS/ML 1ML VIAL SQ SCH ×3 (06:16→22:18)
[2020-12-20] MEDS ORDERED: PT OWN MED DRAWER 7, Y5N ONE (08:13)
[2020-12-20 08:19] LABS: BASO % 0.2 % (0-2.0); HEMATOCRIT 29.4 % (32.4-45.2); HEMOGLOBIN 9.7 GM/dL (10.7-15.3); LYMPH % 25.1 % (8-40); MCH 26.7 pg (25.7-33.7); MEAN CELL VOLUME 80.8 fl (80-96); MEAN PLT VOLUME 10.5 fl (7.5-11.1); MONO % 2.6 % (3.8-10.2); NEUT % 72.1 % (42.8-82.8); PLATELET COUNT 239 K/MM3 (134-434); RBC 3.64 M/mm3 (3.60-5.2); RDW 15.7 % (11.6-15.6); WHITE BLOOD COUNT 6.5 K/mm3 (4.0-10.0)
[2020-12-20 08:27] LABS: POTASSIUM 4.4 mmol/L (3.5-5.1)
[2020-12-20 08:28] LABS: CALCIUM 8.6 mg/dL (8.5-10.1)
[2020-12-20 08:29] LABS: ALBUMIN 3.5 g/dl (3.4-5.0); BLOOD UREA NITROGEN 11.7 mg/dL (7-18)
[2020-12-20 08:30] LABS: MAGNESIUM 1.9 mg/dL (1.8-2.4)
[2020-12-20 08:32] LABS: CREATININE 1.7 mg/dL (0.55-1.3)
[2020-12-20 08:34] LABS: BILIRUBIN,TOTAL 0.8 mg/dL (0.2-1)
[2020-12-20] MEDS: FERROUS SO4 325 MG TABLET (FP) PO SCH (09:03)
[2020-12-20] MEDS: VERAPAMIL HCL 180 MG E.R. TABLET PO SCH (09:03)
[2020-12-20] MEDS: CALCIUM 500MG/VIT-D 200 UNITS COMBO TABLET (FP) PO SCH (09:03)
[2020-12-20] MEDS: predniSONE 5 MG TABLET (UD) PO SCH ×2 (09:03→22:21)
[2020-12-20] MEDS: PANTOPRAZOLE 40 MG TABLET PO SCH (09:03)
[2020-12-20] MEDS: ASPIRIN COATED 81 MG TABLET.EC PO SCH (09:03)
[2020-12-20] MEDS ORDERED: LEVOTHYROXINE SODIUM 100 MCG VIAL IVPUSH SCH (10:00)
[2020-12-21] MEDS ORDERED: predniSONE 5 MG TABLET (UD) PO SCH (00:52)
[2020-12-21] MEDS ORDERED: LIOTHYRONINE SODIUM 5 MCG TABLET PO SCH (07:00)
[2020-12-21 07:12] LABS: BASO % 0.2 % (0-2.0); EOS % 0.1 % (0-4.5); HEMATOCRIT 27.5 % (32.4-45.2); HEMOGLOBIN 9.3 GM/dL (10.7-15.3); LYMPH % 23.4 % (8-40); MCHC 33.7 g/dl (32.0-36.0); MEAN CELL VOLUME 79.9 fl (80-96); MEAN PLT VOLUME 10.1 fl (7.5-11.1); NEUT % 73.3 % (42.8-82.8); PLATELET COUNT 231 K/MM3 (134-434); RBC 3.43 M/mm3 (3.60-5.2); WHITE BLOOD COUNT 5.8 K/mm3 (4.0-10.0)
[2020-12-21 07:34] LABS: POTASSIUM 3.7 mmol/L (3.5-5.1)
[2020-12-21 07:41] LABS: ALBUMIN 3.4 g/dl (3.4-5.0); BLOOD UREA NITROGEN 12.3 mg/dL (7-18); CALCIUM 8.4 mg/dL (8.5-10.1)
[2020-12-21 07:42] LABS: MAGNESIUM 2.1 mg/dL (1.8-2.4)
[2020-12-21 07:45] LABS: CREATININE 1.5 mg/dL (0.55-1.3)
[2020-12-21 07:46] LABS: BILIRUBIN,TOTAL 0.6 mg/dL (0.2-1); TOT PROT 6.8 g/dl (6.4-8.2)
[2020-12-21] MEDS ORDERED: ERGOCALCIFEROL (VIT D2) 50,000 UNIT (1.25 MG) CAPSULE PO ONE (09:00)
[2020-12-21] MEDS: FERROUS SO4 325 MG TABLET (FP) PO SCH (10:14)
[2020-12-21] MEDS: CALCIUM 500MG/VIT-D 200 UNITS COMBO TABLET (FP) PO SCH (10:14)
[2020-12-21] MEDS: PANTOPRAZOLE 40 MG TABLET PO SCH (10:14)
[2020-12-21] MEDS: ASPIRIN COATED 81 MG TABLET.EC PO SCH (10:14)
[2020-12-21] MEDS ORDERED: PT OWN MED DRAWER 7, Y5N ONE (10:20)
[2020-12-21] MEDS: VERAPAMIL HCL 180 MG E.R. TABLET PO SCH (10:20)
[2020-12-21 11:35] VITALS: BP 148/64; PULSE 76; TEMP 97.5
== END 2020-12-21 14:24 | disposition home health service (06) | DRG 351 ==
LOC: JER 21:29 → JERBED 12-18 02:11 → J4W 12-18 21:43
PROVIDERS: ADMIT Hospitalist; ATTEND Nurse Practitioner Acute Care
DX: M62.82 Rhabdomyolysis (principal); G93.41 Metabolic encephalopathy; N17.9 Acute kidney failure, unspecified; R74.01 Elevation of levels of liver transaminase levels; I12.9 Hypertensive chronic kidney disease with stage 1 through stage 4 chronic kidney disease, or unspecified chronic kidney disease; E11.22 Type 2 diabetes mellitus with diabetic chronic kidney disease; N18.30 Chronic kidney disease, stage 3 unspecified; E23.0 Hypopituitarism; R41.0 Disorientation, unspecified; R74.8 Abnormal levels of other serum enzymes; G43.909 Migraine, unspecified, not intractable, without status migrainosus; E03.9 Hypothyroidism, unspecified; Z86.018 Personal history of other benign neoplasm
CPT/HCPCS: 36415; 70450-TC; 71046-TC-FY; 80048; 80053; 81003; 82024; 82533; 82550; 82553; 82962; 83735; 83880; 84100; 84439; 84443; 84484; 85025; 85027; 87086; 87804; 93005; 93010; 97116-GP; 97162-GP; 99291; C9803; J1644; U0003

== ENCOUNTER 2021-02-11 16:34 | Inpatient (IN) | payer OTHER ==
[2021-02-11 16:53] VITALS: BMI 20.7
[2021-02-11] MEDS ORDERED: LIDOCAINE 5% TOPICAL PATCH TP ONE (18:14)
[2021-02-11] MEDS ORDERED: SODIUM CHLORIDE 0.9% 500 ML INFUS.BAG IV ONE (18:15)
[2021-02-11] MEDS ORDERED: VANCOMYCIN 1 GM in D5W (PRE-DOCKED) 1,000 MG/250 ML IVPB ONE (18:16)
[2021-02-11] MEDS ORDERED: PIPERACILLIN/TAZOB 3.375 GM 3.375 GM in DEXTROSE 5%-WATER - 50 ML IVPB ONE (18:16)
[2021-02-11] MEDS ORDERED: LIDOCAINE 5% TOPICAL PATCH ONE (18:23)
[2021-02-11 20:11] LABS: HEMATOCRIT 34.1 % (32.4-45.2); HEMOGLOBIN 10.8 GM/dL (10.7-15.3); MCH 26.2 pg (25.7-33.7); MCHC 31.8 g/dl (32.0-36.0); MEAN CELL VOLUME 82.6 fl (80-96); MEAN PLT VOLUME 9.4 fl (7.5-11.1); PLATELET COUNT 344 K/MM3 (134-434); RBC 4.12 M/mm3 (3.60-5.2); RDW 14.7 % (11.6-15.6); WHITE BLOOD COUNT 5.1 K/mm3 (4.0-10.0)
[2021-02-11 20:28] LABS: CHLORIDE 106 mmol/L (98-107); POTASSIUM 4.3 mmol/L (3.5-5.1); SODIUM 138 mmol/L (136-145)
[2021-02-11 20:30] LABS: ALBUMIN 3.5 g/dl (3.4-5.0); ANION GAP 6 MMOL/L (8-16); BLOOD UREA NITROGEN 15.6 mg/dL (7-18); CALCIUM 9.4 mg/dL (8.5-10.1); CO2 25 mmol/L (21-32); GLUCOSE,RANDOM 77 mg/dL (74-106)
[2021-02-11 20:33] LABS: SGOT/AST 27 U/L (15-37); SGPT/ALT 17 U/L (13-61)
[2021-02-11 20:35] LABS: BILIRUBIN,TOTAL 0.5 mg/dL (0.2-1); CREATININE 1.1 mg/dL (0.55-1.3); TOT PROT 6.7 g/dl (6.4-8.2)
[2021-02-11 20:36] LABS: ALK PHOS 47 U/L (45-117)
[2021-02-11] MEDS ORDERED: PANTOPRAZOLE SODIUM 40 MG VIAL IVPUSH ONE (21:42)
[2021-02-11] MEDS ORDERED: ASPIRIN 81 MG CHEWABLE TABLETS PO ONE (21:43)
[2021-02-11] MEDS ORDERED: PANTOPRAZOLE SODIUM 40 MG VIAL ONE (22:00)
[2021-02-11] MEDS ORDERED: ASPIRIN 81 MG CHEWABLE TABLETS ONE (22:00)
[2021-02-11] MEDS ORDERED: ACETAMINOPHEN 650 MG/20.3 ML ORAL SOLUTION (CUPS) PO STA (22:24)
[2021-02-11] MEDS ORDERED: ACETAMINOPHEN 325 MG TABLET (FP) ONE (22:30)
[2021-02-11] MEDS ORDERED: DOXEPIN HCL 10 MG CAPSULE PO ONE (23:24)
[2021-02-12] MEDS: LEVOTHYROXINE NA 112 MCG TABLET (FP) PO SCH (09:56)
[2021-02-12] MEDS ORDERED: PT OWN MED DRAWER 7, Y5N ONE (09:57)
[2021-02-12] MEDS ORDERED: ASPIRIN 81 MG CHEWABLE TABLETS ONE (10:25)
[2021-02-12] MEDS ORDERED: PANTOPRAZOLE 40 MG TABLET ONE (10:26)
[2021-02-12] MEDS: PANTOPRAZOLE 40 MG TABLET PO SCH (10:26)
[2021-02-12] MEDS: ASPIRIN COATED 81 MG TABLET.EC PO SCH (10:26)
[2021-02-12] MEDS ORDERED: DIGOXIN 0.125 MG TABLET (FP) PO SCH (11:45)
[2021-02-12] MEDS: LIDOCAINE PATCH REMOVAL MC SCH (13:13)
[2021-02-12] MEDS: VERAPAMIL HCL 180 MG E.R. TABLET PO SCH (13:15)
[2021-02-12] MEDS: DOXEPIN HCL 10 MG CAPSULE PO SCH (13:16)
[2021-02-12] MEDS ORDERED: MAG HYDROX/AL HYDROX/SIMETH 30 ML UNIT-DOSE CUP PO PRN (13:17)
[2021-02-12] MEDS: ACETAMINOPHEN 325 MG TABLET (FP) PO PRN ×2 (15:24→22:05)
[2021-02-12] MEDS ORDERED: MORPHINE SULFATE 2 MG/ML VIAL IVPUSH ONE (19:29)
[2021-02-12] MEDS: ATORVASTATIN CA 40 MG TABLET (FP) PO SCH (22:05)
[2021-02-13] MEDS: LIDOCAINE PATCH REMOVAL MC SCH (06:57)
[2021-02-13] MEDS: LEVOTHYROXINE NA 112 MCG TABLET (FP) PO SCH (07:38)
[2021-02-13 08:13] LABS: POTASSIUM 4.6 mmol/L (3.5-5.1)
[2021-02-13 08:16] LABS: CALCIUM 9.3 mg/dL (8.5-10.1)
[2021-02-13 08:17] LABS: ALBUMIN 3.5 g/dl (3.4-5.0); BLOOD UREA NITROGEN 19.9 mg/dL (7-18)
[2021-02-13 08:20] LABS: CREATININE 1.5 mg/dL (0.55-1.3)
[2021-02-13 08:22] LABS: BILIRUBIN,TOTAL 0.7 mg/dL (0.2-1); TOT PROT 6.5 g/dl (6.4-8.2)
[2021-02-13] MEDS ORDERED: SODIUM CHLORIDE 1,000 ML IV SCH (08:45)
[2021-02-13 09:03] LABS: HEMATOCRIT 32.1 % (32.4-45.2); HEMOGLOBIN 10.5 GM/dL (10.7-15.3); MCH 26.8 pg (25.7-33.7); MCHC 32.7 g/dl (32.0-36.0); MEAN CELL VOLUME 81.9 fl (80-96); MEAN PLT VOLUME 9.7 fl (7.5-11.1); PLATELET COUNT 332 K/MM3 (134-434); RBC 3.92 M/mm3 (3.60-5.2); RDW 14.8 % (11.6-15.6)
[2021-02-13 09:39] LABS: HIV INTERPRETATION NEGATIVE (NEGATIVE)
[2021-02-13] MEDS: VERAPAMIL HCL 180 MG E.R. TABLET PO SCH (10:10)
[2021-02-13] MEDS: ASPIRIN COATED 81 MG TABLET.EC PO SCH (10:10)
[2021-02-13] MEDS: ENOXAPARIN NA (PORCINE) 40 MG/0.4 ML DISP.SYRIN SQ SCH (10:11)
[2021-02-13] MEDS: DOXEPIN HCL 10 MG CAPSULE PO SCH (10:12)
[2021-02-13] MEDS: PANTOPRAZOLE 40 MG TABLET PO SCH (10:12)
[2021-02-13] MEDS: FLUDROCORTISONE ACETATE 0.1 MG TABLET (FP) PO SCH (10:49)
[2021-02-13 16:12] LABS: URINE APPEARANCE CLEAR; URINE BILIRUBIN NEGATIVE (NEGATIVE); URINE COLOR YELLOW; URINE GLUCOSE (UA) NEGATIVE (NEGATIVE); URINE KETONE TRACE (NEGATIVE); URINE LEUK ESTERASE NEGATIVE (NEGATIVE); URINE NITRITE NEGATIVE (NEGATIVE); URINE PROTEIN NEGATIVE (NEGATIVE)
[2021-02-13 16:22] LABS: URINE BARBITURATES NEGATIVE ng/ml (CUTOFF=200)
[2021-02-13 16:23] LABS: METHADONE, UR NEGATIVE ng/ml (CUTOFF=300); PHENCYCLIDINE,URINE NEGATIVE ng/ml (CUTOFF=25)
[2021-02-13 16:24] LABS: COCAINE, UR NEGATIVE ng/ml (CUTOFF=300); OPIATES, URI POSITIVE ng/ml (CUTOFF=300); URINE AMPHETAMINES NEGATIVE ng/ml (CUTOFF=500); URINE BENZODIAZEPINES NEGATIVE ng/ml (CUTOFF=200)
[2021-02-13] MEDS: ATORVASTATIN CA 40 MG TABLET (FP) PO SCH (21:12)
[2021-02-13] MEDS: ACETAMINOPHEN 325 MG TABLET (FP) PO PRN (21:14)
[2021-02-14] MEDS: METHYL SALICYLATE/MENTHOL OINT 30 GM TUBE TP SCH ×3 (00:13→22:29)
[2021-02-14] MEDS: LEVOTHYROXINE NA 112 MCG TABLET (FP) PO SCH (06:37)
[2021-02-14 07:33] LABS: HEMATOCRIT 27.2 % (32.4-45.2); HEMOGLOBIN 8.7 GM/dL (10.7-15.3); MCH 26.4 pg (25.7-33.7); MCHC 32.1 g/dl (32.0-36.0); MEAN CELL VOLUME 82.2 fl (80-96); PLATELET COUNT 200 K/MM3 (134-434); RBC 3.31 M/mm3 (3.60-5.2); RDW 14.8 % (11.6-15.6); WHITE BLOOD COUNT 4.3 K/mm3 (4.0-10.0)
[2021-02-14 07:50] LABS: POTASSIUM 4.9 mmol/L (3.5-5.1)
[2021-02-14 07:53] LABS: CALCIUM 9.2 mg/dL (8.5-10.1)
[2021-02-14 07:54] LABS: ALBUMIN 3.3 g/dl (3.4-5.0); BLOOD UREA NITROGEN 16.9 mg/dL (7-18)
[2021-02-14 07:57] LABS: CREATININE 1.1 mg/dL (0.55-1.3)
[2021-02-14 07:59] LABS: BILIRUBIN,TOTAL 0.5 mg/dL (0.2-1); TOT PROT 6.2 g/dl (6.4-8.2)
[2021-02-14] MEDS ORDERED: SODIUM CHLORIDE 0.45% 1,000 ML IV SCH (08:15)
[2021-02-14] MEDS: DOXEPIN HCL 10 MG CAPSULE PO SCH (09:16)
[2021-02-14] MEDS: PANTOPRAZOLE 40 MG TABLET PO SCH (09:16)
[2021-02-14] MEDS: FLUDROCORTISONE ACETATE 0.1 MG TABLET (FP) PO SCH (09:16)
[2021-02-14] MEDS: HYDROCORTISONE 10 MG TABLET PO SCH (09:17)
[2021-02-14] MEDS: VERAPAMIL HCL 180 MG E.R. TABLET PO SCH (09:17)
[2021-02-14] MEDS: ATORVASTATIN CA 40 MG TABLET (FP) PO SCH (22:24)
[2021-02-14] MEDS: HYDROCORTISONE 5 MG TABLET PO SCH (22:27)
[2021-02-15] MEDS: LEVOTHYROXINE NA 112 MCG TABLET (FP) PO SCH (06:34)
[2021-02-15] MEDS: METHYL SALICYLATE/MENTHOL OINT 30 GM TUBE TP SCH ×2 (09:21→21:17)
[2021-02-15] MEDS: FLUDROCORTISONE ACETATE 0.1 MG TABLET (FP) PO SCH (09:22)
[2021-02-15] MEDS: DOXEPIN HCL 10 MG CAPSULE PO SCH (09:22)
[2021-02-15] MEDS: HYDROCORTISONE 10 MG TABLET PO SCH (09:23)
[2021-02-15] MEDS: ENOXAPARIN NA (PORCINE) 40 MG/0.4 ML DISP.SYRIN SQ SCH (09:24)
[2021-02-15] MEDS: ASPIRIN COATED 81 MG TABLET.EC PO SCH (09:24)
[2021-02-15] MEDS: PANTOPRAZOLE 40 MG TABLET PO SCH (09:24)
[2021-02-15] MEDS: VERAPAMIL HCL 180 MG E.R. TABLET PO SCH (09:24)
[2021-02-15 09:42] LABS: HEMATOCRIT 25.6 % (32.4-45.2); HEMOGLOBIN 8.3 GM/dL (10.7-15.3); MCH 26.7 pg (25.7-33.7); MCHC 32.6 g/dl (32.0-36.0); MEAN CELL VOLUME 81.8 fl (80-96); MEAN PLT VOLUME 9.3 fl (7.5-11.1); PLATELET COUNT 231 K/MM3 (134-434); RBC 3.13 M/mm3 (3.60-5.2); RDW 14.8 % (11.6-15.6); WHITE BLOOD COUNT 4.8 K/mm3 (4.0-10.0)
[2021-02-15 11:20] LABS: POTASSIUM 4.4 mmol/L (3.5-5.1)
[2021-02-15 11:24] LABS: ALBUMIN 3.2 g/dl (3.4-5.0); CALCIUM 8.5 mg/dL (8.5-10.1)
[2021-02-15 11:25] LABS: BLOOD UREA NITROGEN 12.8 mg/dL (7-18)
[2021-02-15 11:29] LABS: BILIRUBIN,TOTAL 0.4 mg/dL (0.2-1); TOT PROT 6.3 g/dl (6.4-8.2)
[2021-02-15] MEDS: ATORVASTATIN CA 40 MG TABLET (FP) PO SCH (21:18)
[2021-02-15] MEDS: HYDROCORTISONE 5 MG TABLET PO SCH (21:18)
[2021-02-16] MEDS: LEVOTHYROXINE NA 112 MCG TABLET (FP) PO SCH (06:11)
[2021-02-16] MEDS: ASPIRIN COATED 81 MG TABLET.EC PO SCH (09:09)
[2021-02-16] MEDS: DOXEPIN HCL 10 MG CAPSULE PO SCH (09:09)
[2021-02-16] MEDS: ENOXAPARIN NA (PORCINE) 40 MG/0.4 ML DISP.SYRIN SQ SCH (09:09)
[2021-02-16] MEDS: PANTOPRAZOLE 40 MG TABLET PO SCH (09:09)
[2021-02-16] MEDS: FLUDROCORTISONE ACETATE 0.1 MG TABLET (FP) PO SCH (09:10)
[2021-02-16] MEDS: HYDROCORTISONE 10 MG TABLET PO SCH (09:11)
[2021-02-16] MEDS: VERAPAMIL HCL 180 MG E.R. TABLET PO SCH (09:12)
[2021-02-16 09:13] LABS: BASO % 0.9 % (0-2.0); EOS % 1.7 % (0-4.5); HEMATOCRIT 24.8 % (32.4-45.2); HEMOGLOBIN 8.2 GM/dL (10.7-15.3); LYMPH % 46.1 % (8-40); MCHC 33.2 g/dl (32.0-36.0); MEAN CELL VOLUME 81.2 fl (80-96); MEAN PLT VOLUME 9.9 fl (7.5-11.1); NEUT % 41.3 % (42.8-82.8); PLATELET COUNT 216 K/MM3 (134-434); RBC 3.05 M/mm3 (3.60-5.2); RDW 14.7 % (11.6-15.6); WHITE BLOOD COUNT 5.4 K/mm3 (4.0-10.0)
[2021-02-16] MEDS: METHYL SALICYLATE/MENTHOL OINT 30 GM TUBE TP SCH ×2 (09:13→21:10)
[2021-02-16 09:25] LABS: POTASSIUM 4.2 mmol/L (3.5-5.1)
[2021-02-16 09:54] LABS: CREATININE 0.9 mg/dL (0.55-1.3)
[2021-02-16 09:55] LABS: BILIRUBIN,TOTAL 0.4 mg/dL (0.2-1); TOT PROT 6.4 g/dl (6.4-8.2)
[2021-02-16 10:14] LABS: ALBUMIN 3.3 g/dl (3.4-5.0); BLOOD UREA NITROGEN 16.3 mg/dL (7-18); CALCIUM 8.6 mg/dL (8.5-10.1)
[2021-02-16] MEDS: ATORVASTATIN CA 40 MG TABLET (FP) PO SCH (21:10)
[2021-02-16] MEDS: HYDROCORTISONE 5 MG TABLET PO SCH (21:10)
[2021-02-16] MEDS ORDERED: HYDROCORTISONE 10 MG TABLET PO SCH (23:35)
[2021-02-17] MEDS: LEVOTHYROXINE NA 112 MCG TABLET (FP) PO SCH (06:42)
[2021-02-17 08:35] LABS: HEMATOCRIT 24.8 % (32.4-45.2); HEMOGLOBIN 8.3 GM/dL (10.7-15.3); MCH 27.1 pg (25.7-33.7); MCHC 33.3 g/dl (32.0-36.0); MEAN CELL VOLUME 81.3 fl (80-96); MEAN PLT VOLUME 10.3 fl (7.5-11.1); PLATELET COUNT 196 K/MM3 (134-434); RBC 3.05 M/mm3 (3.60-5.2); RDW 14.5 % (11.6-15.6)
[2021-02-17 08:57] LABS: POTASSIUM 4.1 mmol/L (3.5-5.1)
[2021-02-17 09:12] LABS: CALCIUM 8.5 mg/dL (8.5-10.1)
[2021-02-17 09:13] LABS: BLOOD UREA NITROGEN 15.8 mg/dL (7-18)
[2021-02-17 09:16] LABS: CREATININE 0.9 mg/dL (0.55-1.3)
[2021-02-17] MEDS: VERAPAMIL HCL 180 MG E.R. TABLET PO SCH (10:01)
[2021-02-17] MEDS: FLUDROCORTISONE ACETATE 0.1 MG TABLET (FP) PO SCH (10:02)
[2021-02-17] MEDS: ENOXAPARIN NA (PORCINE) 40 MG/0.4 ML DISP.SYRIN SQ SCH (10:02)
[2021-02-17] MEDS: ASPIRIN COATED 81 MG TABLET.EC PO SCH (10:02)
[2021-02-17] MEDS: DOXEPIN HCL 10 MG CAPSULE PO SCH (10:03)
[2021-02-17] MEDS: METHYL SALICYLATE/MENTHOL OINT 30 GM TUBE TP SCH (10:03)
[2021-02-17] MEDS: PANTOPRAZOLE 40 MG TABLET PO SCH (10:03)
[2021-02-17 15:20] VITALS: BP 104/71; PULSE 73; TEMP 98.1
== END 2021-02-17 15:35 | disposition home or self-care (01) | DRG 203 ==
LOC: JER 16:34 → JERBED 21:09 → OBSVTOIN 02-12 09:27 → J6WEST-2 02-12 11:17
PROVIDERS: ATTEND Internal Medicine
DX: R07.89 Other chest pain (principal); E27.40 Unspecified adrenocortical insufficiency; E23.0 Hypopituitarism; I95.9 Hypotension, unspecified; I10 Essential (primary) hypertension; E78.5 Hyperlipidemia, unspecified; E03.9 Hypothyroidism, unspecified; E11.9 Type 2 diabetes mellitus without complications; G43.909 Migraine, unspecified, not intractable, without status migrainosus; N17.9 Acute kidney failure, unspecified; I49.8 Other specified cardiac arrhythmias; E11.22 Type 2 diabetes mellitus with diabetic chronic kidney disease; N18.30 Chronic kidney disease, stage 3 unspecified; Z91.14 Patient's other noncompliance with medication regimen
CPT/HCPCS: 36415; 70450-TC; 71045-TC-FY; 72125-TC; 76775-TC; 76856-TC; 80048; 80053; 80307; 81003; 82436; 82533; 82550; 82553; 82570; 82728; 82962; 83540; 83550; 84133; 84300; 84439; 84443; 84484; 85025; 85027; 86850; 86900; 86901; 87086; 87389; 93005; 93010; 93306-TC; 97116-GP; 97162-GP; 99285-25; C9803; G0378; U0003

== ENCOUNTER 2021-12-26 20:59 | Inpatient (IN) | payer OTHER ==
[2021-12-26] MEDS ORDERED: FAMOTIDINE 20 MG/50 ML IVPB 20 MG/50 ML MG IVPB ONE ×2 (23:08→23:32)
[2021-12-26] MEDS ORDERED: LACTATED RINGERS SOLUTION 1000 ML INFUS.BAG IV ONE (23:08)
[2021-12-26] MEDS ORDERED: ACETAMINOPHEN 500 MG TABLET (FP) PO ONE (23:08)
[2021-12-26] MEDS ORDERED: ONDANSETRON 4 MG/2 ML VIAL IVPUSH ONE (23:08)
[2021-12-26] MEDS ORDERED: ONDANSETRON 4 MG/2 ML VIAL ONE (23:32)
[2021-12-26] MEDS ORDERED: ACETAMINOPHEN 1000 MG/100 ML BAG IVPB ONE (23:39)
[2021-12-27] MEDS ORDERED: ACETAMINOPHEN INJECTION 100 ML IVPB ONE (01:03)
[2021-12-27 01:26] LABS: BASO % 0.6 % (0-2.0); EOS % 5.6 % (0-4.5); HEMATOCRIT 29.8 % (32.4-45.2); HEMOGLOBIN 10.3 GM/dL (10.7-15.3); LYMPH % 45.6 % (8-40); MCH 27.5 pg (25.7-33.7); MCHC 34.4 g/dl (32.0-36.0); MEAN PLT VOLUME 8.9 fl (7.5-11.1); NEUT % 44.2 % (42.8-82.8); PLATELET COUNT 188 10^3/uL (134-434); RBC 3.73 M/mm3 (3.60-5.2); RDW 14.7 % (11.6-15.6); WHITE BLOOD COUNT 3.4 K/mm3 (4.0-10.0)
[2021-12-27 01:42] LABS: INR 1.19 (0.83-1.09); PROTHROMBIN TIME (PATIENT) 13.7 SEC (9.7-13.0)
[2021-12-27 01:42] LABS: EPI CELLS 10 /uL (0-25.1); HYALINE CASTS 3 /uL (0-3.1); URINE APPEARANCE CLEAR; URINE BACTERIA 35 /uL (0-1359); URINE BILIRUBIN NEGATIVE (NEGATIVE); URINE COLOR YELLOW; URINE GLUCOSE (UA) NEGATIVE (NEGATIVE); URINE KETONE NEGATIVE (NEGATIVE); URINE LEUK ESTERASE NEGATIVE (NEGATIVE); URINE NITRITE NEGATIVE (NEGATIVE); URINE PROTEIN 2+ (NEGATIVE); URINE RBC 19 /uL (0-23.9); URINE WBC 7 /uL (0-25.8)
[2021-12-27 01:43] LABS: CHLORIDE 77 mmol/L (98-107)
[2021-12-27 01:46] LABS: ALBUMIN 4.1 g/dl (3.4-5.0); CALCIUM 8.3 mg/dL (8.5-10.1); CO2 28 mmol/L (21-32); GLUCOSE,RANDOM 70 mg/dL (74-106); LIPASE 214 U/L (73-393)
[2021-12-27 01:49] LABS: PHENCYCLIDINE,URINE NEGATIVE (NEGATIVE); URINE BENZODIAZEPINES NEGATIVE (NEGATIVE)
[2021-12-27 01:49] LABS: SGOT/AST 309 U/L (15-37); SGPT/ALT 66 U/L (13-61)
[2021-12-27 01:51] LABS: COCAINE, UR NEGATIVE (NEGATIVE); OPIATES, URI NEGATIVE (NEGATIVE); URINE BARBITURATES NEGATIVE (NEGATIVE)
[2021-12-27 01:51] LABS: BILIRUBIN,TOTAL 0.5 mg/dL (0.2-1); TOT PROT 8.2 g/dl (6.4-8.2)
[2021-12-27 01:52] LABS: ALK PHOS 39 U/L (45-117)
[2021-12-27 02:08] LABS: METHADONE, UR NEGATIVE (NEGATIVE); URINE AMPHETAMINES NEGATIVE (NEGATIVE)
[2021-12-27 02:08] LABS: ANION GAP 10 MMOL/L (8-16); SODIUM 115 mmol/L (136-145)
[2021-12-27] MEDS ORDERED: SODIUM CHLORIDE 3% 500 ML/500 ML INFUS.BAG IV ONE ×2 (02:41→16:57)
[2021-12-27] MEDS ORDERED: CIPROFLOXACIN 400 MG/D5W 400 MG/200 ML IVPB IVPB ONE (03:41)
[2021-12-27 04:16] LABS: CHLORIDE 77 mmol/L (98-107)
[2021-12-27 04:18] LABS: CALCIUM 7.5 mg/dL (8.5-10.1)
[2021-12-27 04:19] LABS: ALBUMIN 3.5 g/dl (3.4-5.0); CO2 28 mmol/L (21-32); GLUCOSE,RANDOM 65 mg/dL (74-106)
[2021-12-27 04:22] LABS: CREATININE 0.9 mg/dL (0.55-1.3); SGOT/AST 258 U/L (15-37); SGPT/ALT 56 U/L (13-61)
[2021-12-27 04:24] LABS: BILIRUBIN,TOTAL 0.5 mg/dL (0.2-1); TOT PROT 6.8 g/dl (6.4-8.2)
[2021-12-27 04:25] LABS: ALK PHOS 32 U/L (45-117)
[2021-12-27 04:26] LABS: ANION GAP 8 MMOL/L (8-16); SODIUM 114 mmol/L (136-145)
[2021-12-27] MEDS ORDERED: DEXTROSE 50%-WATER - 25 GM/50 ML VIAL IVPUSH ONE (04:26)
[2021-12-27] MEDS ORDERED: DEXTROSE 50%-WATER 25 GM/50 ML DISP.SYRIN ONE ×2 (04:27→21:42)
[2021-12-27] MEDS ORDERED: ONDANSETRON 4 MG/2 ML VIAL IVPUSH PRN ×2 (06:23→17:00)
[2021-12-27] MEDS ORDERED: ACETAMINOPHEN 1000 MG/100 ML BAG IVPB PRN (06:25)
[2021-12-27] MEDS: INSULIN SLIDING SCALE (NOVOLOG) 1 VIAL SQ SCH ×4 (07:07→21:32)
[2021-12-27 08:28] LABS: CHLORIDE 80 mmol/L (98-107)
[2021-12-27 08:32] LABS: BLOOD UREA NITROGEN 3.7 mg/dL (7-18); CO2 27 mmol/L (21-32); GLUCOSE,RANDOM 78 mg/dL (74-106); MAGNESIUM 1.7 mg/dL (1.8-2.4)
[2021-12-27 08:34] LABS: CREATININE 0.8 mg/dL (0.55-1.3)
[2021-12-27 08:35] LABS: PHOSPHOROUS 2.1 mg/dL (2.5-4.9)
[2021-12-27 08:48] LABS: ANION GAP 8 MMOL/L (8-16); SODIUM 115 mmol/L (136-145)
[2021-12-27] MEDS ORDERED: MAGNESIUM 1GM/D5W - 1 GM/100 ML IVPB IVPB ONE (08:51)
[2021-12-27 09:22] LABS: HEMATOCRIT 30.1 % (32.4-45.2); HEMOGLOBIN 10.2 GM/dL (10.7-15.3); MCH 27.4 pg (25.7-33.7); MEAN CELL VOLUME 80.6 fl (80-96); MEAN PLT VOLUME 9.4 fl (7.5-11.1); PLATELET COUNT 191 10^3/uL (134-434); RBC 3.73 M/mm3 (3.60-5.2); RDW 15.1 % (11.6-15.6); WHITE BLOOD COUNT 3.5 K/mm3 (4.0-10.0)
[2021-12-27] MEDS: ENOXAPARIN NA (PORCINE) 40 MG/0.4 ML DISP.SYRIN SQ SCH (09:33)
[2021-12-27] MEDS: MUPIROCIN 2% TOPICAL OINTMENT FOR DECOLONIZATION NS SCH ×2 (09:33→21:31)
[2021-12-27] MEDS ORDERED: LEVOTHYROXINE SODIUM 100 MCG VIAL IVPUSH SCH (10:00)
[2021-12-27] MEDS ORDERED: SODIUM PHOSPHATE - 15 MM in SODIUM CHLORIDE 250 ML IVPB ONE (10:00)
[2021-12-27] MEDS: LEVOTHYROXINE SODIUM 100 MCG VIAL IVPUSH SCH (10:39)
[2021-12-27] MEDS ORDERED: DEXTROSE 5%-LACTATED RINGERS 1,000 ML IV SCH (11:30)
[2021-12-27 12:49] LABS: CHLORIDE 81 mmol/L (98-107)
[2021-12-27 12:51] LABS: CALCIUM 7.5 mg/dL (8.5-10.1)
[2021-12-27 12:52] LABS: BLOOD UREA NITROGEN 3.8 mg/dL (7-18); CO2 28 mmol/L (21-32); GLUCOSE,RANDOM 77 mg/dL (74-106)
[2021-12-27 13:24] LABS: ANION GAP 9 MMOL/L (8-16); SODIUM 117 mmol/L (136-145)
[2021-12-27] MEDS ORDERED: HYDROCORTISONE 5 MG TABLET PO SCH (15:00)
[2021-12-27] MEDS: POTASSIUM CHLORIDE ORAL LIQUID 20 MEQ/15 ML PO ONE ×2 (15:25→16:05)
[2021-12-27] MEDS: FLUDROCORTISONE ACETATE 0.1 MG TABLET (FP) PO SCH (15:25)
[2021-12-27] MEDS ORDERED: POTASSIUM CHLORIDE TABS 20 MEQ TABLET.ER (FP) PO ONE ×2 (16:04→20:00)
[2021-12-27 16:44] LABS: CHLORIDE 82 mmol/L (98-107)
[2021-12-27 16:47] LABS: BLOOD UREA NITROGEN 3.2 mg/dL (7-18); CALCIUM 7.9 mg/dL (8.5-10.1); CO2 26 mmol/L (21-32); GLUCOSE,RANDOM 68 mg/dL (74-106)
[2021-12-27 16:54] LABS: ANION GAP 10 MMOL/L (8-16); SODIUM 117 mmol/L (136-145)
[2021-12-27 20:50] LABS: CHLORIDE 85 mmol/L (98-107)
[2021-12-27 20:52] LABS: BLOOD UREA NITROGEN 3.4 mg/dL (7-18); CO2 26 mmol/L (21-32); GLUCOSE,RANDOM 78 mg/dL (74-106)
[2021-12-27 20:55] LABS: CREATININE 0.9 mg/dL (0.55-1.3)
[2021-12-27 20:57] LABS: ANION GAP 8 MMOL/L (8-16); SODIUM 119 mmol/L (136-145)
[2021-12-27] MEDS: CHLORHEXIDINE GLUCONATE 4% CLEANSER FOR DECOLONIZATION TP SCH (21:31)
[2021-12-27] MEDS ORDERED: DEXTROSE 50%-WATER 25 GM/50 ML DISP.SYRIN IVPUSH ONE (21:36)
[2021-12-27] MEDS: HYDROCORTISONE SOD SUCCINATE 100 MG/2 ML VIAL IVPB SCH (23:54)
[2021-12-28 06:01] LABS: CHLORIDE 92 mmol/L (98-107); SODIUM 124 mmol/L (136-145)
[2021-12-28 06:03] LABS: ANION GAP 8 MMOL/L (8-16); CALCIUM 7.9 mg/dL (8.5-10.1); CO2 24 mmol/L (21-32); GLUCOSE,RANDOM 102 mg/dL (74-106)
[2021-12-28 06:07] LABS: CREATININE 1.1 mg/dL (0.55-1.3)
[2021-12-28] MEDS: LEVOTHYROXINE SODIUM 100 MCG VIAL IVPUSH SCH (06:39)
[2021-12-28] MEDS: HYDROCORTISONE SOD SUCCINATE 100 MG/2 ML VIAL IVPB SCH ×3 (06:51→21:58)
[2021-12-28] MEDS: INSULIN SLIDING SCALE (NOVOLOG) 1 VIAL SQ SCH ×4 (06:57→21:57)
[2021-12-28 07:06] LABS: BLOOD UREA NITROGEN 2.9 mg/dL (7-18)
[2021-12-28] MEDS: MUPIROCIN 2% TOPICAL OINTMENT FOR DECOLONIZATION NS SCH ×2 (10:29→21:56)
[2021-12-28] MEDS: ENOXAPARIN NA (PORCINE) 40 MG/0.4 ML DISP.SYRIN SQ SCH (10:36)
[2021-12-28] MEDS: FLUDROCORTISONE ACETATE 0.1 MG TABLET (FP) PO SCH (10:36)
[2021-12-28 16:51] LABS: CALCIUM 8.7 mg/dL (8.5-10.1)
[2021-12-28 16:53] LABS: BLOOD UREA NITROGEN 4.5 mg/dL (7-18)
[2021-12-28 16:56] LABS: CREATININE 1.4 mg/dL (0.55-1.3)
[2021-12-28] MEDS: SODIUM CHLORIDE 1 GM TABLET PO SCH ×2 (19:12→21:55)
[2021-12-28] MEDS ORDERED: metroNIDAZOLE 500 MG TABLET PO ONE (21:30)
[2021-12-28] MEDS: CHLORHEXIDINE GLUCONATE 4% CLEANSER FOR DECOLONIZATION TP SCH (21:57)
[2021-12-29 01:37] LABS: CALCIUM 8.5 mg/dL (8.5-10.1)
[2021-12-29 01:38] LABS: BLOOD UREA NITROGEN 5.3 mg/dL (7-18)
[2021-12-29 01:40] LABS: CREATININE 1.5 mg/dL (0.55-1.3)
[2021-12-29] MEDS: HYDROCORTISONE SOD SUCCINATE 100 MG/2 ML VIAL IVPB SCH ×4 (03:25→21:04)
[2021-12-29] MEDS: LEVOTHYROXINE SODIUM 100 MCG VIAL IVPUSH SCH (06:22)
[2021-12-29] MEDS: INSULIN SLIDING SCALE (NOVOLOG) 1 VIAL SQ SCH ×4 (06:22→21:10)
[2021-12-29 07:55] LABS: BLOOD UREA NITROGEN 6.3 mg/dL (7-18); CALCIUM 8.9 mg/dL (8.5-10.1)
[2021-12-29 07:59] LABS: BILIRUBIN,TOTAL 0.5 mg/dL (0.2-1); CREATININE 1.5 mg/dL (0.55-1.3); TOT PROT 7.9 g/dl (6.4-8.2)
[2021-12-29] MEDS ORDERED: LEVOTHYROXINE NA 112 MCG TABLET (FP) PO ONE (08:00)
[2021-12-29] MEDS: ENOXAPARIN NA (PORCINE) 40 MG/0.4 ML DISP.SYRIN SQ SCH (09:52)
[2021-12-29] MEDS: FLUDROCORTISONE ACETATE 0.1 MG TABLET (FP) PO SCH (09:52)
[2021-12-29] MEDS: SODIUM CHLORIDE 1 GM TABLET PO SCH (09:53)
[2021-12-29] MEDS: MUPIROCIN 2% TOPICAL OINTMENT FOR DECOLONIZATION NS SCH (09:53)
[2021-12-29 13:29] VITALS: BMI 25.9
[2021-12-29] MEDS ORDERED: metroNIDAZOLE 250 MG TABLET PO SCH (14:00)
[2021-12-29] MEDS ORDERED: metroNIDAZOLE 500 MG TABLET PO SCH (15:00)
[2021-12-29] MEDS ORDERED: ONDANSETRON 4 MG/2 ML VIAL IVPUSH PRN (15:55)
[2021-12-29] MEDS ORDERED: SODIUM CHLORIDE 1,000 ML IV SCH (17:00)
[2021-12-29] MEDS ORDERED: HYDROCORTISONE SOD SUCCINATE 100 MG/2 ML VIAL IVPB SCH (18:00)
[2021-12-29 20:18] LABS: HEMATOCRIT 27.1 % (32.4-45.2); HEMOGLOBIN 9.1 GM/dL (10.7-15.3); MCH 27.4 pg (25.7-33.7); MCHC 33.5 g/dl (32.0-36.0); MEAN CELL VOLUME 81.9 fl (80-96); MEAN PLT VOLUME 9.6 fl (7.5-11.1); PLATELET COUNT 209 10^3/uL (134-434); RBC 3.31 M/mm3 (3.60-5.2); RDW 15.7 % (11.6-15.6); WHITE BLOOD COUNT 8.4 K/mm3 (4.0-10.0)
[2021-12-29] MEDS: metroNIDAZOLE 250 MG TABLET PO SCH (21:04)
[2021-12-29] MEDS ORDERED: CHLORHEXIDINE GLUCONATE 4% CLEANSER FOR DECOLONIZATION TP SCH (22:00)
[2021-12-29] MEDS ORDERED: MUPIROCIN 2% TOPICAL OINTMENT FOR DECOLONIZATION NS SCH (22:00)
[2021-12-30] MEDS: HYDROCORTISONE SOD SUCCINATE 100 MG/2 ML VIAL IVPB SCH ×3 (05:27→23:31)
[2021-12-30] MEDS: metroNIDAZOLE 250 MG TABLET PO SCH ×3 (05:27→22:35)
[2021-12-30] MEDS: INSULIN SLIDING SCALE (NOVOLOG) 1 VIAL SQ SCH ×4 (06:02→22:36)
[2021-12-30] MEDS: LEVOTHYROXINE SODIUM 100 MCG VIAL IVPUSH SCH (06:06)
[2021-12-30 08:46] LABS: HEMATOCRIT 23.6 % (32.4-45.2); HEMOGLOBIN 7.7 GM/dL (10.7-15.3); MCH 27.4 pg (25.7-33.7); MCHC 32.8 g/dl (32.0-36.0); MEAN CELL VOLUME 83.7 fl (80-96); MEAN PLT VOLUME 9.5 fl (7.5-11.1); PLATELET COUNT 178 10^3/uL (134-434); RBC 2.82 M/mm3 (3.60-5.2); RDW 15.8 % (11.6-15.6); WHITE BLOOD COUNT 8.5 K/mm3 (4.0-10.0)
[2021-12-30 09:01] LABS: ALBUMIN 3.7 g/dl (3.4-5.0); BLOOD UREA NITROGEN 11.4 mg/dL (7-18); CALCIUM 8.4 mg/dL (8.5-10.1); MAGNESIUM 2.4 mg/dL (1.8-2.4)
[2021-12-30 09:04] LABS: CREATININE 1.7 mg/dL (0.55-1.3); PHOSPHOROUS 2.3 mg/dL (2.5-4.9)
[2021-12-30 09:05] LABS: BILIRUBIN,TOTAL 0.4 mg/dL (0.2-1); TOT PROT 7.5 g/dl (6.4-8.2)
[2021-12-30] MEDS: ENOXAPARIN NA (PORCINE) 40 MG/0.4 ML DISP.SYRIN SQ SCH (09:45)
[2021-12-30] MEDS: SODIUM CHLORIDE 1 GM TABLET PO SCH (09:45)
[2021-12-30] MEDS ORDERED: FLUDROCORTISONE ACETATE 0.1 MG TABLET (FP) PO SCH (10:00)
[2021-12-30] MEDS ORDERED: GLYCERIN 1 RECTAL SUPPOSITORY, ADULT PR ONE (12:16)
[2021-12-30] MEDS ORDERED: NAPH,MB-DB/K PH,MBDB POWDER PACKET PO ONE ×2 (12:18→15:23)
[2021-12-30] MEDS: SODIUM CHLORIDE 1,000 ML IV SCH (13:24)
[2021-12-30 17:33] LABS: HEMATOCRIT 21.9 % (32.4-45.2); HEMOGLOBIN 7.4 GM/dL (10.7-15.3); MCH 27.4 pg (25.7-33.7); MCHC 33.6 g/dl (32.0-36.0); MEAN CELL VOLUME 81.5 fl (80-96); MEAN PLT VOLUME 9.9 fl (7.5-11.1); PLATELET COUNT 139 10^3/uL (134-434); RBC 2.68 M/mm3 (3.60-5.2); RDW 15.6 % (11.6-15.6); WHITE BLOOD COUNT 9.1 K/mm3 (4.0-10.0)
[2021-12-30] MEDS: MELATONIN 5 MG TABLETS PO PRN (22:35)
[2021-12-30] MEDS: DOCUSATE NA 100 MG/10 ML UNIT-DOSE CUPS PO SCH (22:35)
[2021-12-31 00:56] LABS: HEMATOCRIT 21.3 % (32.4-45.2); HEMOGLOBIN 7.1 GM/dL (10.7-15.3); LYMPH % 10.1 % (8-40); MCH 27.3 pg (25.7-33.7); MCHC 33.2 g/dl (32.0-36.0); MEAN CELL VOLUME 82.3 fl (80-96); MEAN PLT VOLUME 9.2 fl (7.5-11.1); MONO % 3.5 % (3.8-10.2); NEUT % 86.4 % (42.8-82.8); PLATELET COUNT 152 10^3/uL (134-434); RBC 2.58 M/mm3 (3.60-5.2); RDW 15.4 % (11.6-15.6); WHITE BLOOD COUNT 9.5 K/mm3 (4.0-10.0)
[2021-12-31] MEDS: INSULIN SLIDING SCALE (NOVOLOG) 1 VIAL SQ SCH ×4 (06:23→22:22)
[2021-12-31] MEDS: LEVOTHYROXINE SODIUM 100 MCG VIAL IVPUSH SCH (06:23)
[2021-12-31] MEDS: metroNIDAZOLE 250 MG TABLET PO SCH ×3 (06:23→22:21)
[2021-12-31] MEDS: SODIUM CHLORIDE 1 GM TABLET PO SCH (09:47)
[2021-12-31] MEDS: ENOXAPARIN NA (PORCINE) 40 MG/0.4 ML DISP.SYRIN SQ SCH (09:57)
[2021-12-31] MEDS: HYDROCORTISONE SOD SUCCINATE 100 MG/2 ML VIAL IVPB SCH ×2 (10:06→22:21)
[2021-12-31 10:16] LABS: HEMATOCRIT 21.1 % (32.4-45.2); HEMOGLOBIN 7.1 GM/dL (10.7-15.3); MCH 27.6 pg (25.7-33.7); MCHC 33.4 g/dl (32.0-36.0); MEAN CELL VOLUME 82.6 fl (80-96); MEAN PLT VOLUME 9.2 fl (7.5-11.1); PLATELET COUNT 150 10^3/uL (134-434); RBC 2.56 M/mm3 (3.60-5.2); RDW 15.8 % (11.6-15.6); WHITE BLOOD COUNT 9.5 K/mm3 (4.0-10.0)
[2021-12-31 10:48] LABS: ALBUMIN 3.7 g/dl (3.4-5.0); BLOOD UREA NITROGEN 13.9 mg/dL (7-18); CALCIUM 8.5 mg/dL (8.5-10.1); MAGNESIUM 2.1 mg/dL (1.8-2.4)
[2021-12-31 10:51] LABS: PHOSPHOROUS 2.2 mg/dL (2.5-4.9)
[2021-12-31 10:52] LABS: CREATININE 1.6 mg/dL (0.55-1.3)
[2021-12-31 10:53] LABS: BILIRUBIN,TOTAL 0.3 mg/dL (0.2-1)
[2021-12-31] MEDS ORDERED: SODIUM PHOSPHATE - 30 MM in SODIUM CHLORIDE 500 ML IVPB ONE (13:52)
[2021-12-31 15:24] LABS: RETICULOCYTES 0.93 % (0.5-1.5)
[2021-12-31] MEDS: SODIUM CHLORIDE 1,000 ML IV SCH (17:17)
[2021-12-31] MEDS: DOCUSATE NA 100 MG/10 ML UNIT-DOSE CUPS PO SCH ×2 (22:21→22:30)
[2021-12-31] MEDS: MELATONIN 5 MG TABLETS PO PRN (22:21)
[2022-01-01] MEDS: INSULIN SLIDING SCALE (NOVOLOG) 1 VIAL SQ SCH ×4 (06:22→21:11)
[2022-01-01] MEDS: metroNIDAZOLE 250 MG TABLET PO SCH ×3 (06:22→21:11)
[2022-01-01] MEDS: LEVOTHYROXINE NA 150 MCG TABLET PO SCH (06:23)
[2022-01-01 09:29] LABS: HEMATOCRIT 21.6 % (32.4-45.2); HEMOGLOBIN 7.3 GM/dL (10.7-15.3); MCH 28.4 pg (25.7-33.7); MCHC 34.1 g/dl (32.0-36.0); MEAN CELL VOLUME 83.4 fl (80-96); MEAN PLT VOLUME 8.6 fl (7.5-11.1); PLATELET COUNT 158 10^3/uL (134-434); RBC 2.59 M/mm3 (3.60-5.2); RDW 15.9 % (11.6-15.6); WHITE BLOOD COUNT 9.4 K/mm3 (4.0-10.0)
[2022-01-01] MEDS: HYDROCORTISONE SOD SUCCINATE 100 MG/2 ML VIAL IVPUSH SCH ×2 (09:44→21:11)
[2022-01-01] MEDS: SODIUM CHLORIDE 1 GM TABLET PO SCH (09:44)
[2022-01-01] MEDS: ENOXAPARIN NA (PORCINE) 40 MG/0.4 ML DISP.SYRIN SQ SCH (09:52)
[2022-01-01 10:05] LABS: IRON SERUM 146 ug/dL (50-175); TOTAL IRON BINDING CAPACITY 271 ug/dL (250-450)
[2022-01-01 10:13] LABS: ALBUMIN 3.3 g/dl (3.4-5.0); CALCIUM 8.4 mg/dL (8.5-10.1)
[2022-01-01 10:14] LABS: BLOOD UREA NITROGEN 14.6 mg/dL (7-18)
[2022-01-01 10:16] LABS: CREATININE 1.5 mg/dL (0.55-1.3)
[2022-01-01 10:17] LABS: PHOSPHOROUS 3.3 mg/dL (2.5-4.9)
[2022-01-01 10:18] LABS: BILIRUBIN,TOTAL 0.4 mg/dL (0.2-1); TOT PROT 6.7 g/dl (6.4-8.2)
[2022-01-01] MEDS: SODIUM CHLORIDE 1,000 ML IV SCH (12:28)
[2022-01-01] MEDS: MELATONIN 5 MG TABLETS PO PRN (21:11)
[2022-01-01] MEDS: DOCUSATE NA 100 MG/10 ML UNIT-DOSE CUPS PO SCH (21:12)
[2022-01-02] MEDS: metroNIDAZOLE 250 MG TABLET PO SCH ×3 (05:47→21:45)
[2022-01-02] MEDS: LEVOTHYROXINE NA 150 MCG TABLET PO SCH (06:02)
[2022-01-02] MEDS: INSULIN SLIDING SCALE (NOVOLOG) 1 VIAL SQ SCH ×4 (06:02→21:51)
[2022-01-02] MEDS: ENOXAPARIN NA (PORCINE) 40 MG/0.4 ML DISP.SYRIN SQ SCH (09:26)
[2022-01-02] MEDS: SODIUM CHLORIDE 1 GM TABLET PO SCH (09:26)
[2022-01-02] MEDS ORDERED: HYDROCORTISONE 10 MG TABLET PO SCH (10:00)
[2022-01-02] MEDS: SODIUM CHLORIDE 1,000 ML IV SCH (14:36)
[2022-01-02] MEDS: DOCUSATE NA 100 MG/10 ML UNIT-DOSE CUPS PO SCH ×2 (21:46→21:50)
[2022-01-02] MEDS: HYDROCORTISONE 20 MG, HYDROCORTISONE 5 MG PO SCH (21:46)
[2022-01-02] MEDS ORDERED: HYDROCORTISONE 20 MG TABLET PO SCH (22:00)
[2022-01-03] MEDS: LEVOTHYROXINE NA 150 MCG TABLET PO SCH (07:37)
[2022-01-03] MEDS: metroNIDAZOLE 250 MG TABLET PO SCH ×3 (07:37→21:55)
[2022-01-03] MEDS: INSULIN SLIDING SCALE (NOVOLOG) 1 VIAL SQ SCH ×2 (07:37→11:20)
[2022-01-03] MEDS: FLUDROCORTISONE ACETATE 0.1 MG TABLET (FP) PO SCH (11:18)
[2022-01-03] MEDS: HYDROCORTISONE 20 MG, HYDROCORTISONE 5 MG PO SCH ×2 (11:19→21:56)
[2022-01-03] MEDS: SODIUM CHLORIDE 1,000 ML IV SCH (13:21)
[2022-01-03 14:11] LABS: SARS-CoV-2 NAA Not Detected (Not Detected)
[2022-01-03] MEDS: LACTATED RINGERS SOLUTION 1,000 ML/1,000 ML INFUS.BAG IV SCH (15:03)
[2022-01-03] MEDS: HEPARIN NA (PORCINE) 5,000 UNITS/ML 1ML VIAL SQ SCH ×2 (15:04→21:55)
[2022-01-03 15:26] LABS: ALBUMIN 3.2 g/dl (3.4-5.0); ALK PHOS 31 U/L (45-117); ANION GAP 11 MMOL/L (8-16); BILIRUBIN,TOTAL 0.3 mg/dL (0.2-1); BLOOD UREA NITROGEN 16.8 mg/dL (7-18); CALCIUM 8.1 mg/dL (8.5-10.1); CHLORIDE 105 mmol/L (98-107); CO2 23 mmol/L (21-32); CREATININE 1.5 mg/dL (0.55-1.3); GLUCOSE,RANDOM 76 mg/dL (74-106); LDH 757 U/L (84-246); SGOT/AST 104 U/L (15-37); SGPT/ALT 56 U/L (13-61); SODIUM 138 mmol/L (136-145); TOT PROT 6.6 g/dl (6.4-8.2)
[2022-01-03] MEDS: DOCUSATE NA 100 MG/10 ML UNIT-DOSE CUPS PO SCH (21:54)
[2022-01-04] MEDS: metroNIDAZOLE 250 MG TABLET PO SCH ×3 (05:21→22:09)
[2022-01-04] MEDS: HEPARIN NA (PORCINE) 5,000 UNITS/ML 1ML VIAL SQ SCH ×3 (05:21→22:10)
[2022-01-04] MEDS: LEVOTHYROXINE NA 150 MCG TABLET PO SCH (06:12)
[2022-01-04] MEDS: FLUDROCORTISONE ACETATE 0.1 MG TABLET (FP) PO SCH (09:37)
[2022-01-04] MEDS: HYDROCORTISONE 20 MG, HYDROCORTISONE 5 MG PO SCH ×2 (09:38→22:09)
[2022-01-04] MEDS: metoPROLOL SUCCINATE 25 MG TAB.SR.24H (FP) PO SCH (09:41)
[2022-01-04] MEDS: LACTATED RINGERS SOLUTION 1,000 ML/1,000 ML INFUS.BAG IV SCH (13:39)
[2022-01-04 14:05] LABS: HEMATOCRIT 23.4 % (32.4-45.2); HEMOGLOBIN 7.6 GM/dL (10.7-15.3); MCH 27.7 pg (25.7-33.7); MCHC 32.6 g/dl (32.0-36.0); MEAN CELL VOLUME 85.2 fl (80-96); MEAN PLT VOLUME 8.4 fl (7.5-11.1); PLATELET COUNT 194 10^3/uL (134-434); RBC 2.75 M/mm3 (3.60-5.2); RDW 15.3 % (11.6-15.6); WHITE BLOOD COUNT 9.1 K/mm3 (4.0-10.0)
[2022-01-04 14:23] LABS: CALCIUM 8.4 mg/dL (8.5-10.1)
[2022-01-04 14:24] LABS: ALBUMIN 3.1 g/dl (3.4-5.0); BLOOD UREA NITROGEN 14.3 mg/dL (7-18)
[2022-01-04 14:27] LABS: CREATININE 1.4 mg/dL (0.55-1.3)
[2022-01-04 14:28] LABS: BILIRUBIN,TOTAL 0.3 mg/dL (0.2-1); TOT PROT 6.4 g/dl (6.4-8.2)
[2022-01-04 14:36] LABS: ANISOCYTOSIS 1+; MACROCYTOSIS 0; PLATELET ESTIMATE NORMAL
[2022-01-04 14:50] LABS: ERYTHROCYTE SEDIMENTATION RATE 28 mm/hr (0-30)
[2022-01-04] MEDS ORDERED: POTASSIUM CHLORIDE TABS 20 MEQ TABLET.ER (FP) PO ONE (15:19)
[2022-01-04] MEDS: DOCUSATE NA 100 MG/10 ML UNIT-DOSE CUPS PO SCH ×2 (22:09→22:19)
[2022-01-05] MEDS: LEVOTHYROXINE NA 150 MCG TABLET PO SCH (06:24)
[2022-01-05] MEDS: metroNIDAZOLE 250 MG TABLET PO SCH ×2 (06:24→13:22)
[2022-01-05] MEDS: HEPARIN NA (PORCINE) 5,000 UNITS/ML 1ML VIAL SQ SCH ×2 (06:24→13:22)
[2022-01-05] MEDS: FLUDROCORTISONE ACETATE 0.1 MG TABLET (FP) PO SCH (09:40)
[2022-01-05] MEDS: metoPROLOL SUCCINATE 25 MG TAB.SR.24H (FP) PO SCH (09:41)
[2022-01-05] MEDS: HYDROCORTISONE 20 MG, HYDROCORTISONE 5 MG PO SCH (09:41)
[2022-01-05 12:00] LABS: HEMATOCRIT 24.8 % (32.4-45.2); MCH 27.7 pg (25.7-33.7); MCHC 32.4 g/dl (32.0-36.0); MEAN CELL VOLUME 85.4 fl (80-96); MEAN PLT VOLUME 8.2 fl (7.5-11.1); PLATELET COUNT 193 10^3/uL (134-434); RDW 15.6 % (11.6-15.6); WHITE BLOOD COUNT 10.4 K/mm3 (4.0-10.0)
[2022-01-05 12:17] LABS: CALCIUM 8.3 mg/dL (8.5-10.1)
[2022-01-05 12:18] LABS: BLOOD UREA NITROGEN 14.8 mg/dL (7-18)
[2022-01-05 12:21] LABS: CREATININE 1.3 mg/dL (0.55-1.3); PHOSPHOROUS 1.6 mg/dL (2.5-4.9)
[2022-01-05 13:07] LABS: IGA IMMUNOGLOBULIN 283 mg/dL (87-352); IGG QN IMMUNOGLOBULIN 1286 mg/dL (586-1602); IGM QN SERUM 65 mg/dL (26-217)
[2022-01-05] MEDS ORDERED: POTASSIUM CHLORIDE TABS 20 MEQ TABLET.ER (FP) PO ONE (13:48)
[2022-01-05] MEDS ORDERED: NAPH,MB-DB/K PH,MBDB POWDER PACKET PO SCH (14:00)
[2022-01-05 14:31] VITALS: BP 150/76; PULSE 86; TEMP 98.5
[2022-01-05 16:08] LABS: PARV B19 IGG 0.1 index (0.0-0.8); PARV B19 IGM 0.5 index (0.0-0.8)
[2022-01-06 10:07] LABS: ERYTHROPOIETIN 84.8 mIU/mL (2.6-18.5)
[2022-01-06 17:06] LABS: FREE KAPPA,SERUM 29.3 mg/L (3.3-19.4)
== END 2022-01-05 18:12 | DRG 425 ==
LOC: JER 20:59 → JERBED 12-27 05:26 → JICU 12-27 08:09 → J5S 12-29 15:33
PROVIDERS: ADMIT Internal Medicine Pulmonary Disease
DX: E87.1 Hypo-osmolality and hyponatremia (principal); E23.0 Hypopituitarism; E27.40 Unspecified adrenocortical insufficiency; A09 Infectious gastroenteritis and colitis, unspecified; I25.110 Atherosclerotic heart disease of native coronary artery with unstable angina pectoris; N17.9 Acute kidney failure, unspecified; E78.00 Pure hypercholesterolemia, unspecified; I12.9 Hypertensive chronic kidney disease with stage 1 through stage 4 chronic kidney disease, or unspecified chronic kidney disease; N18.30 Chronic kidney disease, stage 3 unspecified; N20.0 Calculus of kidney; R74.01 Elevation of levels of liver transaminase levels; E03.9 Hypothyroidism, unspecified; E11.22 Type 2 diabetes mellitus with diabetic chronic kidney disease; E87.6 Hypokalemia; D61.01 Constitutional (pure) red blood cell aplasia
CPT/HCPCS: 36415; 70450-TC; 71045-TC-FY; 74177-TC; 76775-TC; 76856-TC; 80048; 80053; 80162; 80307; 81003; 82272; 82533; 82570; 82607; 82668; 82728; 82746; 82784; 82962; 83010; 83036; 83540; 83550; 83615; 83690; 83735; 83883; 83930; 83935; 84100; 84155; 84165; 84300; 84439; 84443; 84481; 84484; 84540; 84588; 85025; 85027; 85045; 85610; 85651; 85730; 86038; 86140; 86334; 86431; 86747; 86850; 86880; 86900; 86901; 87086; 87799; 93005; 93010; 94010; 97116-GP; 97161-GP; 99285-25; C9803; J1644; Q9967; U0003; U0005

== ENCOUNTER 2022-04-15 12:11 | Inpatient (IN) | payer OTHER ==
[2022-04-15] MEDS ORDERED: LIDOCAINE 1%/EPI 1:100000 (20 ML MULTI DOSE VIAL) ONE (17:20)
[2022-04-15] MEDS ORDERED: LACTATED RINGERS SOLUTION 1,000 ML/1,000 ML INFUS.BAG IV STA (20:05)
[2022-04-15 21:28] LABS: CHLORIDE 106 mmol/L (98-107); SODIUM 143 mmol/L (136-145)
[2022-04-15 21:33] LABS: BLOOD UREA NITROGEN 14.7 mg/dL (7-18); CO2 23 mmol/L (21-32); LIPASE 225 U/L (73-393)
[2022-04-15 21:34] LABS: ALBUMIN 2.2 g/dl (3.4-5.0)
[2022-04-15 21:35] LABS: SGPT/ALT 23 U/L (13-61)
[2022-04-15 21:36] LABS: CREATININE 1.1 mg/dL (0.55-1.3); SGOT/AST 38 U/L (15-37)
[2022-04-15 21:37] LABS: BILIRUBIN,TOTAL 2.5 mg/dL (0.2-1); TOT PROT 5.2 g/dl (6.4-8.2)
[2022-04-15 21:38] LABS: ALK PHOS 196 U/L (45-117); ANION GAP 14 MMOL/L (8-16); CALCIUM 6.5 mg/dL (8.5-10.1); GLUCOSE,RANDOM 44 mg/dL (74-106)
[2022-04-15] MEDS ORDERED: DEXTROSE 50%-WATER - 25 GM/50 ML VIAL IVPUSH ONE (21:42)
[2022-04-15] MEDS ORDERED: POTASSIUM CHLORIDE TABS 20 MEQ TABLET.ER (FP) PO ONE ×3 (21:42→21:55)
[2022-04-15] MEDS ORDERED: DEXTROSE 50%-WATER 25 GM/50 ML DISP.SYRIN ONE (21:45)
[2022-04-15] MEDS ORDERED: KCL 10 MEQ IVPB 10 MEQ/100 ML INFUS.BAG IVPB ONE ×2 (21:48→23:18)
[2022-04-15] MEDS: KCL 10 MEQ IVPB 10 MEQ/100 ML INFUS.BAG IVPB SCH ×3 (22:11→23:44)
[2022-04-15] MEDS ORDERED: CALCIUM GLUCONATE 10% - 1,000 MG/10 ML VIAL IVPUSH ONE (22:48)
[2022-04-15 23:03] LABS: MAGNESIUM 0.8 mg/dL (1.8-2.4)
[2022-04-15] MEDS ORDERED: MAGNESIUM SULF 50% (8.12 MEQ/2 ML-1 GM VIAL) IVPB ONE (23:08)
[2022-04-15] MEDS ORDERED: MAGNESIUM SULFATE IN WATER 2 GM/50 ML IVPB IVPB ONE (23:17)
[2022-04-15 23:54] LABS: BASO % 0.1 % (0-2.0); EOS % 0.2 % (0-4.5); LYMPH % 15.9 % (8-40); MCH 27.4 pg (25.7-33.7); MCHC 33.4 g/dl (32.0-36.0); MEAN CELL VOLUME 82.1 fl (80-96); MEAN PLT VOLUME 9.6 fl (7.5-11.1); NEUT % 80.8 % (42.8-82.8); PLATELET COUNT 141 10^3/uL (134-434); RBC 3.65 M/mm3 (3.60-5.2); RDW 19.8 % (11.6-15.6); WHITE BLOOD COUNT 7.9 K/mm3 (4.0-10.0)
[2022-04-16 00:12] LABS: CHLORIDE 108 mmol/L (98-107); SODIUM 142 mmol/L (136-145)
[2022-04-16 00:14] LABS: ALBUMIN 2.1 g/dl (3.4-5.0); BLOOD UREA NITROGEN 12.8 mg/dL (7-18); CO2 22 mmol/L (21-32); GLUCOSE,RANDOM 141 mg/dL (74-106)
[2022-04-16 00:17] LABS: CREATININE 1.2 mg/dL (0.55-1.3); SGOT/AST 28 U/L (15-37)
[2022-04-16 00:18] LABS: SGPT/ALT 20 U/L (13-61)
[2022-04-16 00:19] LABS: TOT PROT 4.9 g/dl (6.4-8.2)
[2022-04-16 00:20] LABS: ALK PHOS 181 U/L (45-117)
[2022-04-16] MEDS: KCL 10 MEQ IVPB 10 MEQ/100 ML INFUS.BAG IVPB SCH (01:02)
[2022-04-16 01:05] LABS: ANION GAP 12 MMOL/L (8-16); CALCIUM 6.4 mg/dL (8.5-10.1)
[2022-04-16] MEDS ORDERED: LACTATED RINGERS SOLUTION 1,000 ML with POTASSIUM CHLORIDE 20 MEQ IV ONE (01:10)
[2022-04-16] MEDS ORDERED: SODIUM CHLORIDE 0.9%/KCL 20 MEQ/1,000 ML INFUS.BAG IV SCH ×2 (01:15→12:47)
[2022-04-16] MEDS ORDERED: CALCIUM GLUCONATE 10% - 1,000 MG/10 ML VIAL ONE (01:15)
[2022-04-16] MEDS ORDERED: DEXTROSE 50%-WATER - 25 GM/50 ML VIAL IVPUSH ONE (04:41)
[2022-04-16] MEDS ORDERED: SODIUM CHLORIDE 1,000 ML IV STA (04:42)
[2022-04-16 04:48] LABS: EPI CELLS 35 /uL (0-25.1); HYALINE CASTS 2 /uL (0-3.1); URINE APPEARANCE TURBID; URINE BACTERIA 7926 /uL (0-1359); URINE BILIRUBIN NEGATIVE (NEGATIVE); URINE COLOR YELLOW; URINE GLUCOSE (UA) NEGATIVE (NEGATIVE); URINE KETONE NEGATIVE (NEGATIVE); URINE LEUK ESTERASE 2+ (NEGATIVE); URINE NITRITE POSITIVE (NEGATIVE); URINE PROTEIN 1+ (NEGATIVE); URINE RBC 41 /uL (0-23.9); URINE UROBILINOGEN 0.2 mg/dL (0.2-1.0); URINE WBC 1755 /uL (0-25.8)
[2022-04-16] MEDS ORDERED: CALCIUM GLUCONATE IN NACL 1 GM/50 ML BAG IVPB ONE (06:45)
[2022-04-16] MEDS ORDERED: CALCIUM GLUC IN NACL, ISO-OSM 1 GM/50 ML BAG IVPB ONE (07:36)
[2022-04-16] MEDS ORDERED: SODIUM CHLORIDE 0.9% 1000 ML INFUS.BAG IV ONE (08:03)
[2022-04-16] MEDS ORDERED: HYDROCORTISONE SOD SUCCINATE 100 MG/2 ML VIAL IVPUSH ONE (09:27)
[2022-04-16] MEDS ORDERED: HYDROCORTISONE SOD SUCCINATE 100 MG/2 ML VIAL IVPUSH SCH ×2 (10:00→18:00)
[2022-04-16] MEDS ORDERED: FLUDROCORTISONE ACETATE 0.1 MG TABLET (FP) PO SCH (10:00)
[2022-04-16 10:21] VITALS: BMI 22.8
[2022-04-16] MEDS ORDERED: ENOXAPARIN NA (PORCINE) 40 MG/0.4 ML DISP.SYRIN SQ SCH (11:00)
[2022-04-16 12:03] LABS: BASO % 0.2 % (0-2.0); EOS % 0.2 % (0-4.5); HEMOGLOBIN 9.8 GM/dL (10.7-15.3); LYMPH % 14.6 % (8-40); MCH 27.2 pg (25.7-33.7); MCHC 32.6 g/dl (32.0-36.0); MEAN CELL VOLUME 83.6 fl (80-96); MEAN PLT VOLUME 10.3 fl (7.5-11.1); MONO % 1.4 % (3.8-10.2); NEUT % 83.6 % (42.8-82.8); PLATELET COUNT 143 10^3/uL (134-434); RBC 3.59 M/mm3 (3.60-5.2); RDW 19.7 % (11.6-15.6); WHITE BLOOD COUNT 7.6 K/mm3 (4.0-10.0)
[2022-04-16 12:51] LABS: CHLORIDE 113 mmol/L (98-107); SODIUM 145 mmol/L (136-145)
[2022-04-16 12:55] LABS: ALBUMIN 1.8 g/dl (3.4-5.0); GLUCOSE,RANDOM 55 mg/dL (74-106)
[2022-04-16] MEDS: VANCOMYCIN/WATER FOR INJ (PEG) 1,000 MG/200 ML BAG IVPB SCH (12:55)
[2022-04-16 12:56] LABS: ANION GAP 15 MMOL/L (8-16); BLOOD UREA NITROGEN 12.4 mg/dL (7-18); CO2 17 mmol/L (21-32); MAGNESIUM 1.1 mg/dL (1.8-2.4)
[2022-04-16 12:58] LABS: CREATININE 1.2 mg/dL (0.55-1.3); SGOT/AST 45 U/L (15-37); SGPT/ALT 19 U/L (13-61)
[2022-04-16 12:59] LABS: TOT PROT 4.6 g/dl (6.4-8.2)
[2022-04-16 13:00] LABS: ALK PHOS 169 U/L (45-117)
[2022-04-16] MEDS ORDERED: VASOPRESSIN 20 UNITS/ML VIAL IV ONE (13:03)
[2022-04-16 13:08] LABS: CALCIUM 6.2 mg/dL (8.5-10.1)
[2022-04-16] MEDS ORDERED: VASOPRESSIN 40 UNITS/100 ML BAG IV SCH ×2 (13:15→22:45)
[2022-04-16] MEDS ORDERED: LACTATED RINGERS SOLUTION 1,000 ML/1,000 ML INFUS.BAG IV SCH (13:15)
[2022-04-16] MEDS ORDERED: NOREPINEPHRINE D5W PREMIX 16,000 MCG/500 ML BAG IVPB SCH ×2 (13:30→19:30)
[2022-04-16] MEDS: MUPIROCIN 2% TOPICAL OINTMENT FOR DECOLONIZATION NS SCH ×2 (14:56→23:31)
[2022-04-16] MEDS ORDERED: DEXTROSE 50%-WATER 25 GM/50 ML DISP.SYRIN ONE (16:40)
[2022-04-16] MEDS ORDERED: RAPID SEQUENCE INTUBATION KIT NR ONE (16:44)
[2022-04-16] MEDS ORDERED: PROPOFOL 1,000,000 MCG/100 ML VIAL ONE (17:13)
[2022-04-16] MEDS ORDERED: PROPOFOL 1,000,000 MCG/100 ML VIAL IVPB SCH (17:30)
[2022-04-16] MEDS ORDERED: SODIUM CHLORIDE 1,000 ML IV SCH (17:45)
[2022-04-16] MEDS ORDERED: EPINEPHrine 1:10,000 (P-F SYR) 1 MG/10 ML DISP.SYRIN ONE (17:47)
[2022-04-16] MEDS ORDERED: ATROPINE SULFATE 1 MG/10 ML DISP.SYRIN ONE (17:48)
[2022-04-16 17:56] LABS: ALLENS TEST POSITIVE; ARTERIAL BLD GAS O2 SATURATION 95.3 % (95-98); ARTERIAL BLOOD GAS BASE EXCESS -13.8 mmol/L (-2-2); ARTERIAL BLOOD GAS PO2 98.1 mmHg (80-100)
[2022-04-16 18:00] LABS: VENT MODE A/C; VENT RATE 12
[2022-04-16] MEDS ORDERED: VANCOMYCIN 250 MG/5 ML ORAL SOLUTION PO SCH (18:00)
[2022-04-16] MEDS ORDERED: SODIUM BICARBONATE 8.4% - 150 MEQ in DEXTROSE 5%-WATER - 950 ML IVPB SCH (19:30)
[2022-04-16 19:57] LABS: ARTERIAL BLOOD GAS pH 7.133 (7.350-7.450)
[2022-04-16 21:51] LABS: CHLORIDE 112 mmol/L (98-107); SODIUM 147 mmol/L (136-145)
[2022-04-16 21:54] LABS: MAGNESIUM 1.2 mg/dL (1.8-2.4)
[2022-04-16 21:55] LABS: ALBUMIN 1.9 g/dl (3.4-5.0); BLOOD UREA NITROGEN 12.1 mg/dL (7-18); CO2 16 mmol/L (21-32); GLUCOSE,RANDOM 191 mg/dL (74-106)
[2022-04-16 21:57] LABS: SGPT/ALT 39 U/L (13-61)
[2022-04-16 21:58] LABS: CREATININE 1.5 mg/dL (0.55-1.3); PHOSPHOROUS 1.8 mg/dL (2.5-4.9); SGOT/AST 91 U/L (15-37)
[2022-04-16 21:59] LABS: TOT PROT 4.2 g/dl (6.4-8.2)
[2022-04-16 22:00] LABS: BILIRUBIN,TOTAL 2.3 mg/dL (0.2-1)
[2022-04-16] MEDS ORDERED: CHLORHEXIDINE GLUCONATE 4% CLEANSER FOR DECOLONIZATION TP SCH (22:00)
[2022-04-16 22:01] LABS: ALK PHOS 193 U/L (45-117)
[2022-04-16 22:33] LABS: ANION GAP 20 MMOL/L (8-16); CALCIUM 6.4 mg/dL (8.5-10.1)
[2022-04-16] MEDS ORDERED: MAGNESIUM SULF 50% (8.12 MEQ/2 ML-1 GM VIAL) IVPB ONE (22:37)
[2022-04-16] MEDS: POTASSIUM CHLORIDE 20 MEQ PREMIX IVPB 100 ML IVPB SCH (23:00)
[2022-04-16] MEDS ORDERED: POTASSIUM PHOSPHATE 30 MM in DEXTROSE 5%-WATER - 250 ML IVPB ONE (23:46)
[2022-04-17 00:09] VITALS: BP 61/50
[2022-04-17] MEDS: POTASSIUM CHLORIDE 20 MEQ PREMIX IVPB 100 ML IVPB SCH ×2 (00:10→02:31)
[2022-04-17] MEDS ORDERED: PHENYLEPHRINE NS PREMIX 50,000 MCG/500 ML BAG CVP SCH (00:15)
[2022-04-17] MEDS ORDERED: LACTATED RINGERS SOLUTION 1000 ML INFUS.BAG IV ONE (00:40)
[2022-04-17 01:09] LABS: HEMATOCRIT 31.5 % (32.4-45.2); MCH 26.7 pg (25.7-33.7); MCHC 28.5 g/dl (32.0-36.0); MEAN CELL VOLUME 93.8 fl (80-96); MEAN PLT VOLUME 10.2 fl (7.5-11.1); PLATELET COUNT 65 10^3/uL (134-434); RBC 3.35 M/mm3 (3.60-5.2); RDW 21.4 % (11.6-15.6); WHITE BLOOD COUNT 3.3 K/mm3 (4.0-10.0)
[2022-04-17 01:10] VITALS: PULSE 69; TEMP 95
[2022-04-17 01:11] LABS: ARTERIAL BLD GAS O2 SATURATION 97.7 % (95-98); ARTERIAL BLOOD GAS BASE EXCESS -29.2 mmol/L (-2-2); ARTERIAL BLOOD GAS PO2 184.7 mmHg (80-100)
[2022-04-17 01:30] LABS: BLOOD UREA NITROGEN 12.1 mg/dL (7-18); CALCIUM 7.2 mg/dL (8.5-10.1)
[2022-04-17 01:33] LABS: CREATININE 1.5 mg/dL (0.55-1.3)
[2022-04-17 01:35] LABS: BILIRUBIN,TOTAL 1.9 mg/dL (0.2-1); TOT PROT 3.2 g/dl (6.4-8.2)
[2022-04-17 01:39] LABS: ALBUMIN 1.3 g/dl (3.4-5.0)
[2022-04-17 01:41] LABS: ALLENS TEST POSITIVE; VENT MODE A/C; VENT RATE 16
[2022-04-17 02:02] LABS: ARTERIAL BLOOD GAS pH 6.789 (7.350-7.450)
[2022-04-17 02:03] LABS: LACTIC ACID 24.7 mmol/L (0.4-2.0)
[2022-04-17] MEDS: VANCOMYCIN/WATER FOR INJ (PEG) 1,000 MG/200 ML BAG IVPB SCH (02:31)
[2022-04-17 03:18] LABS: ANISOCYTOSIS 2+; CORRECTED WBC 2.84 K/mm3; MACROCYTOSIS 1+; OVALOCYTE 1+; TEAR DROP CELLS 1+
== END 2022-04-17 01:46 | disposition expired | DRG 720 ==
LOC: JER 12:11 → JERBED 23:19 → JICU 04-16 09:16
PROVIDERS: ADMIT Internal Medicine; ATTEND Family Medicine
PROC: 05HM33Z Insertion of Infusion Device into Right Internal Jugular Vein, Percutaneous Approach (ICD-10-PCS; principal; 2022-04-16)
PROC: B543ZZA Ultrasonography of Right Jugular Veins, Guidance (ICD-10-PCS; 2022-04-16)
PROC: 0BH17EZ Insertion of Endotracheal Airway into Trachea, Via Natural or Artificial Opening (ICD-10-PCS; 2022-04-16)
PROC: 5A1935Z Respiratory Ventilation, Less than 24 Consecutive Hours (ICD-10-PCS; 2022-04-16)
PROC: 5A12012 Performance of Cardiac Output, Single, Manual (ICD-10-PCS; 2022-04-16)
DX: A41.89 Other specified sepsis (principal); R65.21 Severe sepsis with septic shock; E78.5 Hyperlipidemia, unspecified; I25.10 Atherosclerotic heart disease of native coronary artery without angina pectoris; E03.9 Hypothyroidism, unspecified; R62.7 Adult failure to thrive; Z68.22 Body mass index [BMI] 22.0-22.9, adult; E87.6 Hypokalemia; E86.0 Dehydration; G92.8 Other toxic encephalopathy; J90 Pleural effusion, not elsewhere classified; N17.9 Acute kidney failure, unspecified; E23.0 Hypopituitarism; E27.40 Unspecified adrenocortical insufficiency; A09 Infectious gastroenteritis and colitis, unspecified; N39.0 Urinary tract infection, site not specified; I12.9 Hypertensive chronic kidney disease with stage 1 through stage 4 chronic kidney disease, or unspecified chronic kidney disease; E11.22 Type 2 diabetes mellitus with diabetic chronic kidney disease; N18.30 Chronic kidney disease, stage 3 unspecified; D64.9 Anemia, unspecified; I95.9 Hypotension, unspecified; R68.0 Hypothermia, not associated with low environmental temperature; Z88.0 Allergy status to penicillin; R94.5 Abnormal results of liver function studies; J96.00 Acute respiratory failure, unspecified whether with hypoxia or hypercapnia; I46.9 Cardiac arrest, cause unspecified
CPT/HCPCS: 36415; 36600; 70450-TC; 71045-TC-FY; 71046-TC-FY; 71275-TC; 74176-TC; 80053; 81003; 82803; 82962; 83605; 83690; 83735; 84100; 84436; 84439; 84443; 84481; 84484; 85025; 87040; 87086; 87186; 93005; 93010; 99285-25; C9803-CS; J3490; Q9967; U0003; U0005